=== PATIENT | female | born 1955 | race Caucasian/White ===

== ENCOUNTER → 2024-05-30 12:35 | Outpatient (REF) | payer MEDICARE, OTHER, SELFPAY | LOC: RAD 12:35 | PROVIDERS: ATTENDING PHYSICIAN Surgery Vascular Surgery; FAMILY PHYSICIAN Internal Medicine | DX: I73.9 Peripheral vascular disease, unspecified (principal); I87.2 Venous insufficiency (chronic) (peripheral); Z89.511 Acquired absence of right leg below knee; T82.598A Other mechanical complication of other cardiac and vascular devices and implants, initial encounter; T82.858A Stenosis of other vascular prosthetic devices, implants and grafts, initial encounter; Y82.8 Other medical devices associated with adverse incidents | CPT/HCPCS: 93922; 93925; 93971 ==

== ENCOUNTER → 2024-09-02 10:27 | Outpatient (REF) | payer OTHER, MEDICARE, SELFPAY | LOC: RAD 10:27 | PROVIDERS: ATTENDING PHYSICIAN Physician Assistant; FAMILY PHYSICIAN Internal Medicine | DX: I87.2 Venous insufficiency (chronic) (peripheral) (principal) | CPT/HCPCS: 93922; 93925; 93971 ==

== ENCOUNTER 2024-09-02 19:05 | Inpatient (IN) | payer MEDICARE, OTHER, SELFPAY ==
[2024-09-02 13:39] VITALS: BP 131/68
--- NOTE | 2024-09-02 13:45 | ED.GENMED ---
ED Provider Triage
<Bryce Gregg PA-C - Last Filed: 09/02/24 13:47>
-
Patient seen by provider in Triage?: Seen in Triage
Attestation: A medical screening examination has been initiated by a qualified medical provider. Based on the assessment performed at this time, it has been determined that an emergent medical condition may exist and the patient has been informed
that further medical evaluation and possible additional diagnostic testing may be needed.
HPI: 69-year-old female with multiple medical comorbidities presents upon referral from vascular surgery, in summary she is a new patient vascular surgery and had ultrasounds performed in the office showing a new DVT despite being on Eliquis for
A-fib as well as an occluded bypass graft in the left lower extremity. Will require admission for heparin and vascular intervention tomorrow
GENERAL: Alert , in no apparent distress
EYE: No visual abnormalities.
NECK: Trachea midline
ENT: No visible abnormalities.
LUNGS: No acute respiratory distress
NEUROLOGICAL: Alert and oriented
SKIN: Skin intact. No visible changes.
MUSCULOSKELETAL: Moving extremities normally
PSYCH: Normal and appropriate interaction.
This is a medical evaluation conducted in person to initiate diagnostic evaluation and provide initial therapeutics. Please see further documentation by the treating clinician.
History of Present Illness
<Bryce Gregg PA-C - Last Filed: 09/02/24 13:47>
General
Chief Complaint: Skin Problem
Time Seen by Provider: 09/02/24 16:02
<Winston Shook Jr., PA-C - Last Filed: 09/02/24 16:43>
General
Source: patient
Exam Limitations: none
Nursing documentation reviewed up to this point in time: agreed with
History of Present Illness
History of Present Illness:
69-year-old female past medical history of A-fib currently on Eliquis also diabetic and anemic presenting to the emergency department after being sent in by vascular surgery with concerns of bypass occlusion to the left leg as well as new DVT.
Vascular has already seen the patient as well as rapid assessment of the patient. Vascular surgery is recommending starting heparin and admitting n.p.o. midnight for potential procedure tomorrow. Also recommending hematology consultation as well
as wound care consultation
Review of Systems
<Wniston Shook Jr., PA-C - Last Filed: 09/02/24 16:43>
Review of Systems
Allergies reviewed?: Yes
All Other Systems: ROS reviewed and negative except as documented in HPI and ROS
Phy Exam
<Winston Shook Jr., PA-C - Last Filed: 09/02/24 16:43>
Physical Exam
Physical Exam:
GENERAL: Alert , in no apparent distress
EYE: pupils equal and reactive
NECK: Supple, no significant adenopathy.
ENT: o/p clr, mmm.
CARDIAC: Regular rate and rhythm .
LUNGS: Clear breath sounds bilaterally, no acute respiratory distress, no wheezes/rales/rhonchi
ABDOMEN: Soft, without focal tenderness, no r/g, no cvat
NEUROLOGICAL: Alert and oriented, no focal neuro deficits
SKIN: Warm and dry, skin intact.
MUSCULOSKELETAL: BKA right leg, left leg red swelling to
PSYCH: Normal and appropriate interaction.
Course
<Bryce Gregg PA-C - Last Filed: 09/02/24 13:47>
Orders/Labs/Results
Orders:
Orders
09/02/24 13:50
Complete Blood Count/With Diff Urgent
Comprehensive Metabolic Panel Urgent
PTT Urgent
Prothrombin Time Urgent
Abnormal Lab Results
09/02/24
13:50
RBC 3.31 L 10^6/uL
(4.20-5.40)
Hgb 9.9 L g/dL
(12.0-16.0)
Hct 30.9 L %
(37.0-47.0)
MCHC 32.0 L g/dL
(33.0-37.0)
Abs Immat Gran (auto) 0.1 H 10^3/uL
(0-0.05)
Absolute Lymphs (auto) 0.8 L 10^3/uL
(1.2-3.4)
Absolute Monos (auto) 0.8 H 10^3/uL
(0.1-0.6)
Immature Gran % 0.9 H %
(0-0.5)
Lymphocytes % 11.4 L %
(20.5-51.1)
Monocytes % 11.4 H %
(1.7-9.3)
PT 24.0 H Sec
(11.4-14.6)
BUN 28 H mg/dl
(7-17)
Creatinine 2.2 H mg/dL
(0.6-1.0)
Glucose 151 H mg/dl
(70-99)
Total Protein 6.2 L g/dl
(6.3-8.2)
Albumin 3.4 L g/dl
(3.5-5.0)
09/02/24 13:50
09/02/24 13:50
Vital Signs
Initial and Last Documented VS:
Initial Vital Signs
Temp Pulse Resp BP Pulse Ox
98.2 F 85 20 131/68 96
09/02/24 13:39 09/02/24 13:39 09/02/24 13:39 09/02/24 13:39 09/02/24 13:39
Last Documented Vital Signs
Temp Pulse Resp BP Pulse Ox
98.2 F 68 18 144/82 96
09/02/24 13:39 09/02/24 16:13 09/02/24 16:13 09/02/24 16:13 09/02/24 16:13
<Winston Shook Jr., PA-C - Last Filed: 09/02/24 16:43>
Orders/Labs/Results
Orders:
Orders
09/02/24 13:50
Complete Blood Count/With Diff Urgent
Comprehensive Metabolic Panel Urgent
PTT Urgent
Prothrombin Time Urgent
Abnormal Lab Results
09/02/24
13:50
RBC 3.31 L 10^6/uL
(4.20-5.40)
Hgb 9.9 L g/dL
(12.0-16.0)
Hct 30.9 L %
(37.0-47.0)
MCHC 32.0 L g/dL
(33.0-37.0)
Abs Immat Gran (auto) 0.1 H 10^3/uL
(0-0.05)
Absolute Lymphs (auto) 0.8 L 10^3/uL
(1.2-3.4)
Absolute Monos (auto) 0.8 H 10^3/uL
(0.1-0.6)
Immature Gran % 0.9 H %
(0-0.5)
Lymphocytes % 11.4 L %
(20.5-51.1)
Monocytes % 11.4 H %
(1.7-9.3)
PT 24.0 H Sec
(11.4-14.6)
BUN 28 H mg/dl
(7-17)
Creatinine 2.2 H mg/dL
(0.6-1.0)
Glucose 151 H mg/dl
(70-99)
Total Protein 6.2 L g/dl
(6.3-8.2)
Albumin 3.4 L g/dl
(3.5-5.0)
09/02/24 13:50
09/02/24 13:50
Vital Signs
Initial and Last Documented VS:
Initial Vital Signs
Temp Pulse Resp BP Pulse Ox
98.2 F 85 20 131/68 96
09/02/24 13:39 09/02/24 13:39 09/02/24 13:39 09/02/24 13:39 09/02/24 13:39
Last Documented Vital Signs
Temp Pulse Resp BP Pulse Ox
98.2 F 68 18 144/82 96
09/02/24 13:39 09/02/24 16:13 09/02/24 16:13 09/02/24 16:13 09/02/24 16:13
<Winston Shook Jr., PA-C - Last Filed: 09/02/24 16:43>
MDM/Problems Addressed
MDM/Problems Addressed:
69-year-old female presenting to the emergency department with concerns of new DVT despite being on Eliquis as well as bypass graft occlusion that was found at an outpatient vascular surgery follow-up today with Dr. Rivera. Here patient in no obvious
distress vital signs are normal. Labs showing elevated creatinine level however patient does have kidney disease by self-report. Plan to admit for heparin and further specialty consultation.
<Winston Shook Jr., PA-C - Last Filed: 09/02/24 16:43>
*Critical Care Note
Total Time (30-74mins, 75-104mins- exclusive of procedures): Not Applicable
ED Attending Note
<Bryce Gregg PA-C - Last Filed: 09/02/24 13:47>
-
Portions of this chart may have been created with voice recognition software.� Occasional wrong word or��sound alike� substitutions may have occurred due to the inherent limitations of voice recognition software.
Discharge Plan
Departure
Patient Disposition: Admit
Date of Disposition: 09/02/24
Time of Disposition: 16:42
Admit to: Telemetry
Admit to doctor: Veldanda
Presentation/result/management discussed w/ accepting MD/DO: Hospitalist
Patient with high blood pressure during this ER visit?: No
Condition: Good
Covid-19: Not Applicable
Discharge Problem:
DVT (deep venous thrombosis), Leg graft occlusion
Prescriptions:
No Action
acetaminophen [Tylenol] 325 mg Tablet
975 mg PO Q8H MDD 3000 mg
acetaminophen [Tylenol] 325 mg Tablet
650 mg PO Q6HPRN MDD 3000 mg PRN (Reason: mold pain/fever >100.4)
ipratropium-albuterol 0.5 mg-3 mg(2.5 mg base)/3 mL Solution For Nebulization
3 ml INHALATION R TID
ammonium lactate 12 % Lotion
1 applic TOPICAL TID
atorvastatin 10 mg Tablet
10 mg PO HS
guaifenesin 100 mg/5 mL Liquid
200 mg PO Q4HPRN PRN (Reason: cough)
lamotrigine 25 mg Tablet
50 mg PO HS
levothyroxine 100 mcg Tablet
100 mcg PO HS
magnesium hydroxide [Milk of Magnesia] 400 mg/5 mL Suspension
30 ml PO DAILYPRN PRN (Reason: constipation)
tamsulosin 0.4 mg Capsule
0.4 mg PO DAILY
trazodone 100 mg Tablet
100 mg PO HS
sodium bicarbonate 650 mg Tablet
1,300 mg PO BID
bisacodyl 10 mg Suppository
10 mg CO DAILYPRN PRN (Reason: if mom ineffective)
pantoprazole 40 mg Tablet,Delayed Release (Dr/Ec)
40 mg PO DAILY
ferrous sulfate 325 mg (65 mg iron) Tablet
325 mg PO DAILY
Enema 19-7 gram/118 mL Enema
118 ml CO DAILYPRN PRN (Reason: if no result aftr bisacodyl)
gabapentin 300 mg Capsule
300 mg PO BID
aspirin 81 mg Tablet,Chewable
81 mg PO DAILY
folic acid 1 mg Tablet
1 mg PO DAILY
nystatin 100,000 unit/gram Powder
1 applic TOPICAL BID
oxycodone 5 mg Tablet
5 mg PO Q6HPRN PRN (Reason: mod-severe pain)
Saccharomyces boulardii 250 mg Capsule
250 mg PO BID
pregabalin 50 mg Capsule
50 mg PO BID
melatonin 5 mg Tablet
10 mg PO HS
cholecalciferol (vitamin D3) [Vitamin D3] 50 mcg (2,000 unit) Tablet
50 mcg PO HS
Eliquis 5 mg Tablet
5 mg PO BID
alogliptin 6.25 mg Tablet
6.25 mg PO DAILY
Interventions
Interventions:
*Risk Screen - Suicide Last Done: 09/02/24 13:39
*General Assessment Last Done: 09/02/24 16:13
*Neglect/Abuse Screening Last Done: 09/02/24 16:13
ED-Skin Assessment Last Done: 09/02/24 16:13
Discharge Date and Time
Print Language: MALAWIAN
[2024-09-02 13:55] LABS: % Basophils 0.4 % (0-2); % Eosinophils 5.3 % (0-6); % Immature Granulocytes 0.9 % (0-0.5); % Lymphocytes 11.4 % (20.5-51.1); % Monocytes 11.4 % (1.7-9.3); % Neutrophils 70.6 % (42.2-75.2); Absolute Eosinophils 0.4 10^3/uL (0-0.7); Absolute Immature Granulocytes 0.1 10^3/uL (0-0.05); Absolute Lymphocytes 0.8 10^3/uL (1.2-3.4); Absolute Monocytes 0.8 10^3/uL (0.1-0.6); Absolute Neutrophils 4.8 10^3/uL (1.4-6.5); Hematocrit 30.9 % (37.0-47.0); Hemoglobin 9.9 g/dL (12.0-16.0); Mean Corpuscular Hgb 29.9 pg (27.0-31.0); Mean Corpuscular Volume 93.4 fL (81.0-99.0); Mean Platelet Volume 9.1 fL (7.4-10.4); Nucleated Red Blood Cells % 0 %; Platelet Count 145 10^3/uL (130-400); Red Blood Cell Count 3.31 10^6/uL (4.20-5.40); Red Cell Dist. Width 14.5 % (11.5-14.5); White Blood Cell Count 6.8 10^3/uL (4.8-10.8)
[2024-09-02 14:06] LABS: INR 2.17
[2024-09-02 14:07] LABS: APTT 34.9 Sec (23.4-35.0)
[2024-09-02 14:30] LABS: ALT (SGPT) 13 U/L (0-35); AST (SGOT) 17 U/L (14-36); Albumin 3.4 g/dl (3.5-5.0); Alkaline Phosphatase 90 U/L (38-126); Blood Urea Nitrogen 28 mg/dl (7-17); Calcium 8.9 mg/dl (8.4-10.2); Carbon Dioxide 23 mmol/L (22-30); Chloride 105 mmol/L (98-107); Glucose 151 mg/dl (70-99); Potassium 4.3 mmol/L (3.5-5.1); Sodium 140 mmol/L (135-145); Total Bilirubin 0.4 mg/dl (0.2-1.3); Total Protein 6.2 g/dl (6.3-8.2); eGFR 23.97
--- NOTE | 2024-09-02 16:09 | W.PN.UPDATE ---
Update Note
Progress Note Update
Patient was seen today in our vascular surgery office with Dr. Chadd Rivera, please see note below.
Plan:
Recommend admitting to medicine team for medical management of chronic conditions
Recommend initiation of heparin infusion for DVT, will consider patient Eliquis failure
Recommend hematology consultation given development of DVT while on anticoagulation
Wound care consultation
Will add to the OR schedule for tomorrow for angiogram of left lower extremity with Dr. Chadd Rivera
N.p.o. at midnight
[2024-09-02 16:13] VITALS: BP 144/82
[2024-09-02 17:04] VITALS: BP 123/72
[2024-09-02 17:08] VITALS: BMI 31.4
--- NOTE | 2024-09-02 18:41 | HPS.HSE ---
Family Physician
-
Family Physician: Cedrick Pugh, DO
Chief Complaint
-
left leg pain
History of Present Illness
69-year-old female past medical history of PAD, paroxysmal atrial fibrillation on Eliquis, diabetes, anemia, tubulointerstitial nephritis, CKD 4, rosacea, GERD, hypothyroidism, hyperlipidemia, anxiety/depression, polyneuropathy, presenting as a
referral from vascular surgery. She has been having left lower extremity pain for the past few weeks. She had vascular ultrasound showing new DVT despite being on Eliquis as well as occluded bypass graft and left lower extremity. She has a wound
of her left lower extremity
He denies smoking alcohol use.
Medical History
Past Medical History
Past Medical History: Reports Other (PAD, paroxysmal atrial fibrillation on Eliquis, diabetes, anemia, tubulointerstitial nephritis, CKD 4, rosacea, GERD, hypothyroidism, hyperlipidemia, anxiety/depression, polyneuropathy)
Past Surgical History: Reports None
Social History
Tobacco: Non-smoker
Alcohol: None
Drug: None
Family History
Family History: Not pertinent
Allergies / Home Medications
Allergies reflects when Allergies were last updated in [employer].
Home Medications with original date entered in [employer]
Allergy/Medication List:
Allergies
Allergy/AdvReac Type Severity Reaction Status Date / Time
No Known Allergies Allergy Unverified 09/02/24 13:39
Home Medications
Saccharomyces boulardii 250 mg capsule 250 mg PO BID 09/02/24
acetaminophen 325 mg tablet (Tylenol) 650 mg PO Q6HPRN PRN mold pain/fever >100.4 09/02/24
acetaminophen 325 mg tablet (Tylenol) 975 mg PO Q8H 09/02/24
alogliptin 6.25 mg tablet 6.25 mg PO DAILY 09/02/24
ammonium lactate 12 % lotion 1 applic topical TID left leg 09/02/24
apixaban 5 mg tablet (Eliquis) 5 mg PO BID 09/02/24
aspirin 81 mg chewable tablet 81 mg PO DAILY 09/02/24
atorvastatin 10 mg tablet 10 mg PO HS 09/02/24
bisacodyl 10 mg rectal suppository 10 mg [place] DAILYPRN PRN if mom ineffective 09/02/24
cholecalciferol (vitamin D3) 50 mcg (2,000 unit) tablet (Vitamin D3) 50 mcg PO HS 09/02/24
ferrous sulfate 325 mg (65 mg iron) tablet 325 mg PO DAILY 09/02/24
folic acid 1 mg tablet 1 mg PO DAILY 09/02/24
gabapentin 300 mg capsule 300 mg PO BID 09/02/24
guaifenesin 100 mg/5 mL oral liquid 200 mg PO Q4HPRN PRN cough 09/02/24
ipratropium 0.5 mg-albuterol 3 mg (2.5 mg base)/3 mL nebulization soln 3 ml inhalation R TID 09/02/24
lamotrigine 25 mg tablet 50 mg PO HS 09/02/24
levothyroxine 100 mcg tablet 100 mcg PO HS 09/02/24
magnesium hydroxide 400 mg/5 mL oral suspension (Milk of Magnesia) 30 ml PO DAILYPRN PRN constipation 09/02/24
melatonin 5 mg tablet 10 mg PO HS 09/02/24
nystatin 100,000 unit/gram topical powder 1 applic topical BID breasts, abdomen, groin 09/02/24
oxycodone 5 mg tablet 5 mg PO Q6HPRN PRN mod-severe pain 09/02/24
pantoprazole 40 mg tablet,delayed release 40 mg PO DAILY 09/02/24
pregabalin 50 mg capsule 50 mg PO BID 09/02/24
sodium bicarbonate 650 mg tablet 1,300 mg PO BID 09/02/24
sodium phosphates 19 gram-7 gram/118 mL enema (Enema) 118 ml [place] DAILYPRN PRN if no result aftr bisacodyl 09/02/24
tamsulosin 0.4 mg capsule 0.4 mg PO DAILY 09/02/24
trazodone 100 mg tablet 100 mg PO HS 09/02/24
Review of Systems
-
History Source: Patient
A 12 point ROS was completed and negative except as noted: Yes
Constitutional: Reports No Symptoms
EENT: Reports No Symptoms
Respiratory: Reports No Symptoms
Cardiac: Reports No Symptoms
Abdomen/GI: Reports No Symptoms
: Reports No Symptoms
Musculoskeletal: Reports No Symptoms
Skin: Reports No Symptoms
Neurological: Reports No Symptoms
Endocrine: Reports No Symptoms
Hematologic/Lymphatic: Reports No Symptoms
Psych: Reports No Symptoms
Physical Exam
Vital Signs
Vital Signs
Temp Pulse Resp BP Pulse Ox
98.2 F 71 18 123/72 96
09/02/24 13:39 09/02/24 17:04 09/02/24 17:04 09/02/24 17:04 09/02/24 17:04
Physical Exam
General: Well Developed, Well Nourished and No Apparent Distress
HEENT: NormoCephalic, Moist mucous membranes and Atraumatic
Respiratory: Clear
Cardiac: S1/S2 and Regular Rhythm; No Murmur or Rub
GI: Soft, Non Tender, Non Distended and Normal Bowel Sounds; No Organomegaly
Rectal: Deferred by Provider
Musculoskeletal: No Clubbing, No Cyanosis and No Edema
Skin: No Rash
Neuro: Nonfocal/grossly intact
Laboratory Results
-
09/02/24 13:50
Laboratory Results
PT 24.0 Sec (11.4-14.6) H 09/02/24 13:50
INR 2.17 09/02/24 13:50
APTT 34.9 Sec (23.4-35.0) 09/02/24 13:50
Total Bilirubin 0.4 mg/dl (0.2-1.3) 09/02/24 13:50
AST 17 U/L (14-36) 09/02/24 13:50
ALT 13 U/L (0-35) 09/02/24 13:50
Alkaline Phosphatase 90 U/L (38-126) 09/02/24 13:50
Data Reviewed
-
Lab Data: Labs Reviewed by me
Old Records: Reviewed
Impression/Plan
-
IMPRESSION:
PLAN:
# DVT of left thigh while on Eliquis
# Occluded bypass graft of left lower extremity
# History of PAD status post bypass of left lower extremity 4 years ago
-N.p.o. postmidnight for angiogram tomorrow
-Heparin drip
-Vascular following
-Hematology consulted
-Wound care consulted for superficial wound of left lower extremity
History of right BKA
Paroxysmal atrial fibrillation
-Heparin drip
Peripheral arterial disease
-Continue aspirin, statin
Type 2 diabetes
-Hold alogliptin
-Insulin sliding scale
Diabetic neuropathy
-Continue gabapentin
Chronic anemia
CKD 4
-Creatinine of 2.2, no previous lab work available
-Continue sodium bicarbonate
History of renal calculi
GERD
-Continue Protonix
Hypothyroidism
-Continue levothyroxine
Hyperlipidemia
Anxiety/depression
Full code
DVT prophylaxis-heparin drip
N.p.o. past midnight
[2024-09-02] MEDS: HEPARIN 25000 UNITS/250 ML IV (19:54)
[2024-09-02 19:55] VITALS: BP 124/66
[2024-09-02 21:00] VITALS: BP 148/75; BMI 30.3
[2024-09-02] MEDS: SODIUM BICARBONATE 1300 MG PO (21:24)
[2024-09-02] MEDS: LAMICTAL 50 MG PO (21:25)
[2024-09-02] MEDS: VITAMIN D3 (cholecalciferol) 50 MCG PO (21:27)
[2024-09-02] MEDS: SYNTHROID 100 MCG PO (21:27)
[2024-09-02] MEDS: DESYREL 100 MG PO (21:27)
[2024-09-02] MEDS: LIPITOR 10 MG PO (21:28)
[2024-09-02] MEDS: MELATONIN 10 MG PO (21:28)
[2024-09-02] MEDS: FLORASTOR 250 MG PO (21:29)
[2024-09-02] MEDS: LAC HYDRIN, AM LACTIN LOTION 1 APPLIC TOPICAL (21:30)
[2024-09-02] MEDS: DESENEX/MITRAZOL/ZEASORB 1 APPLIC TOPICAL (21:31)
[2024-09-02 21:35] LABS: Glucose - Point of Care 115 mg/dl (70-99)
[2024-09-02] MEDS: ROXICODONE 5 MG PO (21:37)
--- NOTE | 2024-09-02 21:45 | TRANSFER ---
pt arrived via stretcher from ED accompanied by staff from ED. pt was a pullover from stretcher to bed. VSS, AAOx3. pt was on heparin gtt upon arrival infusing at 1600 units. pt oriented to room, call willams within reach, plan of care ongoing.
[2024-09-02] MEDS: NEURONTIN 300 MG PO (21:50)
[2024-09-02] MEDS: DUONEB 3 ML INH (21:54)
[2024-09-02 23:32] VITALS: BP 115/57
[2024-09-02 23:41] LABS: Hematocrit 28.1 % (37.0-47.0); Hemoglobin 9.2 g/dL (12.0-16.0); Mean Corp Hgb Conc. 32.7 g/dL (33.0-37.0); Mean Corpuscular Hgb 30.4 pg (27.0-31.0); Mean Corpuscular Volume 92.7 fL (81.0-99.0); Mean Platelet Volume 9.3 fL (7.4-10.4); Platelet Count 129 10^3/uL (130-400); Red Blood Cell Count 3.03 10^6/uL (4.20-5.40); Red Cell Dist. Width 14.4 % (11.5-14.5); White Blood Cell Count 5.5 10^3/uL (4.8-10.8)
[2024-09-02] MEDS: TYLENOL 975 MG PO (23:59)
[2024-09-03] VITALS (14 sets, daily range): BP systolic 102–139; BP diastolic 56–91; BMI 30.3
[2024-09-03 02:42] LABS: APTT 196.8 Sec (23.4-35.0)
[2024-09-03] MEDS: TYLENOL 650 MG PO (03:03)
[2024-09-03 06:18] LABS: Glucose - Point of Care 90 mg/dl (70-99)
[2024-09-03 07:24] LABS: % Basophils 0.5 % (0-2); % Eosinophils 9.5 % (0-6); % Immature Granulocytes 0.7 % (0-0.5); % Lymphocytes 21.5 % (20.5-51.1); % Monocytes 11.1 % (1.7-9.3); % Neutrophils 56.7 % (42.2-75.2); Absolute Eosinophils 0.4 10^3/uL (0-0.7); Absolute Monocytes 0.5 10^3/uL (0.1-0.6); Absolute Neutrophils 2.5 10^3/uL (1.4-6.5); Hematocrit 29.1 % (37.0-47.0); Hemoglobin 9.3 g/dL (12.0-16.0); Mean Corpuscular Hgb 30.4 pg (27.0-31.0); Mean Corpuscular Volume 95.1 fL (81.0-99.0); Mean Platelet Volume 9.5 fL (7.4-10.4); Nucleated Red Blood Cells % 0 %; Platelet Count 129 10^3/uL (130-400); Red Blood Cell Count 3.06 10^6/uL (4.20-5.40); Red Cell Dist. Width 14.4 % (11.5-14.5); White Blood Cell Count 4.4 10^3/uL (4.8-10.8)
[2024-09-03] MEDS: DUONEB 3 ML INH ×2 (07:48→19:15)
[2024-09-03 08:15] LABS: Glycohemoglobin (HgbA1c) 5.7 % (4.0-5.6)
[2024-09-03] MEDS: NOVOLOG FLEXPEN-LOW RESISTANCE SC ×3 (09:18→18:54)
[2024-09-03] MEDS: DESENEX/MITRAZOL/ZEASORB 1 APPLIC TOPICAL (09:20)
[2024-09-03] MEDS: PROTONIX 40 MG PO (09:21)
[2024-09-03] MEDS: LAC HYDRIN, AM LACTIN LOTION 1 APPLIC TOPICAL ×2 (09:21→20:20)
[2024-09-03] MEDS: NEURONTIN 300 MG PO ×2 (09:21→20:16)
[2024-09-03] MEDS: FLORASTOR 250 MG PO ×2 (09:22→20:16)
[2024-09-03] MEDS: FOLVITE 1 MG PO (09:22)
[2024-09-03] MEDS: SODIUM BICARBONATE 1300 MG PO ×2 (09:22→20:16)
[2024-09-03] MEDS: FLOMAX 0.4 MG PO (09:22)
[2024-09-03] MEDS: TYLENOL 975 MG PO ×2 (09:22→23:35)
[2024-09-03] MEDS: LOW STRENGTH ASPIRIN 81 MG PO (09:22)
[2024-09-03] MEDS: FEOSOL 325 MG PO (09:22)
--- NOTE | 2024-09-03 10:25 | WOUNDNOTE ---
HAIDER RN note: Patient admitted with DVT and L graft Occlusion.
See H&P for complete history. From [facility].
PMH: R BKA, A Fib, UTI, stress incontinence, DM, Skin cancer, Sepsis, anxiety and depression.
Wound Location and type/assessment: Patient admitted with: L medial leg arterial ulcer, Full thickness, Dry red mixed with moderate dry slough. Does not appear infected, scant drainage no odor. + pulse audible with Doppler. Skin warm and dry,
Ammonia Lactate lotion on order. L heel intact, R BKA intact small dry red abrasion, anterior lateral. Patient able to turn self, incontinent of urine. Sacrum intact, brief changed, ties loose. R medial thigh has linear red abrasion, no drainage.
Fungal powder on order for mild MASD in skin folds. Reviewed vascular note.
Appetite: NPO
Pressure redistribution devices in place: On Versa care air bed. Turns easily.
Plan: Patient for Angiogram tomorrow per vascular note. Will order Santyl to start tomorrow to L leg wound. Today applied adaptic, abd pad and neymar. Adhesive foam applied to L heel and air cushion on pillow under calve. R medial thigh skin prep and
Exuderm thin applied. Skin care given and brief changed, fungal powder applied to buttocks. Spoke to nurse Parrish who was made aware of the above and asked to apply Purwick for urinary incontinence.
Will confirm orders with hospitalist and update care plan, follow as needed.
Note to case management of equipment requested for discharge: None.
Recommend follow up with Vascular group.
--- NOTE | 2024-09-03 10:57 | W.PN.HOSP.TC ---
Today's Communication/Plan
-
see outlined plan
Assessment / Plan
Assessment / Plan
Assessment:
Occluded bypass graft of left lower extremity
History of PAD status post bypass of left lower extremity 4 years ago, on Eliquis
- NPO p MN for angiogram today with Vascular service
- continue IV heparin - requires intensive monitoring of PTT levels
Acute DVT
- US: nonocclusive thrombus formation in the left superficial femoral vein and popliteal vein
- with development of above occlusion, deeming this Eliquis failure
- Hematology consulted for recs on changing anticoagulation
L medial leg arterial ulcer, Full thickness, Dry red mixed with moderate dry slough. scant drainage no odor.
R BKA intact small dry red abrasion, anterior lateral.
R medial thigh has linear red abrasion, no drainage.
- all present on arrival
- follow wound care recs
History of right BKA
Paroxysmal atrial fibrillation
- continue IV heparin - requires intensive monitoring of PTT levels
Peripheral arterial disease
- continue aspirin, statin
Type 2 diabetes
- hold alogliptin
- insulin sliding scale
Diabetic neuropathy
- continue gabapentin/pregabalin
Chronic anemia
CKD 4 suspected
- creatinine of 2.2, no previous lab work available
- continue sodium bicarbonate
History of renal calculi
- continue Flomax
GERD
- continue Protonix
Hypothyroidism
- continue levothyroxine
Hyperlipidemia - statin
Anxiety/depression
- continue Trazodone/Lamictal
DVT ppx: IV heparin
Code: Full
Anticipated Discharge: > 48 hours
Subjective/Interval History
-
Date of Service: September 03, 2024
denies any new complaints
Objective Data
-
Labs:
Laboratory Results
09/02/24 09/02/2424
21:02 23:28 02:02
WBC 5.5
Hgb 9.2 L
Hct 28.1 L
Plt Count 129 L
APTT Cancelled 196.8 H*
Sodium
Potassium
Chloride
Carbon Dioxide
BUN
Creatinine
Glucose
Calcium
Total Bilirubin
AST
ALT
Alkaline Phosphatase
09/03/24 09/03/24
07:15 09:57
WBC 4.4 L
Hgb 9.3 L
Hct 29.1 L
Plt Count 129 L
APTT 141.0 H
Sodium Pending
Potassium Pending
Chloride Pending
Carbon Dioxide Pending
BUN Pending
Creatinine Pending
Glucose Pending
Calcium Pending
Total Bilirubin Pending
AST Pending
ALT Pending
Alkaline Phosphatase Pending
Vital Signs:
Vital Signs
Temp Pulse Resp BP Pulse Ox
97.4 F 66 18 102/56 94
09/03/24 08:04 09/03/24 08:04 09/03/24 08:04 09/03/24 08:04 09/03/24 08:04
I&O
09/02/24 09/03/24 09/04/24
06:59 06:59 06:59
Intake Total 0 / 0
Balance 0 / 0
Physical Exam
-
General: No Apparent Distress
HEENT: Normocephalic and Atraumatic
Respiratory: Negative Wheezes
Cardiac: Regular Rhythm and S1/S2
GI: Soft
Genito-urinary: No Costovertebral Tender
Musculoskeletal: No Edema and Other (RLE BKA)
Neuro: AO x 3
Hematologic / Lymphatic: No Lymphadenopathy
Psych: Calm
Data Reviewed
-
Total Time Spent with Patient (in minutes): 51
Labs: Labs Reviewed by me
[2024-09-03] MEDS: ROXICODONE 5 MG PO (11:09)
[2024-09-03 11:18] LABS: ALT (SGPT) 11 U/L (0-35); AST (SGOT) 20 U/L (14-36); Albumin 2.6 g/dl (3.5-5.0); Alkaline Phosphatase 80 U/L (38-126); Blood Urea Nitrogen 27 mg/dl (7-17); Calcium 8.7 mg/dl (8.4-10.2); Carbon Dioxide 23 mmol/L (22-30); Chloride 110 mmol/L (98-107); Estimated Creatinine Clearance 28 ml/min; Glucose 84 mg/dl (70-99); Potassium 4.3 mmol/L (3.5-5.1); Sodium 144 mmol/L (135-145); Total Bilirubin 0.4 mg/dl (0.2-1.3); Total Protein 5.2 g/dl (6.3-8.2); eGFR 23.97
[2024-09-03 12:29] LABS: Glucose - Point of Care 111 mg/dl (70-99)
[2024-09-03 14:57] LABS: Glucose - Point of Care 95 mg/dl (70-99)
--- NOTE | 2024-09-03 15:25 | W.SUR.PREOP ---
Pre-Operative Surgical Note
-
I have examined this patient prior to the performance of the scheduled procedure.
The patient's condition is unchanged from the time of the current History and
Physical and the patient is able to undergo the scheduled procedure.
[2024-09-03] MEDS: LAC HYDRIN, AM LACTIN LOTION TOPICAL (16:39)
[2024-09-03] MEDS: TYLENOL PO (16:39)
--- NOTE | 2024-09-03 16:48 | W.SUR.POST ---
Surgical Immediate Post Op
Note
Pre Op Diagnosis: PAD
Post Op Diagnosis: PAD
Procedure Performed: LLE angiogram, balloon angioplasty distal and proximal anastomoses
Primary Surgeon: Miguel
Anesthesia: local and sedation
Estimated Blood Loss: <2cc
Fluids: see anesthesia flow sheet
Drains/Shunts: none
Specimens/Cultures: none
Doppler/Duplex/Angio (Y/N): Y
Complications: none
Operative Findings: successful endovascular intervention
[2024-09-03 17:39] LABS: Glucose - Point of Care 105 mg/dl (70-99)
[2024-09-03] MEDS: DUONEB INH (18:06)
--- NOTE | 2024-09-03 18:44 | PTCARENOTE ---
pt back from brine room laborer s/p left LE angioplasty. pt AAO*3, Vss, room air. denies any pain. pt is in ther room. bedrest. call willams within the reach.
[2024-09-03] MEDS: NSS 1000 IV (18:46)
[2024-09-03 18:50] LABS: Glucose - Point of Care 112 mg/dl (70-99)
[2024-09-03] MEDS: MELATONIN 10 MG PO (20:16)
[2024-09-03] MEDS: LAMICTAL 50 MG PO (20:17)
[2024-09-03] MEDS: VITAMIN D3 (cholecalciferol) 50 MCG PO (20:17)
[2024-09-03] MEDS: DESYREL 100 MG PO (20:17)
[2024-09-03] MEDS: SYNTHROID 100 MCG PO (20:17)
[2024-09-03] MEDS: LIPITOR 10 MG PO (20:17)
[2024-09-03] MEDS: DESENEX/MITRAZOL/ZEASORB TOPICAL (20:32)
[2024-09-03 21:21] LABS: Glucose - Point of Care 107 mg/dl (70-99)
[2024-09-03 22:08] LABS: APTT 36.2 Sec (23.4-35.0)
[2024-09-03] MEDS: HEPARIN 7300 UNITS IV (23:16)
[2024-09-03] MEDS: HEPARIN 25000 UNITS/250 ML IV (23:20)
[2024-09-04] VITALS (8 sets, daily range): BP systolic 107–143; BP diastolic 53–92; PULSE 92–93; O2SAT 94–95
[2024-09-04] MEDS: ROXICODONE 5 MG PO ×3 (02:57→21:26)
[2024-09-04 03:09] LABS: Hepatitis C Antibody Negative (Negative)
[2024-09-04] MEDS: NSS 1000 IV ×2 (03:30→16:52)
[2024-09-04] MEDS: ROBITUSSIN 200 MG PO ×2 (04:31→21:32)
[2024-09-04] MEDS: DILAUDID 0.25 MG IV (05:34)
[2024-09-04 06:53] LABS: Hematocrit 29.8 % (37.0-47.0); Hemoglobin 9.6 g/dL (12.0-16.0); Mean Corp Hgb Conc. 32.2 g/dL (33.0-37.0); Mean Corpuscular Hgb 31.8 pg (27.0-31.0); Mean Corpuscular Volume 98.7 fL (81.0-99.0); Mean Platelet Volume 9.5 fL (7.4-10.4); Platelet Count 124 10^3/uL (130-400); Red Blood Cell Count 3.02 10^6/uL (4.20-5.40); Red Cell Dist. Width 14.4 % (11.5-14.5); White Blood Cell Count 4.3 10^3/uL (4.8-10.8)
[2024-09-04 07:11] LABS: Blood Urea Nitrogen 25 mg/dl (7-17); Calcium 8.7 mg/dl (8.4-10.2); Carbon Dioxide 25 mmol/L (22-30); Chloride 110 mmol/L (98-107); Estimated Creatinine Clearance 28 ml/min; Glucose 84 mg/dl (70-99); Potassium 4.3 mmol/L (3.5-5.1); Sodium 146 mmol/L (135-145); eGFR 23.97
[2024-09-04] MEDS: DUONEB 3 ML INH ×3 (07:36→19:51)
[2024-09-04 07:49] LABS: APTT > 200 Sec (23.4-35.0)
--- NOTE | 2024-09-04 07:53 | OR.RPT ---
Operative Report
Operative Report
PROCEDURE DATE: 09/03/2024
Preoperative diagnosis:
1. Chronic limb threatening ischemia left lower extremity.
2. Left lower extremity femoral to anterior tibial artery bypass history, with evidence of stenosis on duplex imaging.
Postoperative diagnosis: Same
Procedure:
1. Duplex assisted right common femoral artery cannulation.
2. Aortogram and pelvic angiogram.
3. Left lower extremity arteriogram with third order vessel catheterization of left anterior tibial artery via right common femoral artery puncture.
4. Balloon angioplasty of distal anastomotic stenosis with 3 mm and 3.5 mm angioplasty balloon.
5. Balloon angioplasty of proximal anastomotic stenosis with 5 mm x 4 cm Bard Lutonix drug-coated balloon.
6. Right femoral angiogram.
7. Supervision and interpretation.
Surgeon: Miguel
Disease Case Manager Rn: None
Complications: None
Anesthesia: Local, sedation
Fluoroscopy:
10.4 min
89 mGy
22.58 Gy.cm2
Indications for procedure:
Chronic limb threatening ischemia with nonhealing left lower extremity wound. Also history of left lower extremity bypass with concern for progressive stenosis at the anastomosis raising concern for eventual graft failure, and potential arterial
insufficiency. Discussed risk/benefit/alternatives of revascularization. I did discuss that based on anatomy, anterior tibial artery revascularization though may not result in full wound healing. She understood all wish to proceed.
Description of procedure:
Patient was identified, brought to the operating room. Placed on the table in the supine position. After the adequate administration of anesthesia, the patient was prepped and draped in the standard surgical fashion. A standard preoperative
timeout was undertaken and everybody was in agreement with the plan.
The right common femoral artery was accessed with a micropuncture kit under direct duplex ultrasound guidance. A 5 Bahamian sheath was then advanced over a 0.035 inch wire, and a alfaro's hook catheter was advanced into the abdominal aorta.
Aortogram and pelvic angiogram was obtained. Findings as follows:
Distal infrarenal aorta and bilateral common and external iliac arteries were patent with no significant stenosis.
Using a floppy angled hydrophilic wire, the left common femoral artery was cannulated and the catheter was advanced. Left lower extremity arteriogram was obtained. Findings as follows:
Common femoral artery: Patent with no significant stenosis.
Profunda femoris artery: Patent with no significant stenosis, relatively high bifurcation of the femoral vessels.
Superficial femoral artery: Patent proximally with patent femoral (SFA) to anterior tibial artery bypass. Shortly beyond the anastomosis (proximal anastomosis) the SFA natively occluded. The bypass remained patent with high-grade proximal
anastomotic stenosis, and a lesser distal anastomotic stenosis.
Popliteal artery: Chronically occluded.
Anterior tibial artery: Patent single-vessel runoff somewhat diseased distally on the foot.
Tibial peroneal trunk: Chronically occluded
Peroneal artery: Chronically occluded
Posterior tibial artery: Chronically occluded
At this point I selectively cannulated the bypass graft (with the assistance of roadmap guidance). I was able to traverse the severe proximal stenosis (proximal anastomosis). The patient was given an appropriate dose of heparin. I then exchanged
for a Storq wire and an up and over 5 Bahamian sheath. Next under roadmap assisted guidance I was able to traverse the distal anastomotic lesser severe stenosis and gain wire access into the anterior tibial artery. I then exchanged for a 0.014 inch
wire and performed balloon angioplasty of the distal anastomotic stenosis with a 3 mm angioplasty balloon. Completion angiogram demonstrated some residual stenosis and therefore I used a 3.5 mm angioplasty balloon. Improved flow was noted, but
there was still some recalcitrant stenosis but I did not wish to go larger with the balloon or to stent given concerns therein. I felt that the residual stenosis was relatively mild as well and there was brisk flow into the runoff anterior tibial
artery. At this point I then exchanged for a Storq wire again. I then used a drug-coated balloon (Bard Lutonix 5 mm x 4 cm) with prolonged inflation at the proximal anastomosis. Completion angiogram demonstrated excellent result with good
resolution of the stenosis and only minimal residual stenosis. Brisk flow into the runoff was noted. At this point I withdrew my sheath to the left external iliac artery. Left femoral angiogram demonstrated good puncture in the left common
femoral artery. Patent left common femoral artery and proximal superficial femoral and profunda femoris artery. At this point the wires and catheters were withdrawn. The sheath was withdrawn and manual pressure was applied to the puncture site.
Protamine was given to reverse the heparin.
The patient tolerated procedure well. She had a good palpable graft pulse and dopplerable proximal DP signal in the foot.
[2024-09-04] MEDS: NOVOLOG FLEXPEN-LOW RESISTANCE SC ×4 (08:00→17:07)
[2024-09-04 08:14] LABS: Glucose - Point of Care 93 mg/dl (70-99)
--- NOTE | 2024-09-04 09:30 | CON.ONC ---
Impression
Impression
LLE DVT developed while on DOAC, currently on heparin gtt
PAD s/p LLE angiogram, balloon angioplasty distal and proximal anastomoses 09/03/2024
MGUS
CKD
AOCKD
Plan
Plan
check iron studies
check APLS panel
with DOAC failure consider UFH/LWMH-> warfarin bridge -timing of bridge TBD by vascular surgery post procedure. OP warfarin management per PCP
OP follow up with Dr. Linda schedule Nov 2024
Hematology will sign off, please reach out for any questions or concerns.
Patient History
History of Present Illness
69 yo F presented to ER at the advice of her vascular surgeon for angiogram of the left lower extremity. She has a LLE wound for which wound care has been consulted. Her LLE US showed a DVT of the left thigh and bend the knee. She apparently
developed a DVT while on DOAC for which she was started on a heparin gtt and hematology was consulted. Admission labs showed WBC 5.5, Hgb 9.2, Hct 28.1, MCV 92.7, platelet count 129,000, BUN 27, creatinine 2.2, and normal LFTs.
She underwent a LLE angiogram, balloon angioplasty distal and proximal anastomoses 09/03/2024 due to chronic limb threatening ischemia left lower extremity. She sees Dr. Linda in the office for management of AOCKD, MGUS (faint band in gamma
region suspicious for monoclonal immunoglobulin on SPEP 2021). Her most recent iron studies in March 2024 showed a ferritin 118, IS 36%, Iron 75, TiBC 209. Her March 2024 FLC showed elevation in kappa and lambda with a normal ratio consistent with
CKD/inflammation and her SPEP had no observed Mspike.
Afebrile, no hypoxia or hypotension. Clinically, she denies overt bleeding. She is using hydromorphone and oxycodone IR prn pain. Denies fever, chills, sob, dhillon, chest pain, palpitations, n/v/d/c or abdominal pain.
Past-Medical/Surgical History
PMH PAD, PAF on DOAC, DM2, tubulointerstitial nephritis, CKD4, rosacea, GERD, hypothyroid, HLD, anxiety, depression, polyneuropathy, MGUS, vitamin D deficency
PSH bypass LLE 2019, R BKA, cystoscopy with laser lithotripsy 2022, wisdom teeth
Social: single, former smoker. denies ETOH
Family: CAD. denies malignancy, bleeding or clotting disorders
Patient Medication
�Medication �Instructions �Recorded �Confirmed �Last Taken �Type
Saccharomyces boulardii 250 mg 250 mg PO BID Gastrointestinal 09/02/24 09/02/24 Unknown History
capsule Issue
acetaminophen 325 mg tablet 650 mg PO Q6HPRN PRN mild 09/02/24 09/02/24 Unknown History
(Tylenol) pain/fever >100.4
acetaminophen 325 mg tablet 975 mg PO Q8H 09/02/24 09/02/24 Unknown History
(Tylenol)
alogliptin 6.25 mg tablet 6.25 mg PO DAILY 09/02/24 09/02/24 Unknown History
ammonium lactate 12 % lotion 1 applic topical TID left leg 09/02/24 09/02/24 Unknown History
apixaban 5 mg tablet (Eliquis) 5 mg PO BID Blood Clot 09/02/24 09/02/24 Unknown History
Prevention/Tx
aspirin 81 mg chewable tablet 81 mg PO DAILY Blood Clot 09/02/24 09/02/24 Unknown History
Prevention/Tx
atorvastatin 10 mg tablet 10 mg PO HS High Cholesterol 09/02/24 09/02/24 Unknown History
bisacodyl 10 mg rectal suppository 10 mg [place] DAILYPRN PRN if mom 09/02/24 09/02/24 Unknown History
ineffective
cholecalciferol (vitamin D3) 50 50 mcg PO HS Supplement 09/02/24 09/02/24 Unknown History
mcg (2,000 unit) tablet (Vitamin
D3)
ferrous sulfate 325 mg (65 mg 325 mg PO DAILY Supplement 09/02/24 09/02/24 Unknown History
iron) tablet
folic acid 1 mg tablet 1 mg PO DAILY Supplement 09/02/24 09/02/24 Unknown History
gabapentin 300 mg capsule 300 mg PO BID Neurological 09/02/24 09/02/24 Unknown History
Condition
guaifenesin 100 mg/5 mL oral liquid 200 mg PO Q4HPRN PRN cough 09/02/24 09/02/24 Unknown History
ipratropium 0.5 mg-albuterol 3 mg 3 ml inhalation R TID 09/02/24 09/02/24 Unknown History
(2.5 mg base)/3 mL nebulization Lung/Breathing Issues
soln
lamotrigine 25 mg tablet 50 mg PO HS 09/02/24 09/02/24 Unknown History
levothyroxine 100 mcg tablet 100 mcg PO HS Thyroid 09/02/24 09/02/24 Unknown History
magnesium hydroxide 400 mg/5 mL 30 ml PO DAILYPRN PRN constipation 09/02/24 09/02/24 Unknown History
oral suspension (Milk of Magnesia)
melatonin 5 mg tablet 10 mg PO HS Sleep 09/02/24 09/02/24 Unknown History
nystatin 100,000 unit/gram topical 1 applic topical BID breasts, 09/02/24 09/02/24 Unknown History
powder abdomen, groin
oxycodone 5 mg tablet 5 mg PO Q6HPRN PRN mod-severe pain 09/02/24 09/02/24 Unknown History
pantoprazole 40 mg tablet,delayed 40 mg PO DAILY Gastrointestinal 09/02/24 09/02/24 Unknown History
release Issue
pregabalin 50 mg capsule 50 mg PO BID Neurological Condition 09/02/24 09/02/24 Unknown History
sodium bicarbonate 650 mg tablet 1,300 mg PO BID 09/02/24 09/02/24 Unknown History
sodium phosphates 19 gram-7 118 ml [place] DAILYPRN PRN if no 09/02/24 09/02/24 Unknown History
gram/118 mL enema (Enema) result aftr bisacodyl
tamsulosin 0.4 mg capsule 0.4 mg PO DAILY Urinary Issue 09/02/24 09/02/24 Unknown History
trazodone 100 mg tablet 100 mg PO HS Mental Health/Anxiety 09/02/24 09/02/24 Unknown History
Active Medications
Generic Name Dose Route Start Last Admin
Trade Name Freq PRN Reason Stop Dose Admin
Acetaminophen 650 mg 09/02/24 20:48 09/03/24 03:03
Acetaminophen 325 Mg Tablet PO 09/30/24 20:47 650 mg
Q6HPRN PRN Administration
mold pain/fever >100.4
Acetaminophen 975 mg 09/03/24 00:00 09/03/24 23:35
Acetaminophen 325 Mg Tablet PO 10/01/24 00:00 975 mg
Q8 CAR Administration
Albuterol/Ipratropium 3 ml 09/02/24 20:48 09/04/24 07:36
Ipratropium 0.5/Albuterol 3 Mg (3 Ml Ampul) INH 3 ml
R TID CAR Administration
Protocol
Ammonium Lactate 0 applic 09/02/24 22:00 09/03/24 20:20
Ammonium Lactate 12% (Lotion) 240 Ml Bottle TOPICAL 09/30/24 21:59 1 applic
TID CAR Administration
Aspirin 81 mg 09/03/24 08:00 09/03/24 09:22
Aspirin 81 Mg Chewable Tablet PO 10/01/24 07:59 81 mg
DAILY CAR Administration
Atorvastatin Calcium 10 mg 09/02/24 22:00 09/03/24 20:17
Atorvastatin (Lipitor) 10 Mg Tablet PO 09/30/24 21:59 10 mg
HS CAR Administration
Bisacodyl 10 mg 09/02/24 20:48
Bisacodyl 10 Mg Rectal Suppository RECTAL 09/30/24 20:47
DAILYPRN PRN
if mom ineffective
Bisacodyl 10 mg 09/03/24 16:46
Bisacodyl 10 Mg Rectal Suppository RECTAL 10/01/24 16:45
DAILYPRN PRN
constipation
Cholecalciferol 50 mcg 09/02/24 22:00 09/03/24 20:17
Cholecalciferol (Vitamin D3) 50 Mcg Tablet (2,000 Units) PO 09/30/24 21:59 50 mcg
HS CAR Administration
Collagenase 0 applic 09/04/24 08:00
Collagenase Ointment 2.5 Gram Jar TOPICAL 10/02/24 07:59
DAILY CAR
Dextrose 12.5 grams 09/02/24 18:40
Dextrose 50% (0.5 Grams/Ml) 50 Ml Syringe IV 09/30/24 18:39
[id number] PRN
hypoglycemia
Protocol
Ferrous Sulfate 325 mg 09/03/24 08:00 09/03/24 09:22
Ferrous Sulfate 325 Mg Tablet PO 10/01/24 07:59 325 mg
DAILY CAR Administration
Folic Acid 1 mg 09/03/24 08:00 09/03/24 09:22
Folic Acid 1 Mg Tablet PO 10/01/24 07:59 1 mg
DAILY CAR Administration
Gabapentin 300 mg 09/02/24 20:48 09/03/24 20:16
Gabapentin 300 Mg Capsule PO 09/30/24 20:47 300 mg
BID CAR Administration
Glucagon 1 mg 09/02/24 18:40
Glucagon 1 Mg Vial IM 09/30/24 18:39
PRN PRN
hypoglycemia
Protocol
Guaifenesin 200 mg 09/02/24 20:48 09/04/24 04:31
Guaifenesin Oral Solution (200 Mg/10 Ml) Cup PO 09/30/24 20:47 200 mg
Q4HPRN PRN Administration
cough
Heparin Sodium 7,300 units 09/02/24 18:52 09/03/24 23:16
Heparin 80 Units/Kg Rebolus-Do Not Discard IV 09/30/24 18:51 7,300 units
PRN PRN Administration
PTT < OR = 64 seconds
Heparin Sodium 3,600 units 09/02/24 18:52
Heparin 40 Units/Kg Rebolus-Do Not Discard IV 09/30/24 18:51
PRN PRN
PTT = 64.1 to 72.9 seconds
Hydromorphone HCl 0.5 mg 09/03/24 14:23
Hydromorphone 0.5 Mg/0.5 Ml Syringe IV 09/04/24 14:24
PACU-Q5MPRN PRN
severe pain
Hydromorphone HCl 0.25 mg 09/03/24 14:23
Hydromorphone 0.25 Mg/0.5 Ml Syringe IV 09/04/24 14:24
PACU-Q5MPRN PRN
moderate pain
Heparin Sodium 25,000 units in 250 mls @ 0 mls/hr 09/02/24 18:45 09/03/24 23:20
Heparin 52859 Units/250 Ml IV 250 mls
PER PROTOCOL CAR Administration
Protocol
Per Protocol
Sodium Chloride 1,000 mls @ 100 mls/hr 09/03/24 14:30
Nss IV 09/04/24 14:24
PER PROTOCOL CAR
Sodium Chloride 1,000 mls @ 80 mls/hr 09/04/24 03:30 09/04/24 03:30
Nss IV 1,000 mls
[id number] CAR Administration
Insulin Aspart 0 units 09/03/24 07:30 09/03/24 18:54
Insulin Aspart Low Resistance 300 Units/3 Ml Pen.Injctr SC 10/01/24 07:29 Not Given
AC CAR
Protocol
Lamotrigine 50 mg 09/02/24 22:00 09/03/24 20:17
Lamotrigine 25 Mg Chewable Tablet PO 09/30/24 21:59 50 mg
HS CAR Administration
Levothyroxine Sodium 100 mcg 09/02/24 22:00 09/03/24 20:17
Levothyroxine 100 Mcg Tablet PO 09/30/24 21:59 100 mcg
HS CAR Administration
Magnesium Hydroxide 30 ml 09/02/24 20:48
Milk Of Magnesia 30 Ml Cup PO 09/30/24 20:47
DAILYPRN PRN
constipation
Melatonin 10 mg 09/02/24 22:00 09/03/24 20:16
Melatonin 5 Mg Tablet PO 09/30/24 21:59 10 mg
HS CAR Administration
Meperidine HCl 12.5 mg 09/03/24 14:23
Meperidine 25 Mg/Ml Injection IV 09/04/24 14:24
PACU-Q5MPRN PRN
shivers
Miconazole Nitrate 0 applic 09/02/24 21:00 09/03/24 20:32
Miconazole Powder Bottle TOPICAL 09/30/24 20:59 Not Given
BID CAR
Ondansetron HCl 4 mg 09/03/24 14:23
Ondansetron 4 Mg/2 Ml Vial IV 09/04/24 14:24
PACU-ONCEPRN PRN
nausea/vomiting
Oxycodone HCl 5 mg 09/02/24 20:48 09/04/24 02:57
Oxycodone 5 Mg Regular Release Tablet PO 09/16/24 20:47 5 mg
Q6HPRN PRN Administration
mod-severe pain
Pantoprazole Sodium 40 mg 09/03/24 08:00 09/03/24 09:21
Pantoprazole 40 Mg Delayed Release Tablet PO 10/01/24 07:59 40 mg
DAILY CAR Administration
Prochlorperazine Edisylate 5 mg 09/03/24 14:23
Prochlorperazine 10 Mg/2 Ml Vial IV 09/04/24 14:24
PACU-ONCEPRN PRN
nausea/vomiting
Saccharomyces Boulardii 250 mg 09/02/24 20:48 09/03/24 20:16
Saccharomyces Boulardi (Florastor) 250 Mg Capsule PO 09/30/24 20:47 250 mg
BID CAR Administration
Sodium Bicarbonate 1,300 mg 09/02/24 20:48 09/03/24 20:16
Sodium Bicarbonate 650 Mg Tablet PO 09/30/24 20:47 1,300 mg
BID CAR Administration
Sodium Biphosphate/Sodium Phosphate 118 ml 09/02/24 20:48
Fleet Phosphate Enema (Adult) 135 Ml Bottle RECTAL 09/30/24 20:47
DAILYPRN PRN
if no result aftr bisacodyl
Sodium Chloride 0 flush 09/02/24 22:00
Sodium Chloride 0.9% (Flush) Syringe IV 09/30/24 21:59
PER PROTOCOL CAR
Tamsulosin HCl 0.4 mg 09/03/24 08:00 09/03/24 09:22
Tamsulosin 0.4 Mg Capsule PO 10/01/24 07:59 0.4 mg
DAILY CAR Administration
Trazodone HCl 100 mg 09/02/24 22:00 09/03/24 20:17
Trazodone 100 Mg Tablet PO 09/30/24 21:59 100 mg
HS CAR Administration
Review of Systems
-
Review of systems notable for HPI, otherwise negative
Physical Exam
-
Extremities: Other (R BKA)
Skin: Other (LLE wound)
Labs
Lab Results
WBC 4.3 10^3/uL (4.8-10.8) L 09/04/24 06:34
RBC 3.02 10^6/uL (4.20-5.40) L 09/04/24 06:34
Hgb 9.6 g/dL (12.0-16.0) L 09/04/24 06:34
Hct 29.8 % (37.0-47.0) L 09/04/24 06:34
MCV 98.7 fL (81.0-99.0) 09/04/24 06:34
MCH 31.8 pg (27.0-31.0) H 09/04/24 06:34
MCHC 32.2 g/dL (33.0-37.0) L 09/04/24 06:34
RDW 14.4 % (11.5-14.5) 09/04/24 06:34
Plt Count 124 10^3/uL (130-400) L 09/04/24 06:34
MPV 9.5 fL (7.4-10.4) 09/04/24 06:34
Abs Immat Gran (auto) 0.0 10^3/uL (0-0.05) 09/03/24 07:15
Absolute Neuts (auto) 2.5 10^3/uL (1.4-6.5) 09/03/24 07:15
Absolute Lymphs (auto) 1.0 10^3/uL (1.2-3.4) L 09/03/24 07:15
Absolute Monos (auto) 0.5 10^3/uL (0.1-0.6) 09/03/24 07:15
Absolute Eos (auto) 0.4 10^3/uL (0-0.7) 09/03/24 07:15
Absolute Basos (auto) 0.0 10^3/uL (0-0.2) 09/03/24 07:15
Immature Gran % 0.7 % (0-0.5) H 09/03/24 07:15
Neutrophils % 56.7 % (42.2-75.2) 09/03/24 07:15
Lymphocytes % 21.5 % (20.5-51.1) 09/03/24 07:15
Monocytes % 11.1 % (1.7-9.3) H 09/03/24 07:15
Eosinophils % 9.5 % (0-6) H 09/03/24 07:15
Basophils % 0.5 % (0-2) 09/03/24 07:15
Creatinine 2.2 mg/dL (0.6-1.0) H 09/04/24 06:34
Vital Signs
Vital Signs
Temp Pulse Resp BP Pulse Ox
97.8 F 89 16 129/69 95
09/04/24 02:53 09/04/24 08:05 09/04/24 08:05 09/04/24 08:05 09/04/24 08:05
[2024-09-04] MEDS: DESENEX/MITRAZOL/ZEASORB 1 APPLIC TOPICAL ×2 (09:58→21:15)
[2024-09-04] MEDS: FEOSOL 325 MG PO (10:00)
[2024-09-04] MEDS: FLOMAX 0.4 MG PO (10:03)
[2024-09-04] MEDS: FLORASTOR 250 MG PO ×2 (10:04→21:17)
[2024-09-04] MEDS: FOLVITE 1 MG PO (10:05)
[2024-09-04] MEDS: LAC HYDRIN, AM LACTIN LOTION 1 APPLIC TOPICAL ×3 (10:06→21:17)
[2024-09-04] MEDS: LOW STRENGTH ASPIRIN 81 MG PO (10:09)
[2024-09-04] MEDS: NEURONTIN 300 MG PO ×2 (10:10→21:16)
[2024-09-04] MEDS: PROTONIX 40 MG PO (10:11)
[2024-09-04] MEDS: SODIUM BICARBONATE 1300 MG PO ×2 (10:12→21:16)
[2024-09-04] MEDS: TYLENOL 975 MG PO ×3 (10:13→23:13)
[2024-09-04] MEDS: SANTYL OINTMENT 1 APPLIC TOPICAL (10:17)
[2024-09-04 11:04] LABS: Iron 59 ug/dl (37-170)
[2024-09-04 11:13] LABS: Percent Saturation 38 % (20-50); Total Iron Binding Capacity 152 ug/dl (265-497)
--- NOTE | 2024-09-04 11:30 | W.PN.VS ---
Addendum entered and electronically signed by Chadd Rivera MD 09/04/24 14:54:
I reviewed CT scan. We had ordered secondary to persistent wound, wanted to make sure no undrained collection or infectious signs that might have resulted in persistent nonhealing. No evidence on CT scan of such. I performed angioplasty of her
bypass graft yesterday. However, it is an anterior tibial artery prosthetic bypass graft. Her runoff is via a single-vessel anterior tibial artery. Therefore I am not sure that enhance perfusion from the angioplasty will be sufficient for wound
healing. I think she is going to need aggressive wound care. In addition, if wound persistently is not healing, consideration for biopsies down the line. Appreciate hematology evaluation and and plan for anticoagulation regarding recent DVT.
Nephrology evaluation as well regarding renal dysfunction.
Original Note:
Today's Communication / Plan
-
See below
Assessment/Plan
-
Assessment: 69-year-old female POD #1 Duplex assisted right common femoral artery cannulation, left lower extremity arteriogram with third order vessel catheterization of left anterior tibial artery via right common femoral artery puncture, balloon
angioplasty of distal anastomotic stenosis with 3 mm and 3.5 mm angioplasty balloon, balloon angioplasty of proximal anastomotic stenosis with 5 mm x 4 cm Bard Lutonix drug-coated balloon.
Plan:
Can remove Tegaderm dressing later this afternoon
Given location of wound to prior prosthetic bypass will obtain Noncon CT to assess if any possible collection that could be adjacent to bypass graft
Recommend consultation nephrology given increased creatinine
Subjective Data
-
Date of Service: September 04, 2024
Patient seen and examined at chair side, offers no complaints. Denies pain, swelling, or drainage from right groin puncture site. Tolerating p.o. diet.
Objective Data
-
Vital Signs
Temp Pulse Resp BP Pulse Ox
98.1 F 89 16 129/63 95
09/04/24 11:14 09/04/24 11:14 09/04/24 11:14 09/04/24 11:14 09/04/24 10:58
Intake and Output
09/03/24 09/04/24 09/05/24
06:59 06:59 06:59
Intake Total 0 / 0 340 / 340
Output Total 1300 / 1300
Balance 0 / 0 -960 / -960
Intake:
Oral fluids 0 / 0
IV fluids (Total) 340 / 340
Normosol 100 / 100
Output:
Urine, Voided 1300 / 1300
Other:
How many times incontinent 1
How many times incontinent 2
SATURATED amount urine
Lab Results
09/04/24 06:34
09/04/24 06:34
Calcium 8.7 mg/dl (8.4-10.2) 09/04/24 06:34
Total Bilirubin 0.4 mg/dl (0.2-1.3) 09/03/24 07:15
AST 20 U/L (14-36) 09/03/24 07:15
ALT 11 U/L (0-35) 09/03/24 07:15
Alkaline Phosphatase 80 U/L (38-126) 09/03/24 07:15
Total Protein 5.2 g/dl (6.3-8.2) L 09/03/24 07:15
Albumin 2.6 g/dl (3.5-5.0) L 09/03/24 07:15
Physical Exam
-
Awake alert oriented x 3, no apparent distress
No tachycardia
No dyspnea
ABD rotund, nondistended, nontender
Right groin puncture site CDI, no hematoma, ulcer compartments soft
Left lower extremity wound with dressing
[2024-09-04 11:40] LABS: Ferritin 99.3 ng/ml (11.1-264.0)
[2024-09-04 11:54] LABS: Glucose - Point of Care 110 mg/dl (70-99)
--- NOTE | 2024-09-04 13:26 | W.PN.HOSP.TC ---
Today's Communication/Plan
-
continue IV heparin - requires intensive monitoring of PTT levels; start Coumadin bridge per Hematology recs.
PT/OT
Nephrology consult at Vascular surgery request
Assessment / Plan
Assessment / Plan
Assessment:
Occluded bypass graft of left lower extremity
History of PAD status post bypass of left lower extremity 4 years ago, on Eliquis
- s/p Duplex assisted right common femoral artery cannulation, left lower extremity arteriogram with third order vessel catheterization of left anterior tibial artery via right common femoral artery puncture, balloon angioplasty of distal
anastomotic stenosis with 3 mm and 3.5 mm angioplasty balloon, balloon angioplasty of proximal anastomotic stenosis with 5 mm x 4 cm Bard Lutonix drug-coated balloon on 09/03
- continue IV heparin - requires intensive monitoring of PTT levels; start Coumadin bridge per Hematology recs.
- f/u CT for wound near graft: No abscess or drainable collection identified within the limitations of noncontrast examination. There is smooth periosteal reaction along the medial aspect of the left tibia as above, most likely reactive. No findings
highly suspicious for osteomyelitis. There is abnormal skin thickening in subcutaneous edematous change associated with the left calf wound as above.
- follow Vascular surgery recs
Acute DVT
- US: nonocclusive thrombus formation in the left superficial femoral vein and popliteal vein
- with development of above occlusion, deeming this Eliquis failure
- continue IV heparin - requires intensive monitoring of PTT levels; start Coumadin bridge per Hematology recs.
L medial leg arterial ulcer, Full thickness, Dry red mixed with moderate dry slough. scant drainage no odor.
R BKA intact small dry red abrasion, anterior lateral.
R medial thigh has linear red abrasion, no drainage.
- all present on arrival
- follow wound care recs
History of right BKA
Paroxysmal atrial fibrillation
- continue IV heparin - requires intensive monitoring of PTT levels; start Coumadin bridge per Hematology recs.
Peripheral arterial disease
- continue aspirin, statin
Type 2 diabetes
- hold alogliptin
- insulin sliding scale
Diabetic neuropathy
- continue gabapentin/pregabalin
Chronic anemia
CKD 4 suspected
- creatinine of 2.2, no previous lab work available
- continue sodium bicarbonate
- Nephrology consult at Vascular surgery request. assess records if able to determine prior renal function baselines
History of renal calculi
- continue Flomax
GERD
- continue Protonix
Hypothyroidism
- continue levothyroxine
Hyperlipidemia - statin
Anxiety/depression
- continue Trazodone/Lamictal
DVT ppx: IV heparin + Coumadin
Code: Full
Anticipated Discharge: 24 - 48 hours
Subjective/Interval History
-
Date of Service: September 04, 2024
no complaints
s/p angiogram and opening of stenosis
Objective Data
-
Labs:
Laboratory Results
09/04/24 09/04/24
06:34 16:00
WBC 4.3 L
Hgb 9.6 L
Hct 29.8 L
Plt Count 124 L
APTT > 200 H* Pending
Sodium 146 H
Potassium 4.3
Chloride 110 H
Carbon Dioxide 25
BUN 25 H
Creatinine 2.2 H
Glucose 84
Calcium 8.7
Vital Signs:
Vital Signs
Temp Pulse Resp BP Pulse Ox
98.1 F 89 16 129/63 95
09/04/24 11:14 09/04/24 11:14 09/04/24 11:14 09/04/24 11:14 09/04/24 10:58
I&O
09/03/24 09/04/24 09/05/24
06:59 06:59 06:59
Intake Total 0 / 0 340 / 340
Output Total 1300 / 1300
Balance 0 / 0 -960 / -960
Physical Exam
-
General: No Apparent Distress
HEENT: Normocephalic and Atraumatic
Respiratory: Negative Wheezes
Cardiac: Regular Rhythm and S1/S2
GI: Soft
Genito-urinary: No Costovertebral Tender
Musculoskeletal: No Edema
Neuro: AO x 3
Psych: Calm
Data Reviewed
-
Total Time Spent with Patient (in minutes): 51
Labs: Labs Reviewed by me
--- NOTE | 2024-09-04 15:30 | W.CON.NEPH ---
Consultation
-
Date/Time Consultation Requested: 09/04/24 1330
Date/Time Consultation Performed: 09/04/24 1545
Requesting Provider: Chadd Duckworth
Performing Provider: Mikala Azar
Reason for Consultation: SREE vs CKD
Medical History
-
Chief Complaint: left leg pain
History of Present Illness:
69-year-old female past medical history of PAD right BKA, DVT, paroxysmal atrial fibrillation on Eliquis, diabetes, anemia, tubulointerstitial nephritis, CKD 4 no baseline cr follows Nephro at [place], [facility] met acidosis on po bicarb, K stones, obst
and refluxive nephropathy, recurrent UTI, GERD on PPI , hypothyroidism, hyperlipidemia on statin, anxiety/depression, polyneuropathy on gabapentin, presented to ER from vascular surgery for left lower extremity pain for the past few weeks. She
reports was at [facility] for leg wounds and infection 2.5week ago. She vascular in the office and vascular ultrasound showing new DVT despite being on Eliquis as well as occluded bypass graft and left lower extremity hence referred to ER.
She followed by hematology for DVT and currently on heparin gtt and plan to start coumadin therapy. She underwent LLE angiogram, balloon angioplasty distal and proximal anastomoses on 09/03. Since admit her cr remained at 2.2, given recent contrast
exposure nephrology consult requested.
She offers no dysuria, fever, abd pain, no diarrhea. No n/v. No CP or sob.
Past Medical History
PAD, paroxysmal atrial fibrillation on Eliquis, diabetes, anemia, tubulointerstitial nephritis, CKD 4, Interstitial nephritis and proteinuria, rosacea, GERD, hypothyroidism, hyperlipidemia, anxiety/depression, polyneuropathy, K stone, obst and
refluxive nephropathy, Recurrent UTI, h/o c diff
Social History
Tobacco: Former Smoker (smoked 10yrs, quit > 30yr ago)
Alcohol: None
Drug: None
Living: Shelter (for last 4yrs [place] care)
Family History
no CKD
Family History: Not Pertinent
Allergies / Home Medications
Allergy/AdvReac Type Severity Reaction Status Date / Time
No Known Allergies Allergy Unverified 09/02/24 13:39
�Medication �Instructions �Recorded �Confirmed �Type
Saccharomyces boulardii 250 mg 250 mg PO BID Gastrointestinal 09/02/24 09/02/24 History
capsule Issue
acetaminophen 325 mg tablet 650 mg PO Q6HPRN PRN mild 09/02/24 09/02/24 History
(Tylenol) pain/fever >100.4
acetaminophen 325 mg tablet 975 mg PO Q8H 09/02/24 09/02/24 History
(Tylenol)
alogliptin 6.25 mg tablet 6.25 mg PO DAILY 09/02/24 09/02/24 History
ammonium lactate 12 % lotion 1 applic topical TID left leg 09/02/24 09/02/24 History
apixaban 5 mg tablet (Eliquis) 5 mg PO BID Blood Clot 09/02/24 09/02/24 History
Prevention/Tx
aspirin 81 mg chewable tablet 81 mg PO DAILY Blood Clot 09/02/24 09/02/24 History
Prevention/Tx
atorvastatin 10 mg tablet 10 mg PO HS High Cholesterol 09/02/24 09/02/24 History
bisacodyl 10 mg rectal suppository 10 mg IN DAILYPRN PRN if mom 09/02/24 09/02/24 History
ineffective
cholecalciferol (vitamin D3) 50 50 mcg PO HS Supplement 09/02/24 09/02/24 History
mcg (2,000 unit) tablet (Vitamin
D3)
ferrous sulfate 325 mg (65 mg 325 mg PO DAILY Supplement 09/02/24 09/02/24 History
iron) tablet
folic acid 1 mg tablet 1 mg PO DAILY Supplement 09/02/24 09/02/24 History
gabapentin 300 mg capsule 300 mg PO BID Neurological 09/02/24 09/02/24 History
Condition
guaifenesin 100 mg/5 mL oral liquid 200 mg PO Q4HPRN PRN cough 09/02/24 09/02/24 History
ipratropium 0.5 mg-albuterol 3 mg 3 ml inhalation R TID 09/02/24 09/02/24 History
(2.5 mg base)/3 mL nebulization Lung/Breathing Issues
soln
lamotrigine 25 mg tablet 50 mg PO HS 09/02/24 09/02/24 History
levothyroxine 100 mcg tablet 100 mcg PO HS Thyroid 09/02/24 09/02/24 History
magnesium hydroxide 400 mg/5 mL 30 ml PO DAILYPRN PRN constipation 09/02/24 09/02/24 History
oral suspension (Milk of Magnesia)
melatonin 5 mg tablet 10 mg PO HS Sleep 09/02/24 09/02/24 History
nystatin 100,000 unit/gram topical 1 applic topical BID breasts, 09/02/24 09/02/24 History
powder abdomen, groin
oxycodone 5 mg tablet 5 mg PO Q6HPRN PRN mod-severe pain 09/02/24 09/02/24 History
pantoprazole 40 mg tablet,delayed 40 mg PO DAILY Gastrointestinal 09/02/24 09/02/24 History
release Issue
pregabalin 50 mg capsule 50 mg PO BID Neurological Condition 09/02/24 09/02/24 History
sodium bicarbonate 650 mg tablet 1,300 mg PO BID 09/02/24 09/02/24 History
sodium phosphates 19 gram-7 118 ml IN DAILYPRN PRN if no 09/02/24 09/02/24 History
gram/118 mL enema (Enema) result aftr bisacodyl
tamsulosin 0.4 mg capsule 0.4 mg PO DAILY Urinary Issue 09/02/24 09/02/24 History
trazodone 100 mg tablet 100 mg PO HS Mental Health/Anxiety 09/02/24 09/02/24 History
Review of Systems
-
All complete 12 point ROS have been inquired and found negative other than stated in HPI
Physical Exam
Vital Signs
Vital Signs
Temp Pulse Resp BP Pulse Ox
97.8 F 83 16 143/92 95
09/04/24 14:59 09/04/24 14:59 09/04/24 14:59 09/04/24 14:59 09/04/24 14:59
Lab Results
WBC 4.3 10^3/uL (4.8-10.8) L 09/04/24 06:34
RBC 3.02 10^6/uL (4.20-5.40) L 09/04/24 06:34
Hgb 9.6 g/dL (12.0-16.0) L 09/04/24 06:34
Hct 29.8 % (37.0-47.0) L 09/04/24 06:34
Plt Count 124 10^3/uL (130-400) L 09/04/24 06:34
Sodium 146 mmol/L (135-145) H 09/04/24 06:34
Potassium 4.3 mmol/L (3.5-5.1) 09/04/24 06:34
Chloride 110 mmol/L (98-107) H 09/04/24 06:34
Carbon Dioxide 25 mmol/L (22-30) 09/04/24 06:34
BUN 25 mg/dl (7-17) H 09/04/24 06:34
Creatinine 2.2 mg/dL (0.6-1.0) H 09/04/24 06:34
eGFR 23.97 09/04/24 06:34
Glucose 84 mg/dl (70-99) 09/04/24 06:34
Calcium 8.7 mg/dl (8.4-10.2) 09/04/24 06:34
Albumin 2.6 g/dl (3.5-5.0) L 09/03/24 07:15
Abnormal Lab Results
09/03/24 09/03/24 09/03/24
17:38 18:49 21:18
WBC
RBC
Hgb
Hct
MCH
MCHC
Plt Count
APTT
Sodium
Chloride
BUN
Creatinine
TIBC
POC Glucose 105 H 112 H 107 H
09/03/24 09/04/24 09/04/24
21:50 06:34 11:52
WBC 4.3 L
RBC 3.02 L
Hgb 9.6 L
Hct 29.8 L
MCH 31.8 H
MCHC 32.2 L
Plt Count 124 L
APTT 36.2 H > 200 H*
Sodium 146 H
Chloride 110 H
BUN 25 H
Creatinine 2.2 H
TIBC 152 L
POC Glucose [address] ;eg with out contrast:
IMPRESSION: No abscess or drainable collection identified within the limitations of noncontrast examination. There is smooth periosteal reaction along the medial aspect of the left tibia as above, most likely reactive. No findings highly suspicious
for osteomyelitis. There is abnormal skin thickening in subcutaneous edematous change associated with the left calf wound as above.
Physical Exam
General: Awake, Alert, Oriented, AOx3, No Distress and Nontoxic
HEENT: EOMI, Facial Symmetry, Neck Supple and Other (loss of teeth)
Respiratory: Clear, Normal Excursion and Nonlabored Respirations
Cardiac: S1/S2 and Regular Rate/Rhythm
Breast: Deferred by me
Abdomen: Soft, Nontender and Nondistended
Genito-urinary: Clear Urine (purwick)
Musculoskeletal: Other (rt BKA stump clean, left leg in dressing)
Skin: No Rash
Neuro: Nonfocal/Grossly Intact
Psych: Mood/afflect pleasant, Insight/judgement good and Appropriate
Data Reviewed
-
Radiology: Report Reviewed by me and Discussed with Patient
Labs: Labs Reviewed by me and Discussed with Patient
Assessment/Plan
-
IMP:
Occluded bypass graft of left lower extremity s/p LLE angiogram, balloon angioplasty distal and proximal anastomoses 09/03
History of PAD status post bypass of left lower extremity 4 years ago, on Eliquis
Acute DVT
L medial leg arterial ulcer
R medial thigh has linear red abrasion,
History of right BKA
Paroxysmal atrial fibrillation
Type 2 diabetes
Diabetic neuropathy
Chronic anemia
CKD 4 -no baseline cr
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
History of renal calculi-recurrent, h/o U stent
GERD
Hypothyroidism
Hyperlipidemia
Anxiety/depression
recurrent UTIs, sepsis
h/o C diff
Plan:
A/w symp PAD and DVT
CKD 4-no baseline cr known, cr stable at 2.2
not doing any w/u here as reportedly w/u completed prior at [place] by her manufacturing helper
contrast exposure on 09/03 with IVF, f/u labs in am which will be 48hr window
BP stable with out meds
chr met acidosis stable po bicarb
follow bladder scan and monitor UOP -non oliguric currently
follow mild hypernatremia
hb stable
she will f/u her nephro at [place] after d/c
d/w pt
[2024-09-04 16:25] LABS: APTT 65.6 Sec (23.4-35.0)
[2024-09-04] MEDS: HEPARIN 3600 UNITS IV (16:52)
[2024-09-04] MEDS: COUMADIN 5 MG PO (16:59)
[2024-09-04 17:03] LABS: Glucose - Point of Care 137 mg/dl (70-99)
[2024-09-04] MEDS: LAMICTAL 50 MG PO (21:16)
[2024-09-04] MEDS: SYNTHROID 100 MCG PO (21:16)
[2024-09-04] MEDS: VITAMIN D3 (cholecalciferol) 50 MCG PO (21:16)
[2024-09-04] MEDS: MELATONIN 10 MG PO (21:16)
[2024-09-04] MEDS: LIPITOR 10 MG PO (21:16)
[2024-09-04] MEDS: DESYREL 100 MG PO (21:17)
[2024-09-04 21:26] LABS: Glucose - Point of Care 190 mg/dl (70-99)
[2024-09-04] MEDS: HEPARIN 25000 UNITS/250 ML IV (21:35)
[2024-09-04 23:28] LABS: APTT 143.8 Sec (23.4-35.0)
[2024-09-05] MEDS: NSS 1000 IV (04:43)
[2024-09-05] MEDS: ROBITUSSIN 200 MG PO ×2 (04:52→16:39)
[2024-09-05] MEDS: ROXICODONE 5 MG PO ×2 (04:56→16:39)
[2024-09-05 07:09] LABS: Hemoglobin 9.4 g/dL (12.0-16.0); Mean Corp Hgb Conc. 31.3 g/dL (33.0-37.0); Mean Corpuscular Hgb 30.5 pg (27.0-31.0); Mean Corpuscular Volume 97.4 fL (81.0-99.0); Mean Platelet Volume 9.1 fL (7.4-10.4); Platelet Count 111 10^3/uL (130-400); Red Blood Cell Count 3.08 10^6/uL (4.20-5.40); Red Cell Dist. Width 14.5 % (11.5-14.5); White Blood Cell Count 5.1 10^3/uL (4.8-10.8)
[2024-09-05 07:22] LABS: INR 1.48
[2024-09-05 07:24] LABS: APTT 68.6 Sec (23.4-35.0)
[2024-09-05] MEDS: DUONEB 3 ML INH ×3 (07:26→19:25)
[2024-09-05 07:48] LABS: Blood Urea Nitrogen 21 mg/dl (7-17); Calcium 8.6 mg/dl (8.4-10.2); Carbon Dioxide 23 mmol/L (22-30); Chloride 110 mmol/L (98-107); Estimated Creatinine Clearance 28 ml/min; Glucose 106 mg/dl (70-99); Sodium 144 mmol/L (135-145); eGFR 23.97
[2024-09-05 07:50] VITALS: BP 130/65
--- NOTE | 2024-09-05 07:51 | W.PN.VS ---
Addendum entered and electronically signed by Chadd Rivera MD 09/05/24 09:58:
CT scan reviewed. No evidence of RP hematoma or groin site bleeding. Communicated with hospitalist as well.
Addendum entered and electronically signed by Chadd Rivera MD 09/05/24 09:55:
Seen and examined with TRANSFER OPERATOR Garrick earlier this a.m. Agree with findings as noted below. Patient noted increased coughing and slight dyspnea as a result. Was receiving nebulizer treatment. She also noted right sided abdominal pain or discomfort.
Not severe but has been there for a couple days she notes. Not communicated earlier as much. Vital signs reviewed. Blood pressure has been relatively stable. Exam is relatively benign in terms of the abdomen. She is soft. There is no fullness
even to deep palpation on the right side. She is not significantly tender on exam. Right groin is flat. No hematoma. Left lower extremity with palpable graft pulse and palpable DP pulse on foot. Hemoglobin is stable. Plan/as discussed and
noted below. Will obtain CT scan to rule out any retroperitoneal bleed but low suspicion.
Original Note:
Today's Communication / Plan
-
Seen and assessed with Dr. Rivera
Assessment/Plan
-
Assessment: 69-year-old female POD #2 Duplex assisted right common femoral artery cannulation, left lower extremity arteriogram with third order vessel catheterization of left anterior tibial artery via right common femoral artery puncture, balloon
angioplasty of distal anastomotic stenosis with 3 mm and 3.5 mm angioplasty balloon, balloon angioplasty of proximal anastomotic stenosis with 5 mm x 4 cm Bard Lutonix drug-coated balloon.
Plan:
Noncon CT abdomen pelvis this a.m. to rule out retroperitoneal bleed
Communicated with Dr. Carballo this morning on patient's status, ordered Noncon chest CT to rule out fluid overload/pneumonia
Can remove Tegaderm dressing
Subjective Data
-
Date of Service: September 05, 2024
Patient seen at bedside this a.m. with Dr. Rivera. Patient currently on a breathing treatment, states she is short of breath this morning, pulse ox remains stable. Patient also states she is some right sided abdominal discomfort with mild tenderness
to palpation. Patient is very tearful at this time.
Objective Data
-
Vital Signs
Temp Pulse Resp BP Pulse Ox
98.6 F 77 18 109/63 94
09/04/24 23:49 09/05/24 07:28 09/05/24 07:28 09/04/24 23:49 09/05/24 07:28
Intake and Output
09/04/24 09/05/24 09/06/24
06:59 06:59 06:59
Intake Total 340 / 340 1854 / 1854
Output Total 1300 / 1300 1300 / 1300
Balance -960 / -960 554 / 554
Intake:
Oral fluids 750 / 750
IV fluids (Total) 340 / 340 960 / 960
Normosol 100 / 100
IV piggybacks 144 / 144
Output:
Urine, Voided 1300 / 1300 1300 / 1300
Other:
How many times incontinent 1
How many times incontinent 1
MODERATE amount urine
Lab Results
09/05/24 06:56
09/05/24 06:56
Calcium 8.6 mg/dl (8.4-10.2) 09/05/24 06:56
Total Bilirubin 0.4 mg/dl (0.2-1.3) 09/03/24 07:15
AST 20 U/L (14-36) 09/03/24 07:15
ALT 11 U/L (0-35) 09/03/24 07:15
Alkaline Phosphatase 80 U/L (38-126) 09/03/24 07:15
Total Protein 5.2 g/dl (6.3-8.2) L 09/03/24 07:15
Albumin 2.6 g/dl (3.5-5.0) L 09/03/24 07:15
Physical Exam
-
AAOx3
Does not appear tachypneic but states she feels short of breath-on breathing treatment at this time
No tachycardia
Abdomen soft throughout, has right lower quadrant/groin tenderness
Puncture site clean, dry, intact, soft, no ecchymosis or swelling
Foot warm and pink
No edema noted
[2024-09-05] MEDS: HEPARIN 3600 UNITS IV (08:02)
--- NOTE | 2024-09-05 09:00 | PN.CDI ---
CDI
- -
CDI:
Physician Documentation Request
Admit Date: 09/02/24 19:05
Dear Doctor Haris,
Patient admitted with acute LLE DVT.
10/9 WBC 4.4, RBC 3.06 and platelet count 129
10/10 WBC 4.3, RBC 3.02 and platelet count 124
Based on the above, could you clarify in the progress notes, the appropriate diagnosis, if significant, that supports the above abnormalities and additional evaluation, monitoring and/or treatment rendered:
Pancytopenia
Insignificant abnormal lab findings
Other
Use of terms such as suspected, likely, concern for, or probable (associated with a specific diagnosis that is being evaluated, monitored, or treated as if it exists) are acceptable and can be coded in the inpatient setting, when documented at the
time of discharge.
Thank you,
Ivy HOBBS,RN,CCDS
CDI Specialist
Available via tiger text
Please use your independent medical judgment in providing your response.
--- NOTE | 2024-09-05 09:55 | W.PN.HOSP.TC ---
Today's Communication/Plan
-
constipation management
possible dedicated R hip imaging, will d/w Radiology
UA for CT findings in bladder
ST eval
Lovenox to bridge Coumadin, pharm to dose Lovenox
Assessment / Plan
Assessment / Plan
Assessment:
Occluded bypass graft of left lower extremity
History of PAD status post bypass of left lower extremity 4 years ago, on Eliquis
- s/p Duplex assisted right common femoral artery cannulation, left lower extremity arteriogram with third order vessel catheterization of left anterior tibial artery via right common femoral artery puncture, balloon angioplasty of distal
anastomotic stenosis with 3 mm and 3.5 mm angioplasty balloon, balloon angioplasty of proximal anastomotic stenosis with 5 mm x 4 cm Bard Lutonix drug-coated balloon on 09/03
- continue Coumadin bridge per Hematology recs, transition to Lovenox.
- f/u CT for wound near graft: No abscess or drainable collection identified within the limitations of noncontrast examination. There is smooth periosteal reaction along the medial aspect of the left tibia as above, most likely reactive. No findings
highly suspicious for osteomyelitis. There is abnormal skin thickening in subcutaneous edematous change associated with the left calf wound as above.
- continue aggressive wound care
- follow Vascular surgery recs
Acute DVT
- US: nonocclusive thrombus formation in the left superficial femoral vein and popliteal vein
- with development of above occlusion, deeming this Eliquis failure
- continue Coumadin bridge per Hematology recs, transition to Lovenox.
L medial leg arterial ulcer, Full thickness, Dry red mixed with moderate dry slough. scant drainage no odor.
R BKA intact small dry red abrasion, anterior lateral.
R medial thigh has linear red abrasion, no drainage.
- all present on arrival
- follow wound care recs
R abd pain, R hip pain
- CT without any acute findings, may need dedicated Hip X-ray (will d/w Radiology)
- Constipation on CT imaging; bowel regimen started
CT finding of Mildly hyperdense fluid in the bladder suggesting hemorrhagic products
- UA pending
History of right BKA
Paroxysmal atrial fibrillation
- Lovenox/Coumadin bridge
Peripheral arterial disease
- continue aspirin, statin
Type 2 diabetes
- hold alogliptin
- insulin sliding scale
Diabetic neuropathy
- continue gabapentin/pregabalin
Chronic anemia
CKD 4 suspected
- creatinine of 2.2, no previous lab work available
- continue sodium bicarbonate
- Nephrology consulted, Cr is stable
History of renal calculi
- continue Flomax
GERD
- continue Protonix
Hypothyroidism
- continue levothyroxine
Hyperlipidemia - statin
Anxiety/depression
- continue Trazodone/Lamictal
Small bilateral pleural effusions.
DVT ppx: Lovenox/Coumadin bridge
Code: Full
Anticipated Discharge: > 48 hours
Subjective/Interval History
-
Date of Service: September 05, 2024
SOB earlier, subjectively but not hypoxic or noted to be in distress by staff
reports RLQ/groin type pain at times
tolerating diet, no N/V. No BM yet
Objective Data
-
Labs:
Laboratory Results
09/04/24 09/05/24 09/05/24
23:08 06:55 06:56
WBC 5.1
Hgb 9.4 L
Hct 30.0 L
Plt Count 111 L
PT 18.0 H
INR 1.48
APTT 143.8 H 68.6 H
Sodium 144
Potassium 4.0
Chloride 110 H
Carbon Dioxide 23
BUN 21 H
Creatinine 2.2 H
Glucose 106 H
Calcium 8.6
09/05/24
14:00
WBC
Hgb
Hct
Plt Count
PT
INR
APTT Pending
Sodium
Potassium
Chloride
Carbon Dioxide
BUN
Creatinine
Glucose
Calcium
Vital Signs:
Vital Signs
Temp Pulse Resp BP Pulse Ox
98.2 F 74 20 130/65 95
09/05/24 07:50 09/05/24 07:50 09/05/24 07:50 09/05/24 07:50 09/05/24 07:50
I&O
09/04/24 09/05/24 09/06/24
06:59 06:59 06:59
Intake Total 340 / 340 1854 / 1854
Output Total 1300 / 1300 1300 / 1300
Balance -960 / -960 554 / 554
Physical Exam
-
General: No Apparent Distress
HEENT: Normocephalic and Atraumatic
Respiratory: Negative Wheezes
Cardiac: Regular Rhythm and S1/S2
GI: Soft and Nontender
Genito-urinary: No Costovertebral Tender
Musculoskeletal: No Edema
Skin: Other (Right groin small superficial skin tear)
Neuro: AO x 3
Hematologic / Lymphatic: No Lymphadenopathy
Psych: Calm
Data Reviewed
-
Total Time Spent with Patient (in minutes): 44
Labs: Labs Reviewed by me
[2024-09-05] MEDS: DESENEX/MITRAZOL/ZEASORB 1 APPLIC TOPICAL ×2 (10:15→20:53)
[2024-09-05] MEDS: NOVOLOG FLEXPEN-LOW RESISTANCE SC ×3 (10:15→16:45)
[2024-09-05] MEDS: NEURONTIN 300 MG PO ×2 (10:16→20:51)
[2024-09-05] MEDS: FLOMAX 0.4 MG PO (10:16)
[2024-09-05] MEDS: TYLENOL 975 MG PO ×2 (10:17→16:33)
[2024-09-05] MEDS: PROTONIX 40 MG PO (10:17)
[2024-09-05 10:18] LABS: Glucose - Point of Care 111 mg/dl (70-99)
[2024-09-05] MEDS: SODIUM BICARBONATE 1300 MG PO ×2 (10:18→20:59)
[2024-09-05] MEDS: FLORASTOR 250 MG PO ×2 (10:18→20:50)
[2024-09-05] MEDS: LOW STRENGTH ASPIRIN 81 MG PO (10:18)
[2024-09-05] MEDS: FEOSOL 325 MG PO (10:19)
[2024-09-05] MEDS: FOLVITE 1 MG PO (10:19)
[2024-09-05] MEDS: DUPHALAC/CHRONULAC 20 GRAMS PO ×2 (11:07→20:50)
[2024-09-05] MEDS: SENOKOT 17.2 MG PO ×2 (11:07→20:51)
[2024-09-05] MEDS: SANTYL OINTMENT 1 APPLIC TOPICAL (11:08)
[2024-09-05] MEDS: LAC HYDRIN, AM LACTIN LOTION 1 APPLIC TOPICAL ×3 (11:12→21:11)
[2024-09-05] MEDS: LOVENOX 90 MG SC (11:31)
[2024-09-05 12:09] LABS: Glucose - Point of Care 138 mg/dl (70-99)
--- NOTE | 2024-09-05 12:30 | W.PN.NEPH.PH ---
Today's Communication / Plan
-
follow BMP
Assessment/Plan
-
IMP:
Occluded bypass graft of left lower extremity s/p LLE angiogram, balloon angioplasty distal and proximal anastomoses 09/03
History of PAD status post bypass of left lower extremity 4 years ago, on Eliquis
Acute DVT
L medial leg arterial ulcer
R medial thigh has linear red abrasion,
History of right BKA
Paroxysmal atrial fibrillation
Type 2 diabetes
Diabetic neuropathy
Chronic anemia
CKD 4 -no baseline cr
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
History of renal calculi-recurrent, h/o U stent
GERD
Hypothyroidism
Hyperlipidemia
Anxiety/depression
recurrent UTIs, sepsis
h/o C diff
Plan:
follow BMP
no issues with contrast nephropathy
-
-
Date of Service: September 05, 2024
CC / HPI / ROS
-
Chief Complaint:
CKD4
History of Present Illness:
CKD/Cr stable at 2.2
Hgb stable 9.4
BP stable
Review of Systems:
c/o coughing
legs feels better
Labs
-
Labs:
WBC 5.1 10^3/uL (4.8-10.8) 09/05/24 06:56
RBC 3.08 10^6/uL (4.20-5.40) L 09/05/24 06:56
Hgb 9.4 g/dL (12.0-16.0) L 09/05/24 06:56
Hct 30.0 % (37.0-47.0) L 09/05/24 06:56
Plt Count 111 10^3/uL (130-400) L 09/05/24 06:56
Sodium 144 mmol/L (135-145) 09/05/24 06:56
Potassium 4.0 mmol/L (3.5-5.1) 09/05/24 06:56
Chloride 110 mmol/L (98-107) H 09/05/24 06:56
Carbon Dioxide 23 mmol/L (22-30) 09/05/24 06:56
BUN 21 mg/dl (7-17) H 09/05/24 06:56
Creatinine 2.2 mg/dL (0.6-1.0) H 09/05/24 06:56
eGFR 23.97 09/05/24 06:56
Glucose 106 mg/dl (70-99) H 09/05/24 06:56
Calcium 8.6 mg/dl (8.4-10.2) 09/05/24 06:56
Albumin 2.6 g/dl (3.5-5.0) L 09/03/24 07:15
Physical Exam
-
Vital Signs:
Vital Signs
Temp Pulse Resp BP Pulse Ox
98.2 F 74 20 130/65 95
09/05/24 07:50 09/05/24 07:50 09/05/24 07:50 09/05/24 07:50 09/05/24 10:30
Cardiovascular:: Regular rate and rhythm
Respiratory:: Bilateral: Coarse
Lung Excursion:: Normal
Abdomen:: Nontender and Soft
Bowel Sounds:: Normal
Extremity Edema:: None: Bilateral:
--- NOTE | 2024-09-05 15:15 | PTOTSP ---
Speech Therapy Evaluation Note
Suspect pt's oropharyngeal swallow function at/near baseline. Pt is edentulous, however demonstrates adequate insight into swallowing strategies including added moisture, liquid wash, small bites, and chew thoroughly. Pt also demonstrates adequate
insight into foods she can and cannot consume.
Recommend:
1. IDDSI Level 7 (regular) solids and thin liquids
2. Meds as tolerated
3. Added moisture, small bites, liquid wash, chew thoroughly
4. No further ST services indicated at this time. Reconsult as needed.
[2024-09-05 15:58] VITALS: BP 103/54
[2024-09-05 16:33] LABS: Glucose - Point of Care 146 mg/dl (70-99)
--- NOTE | 2024-09-05 18:02 | PTCARENOTE ---
Received patient this am AAOx3. Pt had no BM since admission. Pt medicated with senna an lactulose as ordered with no results. Tolerated diet well. Pt complained of Right groin pain. Medicated with scheduled Tylenol an Roxicodone with relief.
Heparin Drip discontinued as ordered, an pt started on Lovenox injections. Made patient comfortable. Cont to assess patient status.
[2024-09-05] MEDS: COUMADIN 5 MG PO (18:35)
[2024-09-05 18:54] LABS: Urine Albumin Trace (Neg - Trace); Urine Bilirubin Negative (Negative); Urine Character Very Cloudy (Clear); Urine Color Yellow; Urine Glucose Negative (Negative); Urine Ketone Negative (Negative); Urine Leukocyte 2+ (Negative); Urine Nitrite Positive (Negative); Urine Occult Blood 2+ (Negative); Urine Specific Gravity 1.005 (<1.030); Urine Urobilinogen Negative (Neg - 1+)
[2024-09-05 19:09] LABS: Urine Bacteria Many (Negative); Urine Red Blood Cell 0-2 /HPF (0-2); Urine White Cell 21-25 /HPF (0-5)
[2024-09-05 20:43] VITALS: BP 117/78
[2024-09-05] MEDS: MELATONIN 10 MG PO (20:52)
[2024-09-05] MEDS: SYNTHROID 100 MCG PO (20:52)
[2024-09-05] MEDS: VITAMIN D3 (cholecalciferol) 50 MCG PO (20:52)
[2024-09-05] MEDS: LIPITOR 10 MG PO (20:54)
[2024-09-05] MEDS: DESYREL 100 MG PO (20:59)
[2024-09-05] MEDS: LAMICTAL 50 MG PO (21:15)
[2024-09-05 21:20] LABS: Glucose - Point of Care 117 mg/dl (70-99)
[2024-09-05 23:17] VITALS: BP 120/79
[2024-09-06] MEDS: TYLENOL 975 MG PO ×3 (00:45→15:39)
[2024-09-06] MEDS: ROBITUSSIN 200 MG PO (03:34)
[2024-09-06 07:00] VITALS: BP 114/68
[2024-09-06] MEDS: DUONEB 3 ML INH ×3 (07:37→20:10)
[2024-09-06 08:27] LABS: Hematocrit 29.9 % (37.0-47.0); Hemoglobin 9.7 g/dL (12.0-16.0); Mean Corp Hgb Conc. 32.4 g/dL (33.0-37.0); Mean Corpuscular Hgb 31.5 pg (27.0-31.0); Mean Corpuscular Volume 97.1 fL (81.0-99.0); Mean Platelet Volume 9.2 fL (7.4-10.4); Platelet Count 101 10^3/uL (130-400); Red Blood Cell Count 3.08 10^6/uL (4.20-5.40); Red Cell Dist. Width 14.6 % (11.5-14.5); White Blood Cell Count 4.5 10^3/uL (4.8-10.8)
[2024-09-06 08:36] LABS: INR 2.77; PT 29.2 Sec (11.4-14.6)
--- NOTE | 2024-09-06 08:47 | W.PN.HOSP.TC ---
Today's Communication/Plan
-
start UTI tx pending culture
dc Lovenox; continue Coumadin
Assessment / Plan
Assessment / Plan
Assessment:
Occluded bypass graft of left lower extremity
History of PAD status post bypass of left lower extremity 4 years ago, on Eliquis
- s/p Duplex assisted right common femoral artery cannulation, left lower extremity arteriogram with third order vessel catheterization of left anterior tibial artery via right common femoral artery puncture, balloon angioplasty of distal
anastomotic stenosis with 3 mm and 3.5 mm angioplasty balloon, balloon angioplasty of proximal anastomotic stenosis with 5 mm x 4 cm Bard Lutonix drug-coated balloon on 09/03
- continue Coumadin (goal INR 2-3)
- f/u CT for wound near graft: No abscess or drainable collection identified within the limitations of noncontrast examination. There is smooth periosteal reaction along the medial aspect of the left tibia as above, most likely reactive. No findings
highly suspicious for osteomyelitis. There is abnormal skin thickening in subcutaneous edematous change associated with the left calf wound as above.
- continue aggressive wound care
- follow Vascular surgery recs
Acute DVT
- US: nonocclusive thrombus formation in the left superficial femoral vein and popliteal vein
- with development of above occlusion, deeming this Eliquis failure
- continue Coumadin (goal INR 2-3)
L medial leg arterial ulcer, Full thickness, Dry red mixed with moderate dry slough. scant drainage no odor.
R BKA intact small dry red abrasion, anterior lateral.
R medial thigh has linear red abrasion, no drainage.
- all present on arrival
- follow wound care recs
R abd pain, R hip pain
- CT without any acute findings, may need dedicated Hip X-ray (will d/w Radiology)
- Constipation on CT imaging; bowel regimen started with + BM 09/05
CT finding of Mildly hyperdense fluid in the bladder suggesting hemorrhagic products
- suspected hemorrhagic UTI - start empiric Rocephin, pending recs
History of right BKA
Paroxysmal atrial fibrillation
- continue Coumadin (goal INR 2-3)
Peripheral arterial disease
- continue aspirin, statin
Type 2 diabetes
- hold alogliptin
- insulin sliding scale
Diabetic neuropathy
- continue gabapentin/pregabalin
chronic Pancytopenia
- acute on chronic thrombocytopenia from procedure, UTI; monitor platelets. No concern for COLETTE per Heme
CKD 4 suspected
- creatinine of 2.2, no previous lab work available
- continue sodium bicarbonate
- Nephrology consulted, Cr is stable
History of renal calculi
- continue Flomax
GERD
- continue Protonix
Hypothyroidism
- continue levothyroxine
Hyperlipidemia - statin
Anxiety/depression
- continue Trazodone/Lamictal
Small bilateral pleural effusions.
DVT ppx: Coumadin
Code: Full
Anticipated Discharge: > 48 hours
Subjective/Interval History
-
Date of Service: September 06, 2024
denies any new complaints at present
Objective Data
-
Labs:
Laboratory Results
09/05/24 09/06/24
18:20 08:07
WBC 4.5 L
Hgb 9.7 L
Hct 29.9 L
Plt Count 101 L
PT 29.2 H
INR 2.77
APTT Cancelled
Sodium Pending
Potassium Pending
Chloride Pending
Carbon Dioxide Pending
BUN Pending
Creatinine Pending
Glucose Pending
Calcium Pending
Vital Signs:
Vital Signs
Temp Pulse Resp BP Pulse Ox
98.6 F 73 16 120/79 94
09/05/24 23:17 09/06/24 07:40 09/06/24 07:40 09/05/24 23:17 09/06/24 07:40
I&O
09/05/24 09/06/24 09/07/24
06:59 06:59 06:59
Intake Total 1854 / 1854
Output Total 1300 / 1300 550 / 550 600 / 600
Balance 554 / 554 -550 / -550 -600 / -600
Physical Exam
-
General: No Apparent Distress
HEENT: Normocephalic and Atraumatic
Respiratory: Negative Wheezes
Cardiac: Regular Rhythm and S1/S2
GI: Soft and Nontender
Musculoskeletal: No Edema
Neuro: AO x 3
Hematologic / Lymphatic: No Lymphadenopathy
Psych: Calm
Data Reviewed
-
Total Time Spent with Patient (in minutes): 41
Labs: Labs Reviewed by me
[2024-09-06 09:02] LABS: Glucose - Point of Care 103 mg/dl (70-99)
[2024-09-06] MEDS: NOVOLOG FLEXPEN-LOW RESISTANCE SC ×3 (09:23→16:50)
[2024-09-06] MEDS: PROTONIX 40 MG PO (09:27)
[2024-09-06] MEDS: SODIUM BICARBONATE 1300 MG PO ×2 (09:27→20:21)
[2024-09-06] MEDS: FLOMAX 0.4 MG PO (09:27)
[2024-09-06] MEDS: NEURONTIN 300 MG PO ×2 (09:27→20:20)
[2024-09-06] MEDS: SENOKOT 17.2 MG PO ×2 (09:27→20:20)
[2024-09-06] MEDS: FOLVITE 1 MG PO (09:28)
[2024-09-06] MEDS: LOW STRENGTH ASPIRIN 81 MG PO (09:28)
[2024-09-06] MEDS: FLORASTOR 250 MG PO ×2 (09:28→20:20)
[2024-09-06] MEDS: FEOSOL 325 MG PO (09:28)
[2024-09-06] MEDS: STERILE WATER FOR INJECTION 10 ML IV (09:32)
[2024-09-06] MEDS: ROCEPHIN 1000 MG IV (09:32)
[2024-09-06] MEDS: LAC HYDRIN, AM LACTIN LOTION 1 APPLIC TOPICAL ×3 (09:37→20:33)
[2024-09-06] MEDS: DESENEX/MITRAZOL/ZEASORB 1 APPLIC TOPICAL ×2 (09:37→20:19)
--- NOTE | 2024-09-06 10:19 | W.PN.ONC ---
Today's Communication / Plan
-
Patient has chronic thrombocytopenia, currently near her baseline
Angioplasty and UTI could be contributory
Clinical picture is not c/w HIT
INR is 2.77 today, would stop Lovenox, continue coumadin (assuming goal INR 2-3)
Antiphospholipid panel pending
OP warfarin management per PCP
OP follow up with Dr. Linda scheduled Nov 2024
Hematology will sign off, please reach out for any questions or concerns.
Impression
Impression
LLE DVT developed while on DOAC, currently on heparin gtt
PAD s/p LLE angiogram, balloon angioplasty distal and proximal anastomoses 09/03/2024
MGUS
CKD
AOCKD
Plan
Plan
Patient has chronic thrombocytopenia, currently near her baseline
Angioplasty and UTI could be contributory
Clinical picture is not c/w HIT
INR is 2.77 today, would stop Lovenox, continue coumadin (assuming goal INR 2-3)
Antiphospholipid panel pending
OP warfarin management per PCP
OP follow up with Dr. Linda scheduled Nov 2024
Hematology will sign off, please reach out for any questions or concerns.
Subjective/Objective
Subjective/Objective
Asked to see patient again re: drop in platelet count.
At admission, plt were 145, dropped to 129 ten hours later, and dropped to 111 yesterday and 101 today.
She underwent balloon angioplasty on 09/04, with heparin and drug (paclitaxel) covered stent placement
She was found to have UTI today, starting abx
Outpatient labs show chronic thrombocytopenia, with counts usually in the 100 - 120 range.
No bleeding, some bruising
Continues on lovenox and warfarin, INR is therapeutic
Vital Signs:
Vital Signs
Temp Pulse Resp BP Pulse Ox
99.8 F 73 16 114/68 94
09/06/24 07:00 09/06/24 07:40 09/06/24 07:40 09/06/24 07:00 09/06/24 07:40
Lab Results:
Laboratory Data
WBC 4.5 10^3/uL (4.8-10.8) L 09/06/24 08:07
Hgb 9.7 g/dL (12.0-16.0) L 09/06/24 08:07
Plt Count 101 10^3/uL (130-400) L 09/06/24 08:07
PT 29.2 Sec (11.4-14.6) H 09/06/24 08:07
INR 2.77 09/06/24 08:07
APTT Cancelled 09/05/24 18:20
eGFR Cancelled 09/06/24 08:07
--- NOTE | 2024-09-06 11:08 | W.PN.NEPH.PH ---
Today's Communication / Plan
-
follow BMP
Assessment/Plan
-
IMP:
Occluded bypass graft of left lower extremity s/p LLE angiogram, balloon angioplasty distal and proximal anastomoses 09/03
History of PAD status post bypass of left lower extremity 4 years ago, on Eliquis
Acute DVT
L medial leg arterial ulcer
R medial thigh has linear red abrasion,
History of right BKA
Paroxysmal atrial fibrillation
Type 2 diabetes
Diabetic neuropathy
Chronic anemia
CKD 4 -no baseline cr
Chr met acidosis on po bicarb MOLD CAPPER
History of renal calculi-recurrent, h/o U stent
GERD
Hypothyroidism
Hyperlipidemia
Anxiety/depression
recurrent UTIs, sepsis
h/o C diff
Plan:
follow BMP
no issues with contrast nephropathy
await labs today
-
-
Date of Service: September 06, 2024
CC / HPI / ROS
-
Chief Complaint:
CKD4
History of Present Illness:
CKD/Cr stable at 2.2 yesterday
no Cr yet today
Hgb stable 9.7
BP stable
Review of Systems:
no CP/SOB
Labs
-
Labs:
WBC 4.5 10^3/uL (4.8-10.8) L 09/06/24 08:07
RBC 3.08 10^6/uL (4.20-5.40) L 09/06/24 08:07
Hgb 9.7 g/dL (12.0-16.0) L 09/06/24 08:07
Hct 29.9 % (37.0-47.0) L 09/06/24 08:07
Plt Count 101 10^3/uL (130-400) L 09/06/24 08:07
eGFR Cancelled 10/12/24 08:07
Albumin 2.6 g/dl (3.5-5.0) L 09/03/24 07:15
Physical Exam
-
Vital Signs:
Vital Signs
Temp Pulse Resp BP Pulse Ox
99.8 F 73 16 114/68 96
09/06/24 07:00 09/06/24 07:40 09/06/24 07:40 09/06/24 07:00 09/06/24 08:30
Cardiovascular:: Regular rate and rhythm
Respiratory:: Bilateral: Coarse
Lung Excursion:: Normal
Abdomen:: Nontender and Soft
Bowel Sounds:: Normal
Extremity Edema:: None: Bilateral:
[2024-09-06 12:14] LABS: Blood Urea Nitrogen 19 mg/dl (7-17); Calcium 8.8 mg/dl (8.4-10.2); Carbon Dioxide 23 mmol/L (22-30); Chloride 110 mmol/L (98-107); Estimated Creatinine Clearance 27 ml/min; Glucose 102 mg/dl (70-99); Potassium 4.1 mmol/L (3.5-5.1); Sodium 145 mmol/L (135-145); eGFR 22.73
[2024-09-06] MEDS: SANTYL OINTMENT 1 APPLIC TOPICAL (12:23)
[2024-09-06 12:39] LABS: Glucose - Point of Care 97 mg/dl (70-99)
[2024-09-06 15:00] VITALS: BP 109/54
[2024-09-06 16:49] LABS: Glucose - Point of Care 101 mg/dl (70-99)
[2024-09-06] MEDS: COUMADIN 2.5 MG PO (17:46)
[2024-09-06] MEDS: LAMICTAL 50 MG PO (20:21)
[2024-09-06] MEDS: DESYREL 100 MG PO (20:21)
[2024-09-06] MEDS: LIPITOR 10 MG PO (20:21)
[2024-09-06] MEDS: VITAMIN D3 (cholecalciferol) 50 MCG PO (20:22)
[2024-09-06] MEDS: MELATONIN 10 MG PO (20:22)
[2024-09-06] MEDS: SYNTHROID 100 MCG PO (20:22)
[2024-09-06] MEDS: ROXICODONE 5 MG PO (20:35)
[2024-09-06] MEDS: DUONEB INH (21:00)
[2024-09-06 21:49] LABS: Glucose - Point of Care 130 mg/dl (70-99)
[2024-09-06 23:33] VITALS: BP 149/63
[2024-09-07] MEDS: TYLENOL 975 MG PO ×3 (00:48→16:25)
[2024-09-07 02:21] LABS: Beta-2-Glycoprotein I Ab. IgG <10 SGU (<=20); Beta-2-Glycoprotein I Ab. IgM <10 SMU (<=20)
[2024-09-07 07:20] VITALS: BP 122/58
[2024-09-07] MEDS: DUONEB 3 ML INH ×3 (07:48→20:26)
[2024-09-07 08:13] LABS: Hematocrit 27.8 % (37.0-47.0); Hemoglobin 8.9 g/dL (12.0-16.0); INR 4.21; Mean Corpuscular Hgb 30.5 pg (27.0-31.0); Mean Corpuscular Volume 95.2 fL (81.0-99.0); Mean Platelet Volume 9.8 fL (7.4-10.4); PT 40.7 Sec (11.4-14.6); Platelet Count 89 10^3/uL (130-400); Red Blood Cell Count 2.92 10^6/uL (4.20-5.40); Red Cell Dist. Width 14.5 % (11.5-14.5); White Blood Cell Count 4.8 10^3/uL (4.8-10.8)
[2024-09-07 08:38] LABS: Glucose - Point of Care 107 mg/dl (70-99)
[2024-09-07] MEDS: NOVOLOG FLEXPEN-LOW RESISTANCE SC (08:39)
[2024-09-07] MEDS: ROCEPHIN 1000 MG IV (08:40)
[2024-09-07] MEDS: DESENEX/MITRAZOL/ZEASORB 1 APPLIC TOPICAL ×2 (08:40→19:27)
[2024-09-07] MEDS: STERILE WATER FOR INJECTION 10 ML IV (08:41)
[2024-09-07] MEDS: PROTONIX 40 MG PO (08:45)
[2024-09-07] MEDS: SODIUM BICARBONATE 1300 MG PO ×2 (08:45→19:27)
[2024-09-07] MEDS: NEURONTIN 300 MG PO ×2 (08:45→19:27)
[2024-09-07] MEDS: FOLVITE 1 MG PO (08:46)
[2024-09-07] MEDS: FEOSOL 325 MG PO (08:46)
[2024-09-07] MEDS: SENOKOT 17.2 MG PO ×2 (08:46→19:26)
[2024-09-07] MEDS: FLORASTOR 250 MG PO ×2 (08:47→19:26)
[2024-09-07] MEDS: FLOMAX 0.4 MG PO (08:47)
[2024-09-07] MEDS: LOW STRENGTH ASPIRIN 81 MG PO (08:47)
[2024-09-07] MEDS: LAC HYDRIN, AM LACTIN LOTION 1 APPLIC TOPICAL ×3 (08:48→21:06)
[2024-09-07 09:01] LABS: Blood Urea Nitrogen 19 mg/dl (7-17); Calcium 8.6 mg/dl (8.4-10.2); Carbon Dioxide 25 mmol/L (22-30); Chloride 107 mmol/L (98-107); Estimated Creatinine Clearance 28 ml/min; Glucose 94 mg/dl (70-99); Potassium 3.7 mmol/L (3.5-5.1); Sodium 141 mmol/L (135-145); eGFR 23.97
--- NOTE | 2024-09-07 10:50 | W.PN.HOSP.TC ---
Today's Communication/Plan
-
holding Coumadin today due to supratherapeutic INR; f/u INR tomorrow AM and consider reduction to 1mg daily
continue Rocephin pending culture
Assessment / Plan
Assessment / Plan
Assessment:
Occluded bypass graft of left lower extremity
History of PAD status post bypass of left lower extremity 4 years ago, on Eliquis
- s/p Duplex assisted right common femoral artery cannulation, left lower extremity arteriogram with third order vessel catheterization of left anterior tibial artery via right common femoral artery puncture, balloon angioplasty of distal
anastomotic stenosis with 3 mm and 3.5 mm angioplasty balloon, balloon angioplasty of proximal anastomotic stenosis with 5 mm x 4 cm Bard Lutonix drug-coated balloon on 09/03
- holding Coumadin today due to supratherapeutic INR; f/u INR tomorrow AM and consider reduction to 1mg daily
- f/u CT for wound near graft: No abscess or drainable collection identified within the limitations of noncontrast examination. There is smooth periosteal reaction along the medial aspect of the left tibia as above, most likely reactive. No findings
highly suspicious for osteomyelitis. There is abnormal skin thickening in subcutaneous edematous change associated with the left calf wound as above.
- continue aggressive wound care
- follow Vascular surgery recs
Acute DVT
- US: nonocclusive thrombus formation in the left superficial femoral vein and popliteal vein
- with development of above occlusion, deeming this Eliquis failure
- holding Coumadin today due to supratherapeutic INR; f/u INR tomorrow AM and consider reduction to 1mg daily
L medial leg arterial ulcer, Full thickness, Dry red mixed with moderate dry slough. scant drainage no odor.
R BKA intact small dry red abrasion, anterior lateral.
R medial thigh has linear red abrasion, no drainage.
- all present on arrival
- follow wound care recs
R abd pain, R hip pain
- CT without any acute findings, may need dedicated Hip X-ray (will d/w Radiology)
- Constipation on CT imaging; bowel regimen started with + BM 09/05
CT finding of Mildly hyperdense fluid in the bladder suggesting hemorrhagic products
- suspected hemorrhagic UTI - continue Rocephin, day 2 pending cultures
History of right BKA
Paroxysmal atrial fibrillation
- holding Coumadin today due to supratherapeutic INR; f/u INR tomorrow AM and consider reduction to 1mg daily
Peripheral arterial disease
- continue aspirin, statin
Type 2 diabetes
- hold alogliptin
- insulin sliding scale
Diabetic neuropathy
- continue gabapentin/pregabalin
chronic Pancytopenia
- acute on chronic thrombocytopenia from procedure, UTI; monitor platelets. No concern for COLETTE per Heme
- plts 89 today, will continue to monitor
- is off Lovenox
CKD 4 suspected
- creatinine of 2.2, no previous lab work available
- continue sodium bicarbonate
- Nephrology consulted, Cr is stable
History of renal calculi
- continue Flomax
GERD
- continue Protonix
Hypothyroidism
- continue levothyroxine
Hyperlipidemia - statin
Anxiety/depression
- continue Trazodone/Lamictal
Small bilateral pleural effusions.
DVT ppx: supratherapeutic INR
Code: Full
Anticipated Discharge: 24 - 48 hours
Subjective/Interval History
-
Date of Service: September 07, 2024
denies any new complaints
Objective Data
-
Labs:
Laboratory Results
09/07/24
07:22
WBC 4.8
Hgb 8.9 L
Hct 27.8 L
Plt Count 89 L
PT 40.7 H
INR 4.21
Sodium 141
Potassium 3.7
Chloride 107
Carbon Dioxide 25
BUN 19 H
Creatinine 2.2 H
Glucose 94
Calcium 8.6
Vital Signs:
Vital Signs
Temp Pulse Resp BP Pulse Ox
98 F 65 15 122/58 94
09/07/24 07:20 09/07/24 07:51 09/07/24 07:51 09/07/24 07:20 09/07/24 07:51
I&O
09/06/24 09/07/24 09/08/24
06:59 06:59 06:59
Intake Total 2400 / 2400
Output Total 550 / 550 1400 / 1400
Balance -550 / -550 1000 / 1000
Physical Exam
-
General: No Apparent Distress
HEENT: Normocephalic and Atraumatic
Respiratory: Negative Wheezes
Cardiac: Regular Rhythm and S1/S2
GI: Soft
Genito-urinary: No Costovertebral Tender
Neuro: AO x 3
Hematologic / Lymphatic: No Lymphadenopathy
Psych: Calm
Data Reviewed
-
Total Time Spent with Patient (in minutes): 41
Labs: Labs Reviewed by me
[2024-09-07] MEDS: SANTYL OINTMENT 1 APPLIC TOPICAL (11:25)
--- NOTE | 2024-09-07 11:43 | W.PN.NEPH.PH ---
Today's Communication / Plan
-
cxr
Assessment/Plan
-
IMP:
Occluded bypass graft of left lower extremity s/p LLE angiogram, balloon angioplasty distal and proximal anastomoses 09/03
History of PAD status post bypass of left lower extremity 4 years ago, on Eliquis
Acute DVT
L medial leg arterial ulcer
R medial thigh has linear red abrasion,
History of right BKA
Paroxysmal atrial fibrillation
Type 2 diabetes
Diabetic neuropathy
Chronic anemia
CKD 4 -no baseline cr
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
History of renal calculi-recurrent, h/o U stent
GERD
Hypothyroidism
Hyperlipidemia
Anxiety/depression
recurrent UTIs, sepsis
h/o C diff
Plan:
follow BMP
check CXR
incentive spirometry
-
-
Date of Service: September 07, 2024
CC / HPI / ROS
-
Chief Complaint:
CKD4
History of Present Illness:
CKD/Cr stable at 2.2
Hgb lower 8.9
BP stable
Review of Systems:
no CP/SOB
c/o cough, leg pain
Labs
-
Labs:
WBC 4.8 10^3/uL (4.8-10.8) 09/07/24 07:22
RBC 2.92 10^6/uL (4.20-5.40) L 09/07/24 07:22
Hgb 8.9 g/dL (12.0-16.0) L 09/07/24 07:22
Hct 27.8 % (37.0-47.0) L 09/07/24 07:22
Plt Count 89 10^3/uL (130-400) L 09/07/24 07:22
Sodium 141 mmol/L (135-145) 09/07/24 07:22
Potassium 3.7 mmol/L (3.5-5.1) 09/07/24 07:22
Chloride 107 mmol/L (98-107) 09/07/24 07:22
Carbon Dioxide 25 mmol/L (22-30) 09/07/24 07:22
BUN 19 mg/dl (7-17) H 09/07/24 07:22
Creatinine 2.2 mg/dL (0.6-1.0) H 09/07/24 07:22
eGFR 23.97 09/07/24 07:22
Glucose 94 mg/dl (70-99) 09/07/24 07:22
Calcium 8.6 mg/dl (8.4-10.2) 09/07/24 07:22
Albumin 2.6 g/dl (3.5-5.0) L 09/03/24 07:15
Physical Exam
-
Vital Signs:
Vital Signs
Temp Pulse Resp BP Pulse Ox
98 F 65 15 122/58 94
09/07/24 07:20 09/07/24 07:51 09/07/24 07:51 09/07/24 07:20 09/07/24 07:51
Cardiovascular:: Regular rate and rhythm
Respiratory:: Bilateral: Coarse and Bilateral: Rales
Lung Excursion:: Normal
Abdomen:: Nontender and Soft
Bowel Sounds:: Normal
Extremity Edema:: +1: Bilateral:
[2024-09-07 12:01] LABS: Glucose - Point of Care 196 mg/dl (70-99)
[2024-09-07] MEDS: NOVOLOG FLEXPEN-LOW RESISTANCE 1 UNITS SC (13:05)
[2024-09-07 15:20] VITALS: BP 120/57
[2024-09-07 16:22] LABS: Glucose - Point of Care 212 mg/dl (70-99)
[2024-09-07] MEDS: NOVOLOG FLEXPEN-LOW RESISTANCE 2 UNITS SC (16:25)
[2024-09-07] MEDS: LAMICTAL 50 MG PO (21:05)
[2024-09-07] MEDS: MELATONIN 10 MG PO (21:05)
[2024-09-07] MEDS: DESYREL 100 MG PO (21:05)
[2024-09-07] MEDS: VITAMIN D3 (cholecalciferol) 50 MCG PO (21:05)
[2024-09-07] MEDS: SYNTHROID 100 MCG PO (21:06)
[2024-09-07] MEDS: LIPITOR 10 MG PO (21:06)
[2024-09-07 21:29] LABS: Glucose - Point of Care 150 mg/dl (70-99)
[2024-09-07 22:19] LABS: Cardiolipin IgA Antibody <10 APL (<=11); Cardiolipin IgM Antibody 27 MPL (<=12); Cardiolipin Igg Antibody <10 GPL (<=14)
[2024-09-07 23:28] VITALS: BP 114/59
[2024-09-07 23:31] LABS: Anti-Xa Qualitative Interp Present (Not Present); Anticoagulant Med Neutralizati Hepzyme (Not Performed); Hexagonal Phospholipid Confirm 9.4 s (<=7.9); Neutralized PTT-LA Ratio 1.25 (<=1.20); Neutralized dRVTT Screen Ratio 1.88 (<=1.20); PTT-LA Ratio 1.79 (<=1.20); Prothrombin Time 19.7 s (12.0-15.5); Thrombin Time 36.8 s (<=19.5); dRVTT 1.1 Mix Ratio 1.25 (<=1.20); dRVTT Confirmation Ratio 0.79 (<=1.20)
[2024-09-08] MEDS: TYLENOL 975 MG PO ×3 (01:05→15:58)
[2024-09-08] MEDS: ROBITUSSIN 200 MG PO (05:11)
[2024-09-08] MEDS: ROXICODONE 5 MG PO ×2 (05:14→15:58)
[2024-09-08 07:31] LABS: Glucose - Point of Care 100 mg/dl (70-99)
[2024-09-08] MEDS: DUONEB 3 ML INH ×3 (07:41→19:41)
[2024-09-08 07:55] VITALS: BP 113/67
[2024-09-08 07:57] LABS: Hematocrit 28.7 % (37.0-47.0); Hemoglobin 9.2 g/dL (12.0-16.0); INR 3.76; Mean Corp Hgb Conc. 32.1 g/dL (33.0-37.0); Mean Corpuscular Hgb 30.3 pg (27.0-31.0); Mean Corpuscular Volume 94.4 fL (81.0-99.0); PT 37.2 Sec (11.4-14.6); Platelet Count 96 10^3/uL (130-400); Red Blood Cell Count 3.04 10^6/uL (4.20-5.40); Red Cell Dist. Width 14.6 % (11.5-14.5); White Blood Cell Count 6.1 10^3/uL (4.8-10.8)
[2024-09-08 08:15] LABS: Blood Urea Nitrogen 20 mg/dl (7-17); Calcium 8.6 mg/dl (8.4-10.2); Carbon Dioxide 25 mmol/L (22-30); Chloride 110 mmol/L (98-107); Estimated Creatinine Clearance 28 ml/min; Glucose 94 mg/dl (70-99); Sodium 143 mmol/L (135-145); eGFR 23.97
[2024-09-08] MEDS: NOVOLOG FLEXPEN-LOW RESISTANCE SC ×3 (09:15→17:55)
[2024-09-08] MEDS: SODIUM BICARBONATE 1300 MG PO ×2 (09:22→20:37)
[2024-09-08] MEDS: PROTONIX 40 MG PO (09:22)
[2024-09-08] MEDS: FLORASTOR 250 MG PO ×2 (09:22→20:36)
[2024-09-08] MEDS: NEURONTIN 300 MG PO ×2 (09:22→20:36)
[2024-09-08] MEDS: FLOMAX 0.4 MG PO (09:22)
[2024-09-08] MEDS: FOLVITE 1 MG PO (09:22)
[2024-09-08] MEDS: FEOSOL 325 MG PO (09:23)
[2024-09-08] MEDS: SENOKOT 17.2 MG PO ×2 (09:23→20:37)
[2024-09-08] MEDS: STERILE WATER FOR INJECTION 10 ML IV (09:24)
[2024-09-08] MEDS: LOW STRENGTH ASPIRIN 81 MG PO (09:24)
[2024-09-08] MEDS: ROCEPHIN 1000 MG IV (09:24)
[2024-09-08] MEDS: DESENEX/MITRAZOL/ZEASORB 1 APPLIC TOPICAL ×2 (09:34→20:36)
--- NOTE | 2024-09-08 09:45 | W.PN.HOSP.TC ---
Today's Communication/Plan
-
Add Acapella
Discharge
Assessment / Plan
Assessment / Plan
Gen-AAOx3, NAD, obese
HEENT-NC, AT, anicteric, clear oral mm
Neck-supple
CV-reg, no M, +S1/S2
Lungs-clear B/L
Abd-soft, NT, ND
Ext-no edema
Musculoskeletal-no cyanosis, clubbing, right BKA
Skin-warm and dry
Neuro-grossly non-focal
Psych-calm, cooperative
Occluded bypass graft of left lower extremity
History of PAD status post bypass of left lower extremity 4 years ago, on Eliquis
- s/p Duplex assisted right common femoral artery cannulation, left lower extremity arteriogram with third order vessel catheterization of left anterior tibial artery via right common femoral artery puncture, balloon angioplasty of distal
anastomotic stenosis with 3 mm and 3.5 mm angioplasty balloon, balloon angioplasty of proximal anastomotic stenosis with 5 mm x 4 cm Bard Lutonix drug-coated balloon on 09/03
- holding Coumadin today due to supratherapeutic INR; f/u INR tomorrow AM and consider reduction to 1mg daily
- f/u CT for wound near graft: No abscess or drainable collection identified within the limitations of noncontrast examination. There is smooth periosteal reaction along the medial aspect of the left tibia as above, most likely reactive. No findings
highly suspicious for osteomyelitis. There is abnormal skin thickening in subcutaneous edematous change associated with the left calf wound as above.
- continue aggressive wound care
- follow Vascular surgery recs
Acute DVT
- US: nonocclusive thrombus formation in the left superficial femoral vein and popliteal vein
- with development of above occlusion, deeming this Eliquis failure
- holding Coumadin today due to supratherapeutic INR; INR improved to 3.7 today, continue to hold warfarin and check INR tomorrow.
L medial leg arterial ulcer, Full thickness, Dry red mixed with moderate dry slough. scant drainage no odor.
R BKA intact small dry red abrasion, anterior lateral.
R medial thigh has linear red abrasion, no drainage.
- all present on arrival
- follow wound care recs
Polymicrobial UTI -change to Augmentin based on sensitivity.
Acute bronchitis -no evidence of pneumonia. Chest x-ray reviewed. Will order Acapella, continue incentive spirometer. Discussed with patient and nurse.
R abd pain, R hip pain
- CT without any acute findings, may need dedicated Hip X-ray (will d/w Radiology)
- Constipation on CT imaging; bowel regimen started with + BM 09/05
CT finding of Mildly hyperdense fluid in the bladder suggesting hemorrhagic products
- suspected hemorrhagic UTI - continue Rocephin, day 2 pending cultures
History of right BKA
Paroxysmal atrial fibrillation
- holding Coumadin today due to supratherapeutic INR
Peripheral arterial disease
- continue aspirin, statin
Type 2 diabetes
- hold alogliptin
- insulin sliding scale
Diabetic neuropathy
- continue gabapentin/pregabalin
chronic Pancytopenia
- acute on chronic thrombocytopenia from procedure, UTI; monitor platelets. No concern for COLETTE per Heme. Platelet count improved to 96,000. Monitor as outpatient. White blood cell count normalized.
CKD 4
- creatinine of 2.2, no previous lab work available
- continue sodium bicarbonate
- Nephrology consulted, Cr is stable
History of renal calculi
- continue Flomax
GERD
- continue Protonix
Hypothyroidism
- continue levothyroxine
Hyperlipidemia - statin
Anxiety/depression
- continue Trazodone/Lamictal
Small bilateral pleural effusions.
DVT ppx: supratherapeutic INR
Code: Full
Dispo -stable for discharge back to skilled nursing today. Outpatient follow-up. Discussed with case management.
32 minutes spent in discharge process.
Anticipated Discharge: Today
Subjective/Interval History
-
Date of Service: September 08, 2024
Patient seen and examined. Complaining of cough.
Objective Data
-
Labs:
Laboratory Results
09/08/24
07:16
WBC 6.1
Hgb 9.2 L
Hct 28.7 L
Plt Count 96 L
PT 37.2 H
INR 3.76
Sodium 143
Potassium 4.0
Chloride 110 H
Carbon Dioxide 25
BUN 20 H
Creatinine 2.2 H
Glucose 94
Calcium 8.6
Vital Signs:
Vital Signs
Temp Pulse Resp BP Pulse Ox
98.5 F 69 17 113/67 95
09/08/24 07:55 09/08/24 07:55 09/08/24 07:55 09/08/24 07:55 09/08/24 07:55
I&O
09/07/24 09/08/24 09/09/24
06:59 06:59 06:59
Intake Total 2400 / 2400 480 / 480
Output Total 1400 / 1400 200 / 200
Balance 1000 / 1000 280 / 280
Review of Systems
-
History Source: Patient
All other systems: Reviewed and negative
[2024-09-08] MEDS: LAC HYDRIN, AM LACTIN LOTION 1 APPLIC TOPICAL ×3 (09:46→20:38)
--- NOTE | 2024-09-08 09:55 | W.DS.TRANS ---
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
-
Discharge Instructions:
Sleep Apnea Risk Low
Discharge Diagnosis/Procedures stenosis bypass graft of left lower extremity s/
p balloon angioplasty 09/03. DVT (Eliquis failure
), arterial ulcer
Diet Diabetic, Carb Controlled
Activity As tolerated
Driving Restrictions No driving
Blood Work INR on September 09
Other Services PT,OT
Instructions:
Stand-Alone Forms: DC Instr - Vascular OR
Changes to Home Medications: Yes
Discharge Medications:
DC Medications w/original date entered in [facility]
Saccharomyces boulardii 250 mg capsule 250 mg PO BID Gastrointestinal Issue 09/02/24
acetaminophen 325 mg tablet (Tylenol) 650 mg PO Q6HPRN PRN mild pain/fever >100.4 09/02/24
acetaminophen 325 mg tablet (Tylenol) 975 mg PO Q8H 09/02/24
alogliptin 6.25 mg tablet 6.25 mg PO DAILY 09/02/24
ammonium lactate 12 % lotion 1 applic topical TID left leg 09/02/24
aspirin 81 mg chewable tablet 81 mg PO DAILY Blood Clot Prevention/Tx 09/02/24
atorvastatin 10 mg tablet 10 mg PO HS High Cholesterol 09/02/24
bisacodyl 10 mg rectal suppository 10 mg ND DAILYPRN PRN if mom ineffective 09/02/24
cholecalciferol (vitamin D3) 50 mcg (2,000 unit) tablet (Vitamin D3) 50 mcg PO HS Supplement 09/02/24
ferrous sulfate 325 mg (65 mg iron) tablet 325 mg PO DAILY Supplement 09/02/24
folic acid 1 mg tablet 1 mg PO DAILY Supplement 09/02/24
gabapentin 300 mg capsule 300 mg PO BID Neurological Condition 09/02/24
guaifenesin 100 mg/5 mL oral liquid 200 mg PO Q4HPRN PRN cough 09/02/24
ipratropium 0.5 mg-albuterol 3 mg (2.5 mg base)/3 mL nebulization soln 3 ml inhalation R TID Lung/Breathing Issues 09/02/24
lamotrigine 25 mg tablet 50 mg PO HS 09/02/24
levothyroxine 100 mcg tablet 100 mcg PO HS Thyroid 09/02/24
magnesium hydroxide 400 mg/5 mL oral suspension (Milk of Magnesia) 30 ml PO DAILYPRN PRN constipation 09/02/24
melatonin 5 mg tablet 10 mg PO HS Sleep 09/02/24
nystatin 100,000 unit/gram topical powder 1 applic topical BID breasts, abdomen, groin 09/02/24
pantoprazole 40 mg tablet,delayed release 40 mg PO DAILY Gastrointestinal Issue 09/02/24
pregabalin 50 mg capsule 50 mg PO BID Neurological Condition 09/02/24
sodium bicarbonate 650 mg tablet 1,300 mg PO BID 09/02/24
sodium phosphates 19 gram-7 gram/118 mL enema (Enema) 118 ml ND DAILYPRN PRN if no result aftr bisacodyl 09/02/24
tamsulosin 0.4 mg capsule 0.4 mg PO DAILY Urinary Issue 09/02/24
trazodone 100 mg tablet 100 mg PO HS Mental Health/Anxiety 09/02/24
amoxicillin 500 mg-potassium clavulanate 125 mg tablet 1 tab PO Q12 #8 tabs 09/08/24
oxycodone 5 mg tablet 5 mg PO Q6HPRN PRN mod-severe pain #3 tabs 09/08/24
warfarin 2.5 mg tablet 2.5 mg PO DAILY #10 tabs 09/08/24
Home Medication Changes
Stop Eliquis
Pending Results: No
--- NOTE | 2024-09-08 11:05 | CM ---
CM reviewed chart, patient LTC resident at [facility]. Per PT notes, patient is non ambulatory, uses wheelchair, assist with ADLS. Patient PCP Cedrick Pugh, pharmacy [facility] [place], [place]. Referral sent in [facility]. Per Hospitalist,
patient clear for discharge. Patient seen bedside, discussed clear for discharge. Patient reports she does not feel ready, reports she has a cough and leg pain. CM reviewed IMM, discussed right to appeal. Patient moving forward with appeal process,
CM reviewed form and number to call for appeal. IMM signed. Hospitalist and CM Director updated.
CM spoke with [facility] in admissions, discussed patient clear for discharge, patient appealing discharge. CM discussed patient need for Acapella upon discharge. CM will continue to update [facility] upon discharge status, CM will continue to follow
for all discharge planning needs.
Plan; [facility], patient appealing discharge.
[2024-09-08 11:21] LABS: Glucose - Point of Care 112 mg/dl (70-99)
--- NOTE | 2024-09-08 12:28 | W.PN.NEPH.PH ---
Today's Communication / Plan
-
Discharge
Assessment/Plan
-
IMP:
Occluded bypass graft of left lower extremity s/p LLE angiogram, balloon angioplasty distal and proximal anastomoses 09/03
History of PAD status post bypass of left lower extremity 4 years ago, on Eliquis
Acute DVT
L medial leg arterial ulcer
R medial thigh has linear red abrasion,
History of right BKA
Paroxysmal atrial fibrillation
Type 2 diabetes
Diabetic neuropathy
Chronic anemia
CKD 4 -no baseline cr
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
History of renal calculi-recurrent, h/o U stent
GERD
Hypothyroidism
Hyperlipidemia
Anxiety/depression
recurrent UTIs, sepsis
h/o C diff
Plan:
follow BMP, creatinine stable at 2.2
Stable for discharge
-
-
Date of Service: September 08, 2024
CC / HPI / ROS
-
Chief Complaint:
CKD4
History of Present Illness:
CKD/Cr stable at 2.2
Hgb lower 8.9
BP stable
Review of Systems:
no CP/SOB
c/o cough, leg pain
Labs
-
Labs:
WBC 6.1 10^3/uL (4.8-10.8) 09/08/24 07:16
RBC 3.04 10^6/uL (4.20-5.40) L 09/08/24 07:16
Hgb 9.2 g/dL (12.0-16.0) L 09/08/24 07:16
Hct 28.7 % (37.0-47.0) L 09/08/24 07:16
Plt Count 96 10^3/uL (130-400) L 09/08/24 07:16
Sodium 143 mmol/L (135-145) 09/08/24 07:16
Potassium 4.0 mmol/L (3.5-5.1) 09/08/24 07:16
Chloride 110 mmol/L (98-107) H 09/08/24 07:16
Carbon Dioxide 25 mmol/L (22-30) 09/08/24 07:16
BUN 20 mg/dl (7-17) H 09/08/24 07:16
Creatinine 2.2 mg/dL (0.6-1.0) H 09/08/24 07:16
eGFR 23.97 09/08/24 07:16
Glucose 94 mg/dl (70-99) 09/08/24 07:16
Calcium 8.6 mg/dl (8.4-10.2) 09/08/24 07:16
Albumin 2.6 g/dl (3.5-5.0) L 09/03/24 07:15
Physical Exam
-
Vital Signs:
Vital Signs
Temp Pulse Resp BP Pulse Ox
98.5 F 69 17 113/67 95
09/08/24 07:55 09/08/24 07:55 09/08/24 07:55 09/08/24 07:55 09/08/24 07:55
Cardiovascular:: Regular rate and rhythm
Respiratory:: Bilateral: Coarse and Bilateral: Rales
Lung Excursion:: Normal
Abdomen:: Nontender and Soft
Bowel Sounds:: Normal
Extremity Edema:: +1: Bilateral:
Other Findings::
General Crying and tearful does not want to leave the hospital
[2024-09-08] MEDS: AUGMENTIN 500 MG/125 MG 1 TABLET PO ×2 (12:34→20:35)
[2024-09-08 15:13] VITALS: BP 120/59
[2024-09-08] MEDS: SANTYL OINTMENT 1 APPLIC TOPICAL (15:55)
[2024-09-08 16:27] LABS: Glucose - Point of Care 99 mg/dl (70-99)
[2024-09-08] MEDS: DESYREL 100 MG PO (20:38)
[2024-09-08] MEDS: LIPITOR 10 MG PO (20:39)
[2024-09-08] MEDS: LAMICTAL 50 MG PO (20:39)
[2024-09-08] MEDS: MELATONIN 10 MG PO (20:40)
[2024-09-08] MEDS: VITAMIN D3 (cholecalciferol) 50 MCG PO (20:40)
[2024-09-08] MEDS: SYNTHROID 100 MCG PO (20:40)
[2024-09-08 21:25] LABS: Glucose - Point of Care 118 mg/dl (70-99)
[2024-09-08 23:43] VITALS: BP 129/52
[2024-09-08] MEDS: TYLENOL PO (23:50)
[2024-09-09] MEDS: ROXICODONE 5 MG PO (05:34)
[2024-09-09 07:35] VITALS: BP 117/70
[2024-09-09 07:38] LABS: Glucose - Point of Care 96 mg/dl (70-99)
[2024-09-09] MEDS: NOVOLOG FLEXPEN-LOW RESISTANCE SC ×2 (08:05→12:27)
[2024-09-09] MEDS: DUONEB 3 ML INH ×2 (08:11→13:36)
[2024-09-09] MEDS: TYLENOL 975 MG PO ×2 (09:38→16:04)
[2024-09-09] MEDS: FEOSOL 325 MG PO (09:39)
[2024-09-09] MEDS: AUGMENTIN 500 MG/125 MG 1 TABLET PO (09:39)
[2024-09-09] MEDS: PROTONIX 40 MG PO (09:39)
[2024-09-09] MEDS: LOW STRENGTH ASPIRIN 81 MG PO (09:39)
[2024-09-09] MEDS: SODIUM BICARBONATE 1300 MG PO (09:40)
[2024-09-09] MEDS: FLORASTOR 250 MG PO (09:40)
[2024-09-09] MEDS: FLOMAX 0.4 MG PO (09:40)
[2024-09-09] MEDS: NEURONTIN 300 MG PO (09:40)
[2024-09-09] MEDS: FOLVITE 1 MG PO (09:40)
[2024-09-09] MEDS: DESENEX/MITRAZOL/ZEASORB 1 APPLIC TOPICAL (09:41)
[2024-09-09] MEDS: LAC HYDRIN, AM LACTIN LOTION 1 APPLIC TOPICAL ×2 (09:41→16:05)
[2024-09-09] MEDS: SENOKOT 17.2 MG PO (09:44)
[2024-09-09 10:44] VITALS: BP 128/64; PULSE 80; O2SAT 96
--- NOTE | 2024-09-09 12:16 | W.PN.HOSP.TC ---
Today's Communication/Plan
-
Check INR
Discharge
Assessment / Plan
Assessment / Plan
Gen-AAOx3, NAD, obese
HEENT-NC, AT, anicteric, clear oral mm
Neck-supple
CV-reg, no M, +S1/S2
Lungs-clear B/L
Abd-soft, NT, ND
Ext-no edema
Musculoskeletal-no cyanosis, clubbing, right BKA
Skin-warm and dry
Neuro-grossly non-focal
Psych-calm, cooperative
Occluded bypass graft of left lower extremity
History of PAD status post bypass of left lower extremity 4 years ago, on Eliquis
- s/p Duplex assisted right common femoral artery cannulation, left lower extremity arteriogram with third order vessel catheterization of left anterior tibial artery via right common femoral artery puncture, balloon angioplasty of distal
anastomotic stenosis with 3 mm and 3.5 mm angioplasty balloon, balloon angioplasty of proximal anastomotic stenosis with 5 mm x 4 cm Bard Lutonix drug-coated balloon on 09/03
- holding Coumadin today due to supratherapeutic INR; f/u INR tomorrow AM and consider reduction to 1mg daily
- f/u CT for wound near graft: No abscess or drainable collection identified within the limitations of noncontrast examination. There is smooth periosteal reaction along the medial aspect of the left tibia as above, most likely reactive. No findings
highly suspicious for osteomyelitis. There is abnormal skin thickening in subcutaneous edematous change associated with the left calf wound as above.
- continue aggressive wound care
- follow Vascular surgery recs
Acute DVT
- US: nonocclusive thrombus formation in the left superficial femoral vein and popliteal vein
- with development of above occlusion, deeming this Eliquis failure
- INR pending for today. Warfarin held yesterday due to elevated INR.
L medial leg arterial ulcer, Full thickness, Dry red mixed with moderate dry slough. scant drainage no odor.
R BKA intact small dry red abrasion, anterior lateral.
R medial thigh has linear red abrasion, no drainage.
- all present on arrival
- follow wound care recs
Polymicrobial UTI -change to Augmentin based on sensitivity.
Acute bronchitis -no evidence of pneumonia. Chest x-ray reviewed. Acapella, continue incentive spirometer. Discussed with patient and nurse.
R abd pain, R hip pain
- CT without any acute findings, may need dedicated Hip X-ray (will d/w Radiology)
- Constipation on CT imaging; bowel regimen started with + BM 09/05
CT finding of Mildly hyperdense fluid in the bladder suggesting hemorrhagic products
- suspected hemorrhagic UTI - continue Rocephin, day 2 pending cultures
History of right BKA
Paroxysmal atrial fibrillation
- holding Coumadin today due to supratherapeutic INR
Peripheral arterial disease
- continue aspirin, statin
Type 2 diabetes
- hold alogliptin
- insulin sliding scale
Diabetic neuropathy
- continue gabapentin/pregabalin
chronic Pancytopenia
- acute on chronic thrombocytopenia from procedure, UTI; monitor platelets. No concern for COLETTE per Heme. Platelet count improved to 96,000. Monitor as outpatient. White blood cell count normalized.
CKD 4
- creatinine of 2.2, no previous lab work available
- continue sodium bicarbonate
- Nephrology consulted, Cr is stable
History of renal calculi
- continue Flomax
GERD
- continue Protonix
Hypothyroidism
- continue levothyroxine
Hyperlipidemia - statin
Anxiety/depression
- continue Trazodone/Lamictal
Small bilateral pleural effusions.
DVT ppx: supratherapeutic INR
Code: Full
Dispo -she remains medically stable for discharge and could have left yesterday but patient refused and appealed to Medicare. Still medically stable for discharge. Case management aware.
Anticipated Discharge: Within 24 hours
Subjective/Interval History
-
Date of Service: September 09, 2024
Patient seen and examined. Complaining of cough.
Objective Data
-
Vital Signs:
Vital Signs
Temp Pulse Resp BP Pulse Ox
98.5 F 68 16 117/70 96
09/09/24 07:35 09/09/24 08:14 09/09/24 08:14 09/09/24 07:35 09/09/24 08:14
I&O
09/08/24 09/09/24 09/10/24
06:59 06:59 06:59
Intake Total 480 / 480 840 / 840
Output Total 200 / 200
Balance 280 / 280 840 / 840
Review of Systems
-
History Source: Patient
All other systems: Reviewed and negative
[2024-09-09 12:21] LABS: Glucose - Point of Care 135 mg/dl (70-99)
--- NOTE | 2024-09-09 13:30 | CM ---
Patient seen bedside, discussed patient has been denied, patient has until 12:00 p.m. tomorrow for discharge, then patient will be responsible to pay. Patient understands, reports she received call earlier today. Patient is agreeable to discharge
today, will require ambulance transport. CM spoke with Avery from Admissions at [facility], relayed 4:30 p.m. transport. CM will continue to follow for all discharge planning needs.
Plan; return to [facility], 4:30 p.m. ambulance transport
Report: [phone]
[2024-09-09 13:35] LABS: INR 2.56; PT 27.4 Sec (11.4-14.6)
[2024-09-09] MEDS: DUONEB INH (13:35)
--- NOTE | 2024-09-09 14:21 | W.PN.NEPH.PH ---
Today's Communication / Plan
-
For discharge today
Assessment/Plan
-
IMP:
Occluded bypass graft of left lower extremity s/p LLE angiogram, balloon angioplasty distal and proximal anastomoses 09/03
History of PAD status post bypass of left lower extremity 4 years ago, on Eliquis
Acute DVT
L medial leg arterial ulcer
R medial thigh has linear red abrasion,
History of right BKA
Paroxysmal atrial fibrillation
Type 2 diabetes
Diabetic neuropathy
Chronic anemia
CKD 4 -no baseline cr
Chr met acidosis on po bicarb AURIST
History of renal calculi-recurrent, h/o U stent
GERD
Hypothyroidism
Hyperlipidemia
Anxiety/depression
recurrent UTIs, sepsis
h/o C diff
Plan:
follow BMP, creatinine stable at 2.2
Stable for discharge
-
-
Date of Service: September 09, 2024
CC / HPI / ROS
-
Chief Complaint:
CKD4
History of Present Illness:
CKD/Cr stable at 2.2
Hemoglobin at 9 point
BP stable
Review of Systems:
no CP/SOB
c/o cough, leg pain
Labs
-
Labs:
WBC 6.1 10^3/uL (4.8-10.8) 09/08/24 07:16
RBC 3.04 10^6/uL (4.20-5.40) L 09/08/24 07:16
Hgb 9.2 g/dL (12.0-16.0) L 09/08/24 07:16
Hct 28.7 % (37.0-47.0) L 09/08/24 07:16
Plt Count 96 10^3/uL (130-400) L 09/08/24 07:16
Sodium 143 mmol/L (135-145) 09/08/24 07:16
Potassium 4.0 mmol/L (3.5-5.1) 09/08/24 07:16
Chloride 110 mmol/L (98-107) H 09/08/24 07:16
Carbon Dioxide 25 mmol/L (22-30) 09/08/24 07:16
BUN 20 mg/dl (7-17) H 09/08/24 07:16
Creatinine 2.2 mg/dL (0.6-1.0) H 09/08/24 07:16
eGFR 23.97 09/08/24 07:16
Glucose 94 mg/dl (70-99) 09/08/24 07:16
Calcium 8.6 mg/dl (8.4-10.2) 09/08/24 07:16
Albumin 2.6 g/dl (3.5-5.0) L 09/03/24 07:15
Physical Exam
-
Vital Signs:
Vital Signs
Temp Pulse Resp BP Pulse Ox
98.5 F 71 16 117/70 97
09/09/24 07:35 09/09/24 13:39 09/09/24 13:39 09/09/24 07:35 09/09/24 13:39
Cardiovascular:: Regular rate and rhythm
Respiratory:: Bilateral: Coarse and Bilateral: Rales
Lung Excursion:: Normal
Abdomen:: Nontender and Soft
Bowel Sounds:: Normal
Extremity Edema:: +1: Bilateral:
Other Findings::
General Crying and tearful does not want to leave the hospital
[2024-09-09] MEDS: SANTYL OINTMENT 1 APPLIC TOPICAL (15:00)
[2024-09-09 15:55] VITALS: BP 113/60
== END 2024-09-09 16:18 | DRG 253 ==
LOC: 4 WEST ACU 19:05
PROVIDERS: Internal Medicine; Nurse Practitioner Acute Care; Nurse Practitioner Family; Physician Assistant; Surgery Vascular Surgery; ADMITTING PHYSICIAN Hospitalist; ATTENDING PHYSICIAN Hospitalist; CONSULT PHYSICIAN Internal Medicine; EMERGENCY PHYSICIAN Emergency Medicine; FAMILY PHYSICIAN Internal Medicine; OTHER PHYSICIAN Internal Medicine Hematology & Oncology
PROC: 047L3Z1 Dilation of Left Femoral Artery using Drug-Coated Balloon, Percutaneous Approach (ICD-10-PCS; 2024-09-04)
DX: E11.51 Type 2 diabetes mellitus with diabetic peripheral angiopathy without gangrene (principal); D61.818 Other pancytopenia; I70.7 Atherosclerosis of other type of bypass graft(s) of the extremities; N12 Tubulo-interstitial nephritis, not specified as acute or chronic; N18.4 Chronic kidney disease, stage 4 (severe); L97.821 Non-pressure chronic ulcer of other part of left lower leg limited to breakdown of skin; N39.0 Urinary tract infection, site not specified; I82.432 Acute embolism and thrombosis of left popliteal vein; I82.412 Acute embolism and thrombosis of left femoral vein; I48.0 Paroxysmal atrial fibrillation; D63.1 Anemia in chronic kidney disease; E11.22 Type 2 diabetes mellitus with diabetic chronic kidney disease; K21.9 Gastro-esophageal reflux disease without esophagitis; L71.9 Rosacea, unspecified; E03.9 Hypothyroidism, unspecified; E78.5 Hyperlipidemia, unspecified; F32.A Depression, unspecified; F41.9 Anxiety disorder, unspecified; E11.42 Type 2 diabetes mellitus with diabetic polyneuropathy; J20.9 Acute bronchitis, unspecified; S70.311A Abrasion, right thigh, initial encounter; X58.XXXA Exposure to other specified factors, initial encounter; Z79.01 Long term (current) use of anticoagulants; Z79.82 Long term (current) use of aspirin; Z79.84 Long term (current) use of oral hypoglycemic drugs; Z79.890 Hormone replacement therapy; Z79.899 Other long term (current) drug therapy; Z89.511 Acquired absence of right leg below knee; Z87.891 Personal history of nicotine dependence
CPT/HCPCS: 37224; 71046; 71250; 73700; 74176; 75625; 75716; 80048; 80053; 81003; 81015; 82728; 82962; 83036; 83540; 83550; 85025; 85027; 85045; 85520; 85525; 85598; 85610; 85613; 85670; 85730; 86146; 86147; 86803; 87070; 87077; 87086; 87147; 87186; 92610; 94640; 97162; 97166; 97530; 99285; C1725; C1769; C1887; C1894; C2623; Q9967

== ENCOUNTER 2024-09-28 16:40 | Inpatient (IN) | payer MEDICARE, OTHER, SELFPAY ==
[2024-09-28] VITALS (7 sets, daily range): BP systolic 99–151; BP diastolic 58–75; BMI 31.2
--- NOTE | 2024-09-28 14:16 | ED.GENMED ---
History of Present Illness
General
Chief Complaint: Skin Problem
Source: patient
Exam Limitations: none
Time Seen by Provider: 09/28/24 14:11
Nursing documentation reviewed up to this point in time: agreed with
History of Present Illness
History of Present Illness:
Patient is a 69-year-old female past medical history of A-fib hyperlipidemia diabetes, DVT chronic left lower extremity ischemia with history of femoral bypass 4 years ago, chronic thrombocytopenia presents to the ER for evaluation.. Patient has a
chronic leg wound to left lateral leg and reports she is concerned about infection because she is having pain and she reports drainage is green. Patient is status post angiogram with balloon angioplasty of distal anastomotic stenosis and proximal
anastomosis stenosis of left lower extremity.
The surgery was done by Dr. Rivera 09/04.
Incidentally she had a DVT while on Eliquis and was started on Coumadin.
Review of Systems
Review of Systems
Allergies reviewed?: Yes
All Other Systems: ROS reviewed and negative except as documented in HPI and ROS
Constitutional: Reports no symptoms; Denies fever, fatigue or chills
Respiratory: Reports no symptoms
Cardiac: Reports no symptoms
ABD/GI: Reports no symptoms
Musculoskeletal: Reports other (+ left leg pain and wound to left leg )
Skin: Reports other (wound to left leg )
Neurological: Reports no symptoms
Psychiatric: Reports no symptoms
Phy Exam
General Physical Exam
General Presentation: no apparent distress
General age: appears stated age
General Skin: warm and dry
General Habitus: normal
General Mental: alert
General Hydration: appears well hydrated
Cardiovascular Exam
Cardiovascular Exam: regular rate/rhythm, no murmur and normal peripheral pulses
Pulmonary Exam
Pulmonary Exam: lungs clear and no respiratory distress
Neurological Exam
Neurological Exam: alert and oriented x3
Musculoskeletal Exam
Musculoskeletal Exam: other (Right BKA left lower leg with pulses by Doppler warm to touch large wound to left inner lower leg with purulent drainage)
Skin Exam
Skin Exam: normal color and warm/dry
Psychiatric Exam
Psychiatric Exam: normal mood/affect
Course
Orders/Labs/Results
Orders:
Orders
09/28/24 14:29
Complete Blood Count/With Diff Urgent
Comprehensive Metabolic Panel Urgent
PT/INR [Prothrombin Time] Urgent
09/28/24 14:36
Wound Culture [Wound/Abscess/Other Culture] Urgent
MALA Source: Leg
Specimen Description: Left
Date Specimen was Collected: 09/28/24
Time Specimen was Collected: 14:37
Abnormal Lab Results
09/28/24
14:29
WBC 3.9 L 10^3/uL
(4.8-10.8)
RBC 3.29 L 10^6/uL
(4.20-5.40)
Hgb 10.1 L g/dL
(12.0-16.0)
Hct 31.8 L %
(37.0-47.0)
MCHC 31.8 L g/dL
(33.0-37.0)
RDW 15.9 H %
(11.5-14.5)
Plt Count 119 L 10^3/uL
(130-400)
Absolute Lymphs (auto) 0.7 L 10^3/uL
(1.2-3.4)
Immature Gran % 1.0 H %
(0-0.5)
Lymphocytes % 17.8 L %
(20.5-51.1)
PT 31.4 H Sec
(11.4-14.6)
Sodium 146 H mmol/L
(135-145)
Chloride 109 H mmol/L
(98-107)
BUN 19 H mg/dl
(7-17)
Creatinine 2.2 H mg/dL
(0.6-1.0)
Glucose 162 H mg/dl
(70-99)
Albumin 3.2 L g/dl
(3.5-5.0)
09/28/24 14:29
09/28/24 14:29
Vital Signs
Initial and Last Documented VS:
Initial Vital Signs
Temp Pulse Resp BP Pulse Ox
98.0 F 80 18 144/70 98
09/28/24 14:22 09/28/24 14:22 09/28/24 14:22 09/28/24 14:22 09/28/24 14:22
Last Documented Vital Signs
Temp Pulse Resp BP Pulse Ox
98.0 F 80 18 144/70 98
09/28/24 14:22 09/28/24 14:22 09/28/24 14:22 09/28/24 14:22 09/28/24 14:22
MDM/Problems Addressed
Differential Diagnosis Includes:
Not limited to infected wound, cellulitis
MDM/Problems Addressed:
As documented patient is a 69-year-old female with history of femoropopliteal bypass left lower extremity with recent angioplasty of this leg September [address] Rivera presents to the ER for evaluation of left leg discomfort and leg wound. Patient has
obvious significant left lower leg wound with purulent drainage. denies any fevers. left/foot is warm to touch with pulses by doppler . denies any fevers ; afebrile here with a nml wbc . In review of recent records there is no mention of wound to
left leg and patient does report this is new. With significance of wound and risks associated past medical history will admit for IV antibiotics.
*Critical Care Note
Total Time (30-74mins, 75-104mins- exclusive of procedures): Not Applicable
Data Reviewed
Review of Other/Old Records Reveals: Operative Reports and Discharge Summary
ED Attending Note
-
Portions of this chart may have been created with voice recognition software.� Occasional wrong word or��sound alike� substitutions may have occurred due to the inherent limitations of voice recognition software.
Discharge Plan
Departure
Patient Disposition: Admit
Date of Disposition: 09/28/24
Time of Disposition: 15:34
Admit to: Med/Surg
Admit to doctor: hospitalist
Presentation/result/management discussed w/ accepting MD/DO: Hospitalist
Patient with high blood pressure during this ER visit?: Yes
Covid-19: Not Applicable
Discharge Problem:
infected leg wound
Prescriptions:
No Action
acetaminophen [Tylenol] 325 mg Tablet
975 mg PO Q8H MDD 3000 mg
acetaminophen [Tylenol] 325 mg Tablet
650 mg PO Q6HPRN MDD 3000 mg PRN (Reason: mild pain/fever >100.4)
ipratropium-albuterol 0.5 mg-3 mg(2.5 mg base)/3 mL Solution For Nebulization
3 ml INHALATION R TID
ammonium lactate 12 % Lotion
1 applic TOPICAL TID
atorvastatin 10 mg Tablet
10 mg PO HS
guaifenesin 100 mg/5 mL Liquid
200 mg PO Q4HPRN PRN (Reason: cough)
lamotrigine 25 mg Tablet
50 mg PO HS
levothyroxine 100 mcg Tablet
100 mcg PO HS
magnesium hydroxide [Milk of Magnesia] 400 mg/5 mL Suspension
30 ml PO DAILYPRN PRN (Reason: constipation)
tamsulosin 0.4 mg Capsule
0.4 mg PO DAILY
trazodone 100 mg Tablet
100 mg PO HS
sodium bicarbonate 650 mg Tablet
1,300 mg PO BID
bisacodyl 10 mg Suppository
10 mg PA DAILYPRN PRN (Reason: if mom ineffective)
pantoprazole 40 mg Tablet,Delayed Release (Dr/Ec)
40 mg PO DAILY
ferrous sulfate 325 mg (65 mg iron) Tablet
325 mg PO DAILY
Enema 19-7 gram/118 mL Enema
118 ml PA DAILYPRN PRN (Reason: if no result aftr bisacodyl)
gabapentin 300 mg Capsule
300 mg PO BID
aspirin 81 mg Tablet,Chewable
81 mg PO DAILY
folic acid 1 mg Tablet
1 mg PO DAILY
nystatin 100,000 unit/gram Powder
1 applic TOPICAL BID
Saccharomyces boulardii 250 mg Capsule
250 mg PO BID
pregabalin 50 mg Capsule
50 mg PO BID
melatonin 5 mg Tablet
10 mg PO HS
cholecalciferol (vitamin D3) [Vitamin D3] 50 mcg (2,000 unit) Tablet
50 mcg PO HS
alogliptin 6.25 mg Tablet
6.25 mg PO DAILY
amoxicillin-pot clavulanate 500-125 mg Tablet
1 tab PO Q12 Qty: 8 0RF
warfarin 2.5 mg tablet
2.5 mg PO DAILY Qty: 10 0RF
oxycodone 5 mg Tablet
5 mg PO Q6HPRN PRN (Reason: mod-severe pain) Qty: 3 0RF
Referrals:
Cedrick Pugh DO [Family Provider] -
Interventions
Interventions:
*Risk Screen - Suicide Last Done: 09/28/24 14:22
*General Assessment Last Done: 09/28/24 14:22
*Neglect/Abuse Screening Last Done: 09/28/24 14:22
ED- Fall Risk Assessment Last Done: 09/28/24 14:22
*ED COVID-19 Vaccine History Last Done: 09/28/24 14:22
ED-Skin Assessment Last Done: 09/28/24 14:22
Discharge Date and Time
Print Language: CITIZEN OF [place]
[2024-09-28 14:40] LABS: % Basophils 0.3 % (0-2); % Eosinophils 2.1 % (0-6); % Lymphocytes 17.8 % (20.5-51.1); % Monocytes 7.5 % (1.7-9.3); % Neutrophils 71.3 % (42.2-75.2); Absolute Eosinophils 0.1 10^3/uL (0-0.7); Absolute Lymphocytes 0.7 10^3/uL (1.2-3.4); Absolute Monocytes 0.3 10^3/uL (0.1-0.6); Absolute Neutrophils 2.8 10^3/uL (1.4-6.5); Hematocrit 31.8 % (37.0-47.0); Hemoglobin 10.1 g/dL (12.0-16.0); Mean Corp Hgb Conc. 31.8 g/dL (33.0-37.0); Mean Corpuscular Hgb 30.7 pg (27.0-31.0); Mean Corpuscular Volume 96.7 fL (81.0-99.0); Mean Platelet Volume 9.7 fL (7.4-10.4); Nucleated Red Blood Cells % 0 %; Platelet Count 119 10^3/uL (130-400); Red Blood Cell Count 3.29 10^6/uL (4.20-5.40); Red Cell Dist. Width 15.9 % (11.5-14.5); White Blood Cell Count 3.9 10^3/uL (4.8-10.8)
[2024-09-28 14:45] LABS: INR 3.04; PT 31.4 Sec (11.4-14.6)
[2024-09-28 14:59] LABS: ALT (SGPT) 14 U/L (0-35); AST (SGOT) 21 U/L (14-36); Albumin 3.2 g/dl (3.5-5.0); Alkaline Phosphatase 90 U/L (38-126); Blood Urea Nitrogen 19 mg/dl (7-17); Calcium 8.8 mg/dl (8.4-10.2); Carbon Dioxide 25 mmol/L (22-30); Chloride 109 mmol/L (98-107); Glucose 162 mg/dl (70-99); Potassium 4.5 mmol/L (3.5-5.1); Sodium 146 mmol/L (135-145); Total Bilirubin 0.4 mg/dl (0.2-1.3); Total Protein 6.3 g/dl (6.3-8.2); eGFR 23.97
--- NOTE | 2024-09-28 16:10 | HPS.HSE ---
Family Physician
-
Family Physician: Cedrick Pugh,
Chief Complaint
-
left leg ulcer drainage
History of Present Illness
69-year-old female past medical history of PAD status post recent balloon angioplasty of left lower extremity bypass on 09/03, with prior bypass 4 years ago, arterial ulcer, DVT of left lower extremity on Eliquis due to Eliquis failure, paroxysmal
atrial fibrillation on Eliquis, diabetes, anemia, tubulointerstitial nephritis, CKD 4, rosacea, GERD, hypothyroidism, hyperlipidemia, anxiety/depression, polyneuropathy, chronic thrombocytopenia presenting for increased pain and green drainage from
chronic left lateral leg wound. Denies fevers or chills. Denies chest pain or shortness of breath.
He was just admitted from 09/02 to 09/09 for leg pain. She was found to have acute DVT of the left leg and chronic left lower extremity ischemia. She underwent angioplasty proximal distal anastomosis of her left lower extremity bypass on 09/03. She
had improved blood flow postprocedure. She also had left lower extremity arterial ulcer. She was on Eliquis prior to admission but was found to have a DVT of the extremity which was thought to be secondary to Eliquis failure.
Medical History
Past Medical History
Past Medical History: Reports Other ( PAD status post recent balloon angioplasty of left lower extremity bypass on 09/03, with prior bypass 4 years ago, arterial ulcer, DVT of left lower extremity on Eliquis due to Eliquis failure, paroxysmal atrial
fibrillation on Eliquis, diabetes, anemia, tubulointerstitial nephritis, CKD 4, rosacea,)
Past Surgical History: Reports Other (ballon angioplasty left LLE, right BKA )
Social History
Tobacco: Non-smoker
Alcohol: None
Drug: None
Family History
Family History: Not pertinent
Allergies / Home Medications
Allergies reflects when Allergies were last updated in [employer].
Home Medications with original date entered in [employer]
Allergy/Medication List:
Allergies
Allergy/AdvReac Type Severity Reaction Status Date / Time
No Known Allergies Allergy Unverified 09/02/24 13:39
Home Medications
Saccharomyces boulardii 250 mg capsule 250 mg PO BID Gastrointestinal Issue 09/02/24
acetaminophen 325 mg tablet (Tylenol) 650 mg PO Q6HPRN PRN mild pain/fever >100.4 09/02/24
acetaminophen 325 mg tablet (Tylenol) 975 mg PO Q8H 09/02/24
alogliptin 6.25 mg tablet 6.25 mg PO DAILY 09/02/24
ammonium lactate 12 % lotion 1 applic topical TID left leg 09/02/24
aspirin 81 mg chewable tablet 81 mg PO DAILY Blood Clot Prevention/Tx 09/02/24
atorvastatin 10 mg tablet 10 mg PO HS High Cholesterol 09/02/24
bisacodyl 10 mg rectal suppository 10 mg IA DAILYPRN PRN if mom ineffective 09/02/24
cholecalciferol (vitamin D3) 50 mcg (2,000 unit) tablet (Vitamin D3) 125 mcg PO HS Supplement 09/02/24
ferrous sulfate 325 mg (65 mg iron) tablet 325 mg PO DAILY Supplement 09/02/24
folic acid 1 mg tablet 1 mg PO DAILY Supplement 09/02/24
gabapentin 300 mg capsule 300 mg PO BID Neurological Condition 09/02/24
guaifenesin 100 mg/5 mL oral liquid 200 mg PO Q4HPRN PRN cough 09/02/24
ipratropium 0.5 mg-albuterol 3 mg (2.5 mg base)/3 mL nebulization soln 3 ml inhalation R Q6HPRN PRN sob 09/02/24
lamotrigine 25 mg tablet 50 mg PO HS 09/02/24
levothyroxine 100 mcg tablet 100 mcg PO HS Thyroid 09/02/24
magnesium hydroxide 400 mg/5 mL oral suspension (Milk of Magnesia) 30 ml PO DAILYPRN PRN constipation 09/02/24
melatonin 5 mg tablet 10 mg PO HS Sleep 09/02/24
nystatin 100,000 unit/gram topical powder 1 applic topical BID breasts, abdomen, groin 09/02/24
pantoprazole 40 mg tablet,delayed release 40 mg PO DAILY Gastrointestinal Issue 09/02/24
pregabalin 50 mg capsule 50 mg PO BID Neurological Condition 09/02/24
sodium bicarbonate 650 mg tablet 1,300 mg PO BID 09/02/24
sodium phosphates 19 gram-7 gram/118 mL enema (Enema) 118 ml IA DAILYPRN PRN if no result aftr bisacodyl 09/02/24
tamsulosin 0.4 mg capsule 0.4 mg PO DAILY Urinary Issue 09/02/24
trazodone 100 mg tablet 100 mg PO HS Mental Health/Anxiety 09/02/24
oxycodone 5 mg tablet 5 mg PO Q6HPRN PRN mod-severe pain #3 tabs 09/08/24
ciprofloxacin HCl 250 mg tablet 250 mg PO DAILY 09/28/24
collagenase clostridium histo. 250 unit/gram topical ointment (Santyl) 1 applic topical DAILY lt bellamy wound 09/28/24
sodium chloride-hypochlorous acid 0.033 % irrigation solution (Vashe) 1 irrig irrigation HS lt bellamy wound 09/28/24
therapeutic multivitamin 1 tab PO DAILY 09/28/24
warfarin 2 mg tablet 2 mg PO SUTUTHSA@199909/28/24
warfarin 2.5 mg tablet 1 mg PO MOWEFR@199909/28/24
Review of Systems
-
History Source: Patient
A 12 point ROS was completed and negative except as noted: Yes
Constitutional: Reports No Symptoms
EENT: Reports No Symptoms
Respiratory: Reports No Symptoms
Cardiac: Reports No Symptoms
Abdomen/GI: Reports No Symptoms
: Reports No Symptoms
Musculoskeletal: Reports No Symptoms
Skin: Reports See HPI
Neurological: Reports No Symptoms
Endocrine: Reports No Symptoms
Hematologic/Lymphatic: Reports No Symptoms
Psych: Reports No Symptoms
Physical Exam
Vital Signs
Vital Signs
Temp Pulse Resp BP Pulse Ox
98.0 F 80 18 144/70 98
09/28/24 14:22 09/28/24 14:22 09/28/24 14:22 09/28/24 14:22 09/28/24 14:22
Physical Exam
General: Well Developed, Well Nourished and No Apparent Distress
HEENT: NormoCephalic, Moist mucous membranes and Atraumatic
Respiratory: Clear
Cardiac: S1/S2 and Regular Rhythm; No Murmur or Rub
GI: Soft, Non Tender, Non Distended and Normal Bowel Sounds; No Organomegaly
Rectal: Deferred by Provider
Musculoskeletal: No Clubbing, No Cyanosis and No Edema
Skin: Other (LLE ulcer draining with erytrhema ); No Rash
Neuro: Nonfocal/grossly intact
Laboratory Results
-
09/28/24 14:29
09/28/24 14:29
Laboratory Results
PT 31.4 Sec (11.4-14.6) H 09/28/24 14:29
INR 3.04 09/28/24 14:29
Total Bilirubin 0.4 mg/dl (0.2-1.3) 09/28/24 14:29
AST 21 U/L (14-36) 09/28/24 14:29
ALT 14 U/L (0-35) 09/28/24 14:29
Alkaline Phosphatase 90 U/L (38-126) 09/28/24 14:29
Data Reviewed
-
Lab Data: Labs Reviewed by me
Old Records: Reviewed
Impression/Plan
-
IMPRESSION:
PLAN:
# Infected medial left lower extremity arterial ulcer
-Wound culture sent
-Vancomycin/Zosyn
-Wound care consult
#PAD with recent occluded bypass graft of left lower extremity status post angioplasty on 09/03, prior bypass 4 years ago
-Pulses present by Doppler
-Continue aspirin, statin
-INR of 3.04, recheck INR in a.m.
-Hold Coumadin for consideration of potential further procedures and start heparin drip as INR approaches 2
-Vascular surgery consult
#Hypernatremia
-Sodium 146
-Encourage increased free water intake
#Recent acute left lower extremity DVT on Eliquis
-Hold Coumadin and start heparin drip as INR approaches 2
History of right BKA
Paroxysmal atrial fibrillation
-On Coumadin for DVT
Type 2 diabetes
-Hold alogliptin
-Insulin sliding scale
Diabetic neuropathy
-Continue gabapentin, pregabalin
Chronic pancytopenia
Chronic thrombocytopenia
-Counts are stable
CKD 4
-Creatinine of 2.2 at baseline
-Continue sodium bicarbonate
History of renal calculi
-Continue tamsulosin
GERD
-Continue Protonix
Hypothyroidism
-Continue levothyroxine
Hyperlipidemia
Anxiety/depression
-Continue trazodone
-Continue Lamictal
Full code
DVT prophylaxis�heparin drip
Diabetic diet
[2024-09-28] MEDS: ANCEF 5 IV (17:58)
[2024-09-28 18:33] LABS: Glucose - Point of Care 120 mg/dl (70-99)
[2024-09-28] MEDS: NOVOLOG FLEXPEN-LOW RESISTANCE SC (20:23)
[2024-09-28] MEDS: LYRICA 50 MG PO (20:43)
[2024-09-28] MEDS: LIPITOR 10 MG PO (20:43)
[2024-09-28] MEDS: SYNTHROID 100 MCG PO (20:43)
[2024-09-28] MEDS: DESYREL 100 MG PO (20:43)
[2024-09-28] MEDS: SODIUM BICARBONATE 1300 MG PO (20:43)
[2024-09-28] MEDS: TYLENOL 975 MG PO (20:43)
[2024-09-28] MEDS: MELATONIN 10 MG PO (20:43)
[2024-09-28] MEDS: VITAMIN D3 (cholecalciferol) 125 MCG PO (20:43)
[2024-09-28] MEDS: FLORASTOR 250 MG PO (20:44)
[2024-09-28] MEDS: VANCOCIN 540 MG IV (20:45)
[2024-09-28] MEDS: ZOSYN 50 IV (20:45)
[2024-09-28] MEDS: LAMICTAL 50 MG PO (20:47)
[2024-09-28 21:04] LABS: Glucose - Point of Care 97 mg/dl (70-99)
[2024-09-29] MEDS: ZOSYN 50 IV ×4 (02:02→20:52)
[2024-09-29] MEDS: TYLENOL 975 MG PO ×3 (02:02→15:09)
[2024-09-29 07:26] LABS: Glucose - Point of Care 92 mg/dl (70-99)
[2024-09-29] MEDS: NOVOLOG FLEXPEN-LOW RESISTANCE SC ×3 (07:28→17:03)
[2024-09-29 07:30] VITALS: BP 124/68
[2024-09-29 08:32] LABS: % Basophils 0.3 % (0-2); % Eosinophils 4.7 % (0-6); % Immature Granulocytes 0.5 % (0-0.5); % Lymphocytes 18.3 % (20.5-51.1); % Monocytes 9.9 % (1.7-9.3); % Neutrophils 66.3 % (42.2-75.2); Absolute Eosinophils 0.2 10^3/uL (0-0.7); Absolute Lymphocytes 0.7 10^3/uL (1.2-3.4); Absolute Monocytes 0.4 10^3/uL (0.1-0.6); Absolute Neutrophils 2.5 10^3/uL (1.4-6.5); Hematocrit 29.7 % (37.0-47.0); Hemoglobin 9.1 g/dL (12.0-16.0); Mean Corp Hgb Conc. 30.6 g/dL (33.0-37.0); Mean Corpuscular Hgb 30.1 pg (27.0-31.0); Mean Corpuscular Volume 98.3 fL (81.0-99.0); Mean Platelet Volume 9.5 fL (7.4-10.4); Nucleated Red Blood Cells % 0 %; Platelet Count 115 10^3/uL (130-400); Red Blood Cell Count 3.02 10^6/uL (4.20-5.40); Red Cell Dist. Width 16.3 % (11.5-14.5); White Blood Cell Count 3.8 10^3/uL (4.8-10.8)
[2024-09-29 08:33] LABS: INR 3.11
[2024-09-29 08:54] LABS: ALT (SGPT) 12 U/L (0-35); AST (SGOT) 18 U/L (14-36); Albumin 2.7 g/dl (3.5-5.0); Alkaline Phosphatase 76 U/L (38-126); Blood Urea Nitrogen 19 mg/dl (7-17); Calcium 8.8 mg/dl (8.4-10.2); Carbon Dioxide 26 mmol/L (22-30); Chloride 110 mmol/L (98-107); Estimated Creatinine Clearance 27 ml/min; Glucose 90 mg/dl (70-99); Potassium 4.3 mmol/L (3.5-5.1); Sodium 145 mmol/L (135-145); Total Bilirubin 0.3 mg/dl (0.2-1.3); Total Protein 5.7 g/dl (6.3-8.2); eGFR 22.73
[2024-09-29] MEDS: ROXICODONE 5 MG PO (08:58)
[2024-09-29] MEDS: LOW STRENGTH ASPIRIN 81 MG PO (08:59)
[2024-09-29] MEDS: THERAGRAN 1 TABLET PO (08:59)
[2024-09-29] MEDS: FOLVITE 1 MG PO (08:59)
[2024-09-29] MEDS: FLOMAX 0.4 MG PO (08:59)
[2024-09-29] MEDS: FEOSOL 325 MG PO (08:59)
[2024-09-29] MEDS: LYRICA 50 MG PO ×2 (08:59→20:52)
[2024-09-29] MEDS: FLORASTOR 250 MG PO ×2 (08:59→20:52)
[2024-09-29] MEDS: SODIUM BICARBONATE 1300 MG PO ×2 (08:59→20:52)
[2024-09-29] MEDS: PROTONIX 40 MG PO (08:59)
--- NOTE | 2024-09-29 10:02 | WOUNDNOTE ---
[facility] RN NOTE: Reviewed chart and met with patient and SHEYLA Quezada who recently photographed left leg wound and changed dressing. Patient tearful about leg wound and support provided. Left heel intact and off-loaded on pillow. Patient turns self in
bed and is on an Accumax. Sacrum intact. Will follow along peripherally.
--- NOTE | 2024-09-29 10:03 | CON.VAS ---
Addendum entered and electronically signed by Benjamin Thompson III, MD 09/30/24 11:35:
This patient was seen and examined with AARON Pyle. I agree with the history and physical exam as well as the assessment and plan. I have the following additions:
Patient known to Miguel
Chronic nonhealing wound over the left bellamy
Previous R BKA
Lower extremity arterial studies reviewed
Right fem-AT PTFE bypass patent. Proximal anastomosis velocity improved after recent endovascular intervention. Distal anastomotic velocity elevation stable
No other target for revascularization on recent arteriogram.
Recommend continued local wound care
Santyl
Risk of limb loss in this case is high unfortunately.
Signed:
Benjamin Thompson III, MD
[facility] Vascular Surgery
[phone] (rtvj)
Original Note:
Consultation
Consultation Request
Performing Provider: Donna
Reason for Consultation: Nonhealing LLE wound
Medical History
-
Chief Complaint: LLE pain/nonhealing wound
History of Present Illness:
69-year-old female presented [facility] ER yesterday from [facility] with left lower extremity nonhealing wound. Patient well-known to the vascular service. About a month ago Dr. Rivera performed left lower extremity arteriogram with balloon
angioplasty to the distal and proximal anastomoses of her bypass graft. Vascular consult for nonhealing wound.
Patient seen at bedside this a.m. with Dr. Thompson. Patient tearful at this time. She states she requested to be sent to the hospital for the last week due to her wound worsening. She states that it took her family member sending images to outside
offices for the [facility] to send her to the emergency room. She is very upset and states she she knows her wound has worsened and is afraid of the outcome. Pt denies pain at this time. She states he was a dull ache yesterday intermittently.
Scant purulent drainage dressing, nothing I can express. Skin surrounding is thin and friable. Nonpalpable distal pulses.
LLE bellamy
Past Medical History
Past Medical History: Arrhythmias, Hypercholesterolemia, NIDDM and Renal Failure
Past Surgical History: Orthopedic (Right BKA)
Social History
Tobacco: Former Smoker
Drug: None
Living: Long-Term
Employment: Not Employed
Family History
Family History: Reviewed & Not Pertinent
Allergies / Home Medications
Allergy/AdvReac Type Severity Reaction Status Date / Time
No Known Allergies Allergy Unverified 09/02/24 13:39
�Medication �Instructions �Recorded �Confirmed �Type
Saccharomyces boulardii 250 mg 250 mg PO BID Gastrointestinal 09/02/24 09/28/24 History
capsule Issue
acetaminophen 325 mg tablet 650 mg PO Q6HPRN PRN mild 09/02/24 09/28/24 History
(Tylenol) pain/fever >100.4
acetaminophen 325 mg tablet 975 mg PO Q8H Pain 09/02/24 09/28/24 History
(Tylenol)
alogliptin 6.25 mg tablet 6.25 mg PO DAILY Diabetes 09/02/24 09/28/24 History
ammonium lactate 12 % lotion 1 applic topical TID left leg 09/02/24 09/28/24 History
aspirin 81 mg chewable tablet 81 mg PO DAILY Blood Clot 09/02/24 09/28/24 History
Prevention/Tx
atorvastatin 10 mg tablet 10 mg PO HS High Cholesterol 09/02/24 09/28/24 History
bisacodyl 10 mg rectal suppository 10 mg [place] DAILYPRN PRN if mom 09/02/24 09/28/24 History
ineffective
cholecalciferol (vitamin D3) 50 125 mcg PO HS Supplement 09/02/24 09/28/24 History
mcg (2,000 unit) tablet (Vitamin
D3)
ferrous sulfate 325 mg (65 mg 325 mg PO DAILY Supplement 09/02/24 09/28/24 History
iron) tablet
folic acid 1 mg tablet 1 mg PO DAILY Supplement 09/02/24 09/28/24 History
gabapentin 300 mg capsule 300 mg PO BID Neurological 09/02/24 09/28/24 History
Condition
guaifenesin 100 mg/5 mL oral liquid 200 mg PO Q4HPRN PRN cough 09/02/24 09/28/24 History
ipratropium 0.5 mg-albuterol 3 mg 3 ml inhalation R Q6HPRN PRN sob 09/02/24 09/28/24 History
(2.5 mg base)/3 mL nebulization
soln
lamotrigine 25 mg tablet 50 mg PO HS Neurological Condition 09/02/24 09/28/24 History
levothyroxine 100 mcg tablet 100 mcg PO HS Thyroid 09/02/24 09/28/24 History
magnesium hydroxide 400 mg/5 mL 30 ml PO DAILYPRN PRN constipation 09/02/24 09/28/24 History
oral suspension (Milk of Magnesia)
melatonin 5 mg tablet 10 mg PO HS Sleep 09/02/24 09/28/24 History
nystatin 100,000 unit/gram topical 1 applic topical BID breasts, 09/02/24 09/28/24 History
powder abdomen, groin
pantoprazole 40 mg tablet,delayed 40 mg PO DAILY Gastrointestinal 09/02/24 09/28/24 History
release Issue
pregabalin 50 mg capsule 50 mg PO BID Neurological Condition 09/02/24 09/28/24 History
sodium bicarbonate 650 mg tablet 1,300 mg PO BID Kidney Disease 09/02/24 09/28/24 History
sodium phosphates 19 gram-7 118 ml [place] DAILYPRN PRN if no 09/02/24 09/28/24 History
gram/118 mL enema (Enema) result aftr bisacodyl
tamsulosin 0.4 mg capsule 0.4 mg PO DAILY Urinary Issue 09/02/24 09/28/24 History
trazodone 100 mg tablet 100 mg PO HS Mental Health/Anxiety 09/02/24 09/28/24 History
oxycodone 5 mg tablet 5 mg PO Q6HPRN PRN mod-severe pain 09/08/24 09/28/24 Rx
#3 tabs
ciprofloxacin HCl 250 mg tablet 250 mg PO DAILY Infection 09/28/24 09/28/24 History
collagenase clostridium histo. 250 1 applic topical DAILY lt bellamy 09/28/24 09/28/24 History
unit/gram topical ointment (Santyl) wound
sodium chloride-hypochlorous acid 1 irrig irrigation HS lt bellamy wound 09/28/24 09/28/24 History
0.033 % irrigation solution (Vashe)
therapeutic multivitamin 1 tab PO DAILY Supplement 09/28/24 09/28/24 History
warfarin 2 mg tablet 2 mg PO SUTUTHSA@1999 Blood Clot 09/28/24 09/28/24 History
Prevention/Tx
warfarin 2.5 mg tablet 1 mg PO MOWEFR@1999 Blood Clot 09/28/24 09/28/24 History
Prevention/Tx
Review of Systems
-
History Source: Patient
All other systems: Negative unless noted
Constitutional: Reports No Symptoms
EENT: Reports No Symptoms
Respiratory: Reports No Symptoms
Cardiac: Reports No Symptoms
Vascular: Denies Leg Pain / Claudication
Abdomen/GI: Reports No Symptoms
: Reports No Symptoms
Musculoskeletal: Reports Edema
Skin: Reports Other (Left lower extremity bellamy wound)
Neurological: Reports No Symptoms
Endocrine: Reports No Symptoms
Physical Exam
Vital Signs
Temp Pulse Resp BP Pulse Ox
98.1 F 66 18 124/68 98
09/29/24 07:30 09/29/24 09:02 09/29/24 09:02 09/29/24 07:30 09/29/24 09:02
Lab Results
09/29/24 07:17
09/29/24 07:17
Physical Exam
General: No Apparent Distress
HEENT: Normocephalic and Atraumatic
Respiratory: Non Labored Respirations
Cardiac: Negative JVD
GI: Soft and Non Tender
Musculoskeletal: No Clubbing, No Cyanosis and Edema (+1 left lower extremity)
Skin: Warm and Other (See image above for left lower extremity wound)
Neuro: Awake, Alert and Oriented
Psych: Calm (Tearful)
Assessment / Plan
-
69-year-old female here with chronic nonhealing left lower extremity bellamy wound
Plan:
-Arterial ultrasounds pending
-Will follow-up with the patient after scans complete
-Continue local wound care
Data Reviewed
-
Labs: Labs Reviewed by me
--- NOTE | 2024-09-29 10:22 | PHA.VAN.IN ---
Assessment
- Assessment
Renal Function: Appears similar to baseline
Concomitant Antimicrobials: pip/tazo
MRSA screen positive 09/02/24
AUC Dosing Plan
- Empiric Dosing
Initial / Loading Dose: 2000 mg x 1 - given 09/28/24 20:45
Plan
- Plan
Maintenance Regimen: dose by random levels; will redose today 1000 mg x 1
Monitoring: repeat random level AM 09/30/24
random level ordered after 2000 mg LD was 14.5 - approx 8 hours after dose
Pharmacokinetics Vancomycin I
- -
Patient Age: 69
Patient Sex: Female
Vancomycin Day #: 1
Indication: Skin And Soft Tissue
Requesting Provider: Meghann
Height / Weight:
Height 5 ft 7 in
Actual Weight 86.818 kg
Pertinent Past Medical History: s/p recent balloon angioplasty 09/03/24;CKD 4; R BKA;chronic pancytopenia
- Vital Signs / Lab Results
Temp Pulse Resp BP Pulse Ox
98.1 F 66 18 124/68 98
09/29/24 07:30 09/29/24 09:02 09/29/24 09:02 09/29/24 07:30 09/29/24 09:02
Lab Results - Hematology
09/28/24 09/29/24
14:29 07:17
WBC 3.9 L 3.8 L
Lab Results - Chemistry
09/28/24 09/29/24
14:29 07:17
BUN 19 H 19 H
Creatinine 2.2 H 2.3 H
Estimated Creat Clear 27
Albumin 3.2 L 2.7 L
[2024-09-29 11:50] LABS: Glucose - Point of Care 111 mg/dl (70-99)
--- NOTE | 2024-09-29 14:53 | W.PN.HOSP.TC ---
Today's Communication/Plan
-
Wound care for
Antibiotics
Vascular evaluation
Hold Coumadin tonight following INR
Assessment / Plan
Assessment / Plan
Impression:
Left lower extremity/medial left bellamy infected arterial ulcer
Severe PAD with recent occluded bypass graft of the left lower extremity, status post angioplasty on 09/03, prior bypass 4 years ago.
Mild hypernatremia upon presentation
Recent left lower extremity DVT while on Eliquis
Other conditions:
Severe PAD status post right BKA
Paroxysmal atrial fibrillation.
CKD stage IV baseline creatinine 2.2
Diabetes type 2.
Dyslipidemia
Diabetic neuropathy.
Chronic pancytopenia.
GERD
Anxiety/depression.
Plan
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
Continue wound care
Empiric antibiotics vancomycin/Zosyn
Pulses present by Doppler
Vascular evaluation
EVELIO Doppler
-Continue aspirin, statin
-INR of 3.04, recheck INR in a.m.
-Hold Coumadin for consideration of potential further procedures and start heparin drip as INR approaches 2
-Vascular surgery consult
#Hypernatremia
-Sodium 146
-Encourage increased free water intake
#Recent acute left lower extremity DVT on Eliquis
-Hold Coumadin and start heparin drip as INR approaches 2
History of right BKA
Paroxysmal atrial fibrillation
-On Coumadin for DVT
Type 2 diabetes
-Hold alogliptin
-Insulin sliding scale
Diabetic neuropathy
-Continue gabapentin, pregabalin
Chronic pancytopenia
Chronic thrombocytopenia
-Counts are stable
CKD 4
-Creatinine of 2.2 at baseline
-Continue sodium bicarbonate
History of renal calculi
-Continue tamsulosin
GERD
-Continue Protonix
Hypothyroidism
-Continue levothyroxine
Hyperlipidemia
Anxiety/depression
-Continue trazodone
-Continue Lamictal
Full code
DVT prophylaxis�heparin drip
Diabetic diet
Anticipated Discharge: > 48 hours
Subjective/Interval History
-
Date of Service: September 29, 2024
Objective Data
-
Labs:
Laboratory Results
09/29/24
07:17
WBC 3.8 L
Hgb 9.1 L
Hct 29.7 L
Plt Count 115 L
PT 32.0 H
INR 3.11
Sodium 145
Potassium 4.3
Chloride 110 H
Carbon Dioxide 26
BUN 19 H
Creatinine 2.3 H
Glucose 90
Calcium 8.8
Total Bilirubin 0.3
AST 18
ALT 12
Alkaline Phosphatase 76
Vital Signs:
Vital Signs
Temp Pulse Resp BP Pulse Ox
98.1 F 66 18 124/68 98
09/29/24 07:30 09/29/24 09:02 09/29/24 09:02 09/29/24 07:30 09/29/24 09:02
I&O
09/28/24 09/29/24 09/30/24
06:59 06:59 06:59
Intake Total 480 / 480
Balance 480 / 480
Physical Exam
-
General: No Apparent Distress
HEENT: Normocephalic and Atraumatic
Respiratory: Negative Wheezes
Cardiac: Regular Rhythm and S1/S2
GI: Soft
Genito-urinary: No Costovertebral Tender
Neuro: AO x 3
Hematologic / Lymphatic: No Lymphadenopathy
Psych: Calm
[2024-09-29] MEDS: VANCOCIN 200 IV (15:07)
[2024-09-29 15:30] VITALS: BP 110/48
--- NOTE | 2024-09-29 15:55 | CM ---
manager of medical reviewed patient's chart and met with patient, patient reports that she was admitted from [place] facility where patient lives, patient requires assist with adl's and ambulates with a w/c, patient is able to self propel w/c
at care home.
PCP: Cedrick Pugh
Plan; Patient to return to [facility] when stable
Report [phone]
[2024-09-29 17:02] LABS: Glucose - Point of Care 101 mg/dl (70-99)
[2024-09-29] MEDS: SYNTHROID 100 MCG PO (20:51)
[2024-09-29] MEDS: LAMICTAL 50 MG PO (20:51)
[2024-09-29] MEDS: MELATONIN 10 MG PO (20:51)
[2024-09-29] MEDS: VITAMIN D3 (cholecalciferol) 125 MCG PO (20:51)
[2024-09-29] MEDS: LIPITOR 10 MG PO (20:51)
[2024-09-29] MEDS: DESYREL 100 MG PO (20:52)
[2024-09-29 21:08] LABS: Glucose - Point of Care 126 mg/dl (70-99)
[2024-09-29 23:30] VITALS: BP 112/58
[2024-09-30] VITALS: BP 112/58
[2024-09-30] MEDS: TYLENOL 975 MG PO ×3 (01:00→15:52)
[2024-09-30] MEDS: ZOSYN 50 IV ×3 (01:45→13:33)
[2024-09-30] MEDS: ROXICODONE 5 MG PO ×2 (04:17→14:48)
[2024-09-30 07:00] VITALS: BP 101/63
[2024-09-30 08:28] LABS: Glucose - Point of Care 103 mg/dl (70-99)
[2024-09-30] MEDS: NOVOLOG FLEXPEN-LOW RESISTANCE SC ×2 (08:33→16:44)
[2024-09-30 08:36] LABS: % Basophils 0.5 % (0-2); % Eosinophils 5.6 % (0-6); % Immature Granulocytes 0.5 % (0-0.5); % Lymphocytes 23.8 % (20.5-51.1); % Monocytes 11.5 % (1.7-9.3); % Neutrophils 58.1 % (42.2-75.2); Absolute Eosinophils 0.2 10^3/uL (0-0.7); Absolute Lymphocytes 0.9 10^3/uL (1.2-3.4); Absolute Monocytes 0.5 10^3/uL (0.1-0.6); Absolute Neutrophils 2.3 10^3/uL (1.4-6.5); Hematocrit 27.5 % (37.0-47.0); Hemoglobin 8.7 g/dL (12.0-16.0); Mean Corp Hgb Conc. 31.6 g/dL (33.0-37.0); Mean Corpuscular Hgb 32.1 pg (27.0-31.0); Mean Corpuscular Volume 101.5 fL (81.0-99.0); Mean Platelet Volume 10.1 fL (7.4-10.4); Nucleated Red Blood Cells % 0 %; Platelet Count 101 10^3/uL (130-400); Red Blood Cell Count 2.71 10^6/uL (4.20-5.40); Red Cell Dist. Width 16.1 % (11.5-14.5); White Blood Cell Count 3.9 10^3/uL (4.8-10.8)
[2024-09-30] MEDS: PROTONIX 40 MG PO (08:37)
[2024-09-30] MEDS: FOLVITE 1 MG PO (08:37)
[2024-09-30] MEDS: LOW STRENGTH ASPIRIN 81 MG PO (08:37)
[2024-09-30] MEDS: FLOMAX 0.4 MG PO (08:37)
[2024-09-30] MEDS: FEOSOL 325 MG PO (08:37)
[2024-09-30] MEDS: SODIUM BICARBONATE 1300 MG PO ×2 (08:37→20:08)
[2024-09-30] MEDS: ZOSYN IV (08:37)
[2024-09-30] MEDS: FLORASTOR 250 MG PO ×2 (08:37→20:08)
[2024-09-30] MEDS: LYRICA 50 MG PO ×2 (08:37→20:08)
[2024-09-30 08:38] LABS: INR 2.81; PT 29.6 Sec (11.4-14.6)
[2024-09-30] MEDS: THERAGRAN 1 TABLET PO (08:38)
--- NOTE | 2024-09-30 08:38 | PHA.VAN.FU ---
Vancomycin Assessment / Plan
- Assessment
Renal Function: Stable
WBC's are: Stable
In the past 24 hrs, patient has been: Afebrile
Concomitant Antimicrobials: piperacillin/tazobactam
- Assessment - Therapeutic Drug Monitoring
Random Level: 20.6 - drawn ~16.5H after previous dose of 1000mg
- Dosing Plan
Dosing by Level: Hold off on dosing today
Dosing Comments: can calculate half-life between random level today and tomorrow
- Monitoring Plan
Random Level: 10/01 06
- Follow Up
Pharmacy will continue to follow.
Vancomycin Follow UP
- -
Patient Age: 69
Patient Sex: Female
Vancomycin Day #: 2
Indication: Skin And Soft Tissue
Requesting Provider: Dr. Zavaleta
Pertinent Antimicrobial Allergies:
NKDA
Height / Weight:
Height 5 ft 7 in
Actual Weight 86.818 kg
Pertinent Past Medical History: R. BKA, PAD, DM 2, CKD (baseline SCR 2.2)
- Vital Signs / Lab Results
Temp Pulse Resp BP Pulse Ox
98.2 F 61 18 112/58 96
09/29/24 23:30 09/29/24 23:30 09/29/24 23:30 09/29/24 23:30 09/29/24 23:30
Lab Results - Hematology
09/28/24 09/29/24 09/30/24
14:29 07:17 07:31
WBC 3.9 L 3.8 L 3.9 L
Lab Results - Chemistry
09/28/24 09/29/24
14:29 07:17
BUN 19 H 19 H
Creatinine 2.2 H 2.3 H
Estimated Creat Clear 27
Albumin 3.2 L 2.7 L
Microbiology Results
09/28/24 14:38 Wound Culture - Preliminary
Leg - Left Pseudomonas aeruginosa
Gram Stain - Preliminary
[2024-09-30 08:39] LABS: Vancomycin Random 20.6 ug/ml
[2024-09-30 09:09] LABS: Blood Urea Nitrogen 19 mg/dl (7-17); Calcium 8.6 mg/dl (8.4-10.2); Carbon Dioxide 27 mmol/L (22-30); Chloride 108 mmol/L (98-107); Estimated Creatinine Clearance 27 ml/min; Glucose 108 mg/dl (70-99); Potassium 4.2 mmol/L (3.5-5.1); Sodium 142 mmol/L (135-145); eGFR 22.73
[2024-09-30 11:55] LABS: Glucose - Point of Care 162 mg/dl (70-99)
[2024-09-30] MEDS: SANTYL OINTMENT 1 APPLIC TOPICAL ×2 (12:30→20:08)
[2024-09-30] MEDS: NOVOLOG FLEXPEN-LOW RESISTANCE 1 UNITS SC (13:00)
--- NOTE | 2024-09-30 14:33 | CON.ID ---
Consultation
-
Date/Time Consultation Requested: September 30, 2024 1430
Date/Time Consultation Performed: September 30, 2024 1435
Requesting Provider: Dr. Shaji Hinson
Performing Provider: Dr. Farrah Bustos
Reason for Consultation: Severe PAD with chronic wounds
Chief Complaint / Past History
Chief Complaint
Left leg wound worse
History of Present Illness
69-year-old female from [facility] with history of diabetes mellitus, paroxysmal atrial fibrillation on anticoagulation, PAD with right BKA, history of left lower extremity 4 years ago, developed nonhealing left lower extremity wound approximately
2 months ago. She states she was at [facility] and was treated with IV antibiotic x 1 week for the infected left leg wound. She was then recently admitted to [facility] from September 02 to September 08 and underwent left lower
extremity and vascular balloon angioplasty. She was discharged back to [facility] on Augmentin. While at [facility], she noted that the wound was getting larger and worse. There was green and yellow drainage. She had discomfort. She was
therefore sent to the hospital on September 28. She was started on vancomycin and Zosyn. Patient denies fevers or chills. No diarrhea. She tends to be constipated. She does have history of C. difficile x 2 over the past 4 years.
Past History
Additional Past Medical History:
Diabetes mellitus
Neuropathy
Paroxysmal atrial fibrillation on Warfarin
MGUS
HLD
PAD s/p R BKA; LLE bypass 2020, balloon angioplasty 09/03/24
LLE DVT on Warfarin
CKD4
Hypothyroidism
Anxiety/depression
Polyneuropathy
Nephrolithiasis
C. diff x2
Allergy History:
No Known Allergies Allergy (Unverified 09/02/24 13:39)
Medications Reviewed: Yes
Current Antibiotics:
Zosyn
Vancomycin
Social History
Tobacco: Former Smoker
Alcohol: None
Drug: None
Living: [facility]
Family History
Family History: Not Pertinent
Review of Systems
Review of Systems
General: Negative Fever, Chills or Change in Appetite
HEENT: Negative Sinus Problems, Headache or Pharyngitis
Cardiovascular: Negative Chest Pain or Dyspnea
Respiratory: Negative Dyspnea or Cough
Gasteroenterology: Negative Nausea, Vomiting or Diarrhea
Genital / Urological: Negative Dysuria or Flank Pain
Endocrine: Negative Weakness
Neurological: Negative Dizziness
All systems: All other systems were reviewed and were negative
Vital Signs
Temp Pulse Resp BP Pulse Ox
97.5 F 68 19 101/63 97
09/30/24 07:00 09/30/24 07:00 09/30/24 07:00 09/30/24 07:00 09/30/24 08:00
Physical Exam
Physical Exam
Constitutional: No Acute Distress and Comfortable
Eyes: No Conjunctival Hemorrhage and Sclera Anicteric
Cardiovascular: Regular Rate and S1/S2
Pulmonary: Clear
Gastrointestinal: Soft, Non Tender, Non Distended and Normal Bowel Sounds
Genito-Urinary: Negative CVA Tenderness
Extremities: Negative Edema
Wound: Other (Left bellamy large wound with pink-brownish base, + yellow-green exudate proximally)
Neurological: AO x 3
Lab / Diagnostic Study Results
09/30/24 07:31
09/30/24 07:31
Abs Immat Gran (auto) 0.0 10^3/uL (0-0.05) 09/30/24 07:31
Absolute Neuts (auto) 2.3 10^3/uL (1.4-6.5) 09/30/24 07:31
Absolute Lymphs (auto) 0.9 10^3/uL (1.2-3.4) L 09/30/24 07:31
Absolute Monos (auto) 0.5 10^3/uL (0.1-0.6) 09/30/24 07:31
Absolute Basos (auto) 0.0 10^3/uL (0-0.2) 09/30/24 07:
Immature Gran % 0.5 % (0-0.5) 09/30/24 07:
Neutrophils % 58.1 % (42.2-75.2) 09/30/24 07:
Lymphocytes % 23.8 % (20.5-51.1) 09/30/24:
Monocytes % 11.5 % (1.7-9.3) H 09/30/24:
Eosinophils % 5.6 % (0-6) 09/30/24:
Basophils % 0.5 % (0-2) 09/30/24 07:
PT 29.6 Sec (11.4-14.6) H 09/30/24 07:
INR 2.81 09/30/24 07:31
Microbiology Results
Micro:
09/28/24 14:38 Wound Culture - Preliminary
Leg - Left Pseudomonas aeruginosa
Gram Stain - Preliminary
Assessment / Plan
# Infection of chronic non-healing LLE wound
# Severe PAD s/p recent LLE balloon angioplasty
- Wound cx Pseudomonas
- Narrow Vancomycin and Zosyn to cefepime
- At time of dc can transition to cipro with close monitoring of INR (on coumadin)
-Check QTc
# hx C. diff x 2
-Prophylactic Vancomycin 125 mg po daily while on systemic abx.
# Conditions ADMINISTRATION INTERN
Diabetes mellitus
Neuropathy
Paroxysmal atrial fibrillation on Eliquis
MGUS
HLD
PAD s/p R BKA; LLE bypass 2020, balloon angioplasty 09/03/24
LLE DVT
CKD4
Hypothyroidism
Anxiety/depression
Polyneuropathy
Nephrolithiasis
C. diff x2
Care Review
Plan reviewed with: Physician (Dr. Hinson)
[2024-09-30 15:00] VITALS: BP 115/62
--- NOTE | 2024-09-30 16:30 | W.PN.HOSP.TC ---
Today's Communication/Plan
-
Continue antibiotics and wound care.
Continue Coumadin following INR.
Assessment / Plan
Assessment / Plan
Impression:
Left lower extremity/medial left bellamy infected arterial ulcer
Severe PAD with recent occluded bypass graft of the left lower extremity, status post angioplasty on 09/03, prior bypass 4 years ago.
Mild hypernatremia upon presentation
Recent left lower extremity DVT while on Eliquis
Other conditions:
Severe PAD status post right BKA
Paroxysmal atrial fibrillation.
CKD stage IV baseline creatinine 2.2
Diabetes type 2.
Dyslipidemia
Diabetic neuropathy.
Chronic pancytopenia.
GERD
Anxiety/depression.
Plan
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
Continue wound care
Pulses present by Doppler
Vascular evaluation appreciated with no requirement for surgical intervention at this point.
ID input appreciated. Antibiotic narrowed from vancomycin and Zosyn to cefepime. Eventually transition to oral regimen with Cipro.
-Continue aspirin, statin
-INR of 3.04, recheck INR in a.m.
-Hold Coumadin for consideration of potential further procedures and start heparin drip as INR approaches 2
-Vascular surgery consult
#Hypernatremia
-Sodium 146
-Encourage increased free water intake
#Recent acute left lower extremity DVT on Eliquis
-Hold Coumadin and start heparin drip as INR approaches 2
History of right BKA
Paroxysmal atrial fibrillation
-On Coumadin for DVT
Type 2 diabetes
-Hold alogliptin
-Insulin sliding scale
Diabetic neuropathy
-Continue gabapentin, pregabalin
Chronic pancytopenia
Chronic thrombocytopenia
-Counts are stable
CKD 4
-Creatinine of 2.2 at baseline
-Continue sodium bicarbonate
History of renal calculi
-Continue tamsulosin
GERD
-Continue Protonix
Hypothyroidism
-Continue levothyroxine
Hyperlipidemia
Anxiety/depression
-Continue trazodone
-Continue Lamictal
Full code
DVT prophylaxis�heparin drip
Diabetic diet
Anticipated Discharge: 24 - 48 hours
Subjective/Interval History
-
Date of Service: September 30, 2024
Objective Data
-
Labs:
Laboratory Results
09/30/24
07:31
WBC 3.9 L
Hgb 8.7 L
Hct 27.5 L
Plt Count 101 L
PT 29.6 H
INR 2.81
Sodium 142
Potassium 4.2
Chloride 108 H
Carbon Dioxide 27
BUN 19 H
Creatinine 2.3 H
Glucose 108 H
Calcium 8.6
Vital Signs:
Vital Signs
Temp Pulse Resp BP Pulse Ox
97.5 F 68 19 101/63 97
09/30/24 07:00 09/30/24 07:00 09/30/24 07:00 09/30/24 07:00 09/30/24 08:00
I&O
09/29/24 09/30/24 10/01/24
06:59 06:59 06:59
Intake Total 480 / 480 860 / 860
Balance 480 / 480 860 / 860
Physical Exam
-
General: No Apparent Distress
HEENT: Normocephalic and Atraumatic
Respiratory: Negative Wheezes
Cardiac: Regular Rhythm and S1/S2
GI: Soft
Genito-urinary: No Costovertebral Tender
Neuro: AO x 3
Hematologic / Lymphatic: No Lymphadenopathy
Psych: Calm
[2024-09-30 16:40] LABS: Glucose - Point of Care 139 mg/dl (70-99)
[2024-09-30] MEDS: COUMADIN 1 MG PO (18:19)
[2024-09-30] MEDS: MAXIPIME 2000 MG IV (20:09)
[2024-09-30] MEDS: STERILE WATER FOR INJECTION 10 ML IV (20:09)
[2024-09-30 21:18] LABS: Glucose - Point of Care 138 mg/dl (70-99)
[2024-09-30] MEDS: LIPITOR 10 MG PO (21:24)
[2024-09-30] MEDS: DESYREL 100 MG PO (21:24)
[2024-09-30] MEDS: VITAMIN D3 (cholecalciferol) 125 MCG PO (21:24)
[2024-09-30] MEDS: MELATONIN 10 MG PO (21:24)
[2024-09-30] MEDS: SYNTHROID 100 MCG PO (21:24)
[2024-09-30] MEDS: LAMICTAL 50 MG PO (21:25)
[2024-09-30 23:18] VITALS: BP 105/59
[2024-10-01] MEDS: TYLENOL 975 MG PO ×3 (00:24→15:42)
[2024-10-01] MEDS: ROXICODONE 5 MG PO ×2 (01:54→11:38)
[2024-10-01 08:10] LABS: Glucose - Point of Care 107 mg/dl (70-99)
[2024-10-01] MEDS: NOVOLOG FLEXPEN-LOW RESISTANCE SC ×2 (08:11→12:52)
[2024-10-01 08:14] LABS: % Basophils 0.5 % (0-2); % Immature Granulocytes 0.5 % (0-0.5); % Lymphocytes 22.6 % (20.5-51.1); % Monocytes 9.5 % (1.7-9.3); % Neutrophils 60.9 % (42.2-75.2); Absolute Eosinophils 0.2 10^3/uL (0-0.7); Absolute Lymphocytes 0.9 10^3/uL (1.2-3.4); Absolute Monocytes 0.4 10^3/uL (0.1-0.6); Absolute Neutrophils 2.4 10^3/uL (1.4-6.5); Hematocrit 28.4 % (37.0-47.0); Hemoglobin 8.9 g/dL (12.0-16.0); Mean Corp Hgb Conc. 31.3 g/dL (33.0-37.0); Mean Corpuscular Hgb 30.5 pg (27.0-31.0); Mean Corpuscular Volume 97.3 fL (81.0-99.0); Mean Platelet Volume 10.2 fL (7.4-10.4); Nucleated Red Blood Cells % 0 %; Platelet Count 108 10^3/uL (130-400); Red Blood Cell Count 2.92 10^6/uL (4.20-5.40); Red Cell Dist. Width 15.9 % (11.5-14.5)
[2024-10-01 08:25] VITALS: BP 126/78
[2024-10-01] MEDS: FEOSOL 325 MG PO (08:37)
[2024-10-01] MEDS: THERAGRAN 1 TABLET PO (08:37)
[2024-10-01] MEDS: LOW STRENGTH ASPIRIN 81 MG PO (08:37)
[2024-10-01] MEDS: PROTONIX 40 MG PO (08:37)
[2024-10-01] MEDS: FLORASTOR 250 MG PO (08:37)
[2024-10-01] MEDS: FLOMAX 0.4 MG PO (08:37)
[2024-10-01] MEDS: LYRICA 50 MG PO (08:37)
[2024-10-01] MEDS: SODIUM BICARBONATE 1300 MG PO (08:37)
[2024-10-01] MEDS: FOLVITE 1 MG PO (08:37)
[2024-10-01] MEDS: SANTYL OINTMENT 1 APPLIC TOPICAL (08:38)
[2024-10-01] MEDS: FIRVANQ 125 MG PO (08:39)
[2024-10-01 08:46] LABS: Vancomycin Random 16.2 ug/ml
[2024-10-01 08:55] LABS: INR 1.93; PT 22.6 Sec (11.4-14.6)
[2024-10-01 09:51] LABS: Blood Urea Nitrogen 22 mg/dl (7-17); Calcium 8.6 mg/dl (8.4-10.2); Carbon Dioxide 24 mmol/L (22-30); Chloride 108 mmol/L (98-107); Estimated Creatinine Clearance 24 ml/min; Glucose 110 mg/dl (70-99); Potassium 4.3 mmol/L (3.5-5.1); Sodium 143 mmol/L (135-145); eGFR 19.62
--- NOTE | 2024-10-01 10:41 | CM ---
marketing account manager continues to follow with patient progress notes and spoke with patient this am, plan is for patient to return to [facility] when stable, patient has requested copy of her chart, form completed to request copy of chart by patient
and form will be sent to medical records.
Plan; Patient to return to [facility] when stable.
Report [phone]
[2024-10-01 12:04] LABS: Glucose - Point of Care 112 mg/dl (70-99)
--- NOTE | 2024-10-01 14:25 | W.PN.ID1 ---
Date of Service
Date of Service: October 01, 2024
Today's Communication
Can transition cefepime to cipro 500mg po daily [id number]/14.
Monitor INR closely while on cipro.
Continue prophylactic Vancomycin 125 mg po daily through 10/17/24.
Assessment / Plan
# Infection of chronic non-healing LLE wound
# Severe PAD s/p recent LLE balloon angioplasty
- Wound cx Pseudomonas
- Can transition cefepime to cipro 500mg po daily [id number]/14. with close monitoring of INR (on coumadin)
- QTc normal
- Cipro interacts with Warfarin. Monitor INR closely while on cipro.
# hx C. diff x 2
-Continue prophylactic Vancomycin 125 mg po daily through 10/17/24.
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
Diabetes mellitus
Neuropathy
Paroxysmal atrial fibrillation on Eliquis
MGUS
HLD
PAD s/p R BKA; LLE bypass 2020, balloon angioplasty 09/03/24
LLE DVT
CKD4
Hypothyroidism
Anxiety/depression
Polyneuropathy
Nephrolithiasis
C. diff x2
Chief Complaint
-: Other (wound)
Subjective / Review of Systems
Feels ok
Vital Signs / Physical Exam
Vital Signs
Vital Signs
Temp Pulse Resp BP Pulse Ox
97.7 F 65 18 126/78 97
10/01/24 08:25 10/01/24 08:25 10/01/24 08:25 10/01/24 08:25 10/01/24 08:25
Physical Exam
Constitutional: No Acute Distress
Pulmonary: Clear
Gastrointestinal: Soft, Non Tender and Non Distended
Wound: Other (LLE dressing dry)
Objective Data
Lab Data
Lab Results
10/01/24 07:10
10/01/24 07:10
PT 22.6 Sec (11.4-14.6) H 10/01/24 07:10
INR 1.93 10/01/24 07:10
Estimated Creat Clear 24 ml/min 10/01/24 07:10
Total Bilirubin 0.3 mg/dl (0.2-1.3) 09/29/24 07:17
AST 18 U/L (14-36) 09/29/24 07:17
ALT 12 U/L (0-35) 09/29/24 07:17
Alkaline Phosphatase 76 U/L (38-126) 09/29/24 07:17
Most recent labs reviewed.
Micro Results:
09/28/24 14:38 Wound Culture - Final
Leg - Left Pseudomonas aeruginosa
Gram Stain - Final
Care Review
Plan reviewed with: Physician (Dr. Hinson)
[2024-10-01 15:20] VITALS: BP 162/80
--- NOTE | 2024-10-01 15:34 | W.DS.TRANS ---
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
-
Discharge Instructions:
Discharge Diagnosis/Procedures Impression:
Left lower extremity/medial left bellamy infected
arterial ulcer
Severe PAD with recent occluded bypass graft of
the left lower extremity, status post
angioplasty on 09/03, prior bypass 4 years ago.
Mild hypernatremia upon presentation
Recent left lower extremity DVT while on Eliquis
Other conditions:
Severe PAD status post right BKA
Paroxysmal atrial fibrillation.
CKD stage IV baseline creatinine 2.2
Diabetes type 2.
Dyslipidemia
Diabetic neuropathy.
Chronic pancytopenia.
GERD
Anxiety/depression.
Diet Diabetic, Carb Controlled
Blood Work INR on 10/02
Instructions:
Stand-Alone Forms:
Changes to Home Medications: Yes
Discharge Medications:
DC Medications w/original date entered in [employer]
Saccharomyces boulardii 250 mg capsule 250 mg PO BID Gastrointestinal Issue 09/02/24
acetaminophen 325 mg tablet (Tylenol) 650 mg PO Q6HPRN PRN mild pain/fever >100.4 09/02/24
acetaminophen 325 mg tablet (Tylenol) 975 mg PO Q8H Pain 09/02/24
alogliptin 6.25 mg tablet 6.25 mg PO DAILY Diabetes 09/02/24
aspirin 81 mg chewable tablet 81 mg PO DAILY Blood Clot Prevention/Tx 09/02/24
atorvastatin 10 mg tablet 10 mg PO HS High Cholesterol 09/02/24
bisacodyl 10 mg rectal suppository 10 mg MS DAILYPRN PRN if mom ineffective 09/02/24
cholecalciferol (vitamin D3) 50 mcg (2,000 unit) tablet (Vitamin D3) 125 mcg PO HS Supplement 09/02/24
ferrous sulfate 325 mg (65 mg iron) tablet 325 mg PO DAILY Supplement 09/02/24
folic acid 1 mg tablet 1 mg PO DAILY Supplement 09/02/24
gabapentin 300 mg capsule 300 mg PO BID Neurological Condition 09/02/24
guaifenesin 100 mg/5 mL oral liquid 200 mg PO Q4HPRN PRN cough 09/02/24
ipratropium 0.5 mg-albuterol 3 mg (2.5 mg base)/3 mL nebulization soln 3 ml inhalation R Q6HPRN PRN sob 09/02/24
lamotrigine 25 mg tablet 50 mg PO HS Neurological Condition 09/02/24
levothyroxine 100 mcg tablet 100 mcg PO HS Thyroid 09/02/24
magnesium hydroxide 400 mg/5 mL oral suspension (Milk of Magnesia) 30 ml PO DAILYPRN PRN constipation 09/02/24
melatonin 5 mg tablet 10 mg PO HS Sleep 09/02/24
nystatin 100,000 unit/gram topical powder 1 applic topical BID breasts, abdomen, groin 09/02/24
pantoprazole 40 mg tablet,delayed release 40 mg PO DAILY Gastrointestinal Issue 09/02/24
sodium bicarbonate 650 mg tablet 1,300 mg PO BID Kidney Disease 09/02/24
sodium phosphates 19 gram-7 gram/118 mL enema (Enema) 118 ml MS DAILYPRN PRN if no result aftr bisacodyl 09/02/24
tamsulosin 0.4 mg capsule 0.4 mg PO DAILY Urinary Issue 09/02/24
trazodone 100 mg tablet 100 mg PO HS Mental Health/Anxiety 09/02/24
collagenase clostridium histo. 250 unit/gram topical ointment (Santyl) 1 applic topical DAILY lt bellamy wound 09/28/24
sodium chloride-hypochlorous acid 0.033 % irrigation solution (Vashe) 1 irrig irrigation HS lt bellamy wound 09/28/24
therapeutic multivitamin 1 tab PO DAILY Supplement 09/28/24
warfarin 2 mg tablet 2 mg PO SUTUTHSA@1999 Blood Clot Prevention/Tx 09/28/24
warfarin 2.5 mg tablet 1 mg PO MOWEFR@1999 Blood Clot Prevention/Tx 09/28/24
ciprofloxacin HCl 500 mg tablet (Cipro) 500 mg PO DAILY #11 tabs 10/01/24
oxycodone 5 mg tablet 5 mg PO Q6HPRN PRN mod-severe pain #15 tabs 10/01/24
pregabalin 50 mg capsule 50 mg PO BID Neurological Condition #15 caps 10/01/24
vancomycin 50 mg/mL oral solution 125 mg (2.5 mL) PO DAILY #300 mL 10/01/24
Home Medication Changes
Cipro dose increased with addition of prophylactic oral Vancomycin
Pending Results: No
[2024-10-01 16:35] LABS: Glucose - Point of Care 202 mg/dl (70-99)
[2024-10-01] MEDS: NOVOLOG FLEXPEN-LOW RESISTANCE 2 UNITS SC (17:03)
[2024-10-01] MEDS: COUMADIN 1 MG PO (17:04)
== END 2024-10-01 20:38 | DRG 300 ==
LOC: 4 WEST ACU 16:40
PROVIDERS: Nurse Practitioner; ADMITTING PHYSICIAN Hospitalist; ATTENDING PHYSICIAN Internal Medicine; CONSULT PHYSICIAN Internal Medicine Infectious Disease; EMERGENCY PHYSICIAN Emergency Medicine; FAMILY PHYSICIAN Internal Medicine; OTHER PHYSICIAN Surgery Vascular Surgery
DX: E11.51 Type 2 diabetes mellitus with diabetic peripheral angiopathy without gangrene (principal); D61.818 Other pancytopenia; L03.116 Cellulitis of left lower limb; N18.4 Chronic kidney disease, stage 4 (severe); E87.0 Hyperosmolality and hypernatremia; L97.829 Non-pressure chronic ulcer of other part of left lower leg with unspecified severity; B96.5 Pseudomonas (aeruginosa) (mallei) (pseudomallei) as the cause of diseases classified elsewhere; I48.0 Paroxysmal atrial fibrillation; E11.22 Type 2 diabetes mellitus with diabetic chronic kidney disease; E11.42 Type 2 diabetes mellitus with diabetic polyneuropathy; I70.248 Atherosclerosis of native arteries of left leg with ulceration of other part of lower leg; E78.00 Pure hypercholesterolemia, unspecified; E03.9 Hypothyroidism, unspecified; K21.9 Gastro-esophageal reflux disease without esophagitis; F32.A Depression, unspecified; F41.9 Anxiety disorder, unspecified; Z89.511 Acquired absence of right leg below knee; Z87.891 Personal history of nicotine dependence; Z86.718 Personal history of other venous thrombosis and embolism; Z79.899 Other long term (current) drug therapy; Z79.890 Hormone replacement therapy; Z79.82 Long term (current) use of aspirin; Z79.01 Long term (current) use of anticoagulants; Z95.820 Peripheral vascular angioplasty status with implants and grafts
CPT/HCPCS: 80048; 80053; 80202; 82962; 85025; 85610; 87070; 87071; 87147; 87186; 87205; 93005; 93922; 93925; 96374; 99285

== ENCOUNTER → 2024-10-15 10:51 | Outpatient (REF) | payer MEDICARE, OTHER, SELFPAY | LOC: RAD 10:51 | PROVIDERS: ATTENDING PHYSICIAN Registered Nurse; FAMILY PHYSICIAN Internal Medicine | DX: I73.9 Peripheral vascular disease, unspecified (principal) | CPT/HCPCS: 93922; 93925 ==

== ENCOUNTER → 2025-02-27 12:50 | Outpatient (REF) | payer MEDICARE, OTHER, SELFPAY | LOC: RAD 12:50 | PROVIDERS: ATTENDING PHYSICIAN Physician Assistant | DX: I73.9 Peripheral vascular disease, unspecified (principal) | CPT/HCPCS: 93922; 93925 ==

== ENCOUNTER 2025-04-07 08:34 | Outpatient (RCR) | payer MEDICARE, SELFPAY ==
[2025-04-07 09:43] VITALS: BP 119/54
[2025-04-07 10:01] VITALS: BP 121/48
[2025-04-07 12:16] VITALS: BP 109/52
== END 2025-04-25 23:59 | disposition home or self-care (01) ==
LOC: OID 08:34
PROVIDERS: ATTENDING PHYSICIAN Internal Medicine Hematology & Oncology
DX: N18.31 Chronic kidney disease, stage 3a (principal); D63.1 Anemia in chronic kidney disease; D47.2 Monoclonal gammopathy; Z79.01 Long term (current) use of anticoagulants
CPT/HCPCS: 36415; 36430; 86850; 86900; 86901; 86920; 86922; P9016

== ENCOUNTER → 2025-05-05 11:41 | Outpatient (REF) | payer MEDICARE, SELFPAY | LOC: WDC 11:41 | PROVIDERS: ATTENDING PHYSICIAN Internal Medicine Hematology & Oncology; FAMILY PHYSICIAN Internal Medicine | DX: Z12.31 Encounter for screening mammogram for malignant neoplasm of breast (principal) | CPT/HCPCS: 77063; 77067 ==

== ENCOUNTER 2025-07-07 23:07 | Inpatient (IN) | payer MEDICARE, OTHER, SELFPAY ==
[2025-07-07] VITALS (7 sets, daily range): BP systolic 85–101; BP diastolic 54–70; BMI 27.4
--- NOTE | 2025-07-07 18:06 | ED.GENMED ---
History of Present Illness
General
Chief Complaint: Vascular Symptoms
Time Seen by Provider: 07/07/25 17:41
History of Present Illness
History of Present Illness:
Patient presents to the emergency department with left lower extremity pain. She has a history of severe peripheral arterial disease. She has had a below the knee amputation to the right lower extremity. She has chronic nonhealing arterial ulcers
to the left anterior bellamy. She has had a bypass graft in the left lower extremity that was subsequently thrombosed and opened with a balloon angioplasty. Notes worsening pain in the extremity over the past 24 hours. Has worsening loss of
sensation in the foot. Has chronic weakness in the foot which is unchanged.
Phy Exam
Physical Exam
Physical Exam:
GENERAL APPEARANCE: NAD, chronically ill-appearing
EYES lids/conjunctiva normal
EARS/NOSE/THROAT Mucous membranes moist, uvula midline without oral pharyngeal erythema, exudate or swelling
HEAD/NECK normocephalic atraumatic, neck is supple.
RESPIRATORY respiratory effort normal, speaks in full sentences, no accessory muscle use. Lungs clear to auscultation without rhonchi, wheezes, rales
CARDIAC Regular rate and rhythm, no edema.
ABDOMINAL Soft, ND/NT.
MUSCLES/EXTREMITIES BKA to right lower extremity. Left lower extremity is cool with multiple large ulcerations with necrotic centers on left bellamy. There is no palpable pedal pulses. There is no dopplerable pedal pulses. She has palpable femoral
pulses. She has dullness to sensation in the lower extremity. She has diminished strength in this extremity as well
SKIN Warm, pink and dry. No rashes
NEUROLOGICAL Speech is clear and appropriate. Normal level of consciousness. 5/5 strength in all extremities.
PSYCH Normal mood and affect. Judgement/competence is appropriate
Course
Orders/Labs/Results
Orders:
Orders
07/07/25 17:57
Vascular Surgery Consult Urgent
Consulting Provider: Jenise Monsivais
Was physician already notified: Yes
07/07/25 18:07
Atypical Antibody Screen Urgent
BBK Wristband Number:
Type+Screen Urgent
CBC/With Diff [Complete Blood Count/With Diff] Urgent
CMP [Comprehensive Metabolic Panel] Urgent
Lactate Level [Lactic Acid] Urgent
PTT Urgent
Prothrombin Time Urgent
07/07/25 18:08
Notify MD As Directed
Notify physician if: Call provider for further orders if PTT is greater than or equal to 200 per heparin
infusion protocol.
Nursing to Place Non Medication Order As Directed
Physician Order: PTT 6 hours after initial start of Heparin infusion
Above order entered?: Yes
07/07/25 18:15
Heparin 84930 Units/250 ml 25,000 units in 250 ml IV PER PROTOCOL
Weight to be used for heparin protocol in kilograms (kg):: 79.3
Protocol:: DVT/PE
PTT Goal Range to be used:: PTT 73 to 111 seconds
Order type:: Initial
INITIAL Infusion Dose (UNITS/KG/hr) & then follow protocol:: 18 units/kg/hr
Infusion Dose in UNITS/hr & then follow protocol (UNITS/hr):: 1,400
INFUSION RATE in mL/hr & then follow protocol (mL/hr):: 14
For DVT/PE algorithm, re-bolus for low PTT?: Yes
PTT less than or equal to 64 seconds:: Re-bolus 80 units/kg (max 10,000units). Increase by 300 units/hr
(+ 3mL/hr)
PTT 64.1 to 72.9 seconds:: Re-bolus 40 units/kg (max 5,000 units). Increase by 200 units/hr
(+ 2mL/hr)
PTT 73 to 111 seconds:: Target Range. No change in rate.
PTT 111.1 to 130.9 seconds:: Decrease rate by 200 units/hr (- 2 mL/hr)
PTT 131 to 199.9 seconds:: HOLD for 1 hr. Then decrease by 200 units/hr (- 2mL/hr)
PTT greater than or equal to 200 seconds:: HOLD for 2 hrs & Notify Provider. Then decrease by 300 units/hr
(- 3mL/hr)
Lab follow-up:: Each change, PTT q6h until 2 consecutive are therapeutic. Then
PTT daily.
07/07/25 18:56
Notify MD As Directed
Notify physician if: Call provider for further orders if PTT is greater than or equal to 200 per heparin
infusion protocol.
Nursing to Place Non Medication Order As Directed
Physician Order: PTT 6 hours after initial start of Heparin infusion
Above order entered?: Yes
07/07/25 19:00
Heparin [id number] Units/250 ml 25,000 units in 250 ml IV PER PROTOCOL
Weight to be used for heparin protocol in kilograms (kg):: 79.3
Protocol:: Vascular Surgery
PTT Goal Range to be used:: PTT 73 to 111 seconds
Order type:: Initial
INITIAL Infusion Dose (UNITS/KG/hr) & then follow protocol:: 18 units/kg/hr
Infusion Dose in UNITS/hr & then follow protocol (UNITS/hr):: 1,400
INFUSION RATE in mL/hr & then follow protocol (mL/hr):: 14
PTT less than or equal to 64 seconds:: Notify Ordering Provider. obtain orders for rate increase &
possible bolus
PTT 64.1 to 72.9 seconds:: Increase rate by 100 units/hr (+ 1 mL/hr)
PTT 73 to 111 seconds:: Target Range. No change in rate.
PTT 111.1 to 130.9 seconds:: Decrease rate by 100 units/hr (- 1 mL/hr)
PTT 131 to 199.9 seconds:: HOLD for 1 hour. Then decrease rate by 200 units/hr (- 2 mL/hr)
PTT greater than or equal to 200 seconds:: STOP INFUSION. Notify Ordering provider to obtain further orders.
Lab follow-up:: Each change, PTT q6h until 2 consecutive are therapeutic. Then PTT
daily.
07/07/25 19:05
Heparin 4,000 units IV NOW STA
07/07/25 19:30
US Periph Art LOWER Ext Ltd Urgent
Reason For Exam: concern for acute limb ischemia LLE
07/07/25 21:44
NORepinephrine 4 MG/250 ML [Levophed] 4 mg in 250 ml .ROUTE .STK-MED
07/07/25 21:51
Dexamethasone Sod Phosphate [Decadron] 20 mg .ROUTE .STK-MED ONE
Fentanyl Citrate/Pf [Sublimaze] 100 mcg .ROUTE .STK-MED ONE
Lidocaine HCl/Pf [Xylocaine-Mpf 1% Vial] 50 mg .ROUTE .STK-MED ONE
Ondansetron Injectable [Zofran] 4 mg .ROUTE .STK-MED ONE
Propofol [Diprivan] 20 ml .ROUTE .STK-MED
07/07/25 21:52
Midazolam HCl [Versed] 2 mg .ROUTE .STK-MED ONE
07/07/25 21:54
Heparin 10,000 units .ROUTE .STK-MED ONE
07/07/25 22:06
Propofol [Diprivan] 40 ml .ROUTE .STK-MED
07/08/25 01:45
PTT Routine
Abnormal Lab Results
07/07/25
18:07
RBC 3.35 L 10^6/uL
(4.20-5.40)
Hgb 10.5 L g/dL
(12.0-16.0)
Hct 33.6 L %
(37.0-47.0)
MCV 100.3 H fL
(81.0-99.0)
MCH 31.3 H pg
(27.0-31.0)
MCHC 31.3 L g/dL
(33.0-37.0)
Abs Immat Gran (auto) 0.1 H 10^3/uL
(0-0.05)
Absolute Neuts (auto) 8.7 H 10^3/uL
(1.4-6.5)
Absolute Lymphs (auto) 0.6 L 10^3/uL
(1.2-3.4)
Immature Gran % 0.9 H %
(0-0.5)
Neutrophils % 87.6 H %
(42.2-75.2)
Lymphocytes % 5.8 L %
(20.5-51.1)
PT 44.1 H Sec
(11.4-14.6)
APTT 79.7 H Sec
(23.4-35.0)
Carbon Dioxide 12 L* mmol/L
(22-30)
BUN 35 H mg/dl
(7-17)
Creatinine 3.6 H mg/dL
(0.6-1.0)
AST 40 H U/L
(14-36)
Albumin 3.4 L g/dl
(3.5-5.0)
07/07/25 18:07
07/07/25 18:07
Vital Signs
Initial and Last Documented VS:
Initial Vital Signs
Temp Pulse Resp BP Pulse Ox
98.4 F 86 18 98/60 99
07/07/25 17:46 07/07/25 17:46 07/07/25 17:46 07/07/25 17:46 07/07/25 17:46
Last Documented Vital Signs
Temp Pulse Resp BP Pulse Ox
98.4 F 67 18 86/57 98
07/07/25 17:46 07/07/25 20:00 07/07/25 20:12 07/07/25 20:00 07/07/25 20:00
*Pulse Oximetry
SaO2: 99
Oxygen Mode of Delivery: Room air
Patient hypoxic: no
*Critical Care Note
Total Time (30-74mins, 75-104mins- exclusive of procedures): 35 minutes
ED Attending Note
ED Attending Note
ED Attending Note:
Patient presents with acute on chronic left lower extremity ischemia. Vascular surgery consulted on arrival, . Recommending heparin drip and CT angio with runoff to the lower extremity.
Given CKD patient unable to tolerate IV contrast. Ultrasound arterial ordered which showed complete occlusion of the bypass graft with no distal flow. Patient is on a heparin drip. Vascular surgery is taking her to the OR now for definitive
intervention.
-
Portions of this chart may have been created with voice recognition software.� Occasional wrong word or��sound alike� substitutions may have occurred due to the inherent limitations of voice recognition software.
Discharge Plan
Departure
Prescriptions:
No Action
ipratropium-albuterol 0.5 mg-3 mg(2.5 mg base)/3 mL Solution For Nebulization
3 ml INHALATION R Q6HPRN PRN (Reason: sob)
atorvastatin 10 mg Tablet
10 mg PO HS
guaifenesin 100 mg/5 mL Liquid
200 mg PO Q4HPRN PRN (Reason: cough)
lamotrigine 25 mg Tablet
50 mg PO HS
levothyroxine 100 mcg Tablet
100 mcg PO HS
magnesium hydroxide [Milk of Magnesia] 400 mg/5 mL Suspension
30 ml PO DAILYPRN PRN (Reason: constipation)
tamsulosin 0.4 mg Capsule
0.4 mg PO DAILY
trazodone 100 mg Tablet
100 mg PO HS
sodium bicarbonate 650 mg Tablet
1,300 mg PO BID
bisacodyl 10 mg Suppository
10 mg VT DAILYPRN PRN (Reason: if mom ineffective)
pantoprazole 40 mg Tablet,Delayed Release (Dr/Ec)
40 mg PO DAILY
ferrous sulfate 325 mg (65 mg iron) Tablet
325 mg PO DAILY
Enema 19-7 gram/118 mL Enema
118 ml VT DAILYPRN PRN (Reason: if no result aftr bisacodyl)
gabapentin 300 mg Capsule
300 mg PO BID
aspirin 81 mg Tablet,Chewable
81 mg PO DAILY
folic acid 1 mg Tablet
1 mg PO DAILY
nystatin 100,000 unit/gram Powder
1 applic TOPICAL BID
melatonin 5 mg Tablet
10 mg PO HS
cholecalciferol (vitamin D3) [Vitamin D3] 50 mcg (2,000 unit) Tablet
125 mcg PO HS
alogliptin 6.25 mg Tablet
6.25 mg PO DAILY
therapeutic multivitamin Tablet
1 tab PO DAILY
Santyl 250 unit/gram Ointment
1 applic TOPICAL DAILY
Vashe 0.033 % Irrigation Solution
1 irrig IRRIGATION HS
warfarin 2.5 mg tablet
3 mg PO DAILY
midodrine 5 mg Tablet
5 mg PO TID
metoprolol succinate 25 mg Tablet Extended Release 24 Hr
25 mg PO BID
loratadine 10 mg Tablet
10 mg PO DAILY
Referrals:
Cedrick Pugh DO [Family Provider]
Interventions
Interventions:
*Risk Screen - Suicide Last Done: 07/07/25 18:07
*General Assessment Last Done: 07/07/25 17:55
*Neglect/Abuse Screening Last Done: 07/07/25 18:07
*ED- Fall Risk Assessment Last Done: 07/07/25 18:07
*ED COVID-19 Vaccine History Last Done: 07/07/25 18:07
ED- Cardiac Assessment Last Done: 07/07/25 18:05
ED- Pulmonary Assessment Last Done: 07/07/25 18:05
ED-Peripheral Vascular Assessment Last Done: 07/07/25 17:55
ED-Skin Assessment Last Done: 07/07/25 18:00
Discharge Date and Time
Print Language: ZAMBIAN
[2025-07-07 18:17] LABS: Hematocrit 33.6 % (37.0-47.0); Hemoglobin 10.5 g/dL (12.0-16.0); Mean Corp Hgb Conc. 31.3 g/dL (33.0-37.0); Mean Corpuscular Volume 100.3 fL (81.0-99.0); Nucleated Red Blood Cells % 0 %; Platelet Count 191 10^3/uL (130-400); Red Cell Dist. Width 14.2 % (11.5-14.5)
[2025-07-07 18:26] LABS: INR 4.78; PT 44.1 Sec (11.4-14.6)
[2025-07-07 18:28] LABS: APTT 79.7 Sec (23.4-35.0)
[2025-07-07 18:59] LABS: ALT (SGPT) 19 U/L (0-35); AST (SGOT) 40 U/L (14-36); Albumin 3.4 g/dl (3.5-5.0); Alkaline Phosphatase 104 U/L (38-126); Blood Urea Nitrogen 35 mg/dl (7-17); Calcium 8.4 mg/dl (8.4-10.2); Carbon Dioxide 12 mmol/L (22-30); Chloride 105 mmol/L (98-107); Estimated Creatinine Clearance 15 ml/min; Glucose 82 mg/dl (70-99); Potassium 4.3 mmol/L (3.5-5.1); Sodium 136 mmol/L (135-145); Total Protein 7.2 g/dl (6.3-8.2); eGFR 13.19
[2025-07-07] MEDS: HEPARIN 25000 UNITS/250 ML IV (19:45)
[2025-07-07] MEDS: HEPARIN 4000 UNITS IV (19:49)
--- NOTE | 2025-07-07 22:23 | CON.VAS ---
Medical History
-
Chief Complaint: LLE Cold Leg
History of Present Illness:
70F hx of LLE Fem - AT bypass last intervened in 2023 with recent arterial study in february showing stenosis at distal aspect of bypass presents with 2-3 day hx of LLE cold leg and pain. Motor function intact with decreased sensation. duplex in ER
showed occluded bypass. Large wounds on LLE
Past Medical History
Past Medical History: CAD, HTN and Hypercholesterolemia
Allergies / Home Medications
Allergy/AdvReac Type Severity Reaction Status Date / Time
cefepime Allergy Unknown Unknown Verified 07/07/25 17:54
ceftriaxone Allergy Unknown Unknown Verified 07/07/25 17:54
�Medication �Instructions �Recorded �Confirmed �Type
alogliptin 6.25 mg tablet 6.25 mg PO DAILY Diabetes 09/02/24 09/28/24 History
aspirin 81 mg chewable tablet 81 mg PO DAILY Blood Clot 09/02/24 04/07/25 History
Prevention/Tx
atorvastatin 10 mg tablet 10 mg PO HS High Cholesterol 09/02/24 04/07/25 History
bisacodyl 10 mg rectal suppository 10 mg AR DAILYPRN PRN if mom 09/02/24 04/07/25 History
ineffective
cholecalciferol (vitamin D3) 50 125 mcg PO HS Supplement 09/02/24 04/07/25 History
mcg (2,000 unit) tablet (Vitamin
D3)
ferrous sulfate 325 mg (65 mg 325 mg PO DAILY Supplement 09/02/24 09/28/24 History
iron) tablet
folic acid 1 mg tablet 1 mg PO DAILY Supplement 09/02/24 04/07/25 History
gabapentin 300 mg capsule 300 mg PO BID Neurological 09/02/24 04/07/25 History
Condition
guaifenesin 100 mg/5 mL oral liquid 200 mg PO Q4HPRN PRN cough 09/02/24 04/07/25 History
ipratropium 0.5 mg-albuterol 3 mg 3 ml inhalation R Q6HPRN PRN sob 09/02/24 04/07/25 History
(2.5 mg base)/3 mL nebulization
soln
lamotrigine 25 mg tablet 50 mg PO HS Neurological Condition 09/02/24 04/07/25 History
levothyroxine 100 mcg tablet 100 mcg PO HS Thyroid 09/02/24 04/07/25 History
magnesium hydroxide 400 mg/5 mL 30 ml PO DAILYPRN PRN constipation 09/02/24 04/07/25 History
oral suspension (Milk of Magnesia)
melatonin 5 mg tablet 10 mg PO HS Sleep 09/02/24 09/28/24 History
nystatin 100,000 unit/gram topical 1 applic topical BID breasts, 09/02/24 04/07/25 History
powder abdomen, groin
pantoprazole 40 mg tablet,delayed 40 mg PO DAILY Gastrointestinal 09/02/24 04/07/25 History
release Issue
sodium bicarbonate 650 mg tablet 1,300 mg PO BID Kidney Disease 09/02/24 04/07/25 History
sodium phosphates 19 gram-7 118 ml AR DAILYPRN PRN if no 09/02/24 04/07/25 History
gram/118 mL enema (Enema) result aftr bisacodyl
tamsulosin 0.4 mg capsule 0.4 mg PO DAILY Urinary Issue 09/02/24 04/07/25 History
trazodone 100 mg tablet 100 mg PO HS Mental Health/Anxiety 09/02/24 04/07/25 History
collagenase clostridium histo. 250 1 applic topical DAILY lt bellamy 09/28/24 04/07/25 History
unit/gram topical ointment (Santyl) wound
sodium chloride-hypochlorous acid 1 irrig irrigation HS lt bellamy wound 09/28/24 04/07/25 History
0.033 % irrigation solution (Vashe)
therapeutic multivitamin 1 tab PO DAILY Supplement 09/28/24 04/07/25 History
warfarin 2.5 mg tablet 3 mg PO DAILY Blood Clot 09/28/24 04/07/25 History
Prevention/Tx
loratadine 10 mg tablet 10 mg PO DAILY 04/07/25 04/07/25 History
metoprolol succinate 25 mg 25 mg PO BID 04/07/25 04/07/25 History
tablet,extended release 24 hr
midodrine 5 mg tablet 5 mg PO TID 04/07/25 04/07/25 History
Physical Exam
Vital Signs
Temp Pulse Resp BP Pulse Ox
98.4 F 67 18 86/57 98
07/07/25 17:46 07/07/25 20:00 07/07/25 20:12 07/07/25 20:00 07/07/25 20:00
Lab Results
07/07/25 18:07
07/07/25 18:07
Physical Exam
General: Well Developed and No Apparent Distress
HEENT: Normocephalic
Respiratory: Clear
Cardiac: S1/S2
Skin: Warm
Neuro: Awake, Alert and AO x 3
Psych: Calm
Pulses: Bilateral Popliteal: +2
Assessment / Plan
-
70F multiple comorbidities with hx of PAD and LLE Fem-At bypass presents wtih occluded bypass
-emergent OR for lysis
-high risk of bleeding
-high risk of failure and need for AKA
Data Reviewed
-
Ultrasound: Image Personally Visualized and interpreted
Labs: Labs Reviewed by me
--- NOTE | 2025-07-07 23:40 | OR.RPT ---
CT Surgery Operative Note
-
Pre-op Diagnosis: LLE Acute on Chronic Limb Threatening Ischemia
Post-op Diagnosis: Same
Procedure:
Ultrasound Guided Percutaneous Right Common Femoral Artery Access
Aortogram
Left Leg Angiogram
Selective Third Order Catheterization of Left Anterior Tibial Artery
Initiation of Lysis with 50cm infusion length Cragg-Nica Catheter
Primary Surgeon: Jenise Monsivais MD
Assisting Surgeons: None
Specimen: None
Cultures: None
Complications / Blood Loss: None
Findings: Indication for procedure: This is a 70-year-old female with a history of a left lower extremity SFA to AT artery bypass. She presents with a 1 day history of worsening pain. She has chronic wounds to the left lower extremity.
Ultrasound in the emergency department demonstrated an occluded bypass. Given these findings, the patient was advised undergo left lower extremity angiogram. Risks included progression of CKD to end-stage renal disease due to use of contrast.
Other risks include bleeding, injury to the artery at access and failure to salvage the leg resulting in a amputation.
Procedure: The patient was brought to the operating room and placed on the operating table in supine position. The bilateral groins were prepped and draped in the usual sterile fashion. A surgical timeout was performed identify the correct
patient, surgical site and procedure. Under ultrasound guidance, the right common femoral artery was accessed with a micropuncture needle and wire. The skin tawnya was performed. The needle was exchanged for a micropuncture sheath and the wire
exchanged for a stiff Glidewire.
Flush catheter was placed in abdominal aorta. An aortogram was performed demonstrating a patent distal abdominal aorta, bilateral common iliac, external iliac and hypogastric arteries. The left femoral artery was selected with a stiff Glidewire
and the Omni Flush catheter was placed at the femoral head. A left lower extremity angiogram was performed. This demonstrated a patent left common femoral artery and profunda. The SFA was occluded just after few centimeters from its origin. The
bypass itself was occluded but the origin was visualized with turbulent flow. Distally there were collaterals from the profunda artery but there was no significant perfusion below the knee. The patient was then systemically heparinized. The 5
Cuban sheath was exchanged for a 6 Cuban by 45 cm sheath. A glide catheter and stiff Glidewire was used to select the femoral to AT bypass. The wire was passed into the anterior tibial artery. A angiogram was performed with the 035 crossing
catheter to confirm true lumen placement of the wire and catheter. The bypass was then covered with a 50 cm infusion length Cragg Nica catheter. tPA was instilled, approximately 4 mg. This was then hooked up to a 1 mg/h infusion rate while
the sheath itself was hooked up to a 500 unit/h infusion rate. The patient was then sent to the ICU in stable condition.
[2025-07-07 23:56] LABS: Glucose - Point of Care 82 mg/dl (70-99)
[2025-07-07 23:58] LABS: Urine Character Cloudy (Clear)
[2025-07-08] VITALS (37 sets, daily range): BP systolic 84–121; BP diastolic 46–88; BMI 27.4; BMI 27.0
[2025-07-08] MEDS: HEPARIN 25000 UNITS/250 ML ART SHEATH
--- NOTE | 2025-07-08 00:30 | PTCARENOTE ---
Patient received from vascular OR, drowsy, oriented x3. Afib on monitor, no edema noted. Lungs diminished, pulse ox 100% on NRB, placed on 2L nasal cannula. Abdomen round with hypoactive bowel sounds. Temp sensing milligan draining milky urine.
Bilateral buttock/perineum with MASD. bilateral upper extremities with ecchymosis. Left lower extremity with arterial wound on medial and lateral aspect. Left leg from knee down, mottled, no distal pulses via doppler #20 g in RAC flushed and
patent. Right femoral arterial sheath with heparin and TPA infusing as ordered. Arterial sheath transduced. CHG bath given.
[2025-07-08] MEDS: SODIUM BICARBONATE 1150 MEQ IV ×2 (01:35→12:21)
[2025-07-08 01:45] LABS: Hematocrit 34.6 % (37.0-47.0); Hemoglobin 10.8 g/dL (12.0-16.0); Mean Corp Hgb Conc. 31.2 g/dL (33.0-37.0); Mean Corpuscular Volume 102.1 fL (81.0-99.0); Platelet Count 182 10^3/uL (130-400); Red Cell Dist. Width 14.3 % (11.5-14.5)
[2025-07-08 01:58] LABS: Fibrinogen 666 MG/DL (199-459); PT 55.1 Sec (11.4-14.6)
[2025-07-08 02:16] LABS: APTT > 200 Sec (23.4-35.0); INR 6.40
--- NOTE | 2025-07-08 02:30 | PTCARENOTE ---
Labs noted, notified [employer], orders received
--- NOTE | 2025-07-08 02:30 | W.PN.UPDATE ---
Update Note
Progress Note Update
07/08/25
0230- Lab resulted INR 6.4, previous 4.78, patient takes Coumadin outpatient. Dr. Monsivais, vascular surgeon, recommendation to give 2 u FFP and continue Alteplase and heparin infusions. Blood consent previously obtained for procedure.
[2025-07-08 02:46] LABS: Urine Red Blood Cell None Seen /HPF (0-2); Urine Squamous Cell None seen /LPF (Few); Urine White Cell >100 /HPF (0-5)
[2025-07-08] MEDS: CATHFLO/ACTIVASE 16 ML INF CATH ×5 (04:01→16:39)
[2025-07-08] MEDS: NSS 1000 IV ×2 (04:01→20:51)
[2025-07-08] MEDS: CATHFLO/ACTIVASE 16 MG INF CATH ×5 (04:01→16:39)
--- NOTE | 2025-07-08 05:11 | HPS.HSE ---
Family Physician
-
Family Physician: Cedrick Pugh,
Chief Complaint
-
LLE Pain
History of Present Illness
Patient is a 70y F with PMH significant for ASCVD / PAD, A-Fib, DM-II and CKD who presents to ED complaining of pain in the LLE for the past 3 days. Patient notes that she was recently hospitalized at [facility], [place], operated by [facility] for UTI /
sepsis requiring ICU stay. She remains on abx for her UTI. Patient has prior h/o PAD with multiple angio interventions, LLE bypass and R BKA.
She was evaluated in the ED this evening and noted to have limb threatening ischemia of the LLE.
She was taken emergently to the OR by Vascular Surgery for localized tPA instillation.
Patient seen and examined in the ICU s/p surgery. She denies any chest pain, dyspnea, fevers / chills, etc.
Patient has a chronic Thompson in place draining grossly purulent urine.
Her INR is markedly elevated - and Coumadin appears on her prior med lists - though it does not appear on her current [place] med list.
Medical History
Past Medical History
Past Medical History: Reports Other
Additional Past Medical History:
ASCVD / PAD
DM-II
CKD IV
Hypertension
Chronic Urinary Retention
Obesity
Anemia of CKD
Paroxysmal Atrial Fibrillation
Hypothyroidism
Anxiety / Depression
Peripheral Polyneuropathy
COPD
MGUS
History of DVT
History of CDiff
Past Surgical History: Reports Other
Additional Past Surgical History:
LLE Angioplasty
LLE Bypass
RLE BKA
Social History
Tobacco: Former Smoker
Alcohol: None
Drug: None
Living: Snf
Family History
Family History: Not pertinent
Allergies / Home Medications
Allergies reflects when Allergies were last updated in [facility].
Home Medications with original date entered in [facility] [facility] [employer]
Allergy/Medication List:
Allergies
Allergy/AdvReac Type Severity Reaction Status Date / Time
cefepime Allergy Unknown Unknown Verified 07/07/25 17:54
ceftriaxone Allergy Unknown Unknown Verified 07/07/25 17:54
Home Medications
aspirin 81 mg chewable tablet 81 mg PO DAILY Blood Clot Prevention/Tx 09/02/24
atorvastatin 10 mg tablet 10 mg PO HS High Cholesterol 09/02/24
bisacodyl 10 mg rectal suppository 10 mg OR DAILYPRN PRN if mom ineffective 09/02/24
cholecalciferol (vitamin D3) 50 mcg (2,000 unit) tablet (Vitamin D3) 125 mcg PO HS Supplement 09/02/24
folic acid 1 mg tablet 1 mg PO DAILY Supplement 09/02/24
gabapentin 300 mg capsule 300 mg PO BID Neurological Condition 09/02/24
guaifenesin 100 mg/5 mL oral liquid 200 mg PO Q8HPRN PRN cough 09/02/24
ipratropium 0.5 mg-albuterol 3 mg (2.5 mg base)/3 mL nebulization soln 3 ml inhalation R Q6HPRN PRN sob 09/02/24
lamotrigine 25 mg tablet 50 mg PO HS Neurological Condition 09/02/24
levothyroxine 100 mcg tablet 100 mcg PO HS Thyroid 09/02/24
magnesium hydroxide 400 mg/5 mL oral suspension (Milk of Magnesia) 30 ml PO DAILYPRN PRN constipation 09/02/24
melatonin 5 mg tablet 10 mg PO HS Sleep 09/02/24
pantoprazole 40 mg tablet,delayed release 40 mg PO DAILY Gastrointestinal Issue 09/02/24
sodium phosphates 19 gram-7 gram/118 mL enema (Enema) 118 ml OR DAILYPRN PRN if no result aftr bisacodyl 09/02/24
tamsulosin 0.4 mg capsule 0.4 mg PO DAILY Urinary Issue 09/02/24
trazodone 100 mg tablet 25 mg PO HS Mental Health/Anxiety 09/02/24
collagenase clostridium histo. 250 unit/gram topical ointment (Santyl) 1 applic topical DAILY lt bellamy wound 09/28/24
sodium chloride-hypochlorous acid 0.033 % irrigation solution (Vashe) 1 irrig irrigation HS lt bellamy wound 09/28/24
loratadine 10 mg tablet 10 mg PO DAILY 04/07/25
metoprolol succinate 25 mg tablet,extended release 24 hr 25 mg PO BID 04/07/25
midodrine 5 mg tablet 5 mg PO TID 04/07/25
Saccharomyces boulardii 250 mg capsule 250 mg PO BID 07/08/25
acetaminophen 500 mg tablet 1,000 mg PO TID 07/08/25
diphenhydramine HCl 12.5 mg/5 mL oral elixir 25 mg PO Q6H PRN drug rash 07/08/25
docusate sodium 100 mg capsule (Colace) 100 mg PO DAILY 07/08/25
linezolid 600 mg tablet 600 mg PO BID 07/08/25
morphine 15 mg tablet,extended release 15 mg PO Q12H 07/08/25
ofloxacin 0.3 % eye drops (Ocuflox) 1 drp ophthalmic (eye) Q12H 07/08/25
ondansetron 4 mg disintegrating tablet 4 mg PO Q8H PRN nausea 07/08/25
oxycodone 5 mg tablet 5 mg PO Q6H PRN Pain 07/08/25
sitagliptin phosphate 25 mg tablet (Januvia) 25 mg PO DAILY 07/08/25
Review of Systems
-
History Source: Patient
A 12 point ROS was completed and negative except as noted: Yes
Constitutional: Denies Fever or Chills
Respiratory: Denies Cough or Trouble Breathing
Cardiac: Denies Chest Pain or Palpitations
Abdomen/GI: Denies Abdominal Pain, Nausea, Vomiting or Diarrhea
: Reports Thompson
Skin: Reports Other (LLE wound - chronic)
Neurological: Denies Dizzy or Headache
Hematologic/Lymphatic: Reports Other (LLE pain)
Physical Exam
Vital Signs
Vital Signs
Temp Pulse Resp BP Pulse Ox
96.9 F L 71 11 98/63 100
07/08/25 05:09 07/08/25 05:09 07/08/25 05:09 07/08/25 05:09 07/08/25 05:09
Physical Exam
General: Other (70y F in no acute distress. )
HEENT: Moist mucous membranes and PERRLA
Respiratory: Other (decreased at bases - otherwise clear)
Cardiac: S1/S2 and Regular Rhythm
GI: Soft, Non Tender, Non Distended and Normal Bowel Sounds
Musculoskeletal: Other (R BKA.)
Skin: Other (Wound lateral aspect of the LLE without bleeding / discharge. No surrounding erythema)
Neuro: AO x 3
Hematologic/Lymphatic: Other (LLE dusky and pale appearing from knee to the toes. Pulses not appreciated.)
Laboratory Results
-
Laboratory Results
PT 55.1 Sec (11.4-14.6) H 07/08/25 01:32
INR 6.40 H* 07/08/25 01:32
APTT > 200 Sec (23.4-35.0) H* 07/08/25 01:32
APTT Cancelled 07/08/25 01:32
Lactic Acid Cancelled 07/08/25 06:00
Total Bilirubin 0.5 mg/dl (0.2-1.3) 07/07/25 18:07
AST 40 U/L (14-36) H 07/07/25 18:07
ALT 19 U/L (0-35) 07/07/25 18:07
Alkaline Phosphatase 104 U/L (38-126) 07/07/25 18:07
Impression/Plan
-
A/P: Patient is a 70y F with PMH significant for ASCVD / PAD s/p prior R BKA and LLE angio and bypass who presents to ED complaining of LLE pain x 3 days.
Critical / Limb-Threatening Ischemia LLE
ASCVD / PAD
- Admit to ICU post-op for further evaluation and treatment.
- Heparin instillation overnight with vascular checks.
- Vascular Surgery follow-up in AM - ? return to OR for re-eval.
- Continue ASA, statin, etc.
- High risk for limb loss in this scenario.
- Supportive care, pain control, etc.
CAUTI
Chronic Urinary Retention
- Thompson with grossly purulent urine.
- Recent hospitalization for UTI - send to [facility] for records.
- Continue Linezolid per [place] JAN.
- Continue IV ciprofloxacin for now pending culture data.
- Recent adverse reaction / drug rash from ceftriaxone.
SREE on CKD IV
Acute on Chronic Metabolic Acidosis
- SCr = 3.6 compared to baseline of 2.2.
- Bicarb 12 with AG = 19. Patient previously maintained on oral bicarb supplementation - but not on current MAR.
- IVFs with supplemental bicarb
- +/- pressors if needed to maintain perfusion.
- Avoid nephrotoxic medications.
- Follow for improvement in acidosis/ renal function / etc.
- Resume oral bicarbonate once HCO3 > 18.
Paroxysmal Atrial Fibrillation
Coumadin Coagulopathy (?)
- Monitor on telemetry. Holding BP active medications for now to avoid hypotension.
- Hold Coumadin (this is not on her current [place] MAR despite obviously elevated INR?).
- Follow INR.
Hypotension
- IVF support +/- pressors as noted above to maintain perfusion.
- Continue midodrine.
- Hold sedating meds, metoprolol, etc.
DM-II
- Stable. Follow glucose and cover with SSI as needed.
- Update A1C.
Hypothyroidism
- Continue T4 supplementation.
COPD without Acute Exacerbation
- Stable. No wheezing or complaints of dyspnea.
- Nebs PRN.
DVT Prophylaxis: On IV Heparin
Code Status: Full
[2025-07-08] MEDS: CIPRO 400 MG 200 IV ×2 (05:17→15:17)
[2025-07-08] MEDS: LR 1000 IV (05:31)
[2025-07-08] MEDS: SYNTHROID 100 MCG PO (05:55)
[2025-07-08 06:04] LABS: APTT 102.8 Sec (23.4-35.0); Fibrinogen 514 MG/DL (199-459); Hematocrit 17.3 % (37.0-47.0); Hemoglobin 5.4 g/dL (12.0-16.0); INR 2.50; Mean Corp Hgb Conc. 31.2 g/dL (33.0-37.0); Mean Corpuscular Volume 101.8 fL (81.0-99.0); PT 27.0 Sec (11.4-14.6); Platelet Count 166 10^3/uL (130-400); Red Cell Dist. Width 14.3 % (11.5-14.5)
--- NOTE | 2025-07-08 06:25 | PTCARENOTE ---
Patient reassessed, hgb noted, no signs of bleeding, hgb repeated. Otherwise no changes in assessment
[2025-07-08 06:48] LABS: ALT (SGPT) 20 U/L (0-35); AST (SGOT) 36 U/L (14-36); Albumin 3.0 g/dl (3.5-5.0); Alkaline Phosphatase 77 U/L (38-126); Blood Urea Nitrogen 35 mg/dl (7-17); Calcium 7.5 mg/dl (8.4-10.2); Carbon Dioxide 13 mmol/L (22-30); Chloride 109 mmol/L (98-107); Estimated Creatinine Clearance 17 ml/min; Glucose 121 mg/dl (70-99); Magnesium 2.4 mg/dl (1.6-2.3); Potassium 4.3 mmol/L (3.5-5.1); Sodium 137 mmol/L (135-145); Total Protein 6.1 g/dl (6.3-8.2); eGFR 16.42
[2025-07-08 06:56] LABS: Hematocrit 28.2 % (37.0-47.0); Hemoglobin 8.8 g/dL (12.0-16.0)
--- NOTE | 2025-07-08 07:05 | CON.INTV ---
Addendum entered and electronically signed by Gaurav Conte MD 07/09/25 14:01:
Patient transferring out of ICU to telemetry floor.
Drilling Fluids Specialist consult will sign off, please call as needed
Original Note:
Consultation
Consultation Request
Date/Time Consultation Requested: 07/08/2025
Date/Time Consultation Performed: 07/08/2025
Medical History
-
Chief Complaint: Cold, ischemic leg.
History of Present Illness:
Patient is a 70-year-old female who presented to emergency room with lower extremity pain. Patient has known history of severe peripheral artery disease as well as below the knee amputation on the right side. Patient has known history of poorly
healing ulcers on the left lower extremity with prior history of bypass graft which subsequently thrombosed and required angioplasty. In view of worsening symptoms patient presented in the emergency room and was suspected to have limb threatening
ischemia. Patient was evaluated by vascular surgery and was taken to the OR and had a catheter directed thrombolysis initiated. Postprocedure, patient was admitted to the ICU and historical interpreter consultation was requested for further input.
Past Medical History: Reports Other
Additional Past Medical History:
ASCVD / PAD
DM-II
CKD IV
Hypertension
Chronic Urinary Retention
Obesity
Anemia of CKD
Paroxysmal Atrial Fibrillation
Hypothyroidism
Anxiety / Depression
Peripheral Polyneuropathy
COPD
MGUS
History of DVT
History of CDiff
Past Surgical History: Reports Other
Additional Past Surgical History:
LLE Angioplasty
LLE Bypass
RLE BKA
Social History
Tobacco: Former Smoker
Alcohol: None
Drug: None
Living: [facility]
Family History
Family History: Not pertinent
Allergies / Home Medications
Allergies
Allergy/AdvReac Type Severity Reaction Status Date / Time
cefepime Allergy Unknown Unknown Verified 07/07/25 17:54
ceftriaxone Allergy Unknown Unknown Verified 07/07/25 17:54
Home Medications
�Medication �Instructions �Recorded �Confirmed �Last Taken �Type
aspirin 81 mg chewable tablet 81 mg PO DAILY Blood Clot 09/02/24 07/08/25 04/07/25 History
Prevention/Tx
atorvastatin 10 mg tablet 10 mg PO HS High Cholesterol 09/02/24 07/08/25 04/06/25 History
bisacodyl 10 mg rectal suppository 10 mg RI DAILYPRN PRN if mom 09/02/24 07/08/25 Unknown History
ineffective
cholecalciferol (vitamin D3) 50 125 mcg PO HS Supplement 09/02/24 07/08/25 04/07/25 History
mcg (2,000 unit) tablet (Vitamin
D3)
folic acid 1 mg tablet 1 mg PO DAILY Supplement 09/02/24 07/08/25 04/07/25 History
gabapentin 300 mg capsule 300 mg PO BID Neurological 09/02/24 07/08/25 04/07/25 History
Condition
guaifenesin 100 mg/5 mL oral liquid 200 mg PO Q8HPRN PRN cough 09/02/24 07/08/25 Unknown History
ipratropium 0.5 mg-albuterol 3 mg 3 ml inhalation R Q6HPRN PRN sob 09/02/24 07/08/25 04/07/25 History
(2.5 mg base)/3 mL nebulization
soln
lamotrigine 25 mg tablet 50 mg PO HS Neurological Condition 09/02/24 07/08/25 04/06/25 History
levothyroxine 100 mcg tablet 100 mcg PO HS Thyroid 09/02/24 07/08/25 04/06/25 History
magnesium hydroxide 400 mg/5 mL 30 ml PO DAILYPRN PRN constipation 09/02/24 07/08/25 04/07/25 History
oral suspension (Milk of Magnesia)
melatonin 5 mg tablet 10 mg PO HS Sleep 09/02/24 07/08/25 Unknown History
pantoprazole 40 mg tablet,delayed 40 mg PO DAILY Gastrointestinal 09/02/24 07/08/25 04/07/25 History
release Issue
sodium phosphates 19 gram-7 118 ml RI DAILYPRN PRN if no 09/02/24 07/08/25 Unknown History
gram/118 mL enema (Enema) result aftr bisacodyl
tamsulosin 0.4 mg capsule 0.4 mg PO DAILY Urinary Issue 09/02/24 07/08/25 04/07/25 History
trazodone 100 mg tablet 25 mg PO HS Mental Health/Anxiety 09/02/24 07/08/25 04/06/25 History
collagenase clostridium histo. 250 1 applic topical DAILY lt bellamy 09/28/24 07/08/25 04/07/25 History
unit/gram topical ointment (Santyl) wound
sodium chloride-hypochlorous acid 1 irrig irrigation HS lt bellamy wound 09/28/24 07/08/25 Unknown History
0.033 % irrigation solution (Vashe)
loratadine 10 mg tablet 10 mg PO DAILY 04/07/25 07/08/25 04/06/25 History
metoprolol succinate 25 mg 25 mg PO BID 04/07/25 07/08/25 04/07/25 History
tablet,extended release 24 hr
midodrine 5 mg tablet 5 mg PO TID 04/07/25 07/08/25 04/07/25 History
Saccharomyces boulardii 250 mg 250 mg PO BID 07/08/25 07/08/25 Unknown History
capsule
acetaminophen 500 mg tablet 1,000 mg PO TID 07/08/25 07/08/25 Unknown History
diphenhydramine HCl 12.5 mg/5 mL 25 mg PO Q6H PRN drug rash 07/08/25 07/08/25 Unknown History
oral elixir
docusate sodium 100 mg capsule 100 mg PO DAILY 07/08/25 07/08/25 Unknown History
(Colace)
linezolid 600 mg tablet 600 mg PO BID 07/08/25 07/08/25 Unknown History
morphine 15 mg tablet,extended 15 mg PO Q12H 07/08/25 07/08/25 Unknown History
release
ofloxacin 0.3 % eye drops (Ocuflox) 1 drp ophthalmic (eye) Q12H 07/08/25 07/08/25 Unknown History
ondansetron 4 mg disintegrating 4 mg PO Q8H PRN nausea 07/08/25 07/08/25 Unknown History
tablet
oxycodone 5 mg tablet 5 mg PO Q6H PRN Pain 07/08/25 07/08/25 Unknown History
sitagliptin phosphate 25 mg tablet 25 mg PO DAILY 07/08/25 07/08/25 Unknown History
(Januvia)
Review of Systems
-
Hematologic/Lymphatic: Other (All 14 systems reviewed and negative except as stated above in the history of present illness.)
Vitals / Labs / Diagnostic Testing
Vital Signs
Temp Pulse Resp BP Pulse Ox
96.9 F L 70 11 99/56 100
07/08/25 05:09 07/08/25 06:45 07/08/25 06:45 07/08/25 06:00 07/08/25 06:45
Lab Data
07/08/25 05:23
Laboratory Results
07/07/25 07/08/25 07/08/25
18:07 01:32 01:32
PT 44.1 H 55.1 H
INR 4.78 6.40 H*
APTT 79.7 H > 200 H* Cancelled
07/08/25
05:23
PT 27.0 H
INR 2.50 D
APTT 102.8 H
Diagnostic Testing:
Physical Exam
-
HEENT: Normocephalic
Cardiovascular: S1/S2
Respiratory: Clear
GI: Soft
Neurology: Awake and Alert
Skin: Other (Foot appears cold and somewhat cyanotic, unable to palpate dorsalis pedis)
Assessment
-
#1. Acute on chronic, critical limb ischemia, left lower extremity.
-Status post left leg angiogram and initiation of thrombolysis via catheter, vascular surgery on case
-tPA and heparin currently infusing. Also has been on aspirin and Lipitor.
-Monitor closely in the critical care unit
-Foot continues to be cold, at risk of requiring amputation, await further recommendations from vascular surgery service
#2. Anemia.
- Hb 10.5 > 5.4 > 8.8 this AM
- 5.4 is felt to be lab error. No obvious hematochezia, melena, hematemesis or hemoptysis noted. Transfuse as needed to keep hemoglobin above 7, serial H&H
#3. SREE with underlying CKD stage III. Baseline Cr 2.2 -2.6
- Presented with Cr of 3.6
- ? pre-renal.
- Continue volume resuscitation, avoid nephrotoxic agents
- CK level minimally elevated, discontinue Lipitor
- Lower gabapentin to once a day in view of SREE
#4. Atrial Fibrillation, chronic, on chronic anticoagulation
- Coagulopathy noted, patient has been reportedly on Coumadin
- INR elevated, s/p 2 units FFP per vascular surgery overnight
#5. Acidosis, metabolic.
- Metabolic acidosis noted suspect related to underlying kidney disease, admission lactate was unremarkable.
- Follow-up VBG marginally improved 7.25/41. Serum bicarb low suspect related to underlying acute kidney injury
- Serial lactate continues to be normal, more recently 0.7 compared to 1.3 on admission
- Patient currently saturating 100% on 2 L supplemental oxygen, MAP of 76, not requiring any pressor support.
- Sterile water with bicarb infusing at 100 mL/h
#6. Pyuria. Chronic milligan in place
- ?UTI. > 100 WBC in u/a
- Reported recent admission for UTI at an outside facility
- Prior culture suggestive of multiple organism on urine culture including Proteus, Klebsiella etc.
- Patient had been on linezolid prior to admission, ciprofloxacin added postadmission, follow-up on cultures, follow-up on blood cultures
#7. Hypotension.
- Reportedly history of chronic hypotension has been on midodrine
- Resolved, MAP of 76 now, not on any pressor support.
- Serial lactate unremarkable
- Pressors as needed to keep MAP above 65
- Blood transfusion to keep hemoglobin above 7
- Continue antibiotics as ordered, follow-up on blood and urine cultures.
Other medical diagnoses:
- Prior history of C. difficile colitis
- Diabetes mellitus
- Hyperlipidemia
- Prior history of lower extremity DVT
- Hypothyroidism
- History of COPD, not currently in acute exacerbation
Critical Care time 68 mins -- The patient is admitted for acute critical illness for the treatment of vital organ failure and/or prevention of further life-threatening conditions. Total care includes time spent in review of history, physical exam,
medications, hemodynamic/ventilator parameters, laboratory data, imaging and discussion with house staff, pharmacy, respiratory therapy, wigs salesperson, and nursing.
Data
CXR 06/2025: No radiographic evidence of acute cardiopulmonary abnormality.
Small amount of scarring within the left base.
EKG 06/2025: Atrial Fibrillation
--- NOTE | 2025-07-08 07:39 | W.PN.ANS.POP ---
Anesthesia Post Operative
- Anesthesia Post Op Note
Vital Signs Stable-See Nursing Note: Yes
Airway Patent: Yes
Adequate Pain Control: No
Change in Mental Status: No
Current Postoperative Nausea & Vomiting: No
Anesthesia Complications: No
General Anesthetic Recall: Yes
Unplanned Admission: Yes
Post Op Hydration Adequate: Yes
--- NOTE | 2025-07-08 07:45 | W.PN.ANS.POP ---
Anesthesia Post Operative
- Anesthesia Post Op Note
Vital Signs Stable-See Nursing Note: Yes
Airway Patent: Yes
Adequate Pain Control: Yes
Change in Mental Status: No
Current Postoperative Nausea & Vomiting: No
Anesthesia Complications: No
General Anesthetic Recall: No
Unplanned Admission: No
Post Op Hydration Adequate: Yes
- -
Correction to previous anesthesia post op note-
No anesthesia complications and no recall.
[2025-07-08] MEDS: LOW STRENGTH ASPIRIN 81 MG PO (08:15)
[2025-07-08] MEDS: NEURONTIN 300 MG PO (08:15)
[2025-07-08] MEDS: PROTONIX 40 MG PO (08:15)
[2025-07-08] MEDS: ZYVOX 600 MG PO ×2 (08:15→21:12)
[2025-07-08] MEDS: FOLVITE 1 MG PO (08:15)
[2025-07-08] MEDS: TYLENOL 1000 MG PO ×3 (08:16→21:12)
[2025-07-08 08:18] LABS: Glucose - Point of Care 159 mg/dl (70-99)
--- NOTE | 2025-07-08 08:20 | PTCARENOTE ---
Patient received at 0700, drowsy, oriented x3. Afib on monitor, no edema noted. Lungs diminished, pulse ox 97% on 2L NC. Abdomen round with hypoactive bowel sounds. Temp sensing milligan draining milky urine. Bilateral buttock/perineum with MASD.
bilateral upper extremities with ecchymosis. Left lower extremity with arterial wound on medial and lateral aspect. Left leg from knee down, mottled, no distal pulses via doppler #20 g in RAC flushed and patent. LFA 22G infusing HCO3 gtt. Right
femoral arterial sheath with heparin and TPA infusing as ordered. Arterial sheath transduced.
[2025-07-08] MEDS: NOVOLOG FLEXPEN-LOW RESISTANCE 1 UNITS SC (08:22)
[2025-07-08 08:23] LABS: Venous Blood Gas B.E. -9.9 mmol/L (-4 to +4); Venous Blood Gas O2 Sat % 99.3 %
[2025-07-08 08:29] LABS: Fibrinogen 537 MG/DL (199-459); INR 2.44; PT 26.9 Sec (11.4-14.6)
[2025-07-08 08:30] LABS: APTT 76.4 Sec (23.4-35.0)
--- NOTE | 2025-07-08 09:08 | W.PN.HOSP.TC ---
Today's Communication/Plan
-
Continue heparin/tPA.
Bicarb drip.
Follow-up with vascular surgery recommendations.
Assessment / Plan
Assessment / Plan
Impression:
A/P: Patient is a 70y F with PMH significant for ASCVD / PAD s/p prior R BKA and LLE angio and bypass who presents to ED complaining of LLE pain x 3 days.
Assessment/plan:
Acute Critical / Limb-Threatening Ischemia LLE
ASCVD / PAD
- Admitted to ICU post-op for further evaluation and treatment.
- Heparin instillation overnight with vascular checks.
- Vascular Surgery followin
- Continue ASA.
- High risk for limb loss in this scenario.
- I tried to reach brother at phone listed in the chart but it was her [facility] phone number.
CAUTI
Chronic Urinary Retention
- Thompson with grossly purulent urine.
- Recent hospitalization for UTI - send to [facility] for records.
- Continue Linezolid per ID MAR.
- Continue IV ciprofloxacin for now pending culture data.
- Recent adverse reaction / drug rash from ceftriaxone.
SREE on CKD IV
Acute on Chronic Metabolic Acidosis
- SCr = 3.6 compared to baseline of 2.2.
- Bicarb 12 with AG = 19. Patient previously maintained on oral bicarb supplementation - but not on current MAR.
- IVFs with supplemental bicarb
- +/- pressors if needed to maintain perfusion.
- Avoid nephrotoxic medications.
- Follow for improvement in acidosis/ renal function / etc.
- Resume oral bicarbonate once HCO3 > 18.
Paroxysmal Atrial Fibrillation
Coumadin Coagulopathy (?)
- Monitor on telemetry. Holding BP active medications for now to avoid hypotension.
- Hold Coumadin (this is not on her current [place] MAR despite obviously elevated INR?).
- Follow INR.
Hypotension
- IVF support +/- pressors as noted above to maintain perfusion.
- Continue midodrine.
- Hold sedating meds, metoprolol, etc.
DM-II
- Stable. Follow glucose and cover with SSI as needed.
- Update A1C.
Hypothyroidism
- Continue T4 supplementation.
COPD without Acute Exacerbation
- Stable. No wheezing or complaints of dyspnea.
- Nebs PRN.
CODE STATUS: Full code
DVT prophylaxis: On IV Heparin
Diet:NPO
Family communication:I tried to reach brother at phone listed in the chart but it was her [facility] phone number.
Disposition: follow with vascular surgery commendations
Total time spent on today's encounter was 65 minutes which included time spent in counseling the patient/family regarding diagnosis and treatment plan as listed above, goals of care, and symptom management. Case was discussed with nursing staff,
specialists, and care coordinators/case management. All labs and imaging personally reviewed by me. Remainder the time spent in detailed review of previous records, lab data, imaging, and other medical provider documentation.
Anticipated Discharge: > 48 hours
Subjective/Interval History
-
Date of Service: July 08, 2025
Seen and examined at bedside, no chest pain or shortness of breath.
Objective Data
-
Labs:
Laboratory Results
07/08/25 07/08/25 07/08/25
01:32 01:32 05:23
WBC 11.1 H 10.2
Hgb 10.8 L 5.4 L* D
Hct 34.6 L 17.3 L*
Plt Count 182 166
PT 55.1 H 27.0 H
INR 6.40 H* 2.50 D
APTT > 200 H* Cancelled 102.8 H
Sodium 137
Potassium 4.3
Chloride 109 H
Carbon Dioxide 13 L*
BUN 35 H
Creatinine 3.0 H
Glucose 121 H
Calcium 7.5 L
Total Bilirubin 0.5
AST 36
ALT 20
Alkaline Phosphatase 77
07/08/25 07/08/25 07/08/25
06:32 08:02 10:30
WBC Pending
Hgb 8.8 L D Pending
Hct 28.2 L Pending
Plt Count Pending
PT 26.9 H Pending
INR 2.44 Pending
APTT 76.4 H Pending
Sodium
Potassium
Chloride
Carbon Dioxide
BUN
Creatinine
Glucose
Calcium
Total Bilirubin
AST
ALT
Alkaline Phosphatase
07/08/25 07/08/25
16:30 22:30
WBC Pending Pending
Hgb Pending Pending
Hct Pending Pending
Plt Count Pending Pending
PT Pending Pending
INR Pending Pending
APTT Pending Pending
Sodium
Potassium
Chloride
Carbon Dioxide
BUN
Creatinine
Glucose
Calcium
Total Bilirubin
AST
ALT
Alkaline Phosphatase
Vital Signs:
Vital Signs
Temp Pulse Resp BP Pulse Ox
96.9 F L 70 11 100/59 100
07/08/25 07:30 07/08/25 08:45 07/08/25 08:45 07/08/25 08:00 07/08/25 08:45
I&O
07/07/25 07/08/25 07/09/25
06:59 06:59 06:59
Intake Total 4185 / 4340 310 / 310
Output Total 325 / 385 90 / 90
Balance 3860 / 3955 220 / 220
Physical Exam
-
General: Well Developed, Well Nourished, No Apparent Distress and Comfortable
HEENT: Normocephalic, Atraumatic, Moist Mucous Membranes, No Ptosis, PERRLA and Nose Appears Normal
Respiratory: Clear to Auscultation and Non Labored Respirations
Cardiac: Regular Rhythm and S1/S2
Breast: Deferred by me
GI: Soft, Nontender, Nondistended and Normal Bowel Sounds
Genito-urinary: No Costovertebral Tender
Musculoskeletal: Other (Right below-knee amputation, left foot, no palpable pulse, cold.)
Skin: Warm
Neuro: Awake, Alert, Oriented, AO x 3 and No Motor Deficits
Psych: Calm
Data Reviewed
-
Diagnostic Radiology: Image personally visualized and interpreted and Report Reviewed by me
CT Scan: Image personally visualized and interpreted and Report Reviewed by me
Ultrasound: Image personally visualized and interpreted and Report Reviewed by me
MRI: Image personally visualized and interpreted and Report Reviewed by me
Medical Tests (Nuc Med, Echo etc): Image personally visualized and interpreted and Report Reviewed by me
Labs: Labs Reviewed by me
Old Records: Reviewed
--- NOTE | 2025-07-08 10:00 | PTCARENOTE ---
LLE arterial ulcers oozing bright red blood. Sites dressed with optifoam, ADB and kurlex.
--- NOTE | 2025-07-08 10:26 | CM ---
Patient seen at bedside in ICU
Dx: PAD
s/p L Leg Angiogram
per nursing patient need amputation
Patient is a LTC resident of [facility] since 2019
spoke with Pamela at facility, referral entered [facility]
PLOF: Wheelchair, self propels
DME: wheelchair
PCP: Cedrick Pugh
Pharmacy: [facility]
PLAN: TBD, follow hospital progress, CM to follow for needs
--- NOTE | 2025-07-08 10:34 | PTCARENOTE ---
Pt tearful after discussion with vascular team. Comforted.
[2025-07-08 10:39] LABS: Venous Blood Gas B.E. -8.6 mmol/L (-4 to +4); Venous Blood Gas O2 Sat % 100.0 %
[2025-07-08 10:47] LABS: Fibrinogen 538 MG/DL (199-459); INR 2.42; PT 26.8 Sec (11.4-14.6)
[2025-07-08 10:48] LABS: APTT 58.1 Sec (23.4-35.0)
[2025-07-08 11:00] LABS: Hematocrit 26.3 % (37.0-47.0); Hemoglobin 8.1 g/dL (12.0-16.0); Mean Corp Hgb Conc. 30.8 g/dL (33.0-37.0); Mean Corpuscular Volume 101.2 fL (81.0-99.0); Platelet Count 131 10^3/uL (130-400); Red Cell Dist. Width 14.3 % (11.5-14.5)
[2025-07-08] MEDS: DESENEX/MITRAZOL/ZEASORB 1 APPLIC TOPICAL ×2 (12:20→20:17)
[2025-07-08] MEDS: NOVOLOG FLEXPEN-LOW RESISTANCE SC ×2 (12:21→15:23)
[2025-07-08 12:30] LABS: Glucose - Point of Care 119 mg/dl (70-99)
--- NOTE | 2025-07-08 12:36 | PTCARENOTE ---
Addendum entered by Gaviota Arriaza RN 07/08/25 12:37:
Family updated by phone.
Original Note:
LLE dressing changed due to saturation. Heparin gtt decreased as ordered by vascular team.
[2025-07-08] MEDS: NSS 1000 INF CATH (14:04)
[2025-07-08 14:53] LABS: Glycohemoglobin (HgbA1c) 6.0 % (4.0-5.6)
--- NOTE | 2025-07-08 14:56 | PTCARENOTE ---
At 1400, faint PT pulse dopplered. Foot looks slightly more pale and less mottled. tool and fixture repairer to bedside-see note.
--- NOTE | 2025-07-08 15:08 | WOUNDNOTE ---
LEFT LOWER LEG
--- NOTE | 2025-07-08 15:10 | WOUNDNOTE ---
LEFT ANTERIOR LOWER LEG
--- NOTE | 2025-07-08 15:10 | WOUNDNOTE ---
LEFT DORSAL FOOT
--- NOTE | 2025-07-08 15:12 | WOUNDNOTE ---
LEFT PLANTAR FOOT
--- NOTE | 2025-07-08 15:15 | WOUNDNOTE ---
LEFT LOWER LEG
--- NOTE | 2025-07-08 15:15 | WOUNDNOTE ---
[facility] RN note: Patient admitted with left leg pain, multiiple comorbidities with history of PAD and LLE fem bypass now presents with occluded bypass.
See H&P for complete history.
PMH: ASCVD / PAD, DM-II, CKD IV, Hypertension, Chronic Urinary Retention, obesity,Anemia of CKD
Paroxysmal Atrial Fibrillation,Hypothyroidism, Anxiety / Depression, Peripheral Polyneuropathy, COPD, MGUS, DVT, Cdiff
Wound Location and type/assessment: Patient admitted with chronic wound to left LE. Wound is covered with adherent black eschar, with scattered opens areas with sanguinous drainage. No odor noted. Also noted is a partial thickness wound to left
dorsal foot and ecchymotic, non-blanchable skin to left plantar foot. Patient is a poor historian and was not aware of skin changes to left plantar foot. MASD noted to buttocks. Sacrum intact and adhesive foam maintained after sacral assessment.
Left heel and right BKA intact.
Pressure redistribution devices in place: Centrella Max Air, turning schedule, keep heel off-loaded with pillow under calf.
Plan: Left leg wound cleaned with normal saline and adaptic, ABD and kerlix applied. Sacral foam applied to dorsal foot. Staff should use Calazime to buttocks for moisture management of skin. Will confirm orders with hospitalist and update nurse.
Updated care plan and will follow as needed.
Note to case management of equipment requested for discharge:
Recommend follow up at wound care center upon discharge.
[2025-07-08 15:26] LABS: Venous Blood Gas B.E. -6.8 mmol/L (-4 to +4); Venous Blood Gas O2 Sat % 99.4 %; Venous Blood Gas O2 Therapy RA
[2025-07-08 15:33] LABS: Hematocrit 24.2 % (37.0-47.0); Hemoglobin 7.6 g/dL (12.0-16.0); Mean Corp Hgb Conc. 31.4 g/dL (33.0-37.0); Mean Corpuscular Volume 100.4 fL (81.0-99.0); Platelet Count 115 10^3/uL (130-400); Red Cell Dist. Width 14.1 % (11.5-14.5)
[2025-07-08 15:34] LABS: Glucose - Point of Care 83 mg/dl (70-99)
[2025-07-08 15:35] LABS: INR 2.57; PT 28.0 Sec (11.4-14.6)
[2025-07-08 15:36] LABS: APTT 55.0 Sec (23.4-35.0); Fibrinogen 493 MG/DL (199-459)
[2025-07-08 15:41] LABS: Blood Urea Nitrogen 32 mg/dl (7-17); Calcium 7.2 mg/dl (8.4-10.2); Carbon Dioxide 20 mmol/L (22-30); Chloride 105 mmol/L (98-107); Estimated Creatinine Clearance 21 ml/min; Glucose 94 mg/dl (70-99); Potassium 3.9 mmol/L (3.5-5.1); Sodium 134 mmol/L (135-145); eGFR 20.44
--- NOTE | 2025-07-08 18:19 | PTCARENOTE ---
Pt to vasc OR with RN and asst. Dressing from WON now saturated. 1 unit PRBC requested from blood bank.
--- NOTE | 2025-07-08 19:27 | OR.RPT ---
Operative Report
Operative Report
PROCEDURE DATE: 07/08/2025
Preoperative diagnosis:
1. Acute left limb ischemia with acute left lower extremity arterial bypass graft thrombosis.
2. Ongoing catheter directed thrombolysis.
Postoperative diagnosis: Same
Procedure:
1. Left lower extremity arteriogram through existing sheath.
2. Placement of self-expanding Zilver PTX 6 mm x 4 cm stent extending from SFA into bypass graft.
3. Balloon angioplasty distal anastomotic stenosis with 3 mm angioplasty balloon.
4. Right femoral angiogram and Pro-glide percutaneous suture closure right femoral artery.
5. Supervision and interpretation.
Surgeon: Miguel
Cuff Stitcher: None
Complications: None
Anesthesia: Local, sedation
Fluoroscopy:
6.1 min
38 mGy
9.53 gy.cm2
Indications for procedure:
Ongoing catheter directed thrombolysis for acute limb ischemia/acute graft thrombosis. Brought back for planned takeback to the OR for angiography repeat.
Description of procedure:
Patient was identified, brought to the operating room. Placed on the table in the supine position. After the adequate administration of anesthesia, the patient was prepped and draped in the standard surgical fashion. A standard preoperative
timeout was undertaken and everybody was in agreement with the plan.
Left lower extremity arteriogram was performed after the catheter was removed over a Storq wire. (The lytic catheter). The angiogram was performed through the existing sheath that was in the SFA. This demonstrated patent proximal SFA. The bypass
graft was patent now, but at the proximal anastomosis there was a significant stenosis, likely secondary to residual thrombus. (Alternatively could have been an intimal hyperplastic type stenosis). The [place] SFA was distal patent to the
anastomosis, but then occluded several centimeters beyond there. I backed the sheath up and imaged the common femoral and profunda which were patent as well. Remainder of the bypass graft was now patent. Distal anastomosis there appeared to be a
stenosis at the origin of the anterior tibial artery where the bypass graft sewed into. Runoff via the anterior tibial was patent but at the ankle it essentially occluded and there is very little flow into the foot. This all appeared to be chronic
disease. At this point I elected to primarily stent to the stenosis in the bypass graft due to the high-grade nature of the stenosis, and concern for residual thrombus there. However I did not want to occlude flow into the [place] SFA distally as
there were collaterals that filled from there. Therefore I use a self-expanding stent. I positioned a Camiant Zilver PTX 6 mm x 4 cm self-expanding stent. This was successfully deployed and post angioplasty with a 5 mm balloon. Completion angiogram
noted and excellent result. There is now good flow through the bypass graft as well. I now exchanged distally over a CXI catheter for a 0.014 inch MANAGER IN TRAINING wire. I now reimaged the distal anastomosis with a 0.[address]. This confirmed
that there was some stenosis there. I therefore then used a 3 mm angioplasty balloon with prolonged inflation to angioplasty that site. Completion angiogram now demonstrated good result with no significant residual stenosis. At this point is very
satisfied. I now exchanged back for a 0.035 inch wire and withdrew my sheath to the right external iliac artery. Right femoral angiogram demonstrated good puncture in the right common femoral artery. I therefore then used a Pro-glide percutaneous
suture closure for the common femoral artery while I withdrew the sheath. Hemostasis was fully noted but manual pressure was also gently applied for few minutes. The patient tolerated procedure well. Upon completion she had an excellent Doppler
signal in the graft, and a good dopplerable signal at the distal AT at the ankle.
The patient tolerated procedure well.
--- NOTE | 2025-07-08 19:30 | PTCARENOTE ---
Patient received from vascular OR. Oriented x3. Afib on monitor, afebrile, blood pressure as documented. Lungs diminished, switched to nasal cannula, pulse ox 100% on 2L. Abdomen soft with hypoactive bowel sounds. Temp sensing milligan draining
cloudy yellow urine. Sacral foam intact. left lower leg dressing intact, left DP present by doppler, color improving. Right groin access site, clean dry and intact. #22 g in left forearm flushed and patent, #20 g in RAC with IVF with Bicarb
infusing. Call willams within reach
[2025-07-08 20:21] LABS: Hematocrit 27.6 % (37.0-47.0); Hemoglobin 9.0 g/dL (12.0-16.0); Mean Corp Hgb Conc. 32.6 g/dL (33.0-37.0); Mean Corpuscular Volume 94.8 fL (81.0-99.0); Platelet Count 109 10^3/uL (130-400); Red Cell Dist. Width 14.6 % (11.5-14.5)
[2025-07-08 20:35] LABS: APTT 51.8 Sec (23.4-35.0); INR 2.57; PT 28.0 Sec (11.4-14.6)
[2025-07-08 20:39] LABS: Blood Urea Nitrogen 31 mg/dl (7-17); Calcium 7.2 mg/dl (8.4-10.2); Carbon Dioxide 21 mmol/L (22-30); Chloride 103 mmol/L (98-107); Estimated Creatinine Clearance 24 ml/min; Glucose 82 mg/dl (70-99); Potassium 3.6 mmol/L (3.5-5.1); Sodium 134 mmol/L (135-145); eGFR 23.82
[2025-07-08] MEDS: HEPARIN 25000 UNITS/250 ML IV (20:42)
--- NOTE | 2025-07-08 20:58 | PTCARENOTE ---
labs noted, heparin gtt started as ordered, IVF changed per order.
[2025-07-08] MEDS: LAMICTAL 50 MG PO (21:12)
[2025-07-08 23:30] LABS: Glucose - Point of Care 82 mg/dl (70-99)
[2025-07-09] VITALS (21 sets, daily range): BP systolic 88–117; BP diastolic 46–66; PULSE 73–79; O2SAT 97; BMI 28.7
--- NOTE | 2025-07-09 00:37 | PTCARENOTE ---
patient reassessed, no changes in assessment. Left DP remians present by doppler, right groin intact. Sleeping when not disturbed
[2025-07-09 03:26] LABS: Hematocrit 25.7 % (37.0-47.0); Hemoglobin 8.1 g/dL (12.0-16.0); Mean Corp Hgb Conc. 31.5 g/dL (33.0-37.0); Mean Corpuscular Volume 97.7 fL (81.0-99.0); Platelet Count 103 10^3/uL (130-400); Red Cell Dist. Width 15.1 % (11.5-14.5)
[2025-07-09 03:52] LABS: ALT (SGPT) 16 U/L (0-35); AST (SGOT) 31 U/L (14-36); Albumin 2.6 g/dl (3.5-5.0); Alkaline Phosphatase 70 U/L (38-126); Blood Urea Nitrogen 29 mg/dl (7-17); Calcium 7.0 mg/dl (8.4-10.2); Carbon Dioxide 21 mmol/L (22-30); Chloride 107 mmol/L (98-107); Estimated Creatinine Clearance 25 ml/min; Glucose 71 mg/dl (70-99); Magnesium 2.0 mg/dl (1.6-2.3); Potassium 3.5 mmol/L (3.5-5.1); Sodium 137 mmol/L (135-145); Total Protein 5.5 g/dl (6.3-8.2); eGFR 25.19
[2025-07-09 03:54] LABS: INR 2.72; PT 29.2 Sec (11.4-14.6)
[2025-07-09 03:55] LABS: APTT 73.1 Sec (23.4-35.0)
[2025-07-09] MEDS: CIPRO 400 MG 200 IV ×2 (04:10→15:39)
--- NOTE | 2025-07-09 04:16 | PTCARENOTE ---
Patient reassessed, no changes.
[2025-07-09 05:10] LABS: B.E. -5.7 mmol/L; HCO3 20.7 mmol/L (21-28); O2 Saturation % 99.9 % (94-98); PCO2 44 mmHg (32-35); PO2 142 mmHg (83-108)
[2025-07-09] MEDS: SYNTHROID 100 MCG PO (05:20)
[2025-07-09 05:21] LABS: Glucose - Point of Care 77 mg/dl (70-99)
[2025-07-09] MEDS: KCL 160 MEQ IV (06:33)
[2025-07-09] MEDS: CALCIUM GLUCONATE 130 MG IV (06:33)
[2025-07-09] MEDS: NSS 1000 IV (06:50)
[2025-07-09] MEDS: ROXICODONE 5 MG PO ×2 (07:17→20:31)
[2025-07-09] MEDS: PROTONIX 40 MG PO (07:17)
[2025-07-09] MEDS: TYLENOL 1000 MG PO ×3 (07:18→21:45)
[2025-07-09] MEDS: NEURONTIN 300 MG PO (07:18)
[2025-07-09] MEDS: LOW STRENGTH ASPIRIN 81 MG PO (07:18)
[2025-07-09] MEDS: ZYVOX 600 MG PO ×2 (07:19→20:26)
[2025-07-09] MEDS: DESENEX/MITRAZOL/ZEASORB 1 APPLIC TOPICAL ×2 (07:19→21:45)
[2025-07-09] MEDS: FOLVITE 1 MG PO (07:19)
[2025-07-09] MEDS: NOVOLOG FLEXPEN-LOW RESISTANCE SC ×3 (07:24→17:18)
[2025-07-09 07:35] LABS: Glucose - Point of Care 70 mg/dl (70-99)
--- NOTE | 2025-07-09 08:14 | W.PN.VS ---
Addendum entered and electronically signed by AARON Ayala 07/09/25 16:27:
Given elevated INR with Coumadin held since 07/02/25 and therapeutic PTT on 500units/hour would appreciate hematology consult for guidance on Coumadin dose.
Addendum entered and electronically signed by Chadd Rivera MD 07/09/25 09:55:
Seen and examined with WIRELESS RETAIL MANAGER. Agree with findings as noted below. Patient without complaints this morning. Right groin puncture site flat. Abdomen soft, nondistended, nontender. Left foot is warm now. Good dopplerable distal BRUNILDA signal.
Plan/resume Coumadin tonight. Continue wound care to the left calf. I did discuss with her that the left calf wounds unfortunately still remain a threat to the long-term limb salvage ability (she has a single-vessel anterior tibial runoff which
essentially terminates at the distal ankle, and therefore there is really no other branches that are feeding the calf tissues very well).
Original Note:
Today's Communication / Plan
-
Patient seen and examined at bedside with Dr. Chadd Rivera, below plan reviewed with attending.
Assessment/Plan
-
Assessment: 70 year old female with PAD presented on 07/07/25 with LLE Fem-At bypass occluded. POD#2 Ultrasound Guided Percutaneous Right Common Femoral Artery Access, aortogram, left Leg Angiogram, initiation of Lysis with 50cm infusion length
Cragg-Nica Catheter. POD#1 Left lower extremity arteriogram through existing sheath, placement of self-expanding Zilver PTX 6 mm x 4 cm stent extending from SFA into bypass graft, balloon angioplasty distal anastomotic stenosis with 3 mm
angioplasty balloon, right femoral angiogram and Pro-glide percutaneous suture closure right femoral artery.
Plan:
Ok to restart Coumadin tonight, will continue heparin infusion overnight until INR check tomorrow AM. Patient has been without Coumadin for at least 1-2 nights so unclear if INR will continue to drift down tomorrow AM even with tonight's dose. If
INR remains therapeutic tomorrow AM will then stop heparin infusion.
Ok to dc milligan catheter from a surgical perspective
Can be downgraded to tele from a vascular surgery perspective
Continue antiplatelet ASA 81mg PO daily
Continue neovascular checks
Subjective Data
-
Date of Service: July 09, 2025
Patient seen and examined at beside, reports improvement to left foot rest pain. Denies nausea, vomiting, fever, and chills.
Objective Data
-
Vital Signs
Temp Pulse Resp BP Pulse Ox
97.4 F 62 12 101/62 100
07/09/25 03:07 07/09/25 04:26 07/09/25 04:26 07/09/25 04:26 07/09/25 04:26
Intake and Output
07/08/25 07/09/25 07/10/25
06:59 06:59 06:59
Intake Total 4185 / 4340 3504 / 3504
Output Total 325 / 385 865 / 865
Balance 3860 / 3955 2639 / 2639
Intake:
IV fluids (Total) 2775 / 2930 3104 / 3104
HEPARIN 26874 UNITS/250 ML , 59 / 59
000 units In 250 ml @ 400 UNITS
/HR 4 mls/hr ART SHEATH .Q24H
CAR Rx#:[id number]
Heparin 45 / 45
LR bolus 1000 / 1000
NSS bolus 1000 / 1000
Nss 1,000 ml @ 100 mls/hr IV . 900 / 900
Q10H CAR Rx#:[id number]
Nss 1,000 ml @ Per Protocol 46 230 / 276 552 / 552
mls/hr INF CATH .[id number] CAR Rx
#:[id number]
Sterile Water For Injection 500 / 600 1500 / 1500
1000 ml 1,000 ml @ 100 mls/hr
IV .[id number] CAR with Sodium
Bicarbonate 150 Meq Rx#:
[id number]
TPA 20 / 24 48 / 48
IV piggybacks 200 / 200 400 / 400
Blood Products 605 / 605
Fresh frozen plasma 60 605
Blood Product Amount Infused ( 60 605
mL)
Fresh Frozen Plasma 24 Hours 291 / 291
Unit [id number]
Fresh Frozen Plasma 24 Hours 314 / 314
Unit [id number]
Output:
Urine, Milligan 325 / 385 865 / 865
Lab Results
07/09/25 03:15
Calcium 7.0 mg/dl (8.4-10.2) L 07/09/25 03:15
Phosphorus 6.9 mg/dl (2.5-4.5) H 07/08/25 05:23
Magnesium 2.0 mg/dl (1.6-2.3) 07/09/25 03:15
Total Bilirubin 0.6 mg/dl (0.2-1.3) 07/09/25 03:15
Direct Bilirubin 0.5 mg/dl (0.0-0.4) H 07/08/25 05:23
AST 31 U/L (14-36) 07/09/25 03:15
ALT 16 U/L (0-35) 07/09/25 03:15
Alkaline Phosphatase 70 U/L (38-126) 07/09/25 03:15
Total Protein 5.5 g/dl (6.3-8.2) L 07/09/25 03:15
Albumin 2.6 g/dl (3.5-5.0) L 07/09/25 03:15
Physical Exam
-
No apparent distress, resting in bed comfortably
No tachycardia
No dyspnea on room air
ABD rotund, non-distended, non-tender
Right groin puncture site dressing constantino and intact, no evidence of hematoma, all surrounding compartments soft
Left foot warm with Doppler AT signal
Milligan draining clear yellow urine
--- NOTE | 2025-07-09 10:03 | PTCARENOTE ---
Patient received at 0700. Oriented x3. Afib on monitor, afebrile, blood pressure as documented. Lungs diminished, SpO2 94% on RA. Abdomen soft with hypoactive bowel sounds. Temp sensing milligan draining cloudy yellow urine. Sacral foam intact.
left lower leg dressing intact, left DP present by doppler, color improving. Right groin access site intact with SS drainage. #22 g in left forearm with erythema and edema. IV removed, #20 g in RAC with IVF with heparin and IVF infusing. Call
willams within reach.
--- NOTE | 2025-07-09 10:04 | W.PN.ANS.POP ---
Anesthesia Post Operative
- Anesthesia Post Op Note
Vital Signs Stable-See Nursing Note: Yes
Airway Patent: Yes
Adequate Pain Control: Yes
Change in Mental Status: No
Current Postoperative Nausea & Vomiting: No
Anesthesia Complications: No
General Anesthetic Recall: No
Unplanned Admission: No
Post Op Hydration Adequate: Yes
[2025-07-09 10:16] LABS: APTT 70.0 Sec (23.4-35.0)
--- NOTE | 2025-07-09 10:27 | CM ---
Patient seen at bedside
updated referral in [facility] for [facility]
PT/OT to eval
Patient inquired about wound care Center here at
spoke with liaision Sarah at [facility] who states wound doctor comes to the facility weekly and that they do wound care at the facility
Sarah will ask about ?transport
PLAN: [facility] when stable
Report #: [phone] Fax #: [phone]
--- NOTE | 2025-07-09 12:31 | W.PN.HOSP.TC ---
Today's Communication/Plan
-
Continue heparin, switch to Coumadin tonight.
Follow with vascular surgery recommendations
Assessment / Plan
Assessment / Plan
Impression:
A/P: Patient is a 70y F with PMH significant for ASCVD / PAD s/p prior R BKA and LLE angio and bypass who presents to ED complaining of LLE pain x 3 days.
Assessment/plan:
Acute Critical / Limb-Threatening Ischemia LLE
ASCVD / PAD
07/07 S/P
- Ultrasound Guided Percutaneous Right Common Femoral Artery Access
Aortogram
- Left Leg Angiogram
- Selective Third Order Catheterization of Left Anterior Tibial Artery
Initiation of Lysis with 50cm infusion length Noah-Nica Catheter
07/08 S/P
- Left lower extremity arteriogram through existing sheath.
- Placement of self-expanding Zilver PTX 6 mm x 4 cm stent extending from SFA into bypass graft.
- Balloon angioplasty distal anastomotic stenosis with 3 mm angioplasty balloon.
- Right femoral angiogram and Pro-glide percutaneous suture closure right femoral artery.
- Supervision and interpretation.
Continue management in the ICU
Okay to start heparin tonight as per vascular
CAUTI
Chronic Urinary Retention
- Thompson with grossly purulent urine.
- Recent hospitalization for UTI - send to [facility] for records.
- Continue Linezolid per Jan.
- Continue IV ciprofloxacin for now pending culture data.
- Recent adverse reaction / drug rash from ceftriaxone.
SREE on CKD IV
Acute on Chronic Metabolic Acidosis
Creatinine back to baseline
Paroxysmal Atrial Fibrillation
Coumadin Coagulopathy (?)
- Monitor on telemetry. Holding BP active medications for now to avoid hypotension.
- INR 2.72, resume Coumadin
Hypotension
- IVF support +/- pressors as noted above to maintain perfusion.
- Continue midodrine.
- Hold sedating meds, metoprolol, etc.
DM-II
- Stable. Follow glucose and cover with SSI as needed.
- Update A1C.
Hypothyroidism
- Continue T4 supplementation.
COPD without Acute Exacerbation
- Stable. No wheezing or complaints of dyspnea.
- Nebs PRN.
CODE STATUS: Full code
DVT prophylaxis: On IV Heparin
Diet: DM
Family communication: Discussed with brother and [id number] at bedside.
Disposition: follow with vascular surgery commendations
Total time spent on today's encounter was 65 minutes which included time spent in counseling the patient/family regarding diagnosis and treatment plan as listed above, goals of care, and symptom management. Case was discussed with nursing staff,
specialists, and care coordinators/case management. All labs and imaging personally reviewed by me. Remainder the time spent in detailed review of previous records, lab data, imaging, and other medical provider documentation.
Anticipated Discharge: > 48 hours
Subjective/Interval History
-
Date of Service: July 09, 2025
Patient feeling better.
Status post:
1. Left lower extremity arteriogram through existing sheath.
2. Placement of self-expanding Zilver PTX 6 mm x 4 cm stent extending from SFA into bypass graft.
3. Balloon angioplasty distal anastomotic stenosis with 3 mm angioplasty balloon.
4. Right femoral angiogram and Pro-glide percutaneous suture closure right femoral artery.
5. Supervision and interpretation.
Objective Data
-
Labs:
Laboratory Results
07/09/25 07/09/25 07/09/25
03:15 03:15 03:15
WBC 6.5
Hgb 8.1 L
Hct 25.7 L
Plt Count 103 L
PT 29.2 H Cancelled
INR 2.72 Cancelled
APTT 73.1 H
HCO3
Sodium 137
Potassium 3.5
Chloride 107
Carbon Dioxide 21 L
BUN 29 H
Creatinine 2.1 H
Glucose 71
Calcium 7.0 L
Total Bilirubin 0.6
AST 31
ALT 16
Alkaline Phosphatase 70
07/09/25 07/09/25 07/09/25
05:04 09:46 12:00
WBC
Hgb
Hct
Plt Count
PT
INR
APTT 70.0 H
HCO3 20.7 L
Sodium Pending
Potassium Pending
Chloride Pending
Carbon Dioxide Pending
BUN Pending
Creatinine Pending
Glucose Pending
Calcium Pending
Total Bilirubin
AST
ALT
Alkaline Phosphatase
07/09/25
17:00
WBC
Hgb
Hct
Plt Count
PT
INR
APTT Pending
HCO3
Sodium
Potassium
Chloride
Carbon Dioxide
BUN
Creatinine
Glucose
Calcium
Total Bilirubin
AST
ALT
Alkaline Phosphatase
Vital Signs:
Vital Signs
Temp Pulse Resp BP Pulse Ox
98.1 F 82 18 113/66 96
07/09/25 08:00 07/09/25 11:00 07/09/25 11:00 07/09/25 11:00 07/09/25 11:00
I&O
07/08/25 07/09/25 07/10/25
06:59 06:59 06:59
Intake Total 4185 / 4340 3504 / 3609 525 / 525
Output Total 325 / 385 865 / 900 225 / 225
Balance 3860 / 3955 2639 / 2709 300 / 300
Physical Exam
-
General: Well Developed, Well Nourished, No Apparent Distress and Comfortable
HEENT: Normocephalic, Atraumatic, Moist Mucous Membranes, No Ptosis, PERRLA and Nose Appears Normal
Respiratory: Clear to Auscultation and Non Labored Respirations
Cardiac: Regular Rhythm and S1/S2
Breast: Deferred by me
GI: Soft, Nontender, Nondistended and Normal Bowel Sounds
Genito-urinary: No Costovertebral Tender
Musculoskeletal: Other (Right below-knee amputation, left foot warm)
Skin: Warm
Neuro: Awake, Alert, Oriented, AO x 3 and No Motor Deficits
Psych: Calm
[2025-07-09 12:47] LABS: Glucose - Point of Care 77 mg/dl (70-99)
--- NOTE | 2025-07-09 14:37 | PTCARENOTE ---
pt transferred to chair with draw sheet-see PT/OT note. IVF stopped, milligan removed and purwick placed.
--- NOTE | 2025-07-09 16:33 | PTCARENOTE ---
Pt returned to bed with juan lift without issue.
[2025-07-09 17:03] LABS: Glucose - Point of Care 123 mg/dl (70-99)
[2025-07-09 17:14] LABS: APTT 144.7 Sec (23.4-35.0)
[2025-07-09 17:22] LABS: Blood Urea Nitrogen 27 mg/dl (7-17); Calcium 8.2 mg/dl (8.4-10.2); Carbon Dioxide 18 mmol/L (22-30); Chloride 107 mmol/L (98-107); Estimated Creatinine Clearance 31 ml/min; Glucose 109 mg/dl (70-99); Potassium 3.5 mmol/L (3.5-5.1); Sodium 134 mmol/L (135-145); eGFR 28.41
--- NOTE | 2025-07-09 17:54 | PTCARENOTE ---
PTT drawn per protocol but suspicious of result. PTT redrawn before changes made to heparin gtt.
[2025-07-09 18:03] LABS: APTT 65.9 Sec (23.4-35.0)
--- NOTE | 2025-07-09 19:26 | PTCARENOTE ---
Settled Pt into room. introduced to cage shift manager nurse. hep gtt at 700 units an hour. bed locked and in lowest position. call willams within reach
[2025-07-09 21:27] LABS: Glucose - Point of Care 77 mg/dl (70-99)
[2025-07-09] MEDS: LAMICTAL 50 MG PO (21:46)
[2025-07-10 02:03] LABS: Hematocrit 28.2 % (37.0-47.0); Hemoglobin 8.9 g/dL (12.0-16.0); Mean Corp Hgb Conc. 31.6 g/dL (33.0-37.0); Mean Corpuscular Volume 100.4 fL (81.0-99.0); Platelet Count 84 10^3/uL (130-400); Red Cell Dist. Width 15.4 % (11.5-14.5)
[2025-07-10 02:11] LABS: APTT 63.7 Sec (23.4-35.0)
[2025-07-10 03:10] VITALS: BP 110/52
[2025-07-10] MEDS: CIPRO 400 MG 200 IV (03:57)
[2025-07-10] MEDS: SYNTHROID 100 MCG PO (07:17)
--- NOTE | 2025-07-10 07:22 | PN.CDI ---
CDI
- -
CDI:
Physician Documentation Request
Admit Date: 07/07/25 23:07
Dear Doctor Evaristo,
Patient admitted with acute critical / limb-threatening ischemia LLE.
07/09 PN, '07/08 S/P - Left lower extremity arteriogram through existing sheath - Placement of self-expanding Zilver PTX 6 mm x 4 cm stent extending from SFA into bypass graft - Balloon angioplasty distal anastomotic stenosis with 3 mm angioplasty
balloon - Right femoral angiogram and Pro-glide percutaneous suture closure right femoral artery.
Patient received 1U PRBC and 2U FFP.
Hgb levels documented below:
Laboratory Tests
07/07/25 07/08/25 07/08/25
18:07 01:32 05:23
Hgb 10.5 L 10.8 L 5.4 L* D
07/08/25 07/08/25 07/09/25
06:32 15:14 03:15
Hgb 8.8 L D 7.6 L 8.1 L
Based on the above, please clarify in your progress note, which of the following is the most likely diagnosis you are evaluating, monitoring and/or treating?
Acute blood loss anemia
Insignificant abnormal lab findings
Other
Use of terms such as suspected, likely, concern for, or probable (associated with a specific diagnosis that is being evaluated, monitored, or treated as if it exists) are acceptable and can be coded in the inpatient setting, when documented at the
time of discharge.
Thank you,
Ivy HOBBS,RN,CCDSS
CDI Specialist
Available via [place] text
Please use your independent medical judgment in providing your response.
[2025-07-10 07:58] LABS: Glucose - Point of Care 68 mg/dl (70-99)
[2025-07-10 07:59] LABS: Glucose - Point of Care 70 mg/dl (70-99)
[2025-07-10 08:35] VITALS: BP 127/69
--- NOTE | 2025-07-10 08:41 | W.PN.VS ---
Addendum entered and electronically signed by Chadd Rivera MD 07/10/25 08:56:
Seen and examined with ATUL Menjivar. Agree with findings as noted below. Right groin flat. Abdomen soft. Left foot is warm. Gratz. Dressings in the calf clean dry and intact. Plan/as discussed and noted below.
Original Note:
Today's Communication / Plan
-
Patient seen and examined at bedside with Dr. Chadd Rivera M.D., below plan reviewed with attending.
Assessment/Plan
-
Assessment: 70 year old female with PAD presented on 07/07/25 with LLE Fem-At bypass occluded. POD#3 Ultrasound Guided Percutaneous Right Common Femoral Artery Access, aortogram, left Leg Angiogram, initiation of Lysis with 50cm infusion length
Cragg-Nica Catheter. POD#2 Left lower extremity arteriogram through existing sheath, placement of self-expanding Zilver PTX 6 mm x 4 cm stent extending from SFA into bypass graft, balloon angioplasty distal anastomotic stenosis with 3 mm
angioplasty balloon, right femoral angiogram and Pro-glide percutaneous suture closure right femoral artery.
Plan:
Given patient's recent history of elevated INR as high of 7 (with Coumadin on hold since 07/02/2025) reported to us by [facility] staff in the outpatient setting, and her having a therapeutic PTT on low doses of heparin infusion we have asked
hematology to consult for recommendation on Coumadin dosing, will await the recommendation for initiation.
Continue antiplatelet ASA 81mg PO daily
Continue neurovascular checks
Continue local wound care
Subjective Data
-
Date of Service: July 10, 2025
Patient seen and examined at bedside, offers no complaints. Denies pain at right groin puncture site.
Objective Data
-
Vital Signs
Temp Pulse Resp BP Pulse Ox
97.6 F 75 17 110/52 95
07/10/25 03:10 07/10/25 03:10 07/10/25 03:10 07/10/25 03:10 07/10/25 03:10
Intake and Output
07/09/25 07/10/25 07/11/25
06:59 06:59 06:59
Intake Total 3504 / 3609 1248 / 1248
Output Total 865 / 900 350 / 350
Balance 2639 / 2709 898 / 898
Intake:
Oral fluids 480 / 480
IV fluids (Total) 3104 / 3209 768 / 768
HEPARIN 55747 UNITS/250 ML
000 units In 250 ml @ 400 UNITS
/HR 4 mls/hr ART SHEATH .Q24H
CAR Rx#:[id number]
Heparin 45 / 50 68 / 68
Nss 1,000 ml @ 100 mls/hr IV . 900 / 1000 700 / 700
Q10H CAR Rx#:[id number]
Nss 1,000 ml @ Per Protocol 46 552 / 552
mls/hr INF CATH .[id number] CAR Rx
#:[id number]
Sterile Water For Injection 1500 / 1500
1000 ml 1,000 ml @ 100 mls/hr
IV .[id number] CAR with Sodium
Bicarbonate 150 Meq Rx#:
[id number]
TPA 48 / 48
IV piggybacks 400 / 400
Output:
Urine, Thompson 865 / 900 350 / 350
Other:
How many times incontinent 1
SATURATED amount urine
Lab Results
07/10/25 01:48
07/09/25 16:50
Calcium 8.2 mg/dl (8.4-10.2) L 07/09/25 16:50
Phosphorus 6.9 mg/dl (2.5-4.5) H 07/08/25 05:23
Magnesium 2.0 mg/dl (1.6-2.3) 07/09/25 03:15
Total Bilirubin 0.6 mg/dl (0.2-1.3) 07/09/25 03:15
Direct Bilirubin 0.5 mg/dl (0.0-0.4) H 07/08/25 05:23
AST 31 U/L (14-36) 07/09/25 03:15
ALT 16 U/L (0-35) 07/09/25 03:15
Alkaline Phosphatase 70 U/L (38-126) 07/09/25 03:15
Total Protein 5.5 g/dl (6.3-8.2) L 07/09/25 03:15
Albumin 2.6 g/dl (3.5-5.0) L 07/09/25 03:15
Physical Exam
-
No apparent distress, resting in bed comfortably
No tachycardia
No dyspnea on room air
ABD rotund, non-distended, non-tender
Right groin puncture site dressing dry and intact, removed by this provider, no evidence of hematoma, all surrounding compartments soft
Left foot warm, left foot dressing clean, dry, and intact
--- NOTE | 2025-07-10 09:03 | CON.ONC ---
Consultation
-
Date Consultation Requested: 07/09/25
Date Consultation Performed: 07/10/25
Requesting Provider: AARON No
Performing Provider: Dr. Tia Navarrete
Reason for Consultation: Anticoagulation recommendations
Impression
Impression
Limb threatening ischemia/ LLE fem-At bypass occlusion s/p 07/07/15 tpa catheter directed lysis and 07/08/25 stent placement
PVD s/p right BKA
Paroxysmal a/fib on coumadin
Anti-phospholipid syndrome anti-cardiolipin IgM 2023
Hx DVT
CAD s/p stent to LAD
CAUTI
Chronic urinary retention
SREE on CKD stage IV
Hypotension
DMII
Hypothyroidism
Plan
Plan
--INR therapeutic at 2.78 - goal 2-3
--Wait until INR <2.5, then restart home dose Coumadin - appears to be 2mg daily on outpatient records (patient cannot recall exact dose)
--On linezolid and aztreonam for CAUTI - could be reducing vit K producing bacteria contributing to elevated INR
--Vascular following for limb ischemia
--f/u outpatient with Dr. Linda
Patient History
History of Present Illness
70 y/o female with PMHx a.fib, hx DVT, anti-cardiolipin IgM (+), MGUS, CAUTI from recent hospitalization for UTI at [place], chronic urinary retention, ASCVD s/p stents, significant PAD s/p multiple angio interventions, right BKA and arterial
bypass graft in LLE 2023 presented to the ED on 07/07/25 with 2-3 day hx of LLE pain and feeling cold. She also had a large LLE wound. Duplex in the ED revealed occluded bypass. She was also noted to have Cr 3.6. She was taken to the OR with vascular
surgery for localized tPA instillation. She was admitted to the ICU for observation and noted her LLE was still cold. Vascular brought her back to the OR on 07/08 for arterial bypass graft placement which was successful. She has been on linezolid and
aztreonam for CAUTI. SREE is improving.
The patient was on warfarin for prior hx DVT, a.fib and anti-cardiolipin IgM (+). Home dose on record is 2mg daily. She does have a home INR device. On presentation she was supratherapeutic with INR 4.78 later increasing to 6.40. Today she is 2.78.
She is currently on a heparin drip. Heme/onc was consulted for recommendations on restarting anti-coagulation. She sees Dr. Pugh in the outpatient for management of her anemia.
Past-Medical/Surgical History
Past Medical History:
ASCVD s/p stent LAD 2021
PAD s/p right BKA
DM-II
CKD IV
Hypertension
Chronic Urinary Retention
Obesity
Anemia of CKD
Paroxysmal Atrial Fibrillation
Hypothyroidism
Anxiety / Depression
Peripheral Polyneuropathy
COPD
MGUS
History of DVT
History of CDiff
Past surgical history:
LLE Angioplasty
LLE Bypass
RLE BKA
Tobacco: Former Smoker
Alcohol: None
Drug: None
Living: Longterm
Patient Medication
�Medication �Instructions �Recorded �Confirmed �Last Taken �Type
aspirin 81 mg chewable tablet 81 mg PO DAILY Blood Clot 09/02/24 07/08/25 04/07/25 History
Prevention/Tx
atorvastatin 10 mg tablet 10 mg PO HS High Cholesterol 09/02/24 07/08/25 04/06/25 History
bisacodyl 10 mg rectal suppository 10 mg AZ DAILYPRN PRN if mom 09/02/24 07/08/25 Unknown History
ineffective
cholecalciferol (vitamin D3) 50 125 mcg PO HS Supplement 09/02/24 07/08/25 04/07/25 History
mcg (2,000 unit) tablet (Vitamin
D3)
folic acid 1 mg tablet 1 mg PO DAILY Supplement 09/02/24 07/08/25 04/07/25 History
gabapentin 300 mg capsule 300 mg PO BID Neurological 09/02/24 07/08/25 04/07/25 History
Condition
guaifenesin 100 mg/5 mL oral liquid 200 mg PO Q8HPRN PRN cough 09/02/24 07/08/25 Unknown History
ipratropium 0.5 mg-albuterol 3 mg 3 ml inhalation R Q6HPRN PRN sob 09/02/24 07/08/25 04/07/25 History
(2.5 mg base)/3 mL nebulization
soln
lamotrigine 25 mg tablet 50 mg PO HS Neurological Condition 09/02/24 07/08/25 04/06/25 History
levothyroxine 100 mcg tablet 100 mcg PO HS Thyroid 09/02/24 07/08/25 04/06/25 History
magnesium hydroxide 400 mg/5 mL 30 ml PO DAILYPRN PRN constipation 09/02/24 07/08/25 04/07/25 History
oral suspension (Milk of Magnesia)
melatonin 5 mg tablet 10 mg PO HS Sleep 09/02/24 07/08/25 Unknown History
pantoprazole 40 mg tablet,delayed 40 mg PO DAILY Gastrointestinal 09/02/24 07/08/25 04/07/25 History
release Issue
sodium phosphates 19 gram-7 118 ml [place] DAILYPRN PRN if no 09/02/24 07/08/25 Unknown History
gram/118 mL enema (Enema) result aftr bisacodyl
tamsulosin 0.4 mg capsule 0.4 mg PO DAILY Urinary Issue 09/02/24 07/08/25 04/07/25 History
trazodone 100 mg tablet 25 mg PO HS Mental Health/Anxiety 09/02/24 07/08/25 04/06/25 History
collagenase clostridium histo. 250 1 applic topical DAILY lt bellamy 09/28/24 07/08/25 04/07/25 History
unit/gram topical ointment (Santyl) wound
sodium chloride-hypochlorous acid 1 irrig irrigation HS lt bellamy wound 09/28/24 07/08/25 Unknown History
0.033 % irrigation solution (Vashe)
loratadine 10 mg tablet 10 mg PO DAILY Allergies 04/07/25 07/08/25 04/06/25 History
metoprolol succinate 25 mg 25 mg PO BID Heart 04/07/25 07/08/25 04/07/25 History
tablet,extended release 24 hr Disease/Condition
midodrine 5 mg tablet 5 mg PO TID Blood Pressure 04/07/25 07/08/25 04/07/25 History
Saccharomyces boulardii 250 mg 250 mg PO BID Supplement 07/08/25 07/08/25 Unknown History
capsule
acetaminophen 500 mg tablet 1,000 mg PO TID Pain 07/08/25 07/08/25 Unknown History
diphenhydramine HCl 12.5 mg/5 mL 25 mg PO Q6H PRN drug rash 07/08/25 07/08/25 Unknown History
oral elixir
docusate sodium 100 mg capsule 100 mg PO DAILY Constipation 07/08/25 07/08/25 Unknown History
(Colace)
linezolid 600 mg tablet 600 mg PO BID Infection 07/08/25 07/08/25 Unknown History
morphine 15 mg tablet,extended 15 mg PO Q12 Pain 07/08/25 07/08/25 Unknown History
release
ofloxacin 0.3 % eye drops (Ocuflox) 1 drp ophthalmic (eye) Q12H Eye 07/08/25 07/08/25 Unknown History
Condition
ondansetron 4 mg disintegrating 4 mg PO Q8H PRN nausea 07/08/25 07/08/25 Unknown History
tablet
oxycodone 5 mg tablet 5 mg PO Q6H PRN Pain 07/08/25 07/08/25 Unknown History
sitagliptin phosphate 25 mg tablet 25 mg PO DAILY Diabetes 07/08/25 07/08/25 Unknown History
(Januvia)
warfarin 2 mg tablet mg PO QPM 07/08/25 Unknown History
Active Medications
Generic Name Dose Route Start Last Admin
Trade Name Freq PRN Reason Stop Dose Admin
Acetaminophen 1,000 mg 07/08/25 08:00 07/09/25 21:45
Acetaminophen 500 Mg Tablet PO 08/05/25 07:59 1,000 mg
TID CAR Administration
Albuterol/Ipratropium 3 ml 07/08/25 05:08
Ipratropium 0.5/Albuterol 3 Mg (3 Ml Ampul) INH
R Q6HPRN PRN
sob
Protocol
Aspirin 81 mg 07/08/25 08:00 07/09/25 07:18
Aspirin 81 Mg Chewable Tablet PO 08/05/25 07:59 81 mg
DAILY CAR Administration
Bisacodyl 10 mg 07/07/25 22:25
Bisacodyl 10 Mg Rectal Suppository RECTAL 08/04/25 22:24
DAILYPRN PRN
constipation
Dextrose 12.5 grams 07/08/25 05:27
Dextrose 50% (0.5 Grams/Ml) 50 Ml Syringe IV 08/05/25 05:26
[id number] PRN
hypoglycemia
Protocol
Folic Acid 1 mg 07/08/25 08:00 07/09/25 07:19
Folic Acid 1 Mg Tablet PO 08/05/25 07:59 1 mg
DAILY CAR Administration
Gabapentin 300 mg 07/09/25 08:00 07/09/25 07:18
Gabapentin 300 Mg Capsule PO 08/06/25 07:59 300 mg
DAILY CAR Administration
Glucagon 1 mg 07/08/25 05:27
Glucagon 1 Mg Vial IM 08/05/25 05:26
PRN PRN
hypoglycemia
Protocol
Hydromorphone HCl 0.5 mg 07/08/25 00:51
Hydromorphone 0.5 Mg/0.5 Ml Syringe IV 07/22/25 00:50
Q3HPRN PRN
moderate to severe pain
Ciprofloxacin/Dextrose 200 mls @ 200 mls/hr 07/08/25 04:00 07/10/25 03:57
Cipro 400 Mg IV 200 mls
Q12H CAR Administration
Heparin Sodium 25,000 units in 250 mls @ 0 mls/hr 07/08/25 18:15 07/08/25 20:42
Heparin 38288 Units/250 Ml IV 250 mls
PER PROTOCOL CAR Administration
Protocol
Per Protocol
Insulin Aspart 0 units 07/08/25 07:30 07/09/25 17:18
Insulin Aspart Low Resistance 300 Units/3 Ml Pen.Injctr SC 08/05/25 07:29 Not Given
AC CAR
Protocol
Lamotrigine 50 mg 07/08/25 22:00 07/09/25 21:46
Lamotrigine 25 Mg Chewable Tablet PO 08/05/25 21:59 50 mg
HS CAR Administration
Levothyroxine Sodium 100 mcg 07/08/25 06:00 07/10/25 07:17
Levothyroxine 100 Mcg Tablet PO 08/05/25 05:59 100 mcg
DAILY@0600 CAR Administration
Linezolid 600 mg 07/08/25 08:00 07/09/25 20:26
Linezolid 600 Mg Tablet PO 07/10/25 22:00 600 mg
BID CAR Administration
Miconazole Nitrate 0 applic 07/08/25 11:00 07/09/25 21:45
Miconazole Powder Bottle TOPICAL 08/05/25 10:59 1 applic
BID CAR Administration
Midodrine 5 mg 07/08/25 08:00 07/09/25 21:50
Midodrine 5 Mg Tablet PO 08/05/25 07:59 Not Given
TID CAR
Oxycodone HCl 5 mg 07/08/25 05:08 07/09/25 20:31
Oxycodone 5 Mg Regular Release Tablet PO 07/22/25 05:07 5 mg
Q6H PRN Administration
Pain
Pantoprazole Sodium 40 mg 07/08/25 08:00 07/09/25 07:17
Pantoprazole 40 Mg Delayed Release Tablet PO 08/05/25 07:59 40 mg
DAILY CAR Administration
Sodium Chloride 0 flush 07/07/25 23:00
Sodium Chloride 0.9% (Flush) Syringe IV 08/04/25 22:59
PER PROTOCOL CAR
Review of Systems
-
History Source: Patient
EENT: Reports No Symptoms
Cardiac: Reports No Symptoms
GI: Reports No Symptoms
Musculoskeletal: Reports Other (left lower extremity redness and warmth )
Skin: Reports No Symptoms
Neuro: Reports No Symptoms
Physical Exam
-
General: No Apparent Distress and Comfortable
Cardiology: Normal Sinus Rhythm, S1 and S2
Pulmonary: Clear
GI: Soft and Distended
Musculoskeletal: Other (RLE BKA, LLE warmth, erythema, capillary refill <2 seconds )
Skin: Warm and Dry
Psych: Calm
Labs
Lab Results
WBC 6.1 10^3/uL (4.8-10.8) 07/10/25 01:48
RBC 2.81 10^6/uL (4.20-5.40) L 07/10/25 01:48
Hgb 8.9 g/dL (12.0-16.0) L 07/10/25 01:48
Hct 28.2 % (37.0-47.0) L 07/10/25 01:48
MCV 100.4 fL (81.0-99.0) H 07/10/25 01:48
MCH 31.7 pg (27.0-31.0) H 07/10/25 01:48
MCHC 31.6 g/dL (33.0-37.0) L 07/10/25 01:48
RDW 15.4 % (11.5-14.5) H 07/10/25 01:48
Plt Count 84 10^3/uL (130-400) L 07/10/25 01:48
MPV 8.7 fL (7.4-10.4) 07/10/25 01:48
Abs Immat Gran (auto) 0.1 10^3/uL (0-0.05) H 07/07/25 18:07
Absolute Neuts (auto) 8.7 10^3/uL (1.4-6.5) H 07/07/25 18:07
Absolute Lymphs (auto) 0.6 10^3/uL (1.2-3.4) L 07/07/25 18:07
Absolute Monos (auto) 0.5 10^3/uL (0.1-0.6) 07/07/25 18:07
Absolute Eos (auto) 0.1 10^3/uL (0-0.7) 07/07/25 18:07
Absolute Basos (auto) 0.0 10^3/uL (0-0.2) 07/07/25 18:07
Immature Gran % 0.9 % (0-0.5) H 07/07/25 18:07
Neutrophils % 87.6 % (42.2-75.2) H 07/07/25 18:07
Lymphocytes % 5.8 % (20.5-51.1) L 07/07/25 18:07
Monocytes % 4.9 % (1.7-9.3) 07/07/25 18:07
Eosinophils % 0.5 % (0-6) 07/07/25 18:07
Basophils % 0.3 % (0-2) 07/07/25 18:07
Creatinine 1.9 mg/dL (0.6-1.0) H 07/09/25 16:50
Vital Signs
Vital Signs
Temp Pulse Resp BP Pulse Ox
97.6 F 75 17 110/52 95
07/10/25 03:10 07/10/25 03:10 07/10/25 03:10 07/10/25 03:10 07/10/25 03:10
[2025-07-10 09:05] LABS: Glucose - Point of Care 69 mg/dl (70-99)
[2025-07-10 09:05] LABS: INR 2.78; PT 29.3 Sec (11.4-14.6)
[2025-07-10 09:07] LABS: APTT 94.5 Sec (23.4-35.0)
[2025-07-10] MEDS: DESENEX/MITRAZOL/ZEASORB 1 APPLIC TOPICAL ×2 (09:09→21:06)
[2025-07-10] MEDS: TYLENOL 1000 MG PO ×3 (09:10→21:07)
[2025-07-10] MEDS: PROTONIX 40 MG PO (09:10)
[2025-07-10] MEDS: NOVOLOG FLEXPEN-LOW RESISTANCE SC ×3 (09:10→17:19)
[2025-07-10] MEDS: LOW STRENGTH ASPIRIN 81 MG PO (09:11)
[2025-07-10] MEDS: ZYVOX 600 MG PO ×2 (09:11→20:41)
[2025-07-10] MEDS: FOLVITE 1 MG PO (09:11)
[2025-07-10] MEDS: NEURONTIN 300 MG PO (09:11)
[2025-07-10 09:43] LABS: Glucose - Point of Care 93 mg/dl (70-99)
--- NOTE | 2025-07-10 10:27 | CM ---
Addendum entered by Maddy Oden RN 07/10/25 15:39:
IMM reviewed.
Original Note:
Reviewed the chart notes and spoke with the patient at the bedside. Patient is a nursing home resident of [facility]. CM continues to be available to patient/family and is monitoring medical plan for needs at discharge.
Plan: Discharge back to [facility] when medically stable.
[2025-07-10 11:40] VITALS: BP 117/55
[2025-07-10 11:41] LABS: Glucose - Point of Care 84 mg/dl (70-99)
[2025-07-10] MEDS: HEPARIN 25000 UNITS/250 ML IV (12:30)
[2025-07-10] MEDS: STERILE WATER FOR INJECTION 10 ML IV ×2 (12:35→20:42)
[2025-07-10] MEDS: AZACTAM 1000 MG IV ×2 (12:36→20:41)
--- NOTE | 2025-07-10 13:06 | W.PN.HOSP.TC ---
Addendum entered and electronically signed by Nagi Loera MD 07/10/25 16:40:
Acute blood loss anemia
Original Note:
Today's Communication/Plan
-
started on Aztreonam
Resume Coumadin once INR less than 2.5
Assessment / Plan
Assessment / Plan
Impression:
A/P: Patient is a 70y F with PMH significant for ASCVD / PAD s/p prior R BKA and LLE angio and bypass who presents to ED complaining of LLE pain x 3 days.
Admitted for acute critical limb ischemia,07/07 underwent left leg angiogram and admitted to the ICU for heparin and TNK then next day 07/08 underwent stent placement from SFA into bypass graft with balloon angioplasty, patient regained pulse.
Patient also treated for catheter associated urinary tract infection
Assessment/plan:
Acute Critical / Limb-Threatening Ischemia LLE
ASCVD / PAD
07/07 S/P
- Ultrasound Guided Percutaneous Right Common Femoral Artery Access
Aortogram
- Left Leg Angiogram
- Selective Third Order Catheterization of Left Anterior Tibial Artery
Initiation of Lysis with 50cm infusion length Cragg-Nica Catheter
07/08 S/P
- Left lower extremity arteriogram through existing sheath.
- Placement of self-expanding Zilver PTX 6 mm x 4 cm stent extending from SFA into bypass graft.
- Balloon angioplasty distal anastomotic stenosis with 3 mm angioplasty balloon.
- Right femoral angiogram and Pro-glide percutaneous suture closure right femoral artery.
- Supervision and interpretation.
Continue management in the ICU
Okay to start heparin tonight as per vascular
07/10
Patient downgraded from the ICU.
Hematology consulted.
Plan to resume Coumadin once INR less than 2.5
CAUTI
Chronic Urinary Retention
- Thompson with grossly purulent urine.
- Recent hospitalization for UTI - send to [facility] for records.
- Continue Linezolid per [place] [facility].
- Continue IV ciprofloxacin for now pending culture data.
- Recent adverse reaction / drug rash from ceftriaxone.
07/10
Culture came back Pseudomonas (intermediate to Cipro) questionable colonization.
Switched antibiotic to aztreonam-continued on linezolid
SREE on CKD IV
Acute on Chronic Metabolic Acidosis
Creatinine back to baseline
Paroxysmal Atrial Fibrillation
Coumadin Coagulopathy (?)
- Monitor on telemetry. Holding BP active medications for now to avoid hypotension.
- Seen by hematology, once INR less than 2.5 , will resume Coumadin
Hypotension
- s/p IVF support +/- pressors as noted above to maintain perfusion.
- Continue midodrine.
- improved- Holding holding metoprolol for now, will resume once blood pressure continue to improve.
DM-II
- Stable. Follow glucose and cover with SSI as needed.
- Update A1C.
Hypothyroidism
- Continue T4 supplementation.
COPD without Acute Exacerbation
- Stable. No wheezing or complaints of dyspnea.
- Nebs PRN.
CODE STATUS: Full code
DVT prophylaxis: On IV Heparin
Diet: DM
Family communication: Discussed with brother and [id number] at bedside.
Disposition: started on Aztreonam
Resume Coumadin once INR less than 2.5
Total time spent on today's encounter was 65 minutes which included time spent in counseling the patient/family regarding diagnosis and treatment plan as listed above, goals of care, and symptom management. Case was discussed with nursing staff,
specialists, and care coordinators/case management. All labs and imaging personally reviewed by me. Remainder the time spent in detailed review of previous records, lab data, imaging, and other medical provider documentation.
Anticipated Discharge: > 48 hours
Subjective/Interval History
-
Date of Service: July 10, 2025
Downgraded from the ICU.
No chest pain or shortness of breath
Objective Data
-
Labs:
Laboratory Results
07/10/25 07/10/25 07/10/25
01:48 08:45 08:45
WBC 6.1
Hgb 8.9 L
Hct 28.2 L
Plt Count 84 L
PT 29.3 H Cancelled
INR 2.78
APTT 63.7 H
07/10/25 07/10/25
08:45 15:15
WBC
Hgb
Hct
Plt Count
PT
INR Cancelled
APTT 94.5 H Pending
Vital Signs:
Vital Signs
Temp Pulse Resp BP Pulse Ox
98.0 F 83 16 117/55 95
07/10/25 11:40 07/10/25 11:40 07/10/25 11:40 07/10/25 11:40 07/10/25 11:40
I&O
07/09/25 07/10/25 07/11/25
06:59 06:59 06:59
Intake Total 3504 / 3609 1248 / 1248 360 / 360
Output Total 865 / 900 350 / 350
Balance 2639 / 2709 898 / 898 360 / 360
Physical Exam
-
General: Well Developed, Well Nourished, No Apparent Distress and Comfortable
HEENT: Normocephalic, Atraumatic, Moist Mucous Membranes, No Ptosis, PERRLA and Nose Appears Normal
Respiratory: Clear to Auscultation and Non Labored Respirations
Cardiac: Regular Rhythm and S1/S2
Breast: Deferred by me
GI: Soft, Nontender, Nondistended and Normal Bowel Sounds
Genito-urinary: No Costovertebral Tender
Musculoskeletal: Other (Right below-knee amputation, left foot warm)
Skin: Warm
Neuro: Awake, Alert, Oriented, AO x 3 and No Motor Deficits
Psych: Calm
[2025-07-10 14:42] LABS: Glucose - Point of Care 98 mg/dl (70-99)
[2025-07-10 15:54] LABS: APTT 138.4 Sec (23.4-35.0)
[2025-07-10] MEDS: ZOFRAN 4 MG IV (16:42)
[2025-07-10 17:05] LABS: Glucose - Point of Care 111 mg/dl (70-99)
[2025-07-10 17:47] LABS: Folate > 20.0 ng/ml (2.76-20); Vitamin B12 758 pg/ml (239-931)
[2025-07-10 19:05] VITALS: BP 116/62
[2025-07-10] MEDS: LAMICTAL 50 MG PO (21:06)
[2025-07-10 21:26] LABS: Glucose - Point of Care 92 mg/dl (70-99)
[2025-07-10 23:10] VITALS: BP 104/66
[2025-07-11 00:56] LABS: APTT 84.7 Sec (23.4-35.0)
[2025-07-11 03:05] VITALS: BP 105/61
[2025-07-11 04:05] LABS: Glucose - Point of Care 77 mg/dl (70-99)
[2025-07-11] MEDS: SYNTHROID 100 MCG PO (05:09)
[2025-07-11] MEDS: AZACTAM 1000 MG IV ×3 (05:10→20:38)
[2025-07-11] MEDS: STERILE WATER FOR INJECTION 10 ML IV ×3 (05:10→20:39)
[2025-07-11] MEDS: ROXICODONE 5 MG PO ×2 (05:27→15:17)
[2025-07-11 06:39] LABS: Hematocrit 25.4 % (37.0-47.0); Hemoglobin 8.0 g/dL (12.0-16.0); Mean Corp Hgb Conc. 31.5 g/dL (33.0-37.0); Mean Corpuscular Volume 99.6 fL (81.0-99.0); Platelet Count 69 10^3/uL (130-400); Red Cell Dist. Width 15.1 % (11.5-14.5)
[2025-07-11 06:44] LABS: INR 2.69; PT 28.6 Sec (11.4-14.6)
[2025-07-11 06:45] LABS: APTT 83.6 Sec (23.4-35.0)
[2025-07-11 07:25] VITALS: BP 115/64
--- NOTE | 2025-07-11 07:53 | W.PN.VS ---
Today's Communication / Plan
-
as above
Assessment/Plan
-
Assessment: 70 year old female with PAD presented on 07/07/25 with LLE Fem-At bypass occluded. POD#4 Ultrasound Guided Percutaneous Right Common Femoral Artery Access, aortogram, left Leg Angiogram, initiation of Lysis with 50cm infusion length
Cragg-Nica Catheter. POD#2 Left lower extremity arteriogram through existing sheath, placement of self-expanding Zilver PTX 6 mm x 4 cm stent extending from SFA into bypass graft, balloon angioplasty distal anastomotic stenosis with 3 mm
angioplasty balloon, right femoral angiogram and Pro-glide percutaneous suture closure right femoral artery.
Plan:
Given patient's recent history of elevated INR as high of 7 (with Coumadin on hold since 07/02/2025) reported to us by [facility] staff in the outpatient setting, and her having a therapeutic PTT on low doses of heparin infusion we have asked
hematology to consult for recommendation on Coumadin dosing, will await the recommendation for initiation.
Continue antiplatelet ASA 81mg PO daily
Continue neurovascular checks
Continue local wound care
Subjective Data
-
Date of Service: July 11, 2025
No acute events. States leg feels significantly better than before
Objective Data
-
Vital Signs
Temp Pulse Resp BP Pulse Ox
98.9 F 78 17 105/61 98
07/11/25 03:05 07/11/25 03:05 07/11/25 03:05 07/11/25 03:05 07/11/25 03:05
Intake and Output
07/10/25 07/11/25 07/12/25
06:59 06:59 06:59
Intake Total 1248 / 1248 840 / 840
Output Total 350 / 350
Balance 898 / 898 840 / 840
Intake:
Oral fluids 480 / 480 840 / 840
IV fluids (Total) 768 / 768
Heparin 68 / 68
Nss 1,000 ml @ 100 mls/hr IV . 700 / 700
Q10H [facility] Rx#:[id number]
Output:
Urine, Thompson 350 / 350
Other:
How many times incontinent 1 2
SATURATED amount urine
Lab Results
07/11/25 06:25
Calcium 8.2 mg/dl (8.4-10.2) L 07/09/25 16:50
Phosphorus 6.9 mg/dl (2.5-4.5) H 07/08/25 05:23
Magnesium 2.0 mg/dl (1.6-2.3) 07/09/25 03:15
Total Bilirubin 0.6 mg/dl (0.2-1.3) 07/09/25 03:15
Direct Bilirubin 0.5 mg/dl (0.0-0.4) H 07/08/25 05:23
AST 31 U/L (14-36) 07/09/25 03:15
ALT 16 U/L (0-35) 07/09/25 03:15
Alkaline Phosphatase 70 U/L (38-126) 07/09/25 03:15
Total Protein 5.5 g/dl (6.3-8.2) L 07/09/25 03:15
Albumin 2.6 g/dl (3.5-5.0) L 07/09/25 03:15
Physical Exam
-
NAD
Foot warm
Wounds clean and dry
[2025-07-11 08:08] LABS: Glucose - Point of Care 89 mg/dl (70-99)
[2025-07-11 08:24] LABS: Blood Urea Nitrogen 25 mg/dl (7-17); Calcium 8.5 mg/dl (8.4-10.2); Carbon Dioxide 20 mmol/L (22-30); Chloride 112 mmol/L (98-107); Estimated Creatinine Clearance 33 ml/min; Glucose 81 mg/dl (70-99); Potassium 4.1 mmol/L (3.5-5.1); Sodium 138 mmol/L (135-145); eGFR 30.31
[2025-07-11] MEDS: NOVOLOG FLEXPEN-LOW RESISTANCE SC ×3 (08:42→16:28)
[2025-07-11] MEDS: LOW STRENGTH ASPIRIN 81 MG PO (09:26)
[2025-07-11] MEDS: TYLENOL 1000 MG PO ×3 (09:26→22:12)
[2025-07-11] MEDS: FOLVITE 1 MG PO (09:27)
[2025-07-11] MEDS: NEURONTIN 300 MG PO (09:27)
[2025-07-11] MEDS: DESENEX/MITRAZOL/ZEASORB 1 APPLIC TOPICAL ×2 (09:27→20:39)
[2025-07-11] MEDS: PROTONIX 40 MG PO (09:27)
--- NOTE | 2025-07-11 10:13 | W.PN.HOSP.TC ---
Today's Communication/Plan
-
Monitor INR and resume Coumadin if INR less than 2.5.
Continue antibiotics
Physical therapy
Assessment / Plan
Assessment / Plan
Impression:
A/P: Patient is a 70y F with PMH significant for ASCVD / PAD s/p prior R BKA and LLE angio and bypass who presents to ED complaining of LLE pain x 3 days.
Admitted for acute critical limb ischemia,07/07 underwent left leg angiogram and admitted to the ICU for heparin and TNK then next day 07/08 underwent stent placement from SFA into bypass graft with balloon angioplasty, patient regained pulse.
Patient also treated for catheter associated urinary tract infection.
Hematology consulted for Coumadin management.
Assessment/plan:
Acute Critical / Limb-Threatening Ischemia LLE
ASCVD / PAD
07/07 S/P
- Ultrasound Guided Percutaneous Right Common Femoral Artery Access
Aortogram
- Left Leg Angiogram
- Selective Third Order Catheterization of Left Anterior Tibial Artery
Initiation of Lysis with 50cm infusion length Cragg-Nica Catheter
07/08 S/P
- Left lower extremity arteriogram through existing sheath.
- Placement of self-expanding Zilver PTX 6 mm x 4 cm stent extending from SFA into bypass graft.
- Balloon angioplasty distal anastomotic stenosis with 3 mm angioplasty balloon.
- Right femoral angiogram and Pro-glide percutaneous suture closure right femoral artery.
- Supervision and interpretation.
Continue management in the ICU
Okay to start heparin tonight as per vascular
07/10
Patient downgraded from the ICU.
Hematology consulted.
Plan to resume Coumadin once INR less than 2.5
CAUTI
Chronic Urinary Retention
- Thompson with grossly purulent urine.
- Recent hospitalization for UTI - send to [facility] for records.
- Continue Linezolid per Jan.
- Continue IV ciprofloxacin for now pending culture data.
- Recent adverse reaction / drug rash from ceftriaxone.
07/10
Culture came back Pseudomonas (intermediate to Cipro) questionable colonization.
Switched antibiotic to aztreonam-continued on linezolid.
Anemia.
Appreciate hematology input.
Iron study pending.
Hb stable
SREE on CKD IV
Acute on Chronic Metabolic Acidosis
Creatinine back to baseline
Paroxysmal Atrial Fibrillation
Coumadin Coagulopathy (?)
- Monitor on telemetry. Holding BP active medications for now to avoid hypotension.
- Seen by hematology, once INR less than 2.5 , will resume Coumadin
Hypotension
- s/p IVF support +/- pressors as noted above to maintain perfusion.
- Continue midodrine.
- improved- Holding holding metoprolol for now, will resume once blood pressure continue to improve.
DM-II
- Stable. Follow glucose and cover with SSI as needed.
- Update A1C.
Hypothyroidism
- Continue T4 supplementation.
COPD without Acute Exacerbation
- Stable. No wheezing or complaints of dyspnea.
- Nebs PRN.
CODE STATUS: Full code
DVT prophylaxis: On IV Heparin
Diet: DM
Family communication: Discussed with brother and [id number] at bedside.
Disposition: Resume Coumadin once INR less than 2.5
Total time spent on today's encounter was 65 minutes which included time spent in counseling the patient/family regarding diagnosis and treatment plan as listed above, goals of care, and symptom management. Case was discussed with nursing staff,
specialists, and care coordinators/case management. All labs and imaging personally reviewed by me. Remainder the time spent in detailed review of previous records, lab data, imaging, and other medical provider documentation.
Anticipated Discharge: > 48 hours
Subjective/Interval History
-
Date of Service: July 11, 2025
Patient overall feeling good, had some drainage from the dressing overnight, dressing changed.
No chest pain shortness of breath.
Objective Data
-
Labs:
Laboratory Results
07/11/25 07/11/25
00:35 06:25
WBC 4.4 L
Hgb 8.0 L
Hct 25.4 L
Plt Count 69 L
PT 28.6 H
INR 2.69
APTT 84.7 H 83.6 H
Sodium 138
Potassium 4.1
Chloride 112 H
Carbon Dioxide 20 L
BUN 25 H
Creatinine 1.8 H
Glucose 81
Calcium 8.5
Vital Signs:
Vital Signs
Temp Pulse Resp BP Pulse Ox
98.4 F 83 20 133/66 93
07/11/25 07:25 07/11/25 09:15 07/11/25 07:25 07/11/25 09:15 07/11/25 07:25
I&O
07/10/25 07/11/25 07/12/25
06:59 06:59 06:59
Intake Total 1248 / 1248 840 / 840
Output Total 350 / 350
Balance 898 / 898 840 / 840
Physical Exam
-
General: Well Developed, Well Nourished, No Apparent Distress and Comfortable
HEENT: Normocephalic, Atraumatic, Moist Mucous Membranes, No Ptosis, PERRLA and Nose Appears Normal
Respiratory: Clear to Auscultation and Non Labored Respirations
Cardiac: Regular Rhythm and S1/S2
Breast: Deferred by me
GI: Soft, Nontender, Nondistended and Normal Bowel Sounds
Genito-urinary: No Costovertebral Tender
Musculoskeletal: Other (Right below-knee amputation, left foot warm)
Skin: Warm
Neuro: Awake, Alert, Oriented, AO x 3 and No Motor Deficits
Psych: Calm
Data Reviewed
-
Diagnostic Radiology: Image personally visualized and interpreted and Report Reviewed by me
CT Scan: Image personally visualized and interpreted and Report Reviewed by me
Ultrasound: Image personally visualized and interpreted and Report Reviewed by me
MRI: Image personally visualized and interpreted and Report Reviewed by me
Medical Tests (Nuc Med, Echo etc): Image personally visualized and interpreted and Report Reviewed by me
Labs: Labs Reviewed by me
Old Records: Reviewed
[2025-07-11 11:10] VITALS: BP 122/78
[2025-07-11 11:43] LABS: Glucose - Point of Care 95 mg/dl (70-99)
[2025-07-11 15:25] VITALS: BP 121/68
[2025-07-11 16:19] LABS: Glucose - Point of Care 94 mg/dl (70-99)
[2025-07-11 19:00] VITALS: BP 108/67
[2025-07-11 21:46] LABS: Glucose - Point of Care 94 mg/dl (70-99)
[2025-07-11] MEDS: LAMICTAL 50 MG PO (22:13)
[2025-07-11 23:00] VITALS: BP 110/68
[2025-07-12 03:00] VITALS: BP 106/61
[2025-07-12] MEDS: HEPARIN 25000 UNITS/250 ML IV (03:14)
[2025-07-12] MEDS: STERILE WATER FOR INJECTION 10 ML IV ×3 (04:22→20:45)
[2025-07-12] MEDS: AZACTAM 1000 MG IV ×3 (04:22→20:42)
[2025-07-12 05:13] LABS: INR 2.26; PT 25.0 Sec (11.4-14.6)
[2025-07-12 05:15] LABS: APTT 62.8 Sec (23.4-35.0)
[2025-07-12 05:25] LABS: Hematocrit 24.6 % (37.0-47.0); Hemoglobin 7.8 g/dL (12.0-16.0); Mean Corp Hgb Conc. 31.7 g/dL (33.0-37.0); Mean Corpuscular Volume 100.0 fL (81.0-99.0); Platelet Count 59 10^3/uL (130-400); Red Cell Dist. Width 14.6 % (11.5-14.5)
[2025-07-12 05:46] LABS: Blood Urea Nitrogen 25 mg/dl (7-17); Calcium 8.1 mg/dl (8.4-10.2); Carbon Dioxide 18 mmol/L (22-30); Chloride 115 mmol/L (98-107); Estimated Creatinine Clearance 33 ml/min; Glucose 79 mg/dl (70-99); Potassium 4.1 mmol/L (3.5-5.1); Sodium 139 mmol/L (135-145); eGFR 30.31
[2025-07-12] MEDS: SYNTHROID 100 MCG PO (06:05)
--- NOTE | 2025-07-12 06:42 | PTCARENOTE ---
per heparin protocol contacted AAR[facility] Love for ptt of 62.8. Provider advised to increase rate by 200 units and recheck ptt in 6 hours per protocol.
[2025-07-12 07:15] VITALS: BP 131/91
[2025-07-12 07:16] LABS: Glucose - Point of Care 81 mg/dl (70-99)
[2025-07-12] MEDS: TYLENOL 1000 MG PO ×3 (08:54→21:54)
[2025-07-12] MEDS: LOW STRENGTH ASPIRIN 81 MG PO (08:54)
[2025-07-12] MEDS: PROTONIX 40 MG PO (08:54)
[2025-07-12] MEDS: FOLVITE 1 MG PO (08:54)
[2025-07-12] MEDS: NEURONTIN 300 MG PO (08:54)
[2025-07-12] MEDS: NOVOLOG FLEXPEN-LOW RESISTANCE SC ×3 (08:55→17:12)
[2025-07-12] MEDS: DESENEX/MITRAZOL/ZEASORB 1 APPLIC TOPICAL ×2 (08:59→20:52)
[2025-07-12 11:53] VITALS: BP 128/80
--- NOTE | 2025-07-12 12:20 | W.PN.HOSP.TC ---
Today's Communication/Plan
-
Resume Coumadin tonight.
Assessment / Plan
Assessment / Plan
Impression:
A/P: Patient is a 70y F with PMH significant for ASCVD / PAD s/p prior R BKA and LLE angio and bypass who presents to ED complaining of LLE pain x 3 days.
Admitted for acute critical limb ischemia,07/07 underwent left leg angiogram and admitted to the ICU for heparin and TNK then next day 07/08 underwent stent placement from SFA into bypass graft with balloon angioplasty, patient regained pulse.
Patient also treated for catheter associated urinary tract infection.
Hematology consulted for Coumadin management.
She will be resumed when INR less than 2.5
Assessment/plan:
Acute Critical / Limb-Threatening Ischemia LLE
ASCVD / PAD
07/07 S/P
- Ultrasound Guided Percutaneous Right Common Femoral Artery Access
Aortogram
- Left Leg Angiogram
- Selective Third Order Catheterization of Left Anterior Tibial Artery
Initiation of Lysis with 50cm infusion length Cragg-Nica Catheter
07/08 S/P
- Left lower extremity arteriogram through existing sheath.
- Placement of self-expanding Zilver PTX 6 mm x 4 cm stent extending from SFA into bypass graft.
- Balloon angioplasty distal anastomotic stenosis with 3 mm angioplasty balloon.
- Right femoral angiogram and Pro-glide percutaneous suture closure right femoral artery.
- Supervision and interpretation.
Continue management in the ICU
Okay to start heparin tonight as per vascular
07/10
Patient downgraded from the ICU.
Hematology consulted.
Plan to resume Coumadin once INR less than 2.5
07/12
CABG resumed today and heparin drip will be discontinued
CAUTI
Chronic Urinary Retention
- Thompson with grossly purulent urine.
- Recent hospitalization for UTI - send to [facility] for records.
- Continue Linezolid per [place] JAN.
- Continue IV ciprofloxacin for now pending culture data.
- Recent adverse reaction / drug rash from ceftriaxone.
07/10
Culture came back Pseudomonas (intermediate to Cipro) questionable colonization.
Switched antibiotic to aztreonam-continued on linezolid.
07/12
MRSA screen negative, linezolid discontinued.
Continue Aztreonam.
Anemia.
Appreciate hematology input.
Iron study pending.
Hb stable
SREE on CKD IV
Acute on Chronic Metabolic Acidosis
Creatinine back to baseline
Paroxysmal Atrial Fibrillation
Coumadin Coagulopathy (?)
- Monitor on telemetry. Holding BP active medications for now to avoid hypotension.
- Seen by hematology, once INR less than 2.5 , will resume Coumadin
Hypotension
- s/p IVF support +/- pressors as noted above to maintain perfusion.
- Continue midodrine.
- improved- Holding holding metoprolol for now, will resume once blood pressure continue to improve.
DM-II
- Stable. Follow glucose and cover with SSI as needed.
- Update A1C.
Hypothyroidism
- Continue T4 supplementation.
COPD without Acute Exacerbation
- Stable. No wheezing or complaints of dyspnea.
- Nebs PRN.
CODE STATUS: Full code
DVT prophylaxis: On IV Heparin
Diet: DM
Family communication: Discussed with brother and [id number] at bedside.
Disposition: Resume Coumadin tonight.
Total time spent on today's encounter was 65 minutes which included time spent in counseling the patient/family regarding diagnosis and treatment plan as listed above, goals of care, and symptom management. Case was discussed with nursing staff,
specialists, and care coordinators/case management. All labs and imaging personally reviewed by me. Remainder the time spent in detailed review of previous records, lab data, imaging, and other medical provider documentation.
Anticipated Discharge: 24 - 48 hours
Subjective/Interval History
-
Date of Service: July 12, 2025
Patient seen and examined at bedside, denies any chest pain or shortness of breath, left leg pain.
Objective Data
-
Labs:
Laboratory Results
07/12/25 07/12/25 07/12/25
04:47 04:48 12:45
WBC 3.9 L
Hgb 7.8 L
Hct 24.6 L
Plt Count 59 L
PT 25.0 H
INR 2.26
APTT 62.8 H Pending
Sodium 139
Potassium 4.1
Chloride 115 H
Carbon Dioxide 18 L
BUN 25 H
Creatinine 1.8 H
Glucose 79
Calcium 8.1 L
Vital Signs:
Vital Signs
Temp Pulse Resp BP Pulse Ox
98.2 F 88 16 128/80 95
07/12/25 11:53 07/12/25 11:53 07/12/25 11:53 07/12/25 11:53 07/12/25 11:53
I&O
07/11/25 07/12/25 07/13/25
06:59 06:59 06:59
Intake Total 840 / 840 960 / 960
Balance 840 / 840 960 / 960
Physical Exam
-
General: Well Developed, Well Nourished, No Apparent Distress and Comfortable
HEENT: Normocephalic, Atraumatic, Moist Mucous Membranes, No Ptosis, PERRLA and Nose Appears Normal
Respiratory: Clear to Auscultation and Non Labored Respirations
Cardiac: Regular Rhythm and S1/S2
Breast: Deferred by me
GI: Soft, Nontender, Nondistended and Normal Bowel Sounds
Genito-urinary: No Costovertebral Tender
Musculoskeletal: Other (Right below-knee amputation, left foot warm)
Skin: Warm
Neuro: Awake, Alert, Oriented, AO x 3 and No Motor Deficits
Psych: Calm
Data Reviewed
-
Diagnostic Radiology: Image personally visualized and interpreted and Report Reviewed by me
CT Scan: Image personally visualized and interpreted and Report Reviewed by me
Ultrasound: Image personally visualized and interpreted and Report Reviewed by me
MRI: Image personally visualized and interpreted and Report Reviewed by me
Medical Tests (Nuc Med, Echo etc): Image personally visualized and interpreted and Report Reviewed by me
Labs: Labs Reviewed by me
Old Records: Reviewed
[2025-07-12 12:45] LABS: Glucose - Point of Care 79 mg/dl (70-99)
[2025-07-12 13:08] LABS: APTT 95.5 Sec (23.4-35.0)
[2025-07-12] MEDS: FLUSH (NSS) 2 FLUSH IV (13:22)
--- NOTE | 2025-07-12 14:19 | CHAP ---
Staff requested a zone maintenance technician visit for Kianna. She was sitting up in bed trying to eat some of the food on her tray. She is anxious about her leg condition and shared a lot about her health struggles and her disappointments. She welcomed prayer.
Emotional and spiritual support provided.
[2025-07-12 15:00] VITALS: BP 108/68
[2025-07-12 17:00] LABS: Glucose - Point of Care 79 mg/dl (70-99)
[2025-07-12] MEDS: COUMADIN 2 MG PO (17:57)
[2025-07-12 19:10] VITALS: BP 133/70
[2025-07-12 21:29] LABS: Glucose - Point of Care 81 mg/dl (70-99)
[2025-07-12] MEDS: LAMICTAL 50 MG PO (21:54)
[2025-07-12 23:10] VITALS: BP 125/65
[2025-07-13 03:02] VITALS: BP 126/75
[2025-07-13] MEDS: ROXICODONE 5 MG PO ×3 (03:28→17:16)
[2025-07-13] MEDS: AZACTAM 1000 MG IV ×3 (03:29→21:03)
[2025-07-13] MEDS: SYNTHROID 100 MCG PO (03:29)
[2025-07-13] MEDS: STERILE WATER FOR INJECTION 10 ML IV ×3 (03:29→21:03)
[2025-07-13 06:54] LABS: INR 2.26; PT 25.0 Sec (11.4-14.6)
[2025-07-13 07:19] LABS: Hematocrit 25.9 % (37.0-47.0); Hemoglobin 7.9 g/dL (12.0-16.0); Mean Corp Hgb Conc. 30.5 g/dL (33.0-37.0); Mean Corpuscular Volume 100.0 fL (81.0-99.0); Platelet Count 57 10^3/uL (130-400); Red Cell Dist. Width 14.6 % (11.5-14.5)
[2025-07-13 07:27] LABS: Blood Urea Nitrogen 24 mg/dl (7-17); Calcium 8.4 mg/dl (8.4-10.2); Carbon Dioxide 18 mmol/L (22-30); Chloride 115 mmol/L (98-107); Estimated Creatinine Clearance 35 ml/min; Glucose 69 mg/dl (70-99); Potassium 4.2 mmol/L (3.5-5.1); Sodium 141 mmol/L (135-145); eGFR 32.46
[2025-07-13 07:35] VITALS: BP 141/76
[2025-07-13 08:52] LABS: Glucose - Point of Care 68 mg/dl (70-99)
[2025-07-13] MEDS: NOVOLOG FLEXPEN-LOW RESISTANCE SC ×3 (08:53→16:38)
[2025-07-13] MEDS: FOLVITE 1 MG PO (08:54)
[2025-07-13] MEDS: TYLENOL 1000 MG PO ×3 (08:55→21:02)
[2025-07-13] MEDS: PROTONIX 40 MG PO (08:56)
[2025-07-13] MEDS: DESENEX/MITRAZOL/ZEASORB 1 APPLIC TOPICAL ×2 (08:56→21:04)
[2025-07-13] MEDS: LOW STRENGTH ASPIRIN 81 MG PO (08:56)
[2025-07-13] MEDS: NEURONTIN 300 MG PO (08:56)
[2025-07-13 09:14] LABS: Glucose - Point of Care 72 mg/dl (70-99)
--- NOTE | 2025-07-13 09:43 | W.PN.HOSP.TC ---
Today's Communication/Plan
-
Discharge to rehab if no further vascular surgery intervention.
Assessment / Plan
Assessment / Plan
Impression:
A/P: Patient is a 70y F with PMH significant for ASCVD / PAD s/p prior R BKA and LLE angio and bypass who presents to ED complaining of LLE pain x 3 days.
Admitted for acute critical limb ischemia,07/07 underwent left leg angiogram and admitted to the ICU for heparin and TNK then next day 07/08 underwent stent placement from SFA into bypass graft with balloon angioplasty, patient regained pulse.
Patient also treated for catheter associated urinary tract infection.
Hematology consulted for Coumadin management.
She will be resumed when INR less than 2.5
07/12 resumed Coumadin
07/13
Medically cleared for discharge if no further vascular surgery intervention
Assessment/plan:
Acute Critical / Limb-Threatening Ischemia LLE
ASCVD / PAD
07/07 S/P
- Ultrasound Guided Percutaneous Right Common Femoral Artery Access
Aortogram
- Left Leg Angiogram
- Selective Third Order Catheterization of Left Anterior Tibial Artery
Initiation of Lysis with 50cm infusion length Cragg-Nica Catheter
07/08 S/P
- Left lower extremity arteriogram through existing sheath.
- Placement of self-expanding Zilver PTX 6 mm x 4 cm stent extending from SFA into bypass graft.
- Balloon angioplasty distal anastomotic stenosis with 3 mm angioplasty balloon.
- Right femoral angiogram and Pro-glide percutaneous suture closure right femoral artery.
- Supervision and interpretation.
Continue management in the ICU
Okay to start heparin tonight as per vascular
07/10
Patient downgraded from the ICU.
Hematology consulted.
Plan to resume Coumadin once INR less than 2.5
07/12
Coumadin resumed today and heparin drip will be discontinued
07/13
Medically cleared for discharge if no further vascular surgery intervention
CAUTI
Chronic Urinary Retention
- Thompson with grossly purulent urine.
- Recent hospitalization for UTI - send to [facility] for records.
- Continue Linezolid per [place] JAN.
- Continue IV ciprofloxacin for now pending culture data.
- Recent adverse reaction / drug rash from ceftriaxone.
07/10
Culture came back Pseudomonas (intermediate to Cipro) questionable colonization.
Switched antibiotic to aztreonam-continued on linezolid.
07/12
MRSA screen negative, linezolid discontinued.
Continue Aztreonam.
Anemia.
Appreciate hematology input.
Iron study pending.
Hb stable
SREE on CKD IV
Acute on Chronic Metabolic Acidosis
Creatinine back to baseline
Paroxysmal Atrial Fibrillation
Coumadin Coagulopathy (?)
- Monitor on telemetry. Holding BP active medications for now to avoid hypotension.
- Seen by hematology, once INR less than 2.5 , will resume Coumadin
Hypotension
- s/p IVF support +/- pressors as noted above to maintain perfusion.
- Continue midodrine.
- improved- Holding holding metoprolol for now, will resume once blood pressure continue to improve.
DM-II
- Stable. Follow glucose and cover with SSI as needed.
- HbA1C 6.0
Hypothyroidism
- Continue T4 supplementation.
COPD without Acute Exacerbation
- Stable. No wheezing or complaints of dyspnea.
- Nebs PRN.
CODE STATUS: Full code
DVT prophylaxis: On IV Heparin
Diet: regular
Family communication: Discussed with brother and [id number] at bedside.
Disposition: Discharge to rehab if no further vascular surgery intervention.
Total time spent on today's encounter was 65 minutes which included time spent in counseling the patient/family regarding diagnosis and treatment plan as listed above, goals of care, and symptom management. Case was discussed with nursing staff,
specialists, and care coordinators/case management. All labs and imaging personally reviewed by me. Remainder the time spent in detailed review of previous records, lab data, imaging, and other medical provider documentation.
Anticipated Discharge: Within 24 hours
Subjective/Interval History
-
Date of Service: July 13, 2025
Patient seen and examined at bedside, denies any chest pain or shortness of breath, left leg pain.
Objective Data
-
Labs:
Laboratory Results
07/13/25
06:15
WBC 3.9 L
Hgb 7.9 L
Hct 25.9 L
Plt Count 57 L
PT 25.0 H
INR 2.26
Sodium 141
Potassium 4.2
Chloride 115 H
Carbon Dioxide 18 L
BUN 24 H
Creatinine 1.7 H
Glucose 69 L
Calcium 8.4
Vital Signs:
Vital Signs
Temp Pulse Resp BP Pulse Ox
98.1 F 90 16 142/75 99
07/13/25 07:35 07/13/25 08:56 07/13/25 07:35 07/13/25 08:56 07/13/25 07:35
I&O
07/12/25 07/13/25 07/14/25
06:59 06:59 06:59
Intake Total 960 / 960 480 / 480
Balance 960 / 960 480 / 480
Physical Exam
-
General: Well Developed, Well Nourished, No Apparent Distress and Comfortable
HEENT: Normocephalic, Atraumatic, Moist Mucous Membranes, No Ptosis, PERRLA and Nose Appears Normal
Respiratory: Clear to Auscultation and Non Labored Respirations
Cardiac: Regular Rhythm and S1/S2
Breast: Deferred by me
GI: Soft, Nontender, Nondistended and Normal Bowel Sounds
Genito-urinary: No Costovertebral Tender
Musculoskeletal: Other (Right below-knee amputation, left foot warm)
Skin: Warm
Neuro: Awake, Alert, Oriented, AO x 3 and No Motor Deficits
Psych: Calm
--- NOTE | 2025-07-13 10:07 | CM ---
Addendum entered by Maddy Oden RN 07/13/25 10:21:
CM confirmed with Sarah - admission director - patient able to return.
Call report to: [phone] - nurse Santiago
Fax report to: [phone]
Medical and necessity forms on chart.
Original Note:
Reviewed the chart notes and spoke with the patient at the bedside. IMM reviewed. CM continues to be available to patient/family and is monitoring medical plan for needs at discharge.
Plan: Discharge back to [facility]. Patient is a [facility] resident.
[2025-07-13 11:12] VITALS: BP 124/67
[2025-07-13 11:52] LABS: Glucose - Point of Care 73 mg/dl (70-99)
--- NOTE | 2025-07-13 12:00 | CHAP ---
Fr. Rajinder Hough of [facility] in [place] came in and anointed the patient, and gave her Holy Communion. Exact time uncertain.
[2025-07-13 15:16] VITALS: BP 127/74; PULSE 84; O2SAT 100
[2025-07-13 15:25] VITALS: BP 127/74
[2025-07-13 16:09] LABS: Glucose - Point of Care 82 mg/dl (70-99)
--- NOTE | 2025-07-13 16:33 | W.PN.ONC2 ---
Today's Communication / Plan
-
Okay to d/c on 2 mg daily but would check INR within the next 4 days.
Pt still could become supratherapeutic again as she has been on abx which reduce vitamin K-producing bacteria in gut.
Impression
Impression
Limb threatening ischemia/ LLE fem-At bypass occlusion s/p 07/07/15 tpa catheter directed lysis and 07/08/25 stent placement
PVD s/p right BKA
Paroxysmal a/fib on coumadin
Anti-phospholipid syndrome anti-cardiolipin IgM 2023
Hx DVT
CAD s/p stent to LAD
CAUTI
Chronic urinary retention
SREE on CKD stage IV
Hypotension
DMII
Hypothyroidism
Plan
Plan
-- INR therapeutic at 2.26 - goal 2-3
-- Case d/w Dr. Loera, pt will not be D/C'd on abx. Pt still could become supratherapeutic again as she has been on abx which would reduce vitamin K-producing bacteria in gut.
-- Okay to d/c on 2 mg daily but would check INR within the next 4 days.
Subjective/Objective
Chief Complaint
Heme/Onc follow up of coagulopathy
Subjective
Denies new complaint, afraid similar event will occur.
Vital Signs:
Vital Signs
Temp Pulse Resp BP Pulse Ox
97.5 F 84 16 127/74 100
07/13/25 15:25 07/13/25 15:25 07/13/25 15:25 07/13/25 15:25 07/13/25 15:25
Lab Results:
Laboratory Data
WBC 3.9 10^3/uL (4.8-10.8) L 07/13/25 06:15
Hgb 7.9 g/dL (12.0-16.0) L 07/13/25 06:15
Plt Count 57 10^3/uL (130-400) L 07/13/25 06:15
PT 25.0 Sec (11.4-14.6) H 07/13/25 06:15
INR 2.26 07/13/25 06:15
APTT 95.5 Sec (23.4-35.0) H 07/12/25 12:43
eGFR 32.46 07/13/25 06:15
Physical Exam
Awake alert, non-toxic
[2025-07-13] MEDS: COUMADIN 2 MG PO (17:18)
[2025-07-13] MEDS: LAMICTAL 50 MG PO (21:02)
[2025-07-13 21:27] LABS: Glucose - Point of Care 105 mg/dl (70-99)
[2025-07-13 23:20] VITALS: BP 111/84
[2025-07-14 03:06] LABS: Glucose - Point of Care 94 mg/dl (70-99)
[2025-07-14] MEDS: AZACTAM 1000 MG IV ×2 (03:25→11:53)
[2025-07-14] MEDS: STERILE WATER FOR INJECTION 10 ML IV ×2 (03:25→11:53)
[2025-07-14] MEDS: SYNTHROID 100 MCG PO (06:13)
[2025-07-14 06:35] LABS: INR 2.67; PT 28.4 Sec (11.4-14.6)
[2025-07-14 06:38] LABS: Hematocrit 25.1 % (37.0-47.0); Hemoglobin 7.7 g/dL (12.0-16.0); Mean Corp Hgb Conc. 30.7 g/dL (33.0-37.0); Mean Corpuscular Volume 98.8 fL (81.0-99.0); Platelet Count 50 10^3/uL (130-400); Red Cell Dist. Width 14.5 % (11.5-14.5)
[2025-07-14 07:40] VITALS: BP 146/73
[2025-07-14 07:44] LABS: Glucose - Point of Care 93 mg/dl (70-99)
[2025-07-14] MEDS: NOVOLOG FLEXPEN-LOW RESISTANCE SC ×3 (08:38→17:17)
[2025-07-14] MEDS: PROTONIX 40 MG PO (08:39)
[2025-07-14] MEDS: LOW STRENGTH ASPIRIN 81 MG PO (08:41)
[2025-07-14] MEDS: NEURONTIN 300 MG PO (08:41)
[2025-07-14] MEDS: FOLVITE 1 MG PO (08:41)
[2025-07-14] MEDS: TYLENOL 1000 MG PO ×2 (08:41→17:17)
[2025-07-14] MEDS: DESENEX/MITRAZOL/ZEASORB 1 APPLIC TOPICAL (08:44)
--- NOTE | 2025-07-14 10:10 | CM ---
Reviewed the chart notes. CM continues to be available to patient/family and is monitoring medical plan for needs at discharge.
Plan: Discharge back to [facility].
Call report to: [phone] - nurse Santiago
Fax report to: [phone]
Medical and necessity forms on chart.
--- NOTE | 2025-07-14 11:27 | W.PN.HOSP.TC ---
Today's Communication/Plan
-
Discharge back to SNF today
Assessment / Plan
Assessment / Plan
Impression:
A/P: Patient is a 70y F with PMH significant for ASCVD / PAD s/p prior R BKA and LLE angio and bypass who presents to ED complaining of LLE pain x 3 days.
Admitted for acute critical limb ischemia,07/07 underwent left leg angiogram and admitted to the ICU for heparin and TNK then next day 07/08 underwent stent placement from SFA into bypass graft with balloon angioplasty, patient regained pulse.
Patient also treated for catheter associated urinary tract infection.
Hematology consulted for Coumadin management.
She will be resumed when INR less than 2.5
07/12 resumed Coumadin
07/13
Medically cleared for discharge if no further vascular surgery intervention
07/14
Discharge back to SNF today
Assessment/plan:
Acute Critical / Limb-Threatening Ischemia LLE
ASCVD / PAD
07/07 S/P
- Ultrasound Guided Percutaneous Right Common Femoral Artery Access
Aortogram
- Left Leg Angiogram
- Selective Third Order Catheterization of Left Anterior Tibial Artery
Initiation of Lysis with 50cm infusion length Cragg-Nica Catheter
07/08 S/P
- Left lower extremity arteriogram through existing sheath.
- Placement of self-expanding Zilver PTX 6 mm x 4 cm stent extending from SFA into bypass graft.
- Balloon angioplasty distal anastomotic stenosis with 3 mm angioplasty balloon.
- Right femoral angiogram and Pro-glide percutaneous suture closure right femoral artery.
- Supervision and interpretation.
Continue management in the ICU
Okay to start heparin tonight as per vascular
07/10
Patient downgraded from the ICU.
Hematology consulted.
Plan to resume Coumadin once INR less than 2.5
07/12
Coumadin resumed today and heparin drip will be discontinued
07/13
Medically cleared for discharge if no further vascular surgery intervention
CAUTI
Chronic Urinary Retention
- Thompson with grossly purulent urine.
- Recent hospitalization for UTI - send to [facility] for records.
- Continue Linezolid per [place] JAN.
- Continue IV ciprofloxacin for now pending culture data.
- Recent adverse reaction / drug rash from ceftriaxone.
07/10
Culture came back Pseudomonas (intermediate to Cipro) questionable colonization.
Switched antibiotic to aztreonam-continued on linezolid.
07/12
MRSA screen negative, linezolid discontinued.
Continue Aztreonam.
Anemia.
Appreciate hematology input.
Iron study pending.
Hb stable
SREE on CKD IV
Acute on Chronic Metabolic Acidosis
Creatinine back to baseline
Paroxysmal Atrial Fibrillation
Coumadin Coagulopathy (?)
- Monitor on telemetry. Holding BP active medications for now to avoid hypotension.
- Seen by hematology, once INR less than 2.5 , will resume Coumadin
Hypotension
- s/p IVF support +/- pressors as noted above to maintain perfusion.
- Continue midodrine.
- improved- Holding holding metoprolol for now, will resume once blood pressure continue to improve.
DM-II
- Stable. Follow glucose and cover with SSI as needed.
- HbA1C 6.0
Hypothyroidism
- Continue T4 supplementation.
COPD without Acute Exacerbation
- Stable. No wheezing or complaints of dyspnea.
- Nebs PRN.
CODE STATUS: Full code
DVT prophylaxis: On IV Heparin
Diet: regular
Family communication: Discussed with brother and [id number] at bedside.
Disposition: Discharge back to [facility]
Total time spent on today's encounter was 65 minutes which included time spent in counseling the patient/family regarding diagnosis and treatment plan as listed above, goals of care, and symptom management. Case was discussed with nursing staff,
specialists, and care coordinators/case management. All labs and imaging personally reviewed by me. Remainder the time spent in detailed review of previous records, lab data, imaging, and other medical provider documentation.
Anticipated Discharge: Today
Subjective/Interval History
-
Date of Service: July 14, 2025
Patient seen and examined at bedside, denies any chest pain or shortness of breath, no abdominal pain, no nausea, no vomiting, no diarrhea or constipation.
Improved left foot pain.
Objective Data
-
Labs:
Laboratory Results
07/14/25
05:57
WBC 3.0 L
Hgb 7.7 L
Hct 25.1 L
Plt Count 50 L
PT 28.4 H
INR 2.67
Vital Signs:
Vital Signs
Temp Pulse Resp BP Pulse Ox
97.7 F 84 16 146/73 99
07/14/25 07:40 07/14/25 07:40 07/14/25 07:40 07/14/25 07:40 07/14/25 07:40
I&O
07/13/25 07/14/25 07/15/25
06:59 06:59 06:59
Intake Total 480 / 480 720 / 720
Balance 480 / 480 720 / 720
Physical Exam
-
General: Well Developed, Well Nourished, No Apparent Distress and Comfortable
HEENT: Normocephalic, Atraumatic, Moist Mucous Membranes, No Ptosis, PERRLA and Nose Appears Normal
Respiratory: Clear to Auscultation and Non Labored Respirations
Cardiac: Regular Rhythm and S1/S2
Breast: Deferred by me
GI: Soft, Nontender, Nondistended and Normal Bowel Sounds
Genito-urinary: No Costovertebral Tender
Musculoskeletal: Other (Right below-knee amputation, left foot warm)
Skin: Warm
Neuro: Awake, Alert, Oriented, AO x 3 and No Motor Deficits
Psych: Calm
--- NOTE | 2025-07-14 11:28 | W.DCSUMMARY ---
Addendum entered and electronically signed by Nagi Loera MD 07/15/25 08:05:
Pancytopenia
Original Note:
Discharge Summary
Discharge Data
Date of Admission: 07/07/25
Date of Discharge: 07/14/25
Total time spent discharging patient (in min): 40
-
Pending Results: No
Hospital Course
Hospital course
Patient is a 70y F with PMH significant for ASCVD / PAD s/p prior R BKA and LLE angio and bypass who presents to ED complaining of LLE pain x 3 days.
Admitted for acute critical limb ischemia,07/07 underwent left leg angiogram and admitted to the ICU for heparin and TNK then next day 07/08 underwent stent placement from SFA into bypass graft with balloon angioplasty, patient regained pulse.
Patient also treated for catheter associated urinary tract infection.
Hematology consulted for Coumadin management.
She will be resumed when INR less than 2.5
07/12 resumed Coumadin
07/13
Medically cleared for discharge if no further vascular surgery intervention
07/14
Discharge back to SNF today
Assessment/plan:
During hospitalization patient was treated from the following
Acute Critical / Limb-Threatening Ischemia LLE
ASCVD / PAD
07/07 S/P
- Ultrasound Guided Percutaneous Right Common Femoral Artery Access
Aortogram
- Left Leg Angiogram
- Selective Third Order Catheterization of Left Anterior Tibial Artery
Initiation of Lysis with 50cm infusion length Cragg-Nica Catheter
07/08 S/P
- Left lower extremity arteriogram through existing sheath.
- Placement of self-expanding Zilver PTX 6 mm x 4 cm stent extending from SFA into bypass graft.
- Balloon angioplasty distal anastomotic stenosis with 3 mm angioplasty balloon.
- Right femoral angiogram and Pro-glide percutaneous suture closure right femoral artery.
- Supervision and interpretation.
Continue management in the ICU
Okay to start heparin tonight as per vascular
07/10
Patient downgraded from the ICU.
Hematology consulted.
Plan to resume Coumadin once INR less than 2.5
07/12
Coumadin resumed today and heparin drip will be discontinued
07/13
Medically cleared for discharge if no further vascular surgery intervention
CAUTI
Chronic Urinary Retention
- Thompson with grossly purulent urine.
- Recent hospitalization for UTI - send to [facility] for records.
- Continue Linezolid per [place] JAN.
- Continue IV ciprofloxacin for now pending culture data.
- Recent adverse reaction / drug rash from ceftriaxone.
07/10
Culture came back Pseudomonas (intermediate to Cipro) questionable colonization.
Switched antibiotic to aztreonam-continued on linezolid.
07/12
MRSA screen negative, linezolid discontinued.
Continue Aztreonam.
Anemia.
Appreciate hematology input.
Iron study pending.
Hb stable
SREE on CKD IV
Acute on Chronic Metabolic Acidosis
Creatinine back to baseline
Paroxysmal Atrial Fibrillation
Coumadin Coagulopathy (?)
- Monitor on telemetry. Holding BP active medications for now to avoid hypotension.
- Seen by hematology, once INR less than 2.5 , will resume Coumadin
Hypotension
- s/p IVF support +/- pressors as noted above to maintain perfusion.
- Continue midodrine.
- improved- Holding holding metoprolol for now, will resume once blood pressure continue to improve.
DM-II
- Stable. Follow glucose and cover with SSI as needed.
- HbA1C 6.0
Hypothyroidism
- Continue T4 supplementation.
COPD without Acute Exacerbation
- Stable. No wheezing or complaints of dyspnea.
- Nebs PRN.
CODE STATUS: Full code
DVT prophylaxis: On IV Heparin
Diet: regular
Family communication: Discussed with brother and [id number] at bedside.
Disposition: Discharge back to SNF today
Total time spent on today's encounter was 40 minutes which included time spent in counseling the patient/family regarding diagnosis and treatment plan as listed above, goals of care, and symptom management. Case was discussed with nursing staff,
specialists, and care coordinators/case management. All labs and imaging personally reviewed by me. Remainder the time spent in detailed review of previous records, lab data, imaging, and other medical provider documentation.
Anticipated Discharge: Today
Discharge Plan
-
Patient Disposition: Longterm/SNF
Discharge Diagnosis/Procedures: Acute Critical / Limb-Threatening Ischemia LLE
ASCVD / PAD
CAUTI
Chronic Urinary Retention
SREE on CKD IV
Acute on Chronic Metabolic Acidosis
Diet: As tolerated and Regular
Activity: With assistance
Driving Restrictions: Not until seen by your Dr
Bathing Restrictions: OK to Shower
Blood Work: PT/INR in 3 days
Activity Restrictions/Additional Instructions:
Wound Care Instructions Left Leg- Clean with soap and water. Apply adaptic, ABD and wrap with kerlix. Change daily and PRN drainage.
Left dorsal foot- Cover with silicone border foam. Change Q 48 hours and PRN drainage.
Stand Alone Forms: Vascular Surg Discharge Instr
Referrals:
Ezio Price DO [Active, Hematology / Oncology] - in three to four weeks
Gaurav Conte MD [Active, Pulmonary Medicine] - in two to four weeks
Cedrick Pugh DO [Family Provider]
Nahomy Hurst CRNP [Specified Professional Personl, Vascular Surgery] - 07/24/25 2:30 pm
Prescriptions:
New
(DME) PT/INR
See Rx Instructions .ROUTE .MEDSUPPLY Qty: 1 0RF
Rx Instructions:
After 3 days
Continued
ipratropium-albuterol 0.5 mg-3 mg(2.5 mg base)/3 mL Solution For Nebulization
3 ml INHALATION R Q6HPRN PRN (Reason: sob)
atorvastatin 10 mg Tablet
10 mg PO HS
guaifenesin 100 mg/5 mL Liquid
200 mg PO Q8HPRN PRN (Reason: cough)
lamotrigine 25 mg Tablet
50 mg PO HS
levothyroxine 100 mcg Tablet
100 mcg PO HS
magnesium hydroxide [Milk of Magnesia] 400 mg/5 mL Suspension
30 ml PO DAILYPRN PRN (Reason: constipation)
tamsulosin 0.4 mg Capsule
0.4 mg PO DAILY
trazodone 100 mg Tablet
25 mg PO HS
bisacodyl 10 mg Suppository
10 mg ID DAILYPRN PRN (Reason: if mom ineffective)
pantoprazole 40 mg Tablet,Delayed Release (Dr/Ec)
40 mg PO DAILY
Enema 19-7 gram/118 mL Enema
118 ml ID DAILYPRN PRN (Reason: if no result aftr bisacodyl)
gabapentin 300 mg Capsule
300 mg PO BID
aspirin 81 mg Tablet,Chewable
81 mg PO DAILY
folic acid 1 mg Tablet
1 mg PO DAILY
melatonin 5 mg Tablet
10 mg PO HS
cholecalciferol (vitamin D3) [Vitamin D3] 50 mcg (2,000 unit) Tablet
125 mcg PO HS
Santyl 250 unit/gram Ointment
1 applic TOPICAL DAILY
Vashe 0.033 % Irrigation Solution
1 irrig IRRIGATION HS
midodrine 5 mg Tablet
5 mg PO TID
metoprolol succinate 25 mg Tablet Extended Release 24 Hr
25 mg PO BID
loratadine 10 mg Tablet
10 mg PO DAILY
ofloxacin [Ocuflox] 0.3 % Drops
1 drp OPHTHALMIC (EYE) Q12H
Rx Instructions:
One drop in each eye every 12 hours
acetaminophen 500 mg Tablet
1,000 mg PO TID
diphenhydramine HCl 12.5 mg/5 mL Elixir
25 mg PO Q6H PRN (Reason: drug rash)
docusate sodium [Colace] 100 mg Capsule
100 mg PO DAILY
morphine 15 mg Tablet Extended Release
15 mg PO Q12
ondansetron 4 mg Tablet,Disintegrating
4 mg PO Q8H PRN (Reason: nausea)
oxycodone 5 mg Tablet
5 mg PO Q6H PRN (Reason: Pain)
Saccharomyces boulardii 250 mg Capsule
250 mg PO BID
Januvia 25 mg Tablet
25 mg PO DAILY
Changed
warfarin 2 mg Tablet
2 mg PO QPM Qty: 0 0RF
Discontinued
linezolid 600 mg Tablet
600 mg PO BID
Rx Instructions:
Through 07/10
Discharge Orders:
Discharge Patient (As Directed); Ordered 07/14/25
Ordered By: Nagi Loera
Discharge Date and Time
Print Language: TURKMEN
[2025-07-14 11:57] LABS: Glucose - Point of Care 82 mg/dl (70-99)
--- NOTE | 2025-07-14 13:53 | PN.CDI ---
CDI
- -
CDI:
Physician Documentation Request
Admit Date: 07/07/25 23:07
Dear Doctor Evaristo,
Patient admitted with acute critical / limb-threatening ischemia LLE.
WCB, RBC and platelet counts documented below.
Laboratory Tests
07/12/25 07/13/25 07/14/25
04:47 06:15 05:57
WBC 3.9 L 3.9 L 3.0 L
RBC 2.46 L 2.59 L 2.54 L
Plt Count 59 L 57 L 50 L
Based on the above, please clarify in the progress notes, the appropriate diagnosis, if significant, that supports the above abnormalities and additional evaluation, monitoring and/or treatment rendered:
Pancytopenia (please provide etiology, if known)
Insignificant abnormal lab findings
Other
Use of terms such as suspected, likely, concern for, or probable (associated with a specific diagnosis that is being evaluated, monitored, or treated as if it exists) are acceptable and can be coded in the inpatient setting, when documented at the
time of discharge.
Thank you,
Ivy HOBBS,RN,CCDS
CDI Specialist
Available via tiger text
Please use your independent medical judgment in providing your response.
[2025-07-14 15:30] VITALS: BP 141/72
[2025-07-14 16:57] LABS: Glucose - Point of Care 77 mg/dl (70-99)
[2025-07-14] MEDS: COUMADIN 2 MG PO (17:17)
--- NOTE | 2025-07-14 17:22 | PTCARENOTE ---
report called to Pamela as indicated by CM. reported pt did receive 2mg coumadin. wound care instructions, etc.
[2025-07-14 19:05] VITALS: BP 137/77
== END 2025-07-14 19:48 | DRG 253 ==
LOC: 2 SOUTH 23:07
PROVIDERS: Hospitalist; Nurse Practitioner; Nurse Practitioner Family; Surgery Vascular Surgery; ADMITTING PHYSICIAN Surgery Vascular Surgery; ATTENDING PHYSICIAN General Practice; CONSULT PHYSICIAN Internal Medicine; EMERGENCY PHYSICIAN Emergency Medicine; FAMILY PHYSICIAN Internal Medicine; OTHER PHYSICIAN Internal Medicine Hematology & Oncology
PROC: B4101ZZ Fluoroscopy of Abdominal Aorta using Low Osmolar Contrast (ICD-10-PCS; 2025-07-07)
PROC: 3E05317 Introduction of Other Thrombolytic into Peripheral Artery, Percutaneous Approach (ICD-10-PCS; 2025-07-07)
PROC: B41G1ZZ Fluoroscopy of Left Lower Extremity Arteries using Low Osmolar Contrast (ICD-10-PCS; 2025-07-07)
PROC: 30233N1 Transfusion of Nonautologous Red Blood Cells into Peripheral Vein, Percutaneous Approach (ICD-10-PCS; 2025-07-08)
PROC: 30233K1 Transfusion of Nonautologous Frozen Plasma into Peripheral Vein, Percutaneous Approach (ICD-10-PCS; 2025-07-08)
PROC: B41F1ZZ Fluoroscopy of Right Lower Extremity Arteries using Low Osmolar Contrast (ICD-10-PCS; 2025-07-08)
PROC: 047L34Z Dilation of Left Femoral Artery with Drug-eluting Intraluminal Device, Percutaneous Approach (ICD-10-PCS; 2025-07-08)
DX: T82.868A Thrombosis due to vascular prosthetic devices, implants and grafts, initial encounter (principal); D61.818 Other pancytopenia; E87.21 Acute metabolic acidosis; N39.0 Urinary tract infection, site not specified; T83.518A Infection and inflammatory reaction due to other urinary catheter, initial encounter; E87.22 Chronic metabolic acidosis; L97.829 Non-pressure chronic ulcer of other part of left lower leg with unspecified severity; D68.61 Antiphospholipid syndrome; I48.20 Chronic atrial fibrillation, unspecified; N18.4 Chronic kidney disease, stage 4 (severe); N17.9 Acute kidney failure, unspecified; E11.22 Type 2 diabetes mellitus with diabetic chronic kidney disease; E11.51 Type 2 diabetes mellitus with diabetic peripheral angiopathy without gangrene; I25.10 Atherosclerotic heart disease of native coronary artery without angina pectoris; I12.9 Hypertensive chronic kidney disease with stage 1 through stage 4 chronic kidney disease, or unspecified chronic kidney disease; D63.1 Anemia in chronic kidney disease; E11.42 Type 2 diabetes mellitus with diabetic polyneuropathy; I70.248 Atherosclerosis of native arteries of left leg with ulceration of other part of lower leg; E66.9 Obesity, unspecified; Y84.6 Urinary catheterization as the cause of abnormal reaction of the patient, or of later complication, without mention of misadventure at the time of the procedure; Y83.2 Surgical operation with anastomosis, bypass or graft as the cause of abnormal reaction of the patient, or of later complication, without mention of misadventure at the time of the procedure; F32.A Depression, unspecified; F41.9 Anxiety disorder, unspecified; J44.9 Chronic obstructive pulmonary disease, unspecified; D47.2 Monoclonal gammopathy; E03.9 Hypothyroidism, unspecified; E78.00 Pure hypercholesterolemia, unspecified; I95.89 Other hypotension; Z68.28 Body mass index [BMI] 28.0-28.9, adult; Z79.01 Long term (current) use of anticoagulants; Z79.82 Long term (current) use of aspirin; Z79.891 Long term (current) use of opiate analgesic; Z79.899 Other long term (current) drug therapy; Z86.718 Personal history of other venous thrombosis and embolism; Z87.891 Personal history of nicotine dependence; Z89.511 Acquired absence of right leg below knee; Z95.5 Presence of coronary angioplasty implant and graft
CPT/HCPCS: 36247; 36600; 37211; 37213; 37224; 71045; 75710; 80048; 80053; 80076; 81003; 81015; 82550; 82607; 82746; 82805; 82962; 83036; 83605; 83735; 84100; 85014; 85018; 85025; 85027; 85384; 85610; 85730; 86850; 86900; 86901; 86920; 86922; 87040; 87070; 87077; 87086; 87186; 93005; 93926; 96374; 96376; 97163; 97167; 97530; 99291; C1725; C1760; C1769; C1874; C1887; C1894; J2997; P9016; P9059; Q9967

== ENCOUNTER 2025-07-25 21:17 | Inpatient (IN) | payer MEDICARE, OTHER, SELFPAY ==
[2025-07-25 17:57] VITALS: BP 102/61; BMI 25.2
[2025-07-25 18:01] VITALS: BP 102/61
[2025-07-25 18:25] LABS: Hematocrit 30.8 % (37.0-47.0); Hemoglobin 9.5 g/dL (12.0-16.0); Mean Corp Hgb Conc. 30.8 g/dL (33.0-37.0); Mean Corpuscular Volume 102.0 fL (81.0-99.0); Nucleated Red Blood Cells % 0 %; Platelet Count 220 10^3/uL (130-400); Red Cell Dist. Width 18.0 % (11.5-14.5)
[2025-07-25 19:18] VITALS: BP 108/68
[2025-07-25 19:20] LABS: Blood Urea Nitrogen 19 mg/dl (7-17); Calcium 9.0 mg/dl (8.4-10.2); Carbon Dioxide 21 mmol/L (22-30); Estimated Creatinine Clearance 27 ml/min; Glucose 169 mg/dl (70-99); eGFR 26.71
[2025-07-25 19:38] LABS: Chloride 112 mmol/L (98-107); Sodium 137 mmol/L (135-145)
--- NOTE | 2025-07-25 20:15 | ED.GENMED ---
History of Present Illness
General
Chief Complaint: Skin Problem
Source: patient
Exam Limitations: none
Time Seen by Provider: 07/25/25 18:03
Nursing documentation reviewed up to this point in time: agreed with
History of Present Illness
History of Present Illness:
70-year-old female past medical history of A-fib, kidney disease, lipidemia presenting to the emergency department today with concerns of worsening discomfort drainage foul odor to the left lower extremity where she has a chronic wound and recent
stent of the SFA. Denies specific fevers chest pain shortness of breath. Symptoms visibly worsened over the past 24 hours or so.
Review of Systems
Review of Systems
Allergies reviewed?: Yes
All Other Systems: ROS reviewed and negative except as documented in HPI and ROS
Phy Exam
Physical Exam
Physical Exam:
GENERAL: Alert , in no apparent distress
EYE: pupils equal and reactive
NECK: Supple, no significant adenopathy.
ENT: o/p clr, mmm.
CARDIAC: Regular rate and rhythm .
LUNGS: Clear breath sounds bilaterally, no acute respiratory distress, no wheezes/rales/rhonchi
ABDOMEN: Soft, without focal tenderness, no r/g, no cvat
NEUROLOGICAL: Alert and oriented, no focal neuro deficits
SKIN: Significant ulceration skin breakdown of the left medial bellamy 15 cm in length 7 cm in width able to see down to muscle. Serosanguineous drainage somewhat tender surrounding mild redness. Additional ulceration sole of the foot roughly 5 x 7
cm but oblong and irregularly shaped no drainage from the site somewhat blackened edges
MUSCULOSKELETAL: Right leg BKA
PSYCH: Normal and appropriate interaction.
Course
Orders/Labs/Results
Orders:
Orders
07/25/25 18:18
Basic Metabolic Panel Urgent
Complete Blood Count/With Diff Urgent
07/25/25 19:38
Piperacillin/Tazo 3.375 Gram [Zosyn] 3.375 gram in 50 ml IV NOW
Vancomycin [Vancocin] 2,000 mg 0.9% Sodium Chloride 500 ml [Nss] 500 ml IV NOW
07/25/25 19:52
Blood Culture Q30M
MALA Source: Blood/Venous
Specimen Description:
Wound Culture [Wound/Abscess/Other Culture] Urgent
MALA Source: Leg
Specimen Description: Left
Date Specimen was Collected: 07/25/25
Time Specimen was Collected: 19:12
07/25/25 20:14
Blood Culture Q30M
MALA Source: Blood/Venous
Specimen Description:
07/25/25 20:16
PT/INR [Prothrombin Time] Urgent
Abnormal Lab Results
07/25/25
18:18
RBC 3.02 L 10^6/uL
(4.20-5.40)
Hgb 9.5 L g/dL
(12.0-16.0)
Hct 30.8 L %
(37.0-47.0)
MCV 102.0 H fL
(81.0-99.0)
MCH 31.5 H pg
(27.0-31.0)
MCHC 30.8 L g/dL
(33.0-37.0)
RDW 18.0 H %
(11.5-14.5)
Absolute Lymphs (auto) 0.8 L 10^3/uL
(1.2-3.4)
Absolute Monos (auto) 0.7 H 10^3/uL
(0.1-0.6)
Immature Gran % 0.7 H %
(0-0.5)
Lymphocytes % 14.3 L %
(20.5-51.1)
Monocytes % 11.8 H %
(1.7-9.3)
Chloride 112 H mmol/L
(98-107)
Carbon Dioxide 21 L mmol/L
(22-30)
BUN 19 H mg/dl
(7-17)
Creatinine 2.0 H mg/dL
(0.6-1.0)
Glucose 169 H mg/dl
(70-99)
07/25/25 18:18
07/25/25 18:18
Vital Signs
Initial and Last Documented VS:
Initial Vital Signs
Temp Pulse Resp BP Pulse Ox
98.3 F 78 14 102/61 100
07/25/25 17:57 07/25/25 17:57 07/25/25 17:57 07/25/25 17:57 07/25/25 17:57
Last Documented Vital Signs
Temp Pulse Resp BP Pulse Ox
98.3 F 65 14 108/68 100
07/25/25 17:57 07/25/25 19:30 07/25/25 19:30 07/25/25 19:18 07/25/25 20:16
MDM/Problems Addressed
MDM/Problems Addressed:
70-year-old female presenting with concerns of worsening drainage discomfort and foul smell from the left leg wound. Recent stenting of the SFA. Here labs at patient's baseline no significant white count no fever normal heart rate. Case was
discussed with vascular surgery they recommended IV antibiotics and reassessment in the morning. Initially did recommend a CT angiogram but patient's poor renal would preclude this. Likely will plan on doing an ultrasound tomorrow
*Pulse Oximetry
SaO2: 100
Oxygen Mode of Delivery: Room air
Patient hypoxic: no (100)
*Critical Care Note
Total Time (30-74mins, 75-104mins- exclusive of procedures): Not Applicable
ED Attending Note
-
Portions of this chart may have been created with voice recognition software.� Occasional wrong word or��sound alike� substitutions may have occurred due to the inherent limitations of voice recognition software.
Discharge Plan
Departure
Patient Disposition: Admit
Date of Disposition: 07/25/25
Time of Disposition: 20:20
Admit to: Med/Surg
Admit to doctor: gian
Presentation/result/management discussed w/ accepting MD/DO: Hospitalist
Patient with high blood pressure during this ER visit?: No
Condition: Good
Covid-19: Not Applicable
Discharge Problem:
Leg wound, left, Infected wound
Prescriptions:
No Action
ipratropium-albuterol 0.5 mg-3 mg(2.5 mg base)/3 mL Solution For Nebulization
3 ml INHALATION R Q6HPRN PRN (Reason: sob)
atorvastatin 10 mg Tablet
10 mg PO HS
guaifenesin 100 mg/5 mL Liquid
200 mg PO Q8HPRN PRN (Reason: cough)
lamotrigine 25 mg Tablet
50 mg PO HS
levothyroxine 100 mcg Tablet
100 mcg PO HS
magnesium hydroxide [Milk of Magnesia] 400 mg/5 mL Suspension
30 ml PO DAILYPRN PRN (Reason: constipation)
tamsulosin 0.4 mg Capsule
0.4 mg PO DAILY
trazodone 100 mg Tablet
25 mg PO HS
bisacodyl 10 mg Suppository
10 mg [place] DAILYPRN PRN (Reason: if mom ineffective)
pantoprazole 40 mg Tablet,Delayed Release (Dr/Ec)
40 mg PO DAILY
Enema 19-7 gram/118 mL Enema
118 ml [place] DAILYPRN PRN (Reason: if no result aftr bisacodyl)
gabapentin 300 mg Capsule
300 mg PO BID
aspirin 81 mg Tablet,Chewable
81 mg PO DAILY
folic acid 1 mg Tablet
1 mg PO DAILY
melatonin 5 mg Tablet
10 mg PO HS
cholecalciferol (vitamin D3) [Vitamin D3] 50 mcg (2,000 unit) Tablet
125 mcg PO HS
Santyl 250 unit/gram Ointment
1 applic TOPICAL DAILY
Vashe 0.033 % Irrigation Solution
1 irrig IRRIGATION HS
midodrine 5 mg Tablet
5 mg PO TID
metoprolol succinate 25 mg Tablet Extended Release 24 Hr
25 mg PO BID
loratadine 10 mg Tablet
10 mg PO DAILY
ofloxacin [Ocuflox] 0.3 % Drops
1 drp OPHTHALMIC (EYE) Q12H
Rx Instructions:
One drop in each eye every 12 hours
acetaminophen 500 mg Tablet
1,000 mg PO TID
diphenhydramine HCl 12.5 mg/5 mL Elixir
25 mg PO Q6H PRN (Reason: drug rash)
docusate sodium [Colace] 100 mg Capsule
100 mg PO DAILY
morphine 15 mg Tablet Extended Release
15 mg PO Q12
ondansetron 4 mg Tablet,Disintegrating
4 mg PO Q8H PRN (Reason: nausea)
oxycodone 5 mg Tablet
5 mg PO Q6H PRN (Reason: Pain)
Saccharomyces boulardii 250 mg Capsule
250 mg PO BID
Januvia 25 mg Tablet
25 mg PO DAILY
(DME) PT/INR
See Rx Instructions .ROUTE .MEDSUPPLY Qty: 1 0RF
Rx Instructions:
After 3 days
warfarin 2 mg Tablet
2 mg PO QPM Qty: 0 0RF
Referrals:
Cedrick Pugh DO [Family Provider]
Interventions
Interventions:
*Risk Screen - Suicide Last Done: 07/25/25 17:57
*General Assessment Last Done: 07/25/25 17:57
*Neglect/Abuse Screening Last Done: 07/25/25 17:57
*ED- Fall Risk Assessment Last Done: 07/25/25 17:57
*ED COVID-19 Vaccine History Last Done: 07/25/25 17:57
ED-Skin Assessment Last Done: 07/25/25 18:46
Discharge Date and Time
Print Language: MICRONESIAN
[2025-07-25] MEDS: ZOSYN 50 IV (20:32)
--- NOTE | 2025-07-25 20:35 | HPS.HSE ---
Family Physician
-
Family Physician: Cedrick Pugh, DO
Chief Complaint
-
Worsening left lower extremity wound
History of Present Illness
This is a 70-year-old female with extensive past medical history most notable for peripheral arterial disease status post right BKA and most recently admitted for critical limb ischemia to the left lower extremity status post left angiogram and
admitted to the ICU for heparin and TNK and status post stent placement from SFA into the bypass graft with balloon angioplasty with improvement in pulse and ultimately discharged now presenting with worsening left lower extremity wound. Patient
herself stated that she initially had eschar and clot in the left foot as well chronic wound in the left bellamy. Over the last few days she reported some pain in left lower extremity and she felt that the left lower extremity felt cold. The visiting
nurse noted that there is increasing blackened eschar in both to the bellamy and the foot. The pain has progressed. She has not had any fevers or chills. There has been previous attempt at a graft of the left bellamy.
In the emergency department here she was afebrile, blood pressure was 110/68 with a pulse of 65 and she was satting 100% on room air. There was no leukocytosis, the rest of her CBC shows a chronic anemia with hemoglobin 9.5 and platelet 220.
Electrolytes were stable. BUN and creatinine were similar to prior with a creatinine of 2.0. Glucose was 169.
Medical History
Past Medical History
Past Medical History: Reports Other
Additional Past Medical History:
ASCVD / PAD
DM-II
CKD IV
Hypertension
Chronic Urinary Retention
Obesity
Anemia of CKD
Paroxysmal Atrial Fibrillation
Hypothyroidism
Anxiety / Depression
Peripheral Polyneuropathy
COPD
MGUS
History of DVT
History of CDiff
Past Surgical History: Reports Other
Additional Past Surgical History:
LLE Angioplasty
LLE Bypass
RLE BKA
Social History
Tobacco: Former Smoker
Alcohol: None
Drug: None
Living: Detention
Family History
Family History: Not pertinent
Allergies / Home Medications
Allergies reflects when Allergies were last updated in [facility].
Home Medications with original date entered in [facility]
Allergy/Medication List:
Allergies
Allergy/AdvReac Type Severity Reaction Status Date / Time
cefepime Allergy Unknown Unknown Verified 07/07/25 17:54
ceftriaxone Allergy Unknown Unknown Verified 07/07/25 17:54
Home Medications
aspirin 81 mg chewable tablet 81 mg PO DAILY Blood Clot Prevention/Tx 09/02/24
atorvastatin 10 mg tablet 10 mg PO HS High Cholesterol 09/02/24
bisacodyl 10 mg rectal suppository 10 mg [place] DAILYPRN PRN if mom ineffective 09/02/24
cholecalciferol (vitamin D3) 50 mcg (2,000 unit) tablet (Vitamin D3) 125 mcg PO HS Supplement 09/02/24
folic acid 1 mg tablet 1 mg PO DAILY Supplement 09/02/24
gabapentin 300 mg capsule 300 mg PO BID Neurological Condition 09/02/24
guaifenesin 100 mg/5 mL oral liquid 200 mg PO Q8HPRN PRN cough 09/02/24
ipratropium 0.5 mg-albuterol 3 mg (2.5 mg base)/3 mL nebulization soln 3 ml inhalation R Q6HPRN PRN sob 09/02/24
lamotrigine 25 mg tablet 50 mg PO HS Neurological Condition 09/02/24
levothyroxine 100 mcg tablet 100 mcg PO HS Thyroid 09/02/24
magnesium hydroxide 400 mg/5 mL oral suspension (Milk of Magnesia) 30 ml PO DAILYPRN PRN constipation 09/02/24
melatonin 5 mg tablet 10 mg PO HS Sleep 09/02/24
pantoprazole 40 mg tablet,delayed release 40 mg PO DAILY Gastrointestinal Issue 09/02/24
sodium phosphates 19 gram-7 gram/118 mL enema (Enema) 118 ml NC DAILYPRN PRN if no result aftr bisacodyl 09/02/24
tamsulosin 0.4 mg capsule 0.4 mg PO DAILY Urinary Issue 09/02/24
trazodone 100 mg tablet 25 mg PO HS Mental Health/Anxiety 09/02/24
collagenase clostridium histo. 250 unit/gram topical ointment (Santyl) 1 applic topical DAILY lt bellamy wound 09/28/24
sodium chloride-hypochlorous acid 0.033 % irrigation solution (Vashe) 1 irrig irrigation HS lt bellamy wound 09/28/24
loratadine 10 mg tablet 10 mg PO DAILY 04/07/25
metoprolol succinate 25 mg tablet,extended release 24 hr 25 mg PO BID 04/07/25
midodrine 5 mg tablet 5 mg PO TID 04/07/25
Saccharomyces boulardii 250 mg capsule 250 mg PO BID 07/08/25
acetaminophen 500 mg tablet 1,000 mg PO TID 07/08/25
diphenhydramine HCl 12.5 mg/5 mL oral elixir 25 mg PO Q6H PRN drug rash 07/08/25
docusate sodium 100 mg capsule (Colace) 100 mg PO DAILY 07/08/25
linezolid 600 mg tablet 600 mg PO BID 07/08/25
morphine 15 mg tablet,extended release 15 mg PO Q12H 07/08/25
ofloxacin 0.3 % eye drops (Ocuflox) 1 drp ophthalmic (eye) Q12H 07/08/25
ondansetron 4 mg disintegrating tablet 4 mg PO Q8H PRN nausea 07/08/25
oxycodone 5 mg tablet 5 mg PO Q6H PRN Pain 07/08/25
sitagliptin phosphate 25 mg tablet (Januvia) 25 mg PO DAILY 07/08/25
Review of Systems
-
History Source: Patient
A 12 point ROS was completed and negative except as noted: Yes
Constitutional: Denies Fever or Chills
Respiratory: Denies Cough or Trouble Breathing
Cardiac: Denies Chest Pain or Palpitations
Abdomen/GI: Denies Abdominal Pain, Nausea, Vomiting or Diarrhea
: Reports Thompson
Skin: Reports Other (LLE wound - chronic, )
Neurological: Denies Dizzy or Headache
Hematologic/Lymphatic: Reports Other (LLE pain)
Physical Exam
Vital Signs
Vital Signs
Temp Pulse Resp BP Pulse Ox
98.3 F 65 14 108/68 100
07/25/25 17:57 07/25/25 19:30 07/25/25 19:30 07/25/25 19:18 07/25/25 20:16
Physical Exam
General: Other (70y F in no acute distress. )
HEENT: Moist mucous membranes and PERRLA
Respiratory: Other (decreased at bases - otherwise clear)
Cardiac: S1/S2 and Regular Rhythm
GI: Soft, Non Tender, Non Distended and Normal Bowel Sounds
Musculoskeletal: Other (R BKA.)
Skin: Other (Wound lateral aspect of the LLE without bleeding / discharge. Mild surrounding erythema. There is a dark healing ulceration in the left foot plantar surface. Mild surrounding erythema.)
Neuro: AO x 3
Hematologic/Lymphatic: Other (LLE dusky and pale appearing from knee to the toes. Pulses not appreciated.)
Laboratory Results
-
07/25/25 18:18
07/25/25 18:18
Laboratory Results
Total Bilirubin Cancelled 07/25/25 18:18
AST Cancelled 07/25/25 18:18
ALT Cancelled 07/25/25 18:18
Alkaline Phosphatase Cancelled 07/25/25 18:18
Data Reviewed
-
Lab Data: Labs Reviewed by me
Old Records: Reviewed
Impression/Plan
-
IMPRESSION:
Patient with extensive past medical history including diabetes, hypothyroid, atherosclerosis coronary artery disease with peripheral arterial disease status post right BKA and most recently status post stenting to the SFA 2 weeks ago, history of
DVT, CKD stage IV, paroxysmal atrial fibrillation who presents to the emergency department with appearance of worsening left lower extremity wound despite revascularization 2 weeks ago. She is afebrile, has no leukocytosis. Examination shows
chronic left lower extremity bellamy wound fairly deep but appears stable without any purulent drainage or bleeding. There is also an eschar forming rather large in the left foot which appears to be chronic but may be related to some ulceration. Find
dopplerable pulses of the dorsalis pedis. Feet itself feels warm.
PLAN:
Infection of chronic lower extremity wound versus worsening ischemia
-Admit to MedSurg
-Case discussed with vascular, held off on CT angiogram due to CKD, plan for arterial ultrasound in a.m. given dopplerable pulses not felt to be critical limb ischemia
-Continue anticoagulation and antiplatelet therapy
-Blood cultures sent
-IV Vanco and Zosyn for now
-Continue with chronic pain management, patient reports no pain at rest
-Vascular surgery consulted
- Wound care consultation
Anticoagulation for A-fib and DVT
-Patient on Coumadin 2 mg, goal goal INR 2-2.5
-INR in a.m.
DM 2
-Continue Januvia
-Sliding scale insulin
Hypotension -chronic hypotension now on midodrine
-Continue midodrine per home regimen
Hypothyroid
- Continue levothyroxine
COPD -stable without exacerbation
- Continue as needed IM
CKD -recent SREE with creatinine back to around baseline of 2.0
- Avoid nephrotoxic
Anemia -patient with improving hemoglobin, no acute bleed
- monitor cbc,
DVT prophylaxis�on Coumadin
CODE STATUS�full code
[2025-07-25 20:52] LABS: INR 2.58; PT 27.7 Sec (11.4-14.6)
[2025-07-25] MEDS: VANCOCIN 540 MG IV (21:06)
--- NOTE | 2025-07-25 22:00 | PTCARENOTE ---
Received patient from ED. Patient AAOx3. Patient unable to ambulate and was transferred directly to the bed. Left lower extremity dressing was just applied in the ER. Patient refused to have it redressed. Pain is controlled upon arrival. Patient
assessed. VSS. Patient verbalized an understanding not to get out of bed alone. Call willams in reach. Bed alarm placed for safety. Patient oriented to the unit.
--- NOTE | 2025-07-25 22:06 | PHA.VAN.IN ---
Assessment
- Assessment
Renal Function: SCR Appears Elevated from baseline
Maximum Temperature: 98.3
Concomitant Antimicrobials: piperacillin-tazobactam
Plan
- Plan
Initial / Loading Dose: vanc 2000mg (26 mg/kg) 07/25 21:06
Maintenance Regimen: vancomycin dose by level
Monitoring: vanc R 07/26 06
Pharmacokinetics Vancomycin I
- -
Patient Age: 70
Patient Sex: Female
Vancomycin Day #: 1
Indication: Skin And Soft Tissue
Requesting Provider: Dr Kinney
Pertinent Antimicrobial Allergies:
cefepime Allergy itchy face and chest May 2025 at OSH
Patient has previously tolerated Amox/Clav (Aug 2024); Pip/tazo (Sep 2024); Cephalexin (outpatient prescription history February 2025)
ceftriaxone Allergy- itchy face and chest May 2025 at OSH
Patient has previously tolerated Amox/Clav (Aug 2024); Pip/tazo (Sep 2024); Cephalexin (outpatient prescription history February 2025)
Height / Weight:
Height 5 ft 8 in
Actual Weight 75.1 kg
Pertinent Past Medical History: chronic limb ischemia; BKA; CAD, DM, CKD IV
- Vital Signs / Lab Results
Temp Pulse Resp BP Pulse Ox
98.3 F 64 12 108/68 97
07/25/25 17:57 07/25/25 21:30 07/25/25 21:30 07/25/25 19:18 07/25/25 21:30
Lab Results - Hematology
07/25/25
18:18
WBC 5.7
Lab Results - Chemistry
07/25/25
18:18
BUN 19 H
Creatinine 2.0 H
Estimated Creat Clear 27
Albumin Cancelled
[2025-07-25 22:23] LABS: Glucose - Point of Care 123 mg/dl (70-99)
[2025-07-25 22:39] VITALS: BP 109/64; BMI 25.4
[2025-07-25 22:45] VITALS: BMI 25.4
[2025-07-25 23:07] VITALS: BP 109/64
[2025-07-25] MEDS: LIPITOR 10 MG PO (23:14)
[2025-07-25] MEDS: MELATONIN PO (23:14)
[2025-07-26] VITALS (7 sets, daily range): BP systolic 81–102; BP diastolic 51–64
[2025-07-26] MEDS: ZOSYN 50 IV ×4 (02:13→22:06)
[2025-07-26 06:03] LABS: INR 2.12; PT 23.9 Sec (11.4-14.6)
[2025-07-26] MEDS: SYNTHROID 100 MCG PO (06:03)
[2025-07-26 06:06] LABS: Hematocrit 27.4 % (37.0-47.0); Hemoglobin 8.5 g/dL (12.0-16.0); Mean Corp Hgb Conc. 31.0 g/dL (33.0-37.0); Mean Corpuscular Volume 101.5 fL (81.0-99.0); Platelet Count 185 10^3/uL (130-400); Red Cell Dist. Width 18.1 % (11.5-14.5)
[2025-07-26 06:30] LABS: Blood Urea Nitrogen 18 mg/dl (7-17); Calcium 8.9 mg/dl (8.4-10.2); Carbon Dioxide 17 mmol/L (22-30); Estimated Creatinine Clearance 27 ml/min; Glucose 92 mg/dl (70-99); Magnesium 2.2 mg/dl (1.6-2.3); eGFR 26.71
[2025-07-26 06:55] LABS: Chloride 118 mmol/L (98-107); Potassium 3.7 mmol/L (3.5-5.1); Sodium 140 mmol/L (135-145)
[2025-07-26 07:12] LABS: Glucose - Point of Care 106 mg/dl (70-99)
--- NOTE | 2025-07-26 08:26 | PHA.VAN.FU ---
Vancomycin Assessment / Plan
- Assessment
Renal Function: Stable
WBC's are: Stable
In the past 24 hrs, patient has been: Afebrile
Concomitant Antimicrobials: PIPERACILLIN/TAZOBACTAM
- Assessment - Therapeutic Drug Monitoring
Random Level: 21.7 DRAWN ~8H AFTER PREVIOUS DOSE 2000MG
- Dosing Plan
Dosing by Level: Hold off on dosing today
- Monitoring Plan
Random Level: 07/27 @0600
- Follow Up
Pharmacy will continue to follow.
Vancomycin Follow UP
- -
Patient Age: 70
Patient Sex: Female
Vancomycin Day #: 2
Indication: Skin And Soft Tissue
Requesting Provider: Dr Kinney
Pertinent Antimicrobial Allergies:
cefepime Allergy itchy face and chest May 2025 at OSH
Patient has previously tolerated Amox/Clav (Aug 2024); Pip/tazo (Sep 2024); Cephalexin (outpatient prescription history February 2025)
ceftriaxone Allergy- itchy face and chest May 2025 at OSH
Patient has previously tolerated Amox/Clav (Aug 2024); Pip/tazo (Sep 2024); Cephalexin (outpatient prescription history February 2025)
Height / Weight:
Height 5 ft 8 in
Actual Weight 75.795 kg
Pertinent Past Medical History: chronic limb ischemia; BKA; CAD, DM, CKD IV
- Vital Signs / Lab Results
Temp Pulse Resp BP Pulse Ox
98.9 F 69 16 90/56 97
07/26/25 07:14 07/26/25 07:14 07/26/25 07:14 07/26/25 07:14 07/26/25 07:14
Lab Results - Hematology
07/25/25 07/26/25
18:18 05:20
WBC 5.7 4.1 L
Lab Results - Chemistry
07/25/25 07/26/25
18:18 05:20
BUN 19 H 18 H
Creatinine 2.0 H 2.0 H
Estimated Creat Clear 27 27
Albumin Cancelled
Therapeutic Drug Monitoring
Random Vancomycin 21.7 ug/ml 07/26/25 05:20
[2025-07-26] MEDS: NOVOLOG FLEXPEN-LOW RESISTANCE SC ×2 (09:49→18:24)
[2025-07-26] MEDS: DESENEX/MITRAZOL/ZEASORB 1 APPLIC TOPICAL ×2 (09:55→20:19)
[2025-07-26] MEDS: MS CONTIN (EXTENDED RELEASE) 15 MG PO ×2 (09:57→20:18)
[2025-07-26] MEDS: JANUVIA 25 MG PO (09:58)
[2025-07-26] MEDS: LOW STRENGTH ASPIRIN 81 MG PO (10:00)
[2025-07-26] MEDS: FLOMAX 0.4 MG PO (10:00)
[2025-07-26] MEDS: COLACE 100 MG PO (10:00)
[2025-07-26] MEDS: CLARITIN 10 MG PO (10:00)
[2025-07-26] MEDS: FLORASTOR 250 MG PO ×2 (10:01→20:18)
[2025-07-26] MEDS: FOLVITE 1 MG PO (10:01)
[2025-07-26] MEDS: NEURONTIN 300 MG PO ×2 (10:01→20:18)
[2025-07-26] MEDS: PROTONIX 40 MG PO (10:01)
[2025-07-26] MEDS: SANTYL OINTMENT 1 APPLIC TOPICAL (10:01)
[2025-07-26] MEDS: ZOSYN IV (10:33)
--- NOTE | 2025-07-26 11:23 | W.PN.VS ---
Today's Communication / Plan
-
arteria; duplex pending
debridement sunday
cont anticoagulation
Assessment/Plan
-
need duplex to determine if graft is still patent
given recent intervention, not clear there is any other revasc options
discussed that likely outcome is bka but she is not ready for this yet
check arterial duplex
possible debridement sunday
cont anticoagulation
Subjective Data
-
Date of Service: July 26, 2025
Patient with wounds on left leg
recent graft thrombosis with lysis and stent placement
Objective Data
-
Vital Signs
Temp Pulse Resp BP Pulse Ox
98.9 F 69 16 90/56 97
07/26/25 07:14 07/26/25 10:01 07/26/25 07:14 07/26/25 10:01 07/26/25 07:14
Intake and Output
07/25/25 07/26/25 07/27/25
06:59 06:59 06:59
Other:
Number of unmeasured liquid
stools
Rectum 1
Lab Results
07/26/25 05:20
07/26/25 05:20
Calcium 8.9 mg/dl (8.4-10.2) 07/26/25 05:20
Magnesium 2.2 mg/dl (1.6-2.3) 07/26/25 05:20
Total Bilirubin Cancelled 07/25/25 18:18
AST Cancelled 07/25/25 18:18
ALT Cancelled 07/25/25 18:18
Alkaline Phosphatase Cancelled 07/25/25 18:18
Total Protein Cancelled 07/25/25 18:18
Albumin Cancelled 07/25/25 18:18
Physical Exam
-
extensive wounds on left leg and foot
week dp signal
--- NOTE | 2025-07-26 11:30 | CON.VAS ---
Consultation
Consultation Request
Date/Time Consultation Performed: 07/26/2025 11:23
Performing Provider: Wilian
Reason for Consultation: Worsening wounds
Medical History
-
Chief Complaint: Worsening lower extremity wounds
History of Present Illness:
70-year-old female with past medical history significant for PAD status post right BKA and most recent admission for critical limb ischemia to the left lower extremity status post graft thrombosis with lysis and stent placement on 07/07/2025 and
07/08/2025. Patient was discharged on 07/14/2025. Patient returned to the emergency room for worsening discomfort, drainage, foul odor to the left lower extremity where she has had chronic wounds for quite some time. Patient seen in the emergency
room by Dr. Cedeno. Given recent revascularization there is likely no other revascularization option and will likely need BKA.
Past Medical History
Past Medical History: Other (A-fib, kidney disease, lipidemia, PAD, diabetes, hypertension, chronic urinary retention, obesity, anemia, hypothyroidism, anxiety/depression, peripheral polyneuropathy, COPD, MGUS, DVT)
Past Surgical History: Other (Left lower extremity angioplasties, left lower extremity bypass, right lower extremity BKA)
Social History
Tobacco: Non-Smoker
Alcohol: None
Drug: None
Living: Skilled Nursing
Family History
Family History: Reviewed & Not Pertinent
Allergies / Home Medications
Allergy/AdvReac Type Severity Reaction Status Date / Time
cefepime Allergy Unknown itchy face Verified 07/25/25 18:07
and chest
May 2025
at OSH
ceftriaxone Allergy Unknown itchy face Verified 07/25/25 18:07
and chest
May 2025
at OSH
�Medication �Instructions �Recorded �Confirmed �Type
aspirin 81 mg chewable tablet 81 mg PO DAILY Blood Clot 09/02/24 07/08/25 History
Prevention/Tx
atorvastatin 10 mg tablet 10 mg PO HS High Cholesterol 09/02/24 07/08/25 History
bisacodyl 10 mg rectal suppository 10 mg [place] DAILYPRN PRN if mom 09/02/24 07/08/25 History
ineffective
cholecalciferol (vitamin D3) 50 125 mcg PO HS Supplement 09/02/24 07/08/25 History
mcg (2,000 unit) tablet (Vitamin
D3)
folic acid 1 mg tablet 1 mg PO DAILY Supplement 09/02/24 07/08/25 History
gabapentin 300 mg capsule 300 mg PO BID Neurological 09/02/24 07/08/25 History
Condition
guaifenesin 100 mg/5 mL oral liquid 200 mg PO Q8HPRN PRN cough 09/02/24 07/08/25 History
ipratropium 0.5 mg-albuterol 3 mg 3 ml inhalation R Q6HPRN PRN sob 09/02/24 07/08/25 History
(2.5 mg base)/3 mL nebulization
soln
lamotrigine 25 mg tablet 50 mg PO HS Neurological Condition 09/02/24 07/08/25 History
levothyroxine 100 mcg tablet 100 mcg PO HS Thyroid 09/02/24 07/08/25 History
magnesium hydroxide 400 mg/5 mL 30 ml PO DAILYPRN PRN constipation 09/02/24 07/08/25 History
oral suspension (Milk of Magnesia)
melatonin 5 mg tablet 10 mg PO HS Sleep 09/02/24 07/08/25 History
pantoprazole 40 mg tablet,delayed 40 mg PO DAILY Gastrointestinal 09/02/24 07/08/25 History
release Issue
sodium phosphates 19 gram-7 118 ml [place] DAILYPRN PRN if no 09/02/24 07/08/25 History
gram/118 mL enema (Enema) result aftr bisacodyl
tamsulosin 0.4 mg capsule 0.4 mg PO DAILY Urinary Issue 09/02/24 07/08/25 History
trazodone 100 mg tablet 25 mg PO HS Mental Health/Anxiety 09/02/24 07/08/25 History
collagenase clostridium histo. 250 1 applic topical DAILY lt bellamy 09/28/24 07/08/25 History
unit/gram topical ointment (Santyl) wound
sodium chloride-hypochlorous acid 1 irrig irrigation HS lt bellamy wound 09/28/24 07/08/25 History
0.033 % irrigation solution (Vashe)
loratadine 10 mg tablet 10 mg PO DAILY Allergies 04/07/25 07/08/25 History
metoprolol succinate 25 mg 25 mg PO BID Heart 04/07/25 07/08/25 History
tablet,extended release 24 hr Disease/Condition
midodrine 5 mg tablet 5 mg PO TID Blood Pressure 04/07/25 07/08/25 History
Saccharomyces boulardii 250 mg 250 mg PO BID Supplement 07/08/25 07/08/25 History
capsule
acetaminophen 500 mg tablet 1,000 mg PO TID Pain 07/08/25 07/08/25 History
diphenhydramine HCl 12.5 mg/5 mL 25 mg PO Q6H PRN drug rash 07/08/25 07/08/25 History
oral elixir
docusate sodium 100 mg capsule 100 mg PO DAILY Constipation 07/08/25 07/08/25 History
(Colace)
morphine 15 mg tablet,extended 15 mg PO Q12 Pain 07/08/25 07/08/25 History
release
ofloxacin 0.3 % eye drops (Ocuflox) 1 drp ophthalmic (eye) Q12H Eye 07/08/25 07/08/25 History
Condition
ondansetron 4 mg disintegrating 4 mg PO Q8H PRN nausea 07/08/25 07/08/25 History
tablet
oxycodone 5 mg tablet 5 mg PO Q6H PRN Pain 07/08/25 07/08/25 History
sitagliptin phosphate 25 mg tablet 25 mg PO DAILY Diabetes 07/08/25 07/08/25 History
(Januvia)
PT/INR #1 ea 07/14/25 Rx
warfarin 2 mg tablet 2 mg PO QPM #0 tabs 07/14/25 Rx
Review of Systems
-
History Source: Patient
All other systems: Negative unless noted
Constitutional: Reports No Symptoms
EENT: Reports No Symptoms
Respiratory: Reports No Symptoms
Cardiac: Reports No Symptoms
Vascular: Reports Leg Pain / Claudication
Skin: Reports Other (Wounds)
Physical Exam
Vital Signs
Temp Pulse Resp BP Pulse Ox
97.4 F 63 16 98/56 99
07/28/25 07:20 07/28/25 07:20 07/28/25 07:20 07/28/25 07:20 07/28/25 07:20
Lab Results
07/28/25 06:13
07/28/25 06:13
Physical Exam
General: No Apparent Distress
HEENT: Normocephalic and Atraumatic
Respiratory: Non Labored Respirations
Cardiac: Negative JVD
GI: Soft and Non Tender
Musculoskeletal: No Clubbing and No Cyanosis
Skin: Other (See wound care notes)
Neuro: Awake, Alert and Oriented
Psych: Calm
Pulses: Left Dorsalis Pedis: Doppler
Assessment / Plan
-
70-year-old female here with chronic wounds
Plan:
check arterial duplex
possible debridement sunday
cont anticoagulation
--- NOTE | 2025-07-26 12:46 | W.PN.HOSP.TC ---
Today's Communication/Plan
-
see outlined plan below
Assessment / Plan
Assessment / Plan
Assessment:
LLE wounds - POA
- infected with drainage, surrounding redness
- follow cultures
- continue Vanco/Zosyn, day 1 for now
- Vascular consulted; possible debridement Sunday. YECENIA discussed with patient but she is not ready for that option at this time.
- wound care evaluation
PAD s/p stent placement from SFA into bypass graft with balloon angioplasty 07/08
- repeat US pending
- vascular following
- continue ASA/Coumadin (f/u INRs)
Hx of A. Fib
- continue Coumadin (f/u INRs)
Type 2 DM
- continue Januvia
- SSI
Chronic hypotension
- continue midodrine per home regimen
Hypothyroidism
- continue levothyroxine
COPD - stable without exacerbation
- continue as needed
CKD - recent SREE with creatinine back to around baseline of 2.0
- avoid nephrotoxins
Chronic Anemia
DVT ppx: Coumadin
Code: Full
Anticipated Discharge: > 48 hours
Subjective/Interval History
-
Date of Service: July 26, 2025
resting comfortably, but has wound pain when dressings adjusted or removed
denies fevers
when YECENIA discussed with patient, she is hesitant and wants to explore wound healing
Objective Data
-
Labs:
Laboratory Results
07/26/25 07/26/25
05:20 05:21
WBC 4.1 L
Hgb 8.5 L
Hct 27.4 L
Plt Count 185
PT 23.9 H
INR 2.12
Sodium 140
Potassium 3.7
Chloride 118 H
Carbon Dioxide 17 L
BUN 18 H
Creatinine 2.0 H
Glucose 92
Calcium 8.9
Vital Signs:
Vital Signs
Temp Pulse Resp BP Pulse Ox
98.9 F 75 16 97/56 97
07/26/25 07:14 07/26/25 11:24 07/26/25 07:14 07/26/25 11:24 07/26/25 07:14
Physical Exam
-
General: No Apparent Distress
HEENT: Normocephalic and Atraumatic
Respiratory: Negative Wheezes
Cardiac: Regular Rhythm and S1/S2
GI: Soft and Nontender
Skin: Other (R BKA. LLE wounds across bellamy and heel. area of dry gangrene, drainage)
Neuro: AO x 3
Psych: Calm
Data Reviewed
-
Total Time Spent with Patient (in minutes): 44
Labs: Labs Reviewed by me
[2025-07-26 12:55] LABS: Glucose - Point of Care 157 mg/dl (70-99)
[2025-07-26] MEDS: TOPROL XL PO (13:10)
[2025-07-26] MEDS: NOVOLOG FLEXPEN-LOW RESISTANCE 1 UNITS SC (14:11)
[2025-07-26] MEDS: COUMADIN 2 MG PO (17:20)
[2025-07-26 17:30] LABS: Glucose - Point of Care 107 mg/dl (70-99)
[2025-07-26] MEDS: TOPROL XL 25 MG PO (20:18)
[2025-07-26 21:23] LABS: Glucose - Point of Care 130 mg/dl (70-99)
[2025-07-26] MEDS: DESYREL 25 MG PO (22:06)
[2025-07-26] MEDS: LAMICTAL 50 MG PO (22:06)
[2025-07-26] MEDS: LIPITOR 10 MG PO (22:07)
[2025-07-26] MEDS: MELATONIN 10 MG PO (22:15)
[2025-07-27] MEDS: ZOSYN 50 IV ×4 (03:33→21:17)
[2025-07-27] MEDS: SYNTHROID 100 MCG PO (05:36)
[2025-07-27 06:59] VITALS: BP 97/63
[2025-07-27 08:13] LABS: Glucose - Point of Care 130 mg/dl (70-99)
--- NOTE | 2025-07-27 08:37 | W.PN.HOSP.TC ---
Today's Communication/Plan
-
continue Abx pending cultures
wound care eval
follow Vascular Sx plans; possible debridement Sunday
Assessment / Plan
Assessment / Plan
Assessment:
LLE wounds - POA
- infected with drainage, surrounding redness
- follow cultures
- continue Vanco/Zosyn, day 1 for now
- Vascular consulted; possible debridement Sunday. BKA discussed with patient but she is not ready for that option at this time.
- wound care evaluation
PAD s/p stent placement from SFA into bypass graft with balloon angioplasty 07/08
- repeat US pending
- vascular following
- continue ASA/Coumadin (f/u INRs)
Hx of A. Fib
- continue Coumadin (f/u INRs)
Type 2 DM
- continue Januvia
- SSI
Chronic hypotension
- continue midodrine per home regimen
Hypothyroidism
- continue levothyroxine
COPD - stable without exacerbation
- continue as needed
CKD - recent SREE with creatinine back to around baseline of 2.0
- avoid nephrotoxins
Chronic Anemia
DVT ppx: Coumadin
Code: Full
Anticipated Discharge: > 48 hours
Subjective/Interval History
-
Date of Service: July 27, 2025
denies any new complaints
Objective Data
-
Labs:
Laboratory Results
07/27/25
06:00
WBC Pending
Hgb Pending
Hct Pending
Plt Count Pending
PT Pending
INR Pending
Sodium Pending
Potassium Pending
Chloride Pending
Carbon Dioxide Pending
BUN Pending
Creatinine Pending
Glucose Pending
Calcium Pending
Vital Signs:
Vital Signs
Temp Pulse Resp BP Pulse Ox
98.0 F 77 16 97/63 97
07/27/25 06:59 07/27/25 06:59 07/27/25 06:59 07/27/25 06:59 07/27/25 06:59
I&O
07/26/25 07/27/25 07/28/25
06:59 06:59 06:59
Intake Total 1160 / 1160
Balance 1160 / 1160
Physical Exam
-
General: No Apparent Distress
HEENT: Normocephalic and Atraumatic
Respiratory: Negative Wheezes
Cardiac: Regular Rhythm and S1/S2
GI: Soft
Skin: Other (R BKA. LLE wounds across bellamy and heel. area of dry gangrene, drainage)
Neuro: AO x 3
Psych: Calm
Data Reviewed
-
Total Time Spent with Patient (in minutes): 41
Labs: Labs Reviewed by me
[2025-07-27] MEDS: NOVOLOG FLEXPEN-LOW RESISTANCE SC ×3 (09:01→17:56)
[2025-07-27] MEDS: SANTYL OINTMENT 1 APPLIC TOPICAL (09:02)
[2025-07-27] MEDS: CLARITIN 10 MG PO (09:03)
[2025-07-27] MEDS: TOPROL XL PO (09:03)
[2025-07-27] MEDS: JANUVIA 25 MG PO (09:04)
[2025-07-27] MEDS: FLOMAX 0.4 MG PO (09:04)
[2025-07-27] MEDS: COLACE 100 MG PO (09:05)
[2025-07-27] MEDS: MS CONTIN (EXTENDED RELEASE) 15 MG PO ×2 (09:05→19:49)
[2025-07-27] MEDS: NEURONTIN 300 MG PO ×2 (09:05→19:49)
[2025-07-27] MEDS: PROTONIX 40 MG PO (09:05)
[2025-07-27] MEDS: FOLVITE 1 MG PO (09:05)
[2025-07-27] MEDS: LOW STRENGTH ASPIRIN 81 MG PO (09:06)
[2025-07-27] MEDS: DESENEX/MITRAZOL/ZEASORB 1 APPLIC TOPICAL ×2 (09:07→19:50)
--- NOTE | 2025-07-27 09:28 | W.PN.VS ---
Today's Communication / Plan
-
possible debridement alok
npo after midnight
hold comadin if inr greater than 2 for OR
Assessment/Plan
-
need duplex to determine if graft is still patent
given recent intervention, not clear there is any other revasc options
discussed that likely outcome is bka but she is not ready for this yet
check arterial duplex
possible debridement sunday
cont anticoagulation
Subjective Data
-
Date of Service: July 27, 2025
in better spirits today
no complaints
Objective Data
-
Vital Signs
Temp Pulse Resp BP Pulse Ox
98.0 F 77 16 97/63 97
07/27/25 06:59 07/27/25 09:03 07/27/25 06:59 07/27/25 09:03 07/27/25 06:59
Intake and Output
07/26/25 07/27/25 07/28/25
06:59 06:59 06:59
Intake Total 1160 / 1160
Balance 1160 / 1160
Intake:
Oral fluids 960 / 960
IV piggybacks 200 / 200
Other:
How many times incontinent 1
MODERATE amount urine
How many times incontinent 2
SATURATED amount urine
Number of unmeasured liquid
stools
Rectum 1 2
Calcium 8.9 mg/dl (8.4-10.2) 07/26/25 05:20
Magnesium 2.2 mg/dl (1.6-2.3) 07/26/25 05:20
Total Bilirubin Cancelled 07/25/25 18:18
AST Cancelled 07/25/25 18:18
ALT Cancelled 07/25/25 18:18
Alkaline Phosphatase Cancelled 07/25/25 18:18
Total Protein Cancelled 07/25/25 18:18
Albumin Cancelled 07/25/25 18:18
Physical Exam
-
multiple wounds on left leg
dp signal
[2025-07-27] MEDS: FLORASTOR 250 MG PO ×2 (09:47→19:49)
[2025-07-27 10:24] LABS: Hematocrit 30.2 % (37.0-47.0); Hemoglobin 9.5 g/dL (12.0-16.0); Mean Corp Hgb Conc. 31.5 g/dL (33.0-37.0); Mean Corpuscular Volume 100.3 fL (81.0-99.0); Platelet Count 170 10^3/uL (130-400); Red Cell Dist. Width 18.0 % (11.5-14.5)
[2025-07-27 10:43] LABS: Blood Urea Nitrogen 18 mg/dl (7-17); Calcium 8.8 mg/dl (8.4-10.2); Carbon Dioxide 16 mmol/L (22-30); Chloride 116 mmol/L (98-107); Estimated Creatinine Clearance 26 ml/min; Glucose 141 mg/dl (70-99); Potassium 4.0 mmol/L (3.5-5.1); Sodium 139 mmol/L (135-145); eGFR 25.19
[2025-07-27 11:10] LABS: INR 1.91; PT 22.1 Sec (11.4-14.6)
--- NOTE | 2025-07-27 11:59 | PHA.VAN.FU ---
Vancomycin Assessment / Plan
- Assessment
Renal Function: Stable (CKD, back to baseline function)
WBC's are: Stable
In the past 24 hrs, patient has been: Afebrile
Concomitant Antimicrobials: Piperacillin/tazobactam
- Assessment - Therapeutic Drug Monitoring
Random Level: 15.1 drawn approx 37 hours after loading dose of 2000mg
Levels were drawn: After first dose
Calculated ke: 0.0125
Calculated half life (H): ~55hr
- Dosing Plan
Dosing by Level: Re-dose today (Will give vancomycin 750mg x 1 dose tonight.)
- Monitoring Plan
No level(s) ordered at this time: Consider levels in next few days.
- Follow Up
Pharmacy will continue to follow.
Vancomycin Follow UP
- -
Patient Age: 70
Patient Sex: Female
Vancomycin Day #: 3
Indication: Skin And Soft Tissue
Requesting Provider: Dr Kinney
Pertinent Antimicrobial Allergies:
cefepime Allergy itchy face and chest May 2025 at OSH
Patient has previously tolerated Amox/Clav (Aug 2024); Pip/tazo (Sep 2024); Cephalexin (outpatient prescription history February 2025)
ceftriaxone Allergy- itchy face and chest May 2025 at OSH
Patient has previously tolerated Amox/Clav (Aug 2024); Pip/tazo (Sep 2024); Cephalexin (outpatient prescription history February 2025)
Height / Weight:
Height 5 ft 8 in
Actual Weight 75.795 kg
Pertinent Past Medical History: chronic limb ischemia; BKA; CAD, DM, CKD IV
- Vital Signs / Lab Results
Temp Pulse Resp BP Pulse Ox
98.0 F 77 16 97/63 97
07/27/25 06:59 07/27/25 09:03 07/27/25 06:59 07/27/25 09:03 07/27/25 06:59
Lab Results - Hematology
07/25/25 07/26/25 07/27/25
18:18 05:20 10:17
WBC 5.7 4.1 L 4.3 L
Lab Results - Chemistry
07/25/25 07/26/25 07/27/25
18:18 05:20 10:17
BUN 19 H 18 H 18 H
Creatinine 2.0 H 2.0 H 2.1 H
Estimated Creat Clear 27 27 26
Albumin Cancelled
Microbiology Results
07/25/25 23:08 MRSA Screen - Final
Nose No Methicillin Resistant Staphylococcus aureus isolated.
07/25/25 19:52 Wound Culture - Preliminary
Leg - Left Gram Stain - Preliminary
07/25/25 20:14 Blood Culture - Preliminary
Blood/Venous No Growth in 24 hours- Final report to follow
07/25/25 19:52 Blood Culture - Preliminary
Blood/Venous No Growth in 24 hours- Final report to follow
Therapeutic Drug Monitoring
Random Vancomycin 15.1 ug/ml 07/27/25 10:17
[2025-07-27 12:40] LABS: Glucose - Point of Care 132 mg/dl (70-99)
[2025-07-27 16:00] VITALS: BP 93/52
[2025-07-27 17:38] LABS: Glucose - Point of Care 132 mg/dl (70-99)
[2025-07-27] MEDS: VANCOCIN 150 IV (18:07)
[2025-07-27] MEDS: COUMADIN 1 MG PO (18:07)
[2025-07-27 20:02] VITALS: BP 105/71
[2025-07-27] MEDS: TOPROL XL 25 MG PO (20:03)
[2025-07-27 21:04] LABS: Glucose - Point of Care 168 mg/dl (70-99)
[2025-07-27] MEDS: LIPITOR 10 MG PO (21:18)
[2025-07-27] MEDS: LAMICTAL 50 MG PO (21:18)
[2025-07-27] MEDS: DESYREL 25 MG PO (21:18)
[2025-07-27] MEDS: MELATONIN 10 MG PO (21:18)
[2025-07-27 23:00] VITALS: BP 109/67
[2025-07-28] MEDS: ZOSYN 50 IV ×4 (05:00→21:59)
[2025-07-28] MEDS: SYNTHROID 100 MCG PO (05:03)
[2025-07-28 06:39] LABS: Hematocrit 31.6 % (37.0-47.0); Hemoglobin 9.6 g/dL (12.0-16.0); Mean Corp Hgb Conc. 30.4 g/dL (33.0-37.0); Mean Corpuscular Volume 102.9 fL (81.0-99.0); Platelet Count 170 10^3/uL (130-400); Red Cell Dist. Width 17.7 % (11.5-14.5)
[2025-07-28 06:47] LABS: INR 2.60; PT 27.8 Sec (11.4-14.6)
[2025-07-28 07:07] LABS: Blood Urea Nitrogen 19 mg/dl (7-17); Calcium 9.3 mg/dl (8.4-10.2); Carbon Dioxide 22 mmol/L (22-30); Chloride 111 mmol/L (98-107); Estimated Creatinine Clearance 26 ml/min; Glucose 153 mg/dl (70-99); Potassium 3.7 mmol/L (3.5-5.1); Sodium 139 mmol/L (135-145); eGFR 25.19
[2025-07-28 07:20] VITALS: BP 98/56
[2025-07-28 07:27] LABS: Glucose - Point of Care 158 mg/dl (70-99)
[2025-07-28] MEDS: NOVOLOG FLEXPEN-LOW RESISTANCE SC ×2 (07:28→17:14)
[2025-07-28] MEDS: MS CONTIN (EXTENDED RELEASE) 15 MG PO ×2 (07:29→20:12)
[2025-07-28] MEDS: FLORASTOR 250 MG PO ×2 (07:29→20:13)
[2025-07-28] MEDS: PROTONIX 40 MG PO (07:29)
[2025-07-28] MEDS: LOW STRENGTH ASPIRIN 81 MG PO (07:29)
[2025-07-28] MEDS: CLARITIN 10 MG PO (07:29)
[2025-07-28] MEDS: NEURONTIN 300 MG PO ×2 (07:29→20:13)
[2025-07-28] MEDS: FOLVITE 1 MG PO (07:29)
[2025-07-28] MEDS: JANUVIA PO (07:29)
[2025-07-28] MEDS: COLACE 100 MG PO (07:30)
[2025-07-28] MEDS: TOPROL XL PO ×2 (07:30→20:17)
[2025-07-28] MEDS: SANTYL OINTMENT 1 APPLIC TOPICAL (07:30)
[2025-07-28] MEDS: FLOMAX 0.4 MG PO (07:30)
[2025-07-28] MEDS: DESENEX/MITRAZOL/ZEASORB 1 APPLIC TOPICAL ×2 (07:30→20:18)
--- NOTE | 2025-07-28 09:00 | PHA.VAN.FU ---
Vancomycin Assessment / Plan
- Assessment
Renal Function: Stable
WBC's are: Stable
In the past 24 hrs, patient has been: Afebrile
Concomitant Antimicrobials: piperacillin/tazobactam
- Dosing Plan
Dosing by Level: Hold off on dosing today
- Monitoring Plan
Random Level: 07/29 0600
- Follow Up
Pharmacy will continue to follow.
Vancomycin Follow UP
- -
Patient Age: 70
Patient Sex: Female
Vancomycin Day #: 4
Indication: Skin And Soft Tissue
Requesting Provider: Dr Kinney
Pertinent Antimicrobial Allergies:
cefepime Allergy itchy face and chest May 2025 at OSH
ceftriaxone Allergy- itchy face and chest May 2025 at OSH
Patient has previously tolerated Amox/Clav (Aug 2024); Pip/tazo (Sep 2024); Cephalexin (outpatient prescription history February 2025)
Height / Weight:
Height 5 ft 8 in
Actual Weight 75.795 kg
Pertinent Past Medical History: chronic limb ischemia; BKA; CAD, DM, CKD IV
- Vital Signs / Lab Results
Temp Pulse Resp BP Pulse Ox
97.4 F 63 16 98/56 99
07/28/25 07:20 07/28/25 07:20 07/28/25 07:20 07/28/25 07:20 07/28/25 07:20
Lab Results - Hematology
07/25/25 07/26/25 07/27/25
18:18 05:20 10:17
WBC 5.7 4.1 L 4.3 L
07/28/25
06:13
WBC 4.5 L
Lab Results - Chemistry
07/25/25 07/26/25 07/27/25
18:18 05:20 10:17
BUN 19 H 18 H 18 H
Creatinine 2.0 H 2.0 H 2.1 H
Estimated Creat Clear 27 27 26
Albumin Cancelled
07/28/25
06:13
BUN 19 H
Creatinine 2.1 H
Estimated Creat Clear 26
Albumin
Microbiology Results
07/25/25 19:52 Wound Culture - Preliminary
Leg - Left Proteus species
Gram Stain - Preliminary
07/25/25 20:14 Blood Culture - Preliminary
Blood/Venous Positive culture in progress
Gram Stain - Preliminary
07/25/25 19:52 Blood Culture - Preliminary
Blood/Venous No Growth in 48 hours- Final report to follow
07/25/25 23:08 MRSA Screen - Final
Nose No Methicillin Resistant Staphylococcus aureus isolated.
Therapeutic Drug Monitoring
Random Vancomycin 15.1 ug/ml 07/27/25 10:17
[2025-07-28 11:36] LABS: Glucose - Point of Care 150 mg/dl (70-99)
[2025-07-28] MEDS: NOVOLOG FLEXPEN-LOW RESISTANCE 1 UNITS SC (11:36)
--- NOTE | 2025-07-28 12:00 | W.PN.VS ---
Addendum entered and electronically signed by Benjamin Thompson III, MD 07/28/25 19:31:
This patient was seen and examined in collaboration with AARON Pyle. I agree with the history and physical exam as well as the assessment and plan. I have the following additions:
Patient is well-known to Dr. Rivera
Right below the knee amputation
chronic left lower extremity wounds
Will have Dr. Rivera discuss benefit of debridement versus moving forward with major amputation
Signed:
Benjamin Thompson III, MD
Vascular Surgery
[facility]
Original Note:
Today's Communication / Plan
-
Seen and assessed the Dr. Thompson
Assessment/Plan
-
62-year-old female with chronic lower extremity wounds
Plan:
May have diet today
Planning for debridement versus amputation, Dr. Rivera to speak with patient
Subjective Data
-
Date of Service: July 28, 2025
Patient seen at bedside this a.m. with Dr. Thompson. Patient offers no complaints time. No events overnight.
Objective Data
-
Vital Signs
Temp Pulse Resp BP Pulse Ox
97.4 F 63 16 98/56 99
07/28/25 07:20 07/28/25 07:20 07/28/25 07:20 07/28/25 07:20 07/28/25 07:20
Intake and Output
07/27/25 07/28/25 07/29/25
06:59 06:59 06:59
Intake Total 1160 / 1160 1779 / 1779
Balance 1160 / 1160 178 / 1779
Intake:
Oral fluids 960 / 960 1680 / 1680
IV piggybacks 200 / 200 100 / 100
Other:
How many times incontinent 1
MODERATE amount urine
How many times incontinent 2 3
SATURATED amount urine
Number of unmeasured liquid
stools
Rectum 2 2
Lab Results
07/28/25 06:13
07/28/25 06:13
Calcium 9.3 mg/dl (8.4-10.2) 07/28/25 06:13
Magnesium 2.2 mg/dl (1.6-2.3) 07/26/25 05:20
Total Bilirubin Cancelled 07/25/25 18:18
AST Cancelled 07/25/25 18:18
ALT Cancelled 07/25/25 18:18
Alkaline Phosphatase Cancelled 07/25/25 18:18
Total Protein Cancelled 07/25/25 18:18
Albumin Cancelled 07/25/25 18:18
Physical Exam
-
AAO x 3
No tachypnea on room air
No tachycardia
Abdomen soft
multiple chronic wounds on left leg
Weak dp signal
--- NOTE | 2025-07-28 12:55 | CM ---
CM following re: discharge planning.
Reviewed pt's chart, met with t.
Pt is a 70 year old female, admitted with primary dx of Infection of chronic lower extremity wound versus worsening ischemia. PMH includes: peripheral arterial disease status post right BKA and most recently admitted for critical limb ischemia to
the left lower extremity status post left angiogram. Vascular Surgery, ID and wound care following.
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 Pt reports she has no children, has supportive brother who lives in [place]. Pt reports she is w/c bound and was
able to get around on the wheelchair. Pt expressed her desire to return back to [facility] when medically stable.
PCP: Cedrick Pugh
Pharmacy: [facility]
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
CM will follow with discharge plan updates as hospitalization progresses
--- NOTE | 2025-07-28 13:05 | W.PN.HOSP.TC ---
Today's Communication/Plan
-
maintain on abx
hold warfarin
await vasc discussion tomorrow
Assessment / Plan
Assessment / Plan
LLE wounds - POA
- infected with drainage, surrounding redness
- Superficial wound culture growing Proteus
- on vanc/zosyn empirically, continuing.
- wound care evaluation
- Vascular surgery consult debridement plan for possible need of amputation. Primary Vascular surgeon/Dr. Rivera to discuss options further
PAD s/p stent placement from SFA into bypass graft with balloon angioplasty 07/08
- US LE showing Left SFA to anterior tibial bypass graft is patent. Suggestion of mild distal anastomotic stenosis, velocity ratio 2.9
- vascular follow
Positive blood culture
- one set growing gram-positive cocci in clusters, possible CONS/contamination , await final result
- repeat blood cs if spikes fever
Hx of A. Fib
Therapeutic INR
- Keep warfarin on hold for possible procedure
Type 2 DM
- continue Januvia
- SSI
Chronic hypotension
- continue midodrine per home regimen
Hypothyroidism
- continue levothyroxine
COPD - stable without exacerbation
- continue as needed
CKD - recent SREE with creatinine back to around baseline of 2.0
- avoid nephrotoxins
Chronic Anemia
DVT ppx: Coumadin
Code: Full
Anticipated Discharge: > 48 hours
Subjective/Interval History
-
Date of Service: July 28, 2025
Resting comfortably in bed
Denies having any ongoing issues
Objective Data
-
Labs:
Laboratory Results
07/28/25
06:13
WBC 4.5 L
Hgb 9.6 L
Hct 31.6 L
Plt Count 170
PT 27.8 H
INR 2.60
Sodium 139
Potassium 3.7
Chloride 111 H
Carbon Dioxide 22
BUN 19 H
Creatinine 2.1 H
Glucose 153 H
Calcium 9.3
Vital Signs:
Vital Signs
Temp Pulse Resp BP Pulse Ox
97.4 F 63 16 98/56 99
07/28/25 07:20 07/28/25 07:20 07/28/25 07:20 07/28/25 07:20 07/28/25 07:20
I&O
07/27/25 07/28/25 07/29/25
06:59 06:59 06:59
Intake Total 1160 / 1160 1779
Balance 1160 / 1160 1779
Review of Systems
-
Respiratory: Reports No Symptoms
Cardiac: Reports No Symptoms
Abdomen/GI: Reports No Symptoms
Physical Exam
-
General: Negative Respiratory Distress
HEENT: Negative Oxygen
GI: Soft, Nontender and Nondistended
Skin: Other (Left leg bandage in place, Left foot bandage)
Neuro: Awake, Alert, Oriented and No Motor Deficits
[2025-07-28 15:17] VITALS: BP 96/55
--- NOTE | 2025-07-28 17:03 | WOUNDNOTE ---
HAIDER RN NOTE: Will follow tomorrow pending OR debridement vs amp. L leg dressing done by nurse Benton today.
[2025-07-28 17:11] LABS: Glucose - Point of Care 121 mg/dl (70-99)
[2025-07-28] MEDS: DESYREL 25 MG PO (21:57)
[2025-07-28] MEDS: LIPITOR 10 MG PO (21:58)
[2025-07-28] MEDS: MELATONIN 10 MG PO (21:58)
[2025-07-28] MEDS: LAMICTAL 50 MG PO (21:59)
[2025-07-28 23:10] VITALS: BP 107/49
[2025-07-29] VITALS (15 sets, daily range): BP systolic 73–121; BP diastolic 46–77
[2025-07-29 00:16] LABS: Glucose - Point of Care 239 mg/dl (70-99)
[2025-07-29] MEDS: ZOSYN 50 IV ×2 (03:01→10:54)
[2025-07-29 06:08] LABS: Glucose - Point of Care 153 mg/dl (70-99)
[2025-07-29] MEDS: SYNTHROID 100 MCG PO (06:26)
[2025-07-29] MEDS: NOVOLOG FLEXPEN-LOW RESISTANCE SC ×3 (06:30→17:50)
[2025-07-29 08:27] LABS: Hematocrit 31.3 % (37.0-47.0); Hemoglobin 9.7 g/dL (12.0-16.0); Mean Corp Hgb Conc. 31.0 g/dL (33.0-37.0); Mean Corpuscular Volume 102.0 fL (81.0-99.0); Platelet Count 139 10^3/uL (130-400); Red Cell Dist. Width 17.5 % (11.5-14.5)
[2025-07-29] MEDS: TOPROL XL 25 MG PO (08:52)
[2025-07-29] MEDS: SANTYL OINTMENT 1 APPLIC TOPICAL (08:52)
[2025-07-29] MEDS: FOLVITE 1 MG PO (08:53)
[2025-07-29] MEDS: PROTONIX 40 MG PO (08:53)
[2025-07-29] MEDS: FLORASTOR 250 MG PO ×2 (08:53→22:06)
[2025-07-29] MEDS: CLARITIN 10 MG PO (08:53)
[2025-07-29] MEDS: LOW STRENGTH ASPIRIN 81 MG PO (08:53)
[2025-07-29] MEDS: JANUVIA 25 MG PO (08:53)
[2025-07-29] MEDS: NEURONTIN 300 MG PO ×2 (08:53→22:06)
[2025-07-29] MEDS: COLACE 100 MG PO (08:53)
[2025-07-29] MEDS: MS CONTIN (EXTENDED RELEASE) 15 MG PO ×2 (08:53→22:06)
[2025-07-29] MEDS: FLOMAX 0.4 MG PO (08:53)
[2025-07-29 08:58] LABS: Blood Urea Nitrogen 18 mg/dl (7-17); Calcium 8.6 mg/dl (8.4-10.2); Carbon Dioxide 17 mmol/L (22-30); Chloride 114 mmol/L (98-107); Estimated Creatinine Clearance 26 ml/min; Glucose 138 mg/dl (70-99); Potassium 3.8 mmol/L (3.5-5.1); Sodium 139 mmol/L (135-145); eGFR 25.19
[2025-07-29] MEDS: DESENEX/MITRAZOL/ZEASORB 1 APPLIC TOPICAL ×2 (08:58→22:08)
[2025-07-29 09:45] LABS: INR 2.32; PT 26.0 Sec (11.4-14.6)
--- NOTE | 2025-07-29 10:40 | WOUNDNOTE ---
LOWER ABDOMEN(CREASE) 1957, #[id number]
--- NOTE | 2025-07-29 10:41 | WOUNDNOTE ---
SACRUM/COCCYX/BUTTOCKS
--- NOTE | 2025-07-29 10:45 | WOUNDNOTE ---
HAIDER RN NOTE: Followed up today, patient for OR debridement of L leg today per nurse, OR schedule 1240. Will confirm with vascular and follow post op unless amputation occurs. Sacrum and buttocks with blanchable red skin, MASD. Calazime applied to
buttocks. L heel with tiny scab laterally, appears to be an abrasion. Will update wound care and follow as needed.
--- NOTE | 2025-07-29 10:47 | PHA.VAN.FU ---
Vancomycin Assessment / Plan
- Assessment
Renal Function: Stable
WBC's are: WNL
In the past 24 hrs, patient has been: Afebrile
Concomitant Antimicrobials: piperacillin/tazobactam
- Assessment - Therapeutic Drug Monitoring
Random Level: 13.9 - drawn ~36.5H after previous dose of 750mg
- Dosing Plan
Dosing by Level: Re-dose today (Vanc 750mg)
- Monitoring Plan
No level(s) ordered at this time: consider random level for 07/31
- Follow Up
Pharmacy will continue to follow.
Vancomycin Follow UP
- -
Patient Age: 70
Patient Sex: Female
Vancomycin Day #: 5
Indication: Skin And Soft Tissue
Requesting Provider: Dr Kinney
Pertinent Antimicrobial Allergies:
cefepime Allergy itchy face and chest May 2025 at OSH
ceftriaxone Allergy- itchy face and chest May 2025 at OSH
Patient has previously tolerated Amox/Clav (Aug 2024); Pip/tazo (Sep 2024); Cephalexin (outpatient prescription history February 2025)
Height / Weight:
Height 5 ft 8 in
Actual Weight 75.795 kg
Pertinent Past Medical History: chronic limb ischemia; BKA; CAD, DM, CKD IV
- Vital Signs / Lab Results
Temp Pulse Resp BP Pulse Ox
97.8 F 76 16 121/66 95
07/29/25 07:50 07/29/25 08:53 07/29/25 07:50 07/29/25 08:53 07/29/25 07:50
Lab Results - Hematology
07/27/25 07/28/25 07/29/25
10:17 06:13 08:03
WBC 4.3 L 4.5 L 4.8
Lab Results - Chemistry
07/27/25 07/28/25 07/29/25
10:17 06:13 06:24
BUN 18 H 19 H Cancelled
Creatinine 2.1 H 2.1 H Cancelled
Estimated Creat Clear 26 26 Cancelled
07/29/25
08:03
BUN 18 H
Creatinine 2.1 H
Estimated Creat Clear 26
Microbiology Results
07/25/25 20:14 Blood Culture - Preliminary
Blood/Venous Micrococcus species
Gram Stain - Preliminary
07/25/25 19:52 Wound Culture - Preliminary
Leg - Left Proteus mirabilis
Staphylococcus aureus
Gram Stain - Preliminary
07/25/25 19:52 Blood Culture - Preliminary
Blood/Venous No Growth in 72 hours- Final report to follow
07/25/25 23:08 MRSA Screen - Final
Nose No Methicillin Resistant Staphylococcus aureus isolated.
Therapeutic Drug Monitoring
Random Vancomycin 13.9 ug/ml 07/29/25 06:24
[2025-07-29 11:49] LABS: Glucose - Point of Care 119 mg/dl (70-99)
[2025-07-29] MEDS: VANCOCIN 150 IV (12:09)
--- NOTE | 2025-07-29 13:22 | WOUNDNOTE ---
HAIDER RN NOTE ADDENDUM: Confirmed with vascular OIL HEATER OPERATOR Farrah Menjivar that she will change L leg dressing today if not going to OR, ok to follow post op if necessary.
--- NOTE | 2025-07-29 13:29 | CM ---
CM following re: discharge planning.
Reviewed pt's chart, met with pt.
Per chart review, Vascular surgery consult debridement plan for possible need of amputation
Pt reports she has been living at [facility] for the past 5 years, is a nursing home care resident, on 15 day Medicaid bed hold. Pt reports she has no children, has supportive brother who lives in [place]. Pt reports she is w/c bound. Pt
expressed her desire to return back to [facility] when medically stable.
D/c plan: return back to [facility] for a nursing home care.
CM will follow with discharge plan updates as hospitalization progresses
--- NOTE | 2025-07-29 14:10 | W.PN.HOSP.TC ---
Today's Communication/Plan
-
Await vascular surgery input
Adjust antibiotic
see note
Assessment / Plan
Assessment / Plan
LLE wounds - POA
- infected with drainage, surrounding redness
- Superficial wound culture growing Proteus
- wound care evaluation
- Vascular surgery consult debridement plan for possible need of amputation. Primary Vascular surgeon/Dr. Rivera to discuss options further
- Superficial wound culture growing Proteus mirabilis/Staphylococcus aureus - abx adjusted to Unasyn.
PAD s/p stent placement from SFA into bypass graft with balloon angioplasty 07/08
- US LE showing Left SFA to anterior tibial bypass graft is patent. Suggestion of mild distal anastomotic stenosis, velocity ratio 2.9
- vascular follow
Micrococcus bacteremia
- Positive blood culture growing micrococcus species
- repeat blood cs to prove clearance
- Maintain on vancomycin
Hx of A. Fib
Therapeutic INR
- Keep warfarin on hold for possible procedure
Type 2 DM
- continue Januvia
- SSI
Chronic hypotension
- continue midodrine per home regimen
Hypothyroidism
- continue levothyroxine
COPD - stable without exacerbation
- continue as needed
CKD - recent SREE with creatinine back to around baseline of 2.0
- avoid nephrotoxins
Chronic Anemia
DVT ppx: Coumadin
Code: Full
Anticipated Discharge: 24 - 48 hours
Subjective/Interval History
-
Date of Service: July 29, 2025
no new complains overnight
afebrile
Objective Data
-
Labs:
Laboratory Results
07/29/25 07/29/25 07/29/25
06:24 08:03 09:19
WBC 4.8
Hgb 9.7 L
Hct 31.3 L
Plt Count 139
PT 26.0 H
INR 2.32
Sodium Cancelled 139
Potassium Cancelled 3.8
Chloride Cancelled 114 H
Carbon Dioxide Cancelled 17 L
BUN Cancelled 18 H
Creatinine Cancelled 2.1 H
Glucose Cancelled 138 H
Calcium Cancelled 8.6
Vital Signs:
Vital Signs
Temp Pulse Resp BP Pulse Ox
97.8 F 76 16 121/66 95
07/29/25 07:50 07/29/25 08:53 07/29/25 07:50 07/29/25 08:53 07/29/25 07:50
I&O
07/28/25 07/29/25 07/30/25
06:59 06:59 06:59
Intake Total 1779 1640 / 1640
Balance 1779 1640 / 1640
Review of Systems
-
Respiratory: Reports No Symptoms
Cardiac: Reports No Symptoms
Abdomen/GI: Reports No Symptoms
Physical Exam
-
General: Negative Respiratory Distress
HEENT: Negative Oxygen
GI: Soft, Nontender and Nondistended
Skin: Other (Left leg bandage in place, Left foot bandage)
Neuro: Awake, Alert, Oriented and No Motor Deficits
[2025-07-29] MEDS: UNASYN IV (15:31)
--- NOTE | 2025-07-29 15:48 | W.PN.UPDATE ---
Update Note
Progress Note Update
Seen and examined. See full consultation note from yesterday. I discussed with her my concerns about the wounds in her left calf. There is concern for some infection. I also have concern about the depth of these wounds and the extent, and
chronic ischemic issues despite a patent anterior tibial bypass (single-vessel runoff with very poor collateralization of the foot). Not really a great option here. I think she would actually benefit primarily from [id number] amputation.
However she is not amenable to amputation at this time. I discussed this all with her. Therefore we discussed just debridement of the wounds to see if we can trial conservative approaches towards limb salvage, but I think likely down the line she
would require amputation.
[2025-07-29 16:39] LABS: Glucose - Point of Care 107 mg/dl (70-99)
--- NOTE | 2025-07-29 17:27 | OR.RPT ---
Operative Report
Operative Report
PROCEDURE DATE: 07/29/2025
Preoperative diagnosis: Left calf and foot necrotic wounds.
Postoperative diagnosis: Same
Procedure: Excisional sharp debridement left medial and anterior calf wounds, and plantar foot wound through skin/deep subcutaneous tissue.
Surgeon: Miguel
Motors And Generators Inspector: ATUL Mccauley, required for all aspects of procedure including assistance with traction/countertraction.
Complications: None
Anesthesia: General
Indications for procedure:
Left calf and foot necrotic wounds. Concern for infections. I discussed with patient my concern of viability of limb. She was not amenable to amputation at this time. Therefore discussed debridement with trial of limb salvage. But she clearly
understood possibility of nonhealing and amputation eventually. Risk/benefits/alternatives all fully discussed. She understood all wished to proceed.
Description of procedure:
Patient was identified brought to the operating room placed on the table in supine position. After the adequate administration of anesthesia she was prepped and draped in the standard surgical fashion. A standard preoperative timeout was
undertaken and everybody was in agreement the plan. The long segment anterior/medial calf wound with eschar/necrotic skin and subcutaneous tissue was sharply debrided with a 15 and 10 blade down to the level of bleeding tissue in the deep
subcutaneous tissues. This wound was approximately 10 to 12 cm in length by about 3 to 4 cm in width. An adjacent wound that tracked more anteriorly was also similarly debrided to a similar depth that was about 3 cm x 3 cm. I encountered bleeding
tissue throughout all depth. The more medial aspect/distal aspect may have gone down to the level of tendon but it was difficult to tell with the inflammatory nature of the wound bed.
I now debrided similarly sharply and necrotic island of the plantar aspect of the left foot. This was done with a 10 blade as well sharply excising out the eschar in the subcutaneous tissue until I encountered some bleeding tissue. This was down
to the level of the tendon. The size of this wound is approximately 3 x 3.5 cm. There was reasonable bleeding noted. However I was not sure but it did seem as noted above down to the level of the tendinous tissue. At this point the wounds were
irrigated. Hemostasis was achieved. Packing/dressings were applied. Patient tolerated procedure well.
[2025-07-29 17:48] LABS: Glucose - Point of Care 118 mg/dl (70-99)
--- NOTE | 2025-07-29 18:31 | PTCARENOTE ---
PT HAD brown pudding like stool x 1 in PACU
[2025-07-29] MEDS: TOPROL XL PO (21:36)
[2025-07-29] MEDS: DESYREL PO (22:06)
[2025-07-29] MEDS: LIPITOR 10 MG PO (22:06)
[2025-07-29] MEDS: MELATONIN PO (22:06)
[2025-07-29] MEDS: LAMICTAL 50 MG PO (22:07)
[2025-07-30] VITALS (15 sets, daily range): BP systolic 80–117; BP diastolic 52–79; PULSE 2–95; BMI 25.4
[2025-07-30 00:32] LABS: Glucose - Point of Care 217 mg/dl (70-99)
[2025-07-30] MEDS: NOVOLOG FLEXPEN-LOW RESISTANCE 2 UNITS SC (01:24)
[2025-07-30] MEDS: UNASYN IV ×2 (04:03→15:44)
[2025-07-30] MEDS: SYNTHROID 100 MCG PO (06:05)
[2025-07-30] MEDS: NOVOLOG FLEXPEN-LOW RESISTANCE 1 UNITS SC (06:16)
[2025-07-30 06:17] LABS: Glucose - Point of Care 150 mg/dl (70-99)
--- NOTE | 2025-07-30 08:44 | PHA.VAN.FU ---
Vancomycin Assessment / Plan
- Assessment
Renal Function: No New Labs Today
In the past 24 hrs, patient has been: Afebrile
Concomitant Antimicrobials: ampicillin/sulbactam
- Assessment - Therapeutic Drug Monitoring
Random Level: 18 - drawn ~19H after previous dose of 750mg
- Dosing Plan
Dosing by Level: Hold off on dosing today
- Monitoring Plan
Random Level: 07/31 06 - will calculate half-life trend
- Follow Up
Pharmacy will continue to follow.
Vancomycin Follow UP
- -
Patient Age: 70
Patient Sex: Female
Vancomycin Day #: 6
Indication: Skin And Soft Tissue
Requesting Provider: Dr Kinney
Pertinent Antimicrobial Allergies:
cefepime Allergy itchy face and chest May 2025 at OSH
ceftriaxone Allergy- itchy face and chest May 2025 at OSH
Patient has previously tolerated Amox/Clav (Aug 2024); Pip/tazo (Sep 2024); Cephalexin (outpatient prescription history February 2025)
Height / Weight:
Height 5 ft 8 in
Actual Weight 75.795 kg
Pertinent Past Medical History: chronic limb ischemia; BKA; CAD, DM, CKD IV
- Vital Signs / Lab Results
Temp Pulse Resp BP Pulse Ox
98.9 F 82 16 109/58 95
07/30/25 07:22 07/30/25 07:22 07/30/25 07:22 07/30/25 07:22 07/30/25 07:22
Lab Results - Hematology
07/27/25 07/28/25 07/29/25
10:17 06:13 08:03
WBC 4.3 L 4.5 L 4.8
Lab Results - Chemistry
07/27/25 07/28/25 07/29/25
10:17 06:13 06:24
BUN 18 H 19 H Cancelled
Creatinine 2.1 H 2.1 H Cancelled
Estimated Creat Clear 26 26 Cancelled
07/29/25
08:03
BUN 18 H
Creatinine 2.1 H
Estimated Creat Clear 26
Microbiology Results
07/25/25 19:52 Wound Culture - Final
Leg - Left Proteus mirabilis
Staph aureus MRSA
Gram Stain - Final
07/25/25 19:52 Blood Culture - Preliminary
Blood/Venous No Growth in 4 days- Final report to follow
07/25/25 20:14 Blood Culture - Preliminary
Blood/Venous Micrococcus species
Gram Stain - Preliminary
Therapeutic Drug Monitoring
Random Vancomycin 18.0 ug/ml 07/30/25 07:10
[2025-07-30 09:27] LABS: Hematocrit 30.2 % (37.0-47.0); Hemoglobin 8.9 g/dL (12.0-16.0); Mean Corp Hgb Conc. 29.5 g/dL (33.0-37.0); Mean Corpuscular Volume 105.6 fL (81.0-99.0); Platelet Count 144 10^3/uL (130-400); Red Cell Dist. Width 17.6 % (11.5-14.5)
[2025-07-30 09:40] LABS: Blood Urea Nitrogen 16 mg/dl (7-17); Calcium 8.8 mg/dl (8.4-10.2); Carbon Dioxide 21 mmol/L (22-30); Chloride 113 mmol/L (98-107); Estimated Creatinine Clearance 26 ml/min; Glucose 138 mg/dl (70-99); Potassium 3.8 mmol/L (3.5-5.1); Sodium 139 mmol/L (135-145); eGFR 25.19
[2025-07-30] MEDS: CLARITIN PO (10:30)
[2025-07-30] MEDS: COLACE PO (10:30)
[2025-07-30] MEDS: FLOMAX PO (10:31)
[2025-07-30] MEDS: FOLVITE PO (10:31)
[2025-07-30] MEDS: FLORASTOR PO ×2 (10:31→19:58)
[2025-07-30] MEDS: DESENEX/MITRAZOL/ZEASORB 1 APPLIC TOPICAL ×2 (10:31→19:58)
[2025-07-30] MEDS: JANUVIA PO (10:31)
[2025-07-30] MEDS: NEURONTIN PO (10:32)
[2025-07-30] MEDS: PROTONIX PO (10:32)
[2025-07-30] MEDS: MS CONTIN (EXTENDED RELEASE) PO (10:32)
[2025-07-30] MEDS: LOW STRENGTH ASPIRIN PO (10:32)
[2025-07-30] MEDS: TOPROL XL PO (10:33)
[2025-07-30] MEDS: NSS 500 IV (10:35)
--- NOTE | 2025-07-30 10:53 | PTCARENOTE ---
Patient drowsy and lethargic, responds to verbal. Unable to take am po meds. Dr aware. new orders in place and initiated. plan of care ongoing. Pt seen by at bedside.
[2025-07-30 11:04] LABS: Glucose - Point of Care 154 mg/dl (70-99)
[2025-07-30] MEDS: SANTYL OINTMENT TOPICAL (11:09)
--- NOTE | 2025-07-30 11:20 | W.PN.HOSP.TC ---
Addendum entered and electronically signed by Mynor oHyt MD 07/30/25 11:32:
Venous blood gas reported with pH of 7.16, pCO2 of 62
Suspecting patient may have hypercapnic respiratory failure and related encephalopathy
patient POD1 and sedative meds/pain medication may have aggravated the problem
Bipap 4hr trial and IMU transfer ordered
Recheck Blood gas in 4hrs and if improved can be transitioned back to NC
Original Note:
Today's Communication/Plan
-
see note
Assessment / Plan
Assessment / Plan
LLE wounds - POA
- infected with drainage, surrounding redness
- Superficial wound culture growing Proteus
- wound care evaluation
- S/p debridement on 07/29. Vascular surgeon feels patient will eventually require amputation which was discussed although patient not amenable to plan.
- Superficial wound culture growing Proteus mirabilis/Staphylococcus aureus - abx adjusted to Unasyn.
- Will hold Coumadin tonight in light of surgical site minor bleed going on, INR check in the morning
Acute toxic metabolic encephalopathy
- Difficult to arouse
- Hold MS Contin/gabapentin/nighttime trazodone.
- VBG check pending. Blood glucose within normal limit
- Transferred to telemetry level.
- Blood pressure soft, hold blood pressure medication and providing IV fluid bolus
PAD s/p stent placement from SFA into bypass graft with balloon angioplasty 07/08
- US LE showing Left SFA to anterior tibial bypass graft is patent. Suggestion of mild distal anastomotic stenosis, velocity ratio 2.9
- vascular follow
Micrococcus bacteremia
- Positive blood culture growing micrococcus species
- repeat blood cs to prove clearance
- Maintain on vancomycin
Hx of A. Fib
Therapeutic INR
- Keep warfarin on hold for possible procedure
Type 2 DM
- continue Januvia
- SSI
Chronic hypotension
- continue midodrine per home regimen
Hypothyroidism
- continue levothyroxine
COPD - stable without exacerbation
- continue as needed
CKD - recent SREE with creatinine back to around baseline of 2.0
- avoid nephrotoxins
Chronic Anemia
DVT ppx: hold coumadin
Code: Full
Total time spent 55 minutes
Anticipated Discharge: > 48 hours
Subjective/Interval History
-
Date of Service: July 30, 2025
Patient is sedated/difficult to arouse today
Afebrile
Blood pressure soft with systolic pressure in 110 range
have some blood loss from the surgical site
Objective Data
-
Labs:
Laboratory Results
07/30/25
07:10
WBC 4.6 L
Hgb 8.9 L
Hct 30.2 L
Plt Count 144
Sodium 139
Potassium 3.8
Chloride 113 H
Carbon Dioxide 21 L
BUN 16
Creatinine 2.1 H
Glucose 138 H
Calcium 8.8
Vital Signs:
Vital Signs
Temp Pulse Resp BP Pulse Ox
98.9 F 82 16 109/58 95
07/30/25 07:22 07/30/25 07:22 07/30/25 07:22 07/30/25 07:22 07/30/25 07:22
I&O
07/29/25 07/30/25 07/31/25
06:59 06:59 06:59
Intake Total 1640 / 1640 640 / 640
Balance 1640 / 1640 640 / 640
Review of Systems
-
Unable to obtain full review of systems at this time due to: Acuity
Physical Exam
-
General: Comfortable
HEENT: Negative Oxygen
Respiratory: Clear to Auscultation
Cardiac: Regular Rhythm and S1/S2; Negative Murmur or Rub
Musculoskeletal: No Edema and Other (Left leg dressing in place, fresh blood )
Neuro: Negative Awake, Alert or Oriented
Psych: Calm
[2025-07-30 11:21] LABS: Venous Blood Gas B.E. -6.8 mmol/L (-4 to +4); Venous Blood Gas O2 Sat % 98.5 %
--- NOTE | 2025-07-30 11:27 | CM ---
CM following for discharge planning; pt to return to [facility] when medically ready. Per MD, discharge anticipated in >48 hours.
[2025-07-30] MEDS: NOVOLOG FLEXPEN-LOW RESISTANCE SC ×2 (12:31→18:43)
--- NOTE | 2025-07-30 13:02 | W.PN.VS ---
Today's Communication / Plan
-
Plan reviewed with attending Dr. Chadd Rivera.
Assessment/Plan
-
62-year-old female with chronic lower extremity wounds, POD#1 LLE wound debridement
Plan:
Continue wet to dry dressing and local wound care
Agree with plan to decrease narcotics given lethargy
Subjective Data
-
Date of Service: July 30, 2025
Patient seen and examined, initially was challenging to arouse but then was AAOx3 and talkative. Denies pain at LLE debridement site.
Objective Data
-
Vital Signs
Temp Pulse Resp BP Pulse Ox
98.9 F 82 16 109/58 95
07/30/25 07:22 07/30/25 07:22 07/30/25 07:22 07/30/25 07:22 07/30/25 11:48
Intake and Output
07/29/25 07/30/25 07/31/25
06:59 06:59 06:59
Intake Total 1640 / 1640 640 / 640
Balance 1640 / 1640 640 / 640
Intake:
Oral fluids 1440 / 1440 240 / 240
IV fluids (Total) 100 / 100
NS 100 / 100
IV piggybacks 200 / 200 300 / 300
Other:
Number of approximated SMALL 1
amounts of urine
Number of approximated MODERATE 1
amounts of urine
Number of approximated LARGE 4
amounts of urine
How many times incontinent 1
MODERATE amount urine
Lab Results
07/30/25 07:10
07/30/25 07:10
Calcium 8.8 mg/dl (8.4-10.2) 07/30/25 07:10
Magnesium 2.2 mg/dl (1.6-2.3) 07/26/25 05:20
Total Bilirubin Cancelled 07/25/25 18:18
AST Cancelled 07/25/25 18:18
ALT Cancelled 07/25/25 18:18
Alkaline Phosphatase Cancelled 07/25/25 18:18
Total Protein Cancelled 07/25/25 18:18
Albumin Cancelled 07/25/25 18:18
Physical Exam
-
AAO x 3
No tachypnea on room air
No tachycardia
Abdomen soft
multiple chronic wounds on left leg, s/p debridement, wet to dry dressing placed
[2025-07-30 16:16] LABS: Glucose - Point of Care 128 mg/dl (70-99)
[2025-07-30 17:09] LABS: Venous Blood Gas B.E. -6.8 mmol/L (-4 to +4); Venous Blood Gas O2 Sat % 95.9 %
--- NOTE | 2025-07-30 18:25 | PTCARENOTE ---
Pt received as upgrade from . Aox2, not place. Afib on tele monitor. Desatting on RA to low 80s. Placed on 2L NC with sats recovering to mid 90s. VSS. Bed alarm in place for safety.
[2025-07-30 18:33] LABS: Glucose - Point of Care 149 mg/dl (70-99)
[2025-07-30] MEDS: MELATONIN PO (21:04)
[2025-07-30] MEDS: LAMICTAL PO (21:04)
[2025-07-30] MEDS: LIPITOR PO (21:04)
--- NOTE | 2025-07-30 21:46 | PTCARENOTE ---
Pt unable to take PO medications d/t lethargy. Pt opens eyes, provides minimal verbal response, unable to remain awake. Afib with PVCs on CM. 97% on 1L O2. Hypotensive, but stable at this time, 98/62 (73). Bed alarm in place for pt safety. Care
ongoing
[2025-07-31] VITALS (28 sets, daily range): BP systolic 87–130; BP diastolic 51–89
[2025-07-31] MEDS: NOVOLOG FLEXPEN-LOW RESISTANCE SC ×4 (00:20→17:46)
[2025-07-31 00:31] LABS: Glucose - Point of Care 135 mg/dl (70-99)
[2025-07-31] MEDS: UNASYN IV ×2 (04:22→16:19)
[2025-07-31 05:51] LABS: Hematocrit 30.5 % (37.0-47.0); Hemoglobin 9.0 g/dL (12.0-16.0); Mean Corp Hgb Conc. 29.5 g/dL (33.0-37.0); Mean Corpuscular Volume 106.3 fL (81.0-99.0); Platelet Count 126 10^3/uL (130-400); Red Cell Dist. Width 17.4 % (11.5-14.5)
[2025-07-31] MEDS: SYNTHROID PO (06:01)
[2025-07-31 06:05] LABS: INR 2.11; PT 24.2 Sec (11.4-14.6)
[2025-07-31 06:09] LABS: Glucose - Point of Care 129 mg/dl (70-99)
[2025-07-31 07:22] LABS: Blood Urea Nitrogen 18 mg/dl (7-17); Calcium 8.8 mg/dl (8.4-10.2); Carbon Dioxide 19 mmol/L (22-30); Chloride 115 mmol/L (98-107); Estimated Creatinine Clearance 26 ml/min; Glucose 128 mg/dl (70-99); Potassium 3.8 mmol/L (3.5-5.1); Sodium 140 mmol/L (135-145); eGFR 25.19
--- NOTE | 2025-07-31 08:03 | W.PN.VS ---
Addendum entered and electronically signed by Chadd Rivera MD 07/31/25 09:48:
Seen and examined with [facility]. Yesterday's wound change pictures reviewed with them. Left calf dressings all clean dry and intact currently. Plan/we will change dressing later today and then can transition to wound care management. Wounds remain
clean now. Still not clear that these are fully healable wound/questionable viability of the limb still. Will sign off. Please call with questions.
Original Note:
Today's Communication / Plan
-
Seen and assessed with Dr. Rivera
Assessment/Plan
-
62-year-old female with chronic lower extremity wounds, POD#2 LLE wound debridement
Plan:
I will change her dressing later today and leave wound care instructions in the chart for daily wet-to-dry dressing changes
Can follow-up outpatient
Subjective Data
-
Date of Service: July 31, 2025
Patient seen at bedside this a.m. with Dr. Rivera. No events overnight. Dressing remains dry and intact.
Objective Data
-
Vital Signs
Temp Pulse Resp BP Pulse Ox
98.4 F 89 21 92/67 100
07/31/25 08:00 07/31/25 06:00 07/31/25 06:00 07/31/25 06:00 07/31/25 03:00
Intake and Output
07/30/25 07/31/25 08/01/25
06:59 06:59 06:59
Intake Total 640 / 640 20 / 20
Balance 640 / 640 20 / 20
Intake:
Oral fluids 240 / 240 20 / 20
IV fluids (Total) 100 / 100
NS 100 / 100
IV piggybacks 300 / 300
Other:
Number of approximated SMALL 1
amounts of urine
Number of approximated MODERATE 1 1
amounts of urine
How many times incontinent 1 1
MODERATE amount urine
How many times incontinent 2
SATURATED amount urine
Lab Results
07/31/25 05:35
07/31/25 06:32
Calcium 8.8 mg/dl (8.4-10.2) 07/31/25 06:32
Magnesium 2.2 mg/dl (1.6-2.3) 07/26/25 05:20
Total Bilirubin Cancelled 07/25/25 18:18
AST Cancelled 07/25/25 18:18
ALT Cancelled 07/25/25 18:18
Alkaline Phosphatase Cancelled 07/25/25 18:18
Total Protein Cancelled 07/25/25 18:18
Albumin Cancelled 07/25/25 18:18
Physical Exam
-
AAO x 3
No tachypnea on room air
No tachycardia
Abdomen soft
Left leg dressings intact and dry
--- NOTE | 2025-07-31 08:07 | PHA.VAN.FU ---
Vancomycin Assessment / Plan
- Assessment
Renal Function: Stable
WBC's are: Stable
In the past 24 hrs, patient has been: Afebrile
Concomitant Antimicrobials: ampicillin/sulbactam
- Assessment - Therapeutic Drug Monitoring
Random Level: 16.5 - drawn ~22.5H after previous level of 18
Calculated ke: 0.0039
Calculated half life (H): 178.5
- Dosing Plan
Dosing by Level: Hold off on dosing today
Dosing Comments: patient likely to maintain level for several days
- Monitoring Plan
Random Level: 08/01 0600
- Follow Up
Pharmacy will continue to follow.
Vancomycin Follow UP
- -
Patient Age: 70
Patient Sex: Female
Vancomycin Day #: 7
Indication: Skin And Soft Tissue
Requesting Provider: Dr Kinney
Pertinent Antimicrobial Allergies:
cefepime Allergy itchy face and chest May 2025 at OSH
ceftriaxone Allergy- itchy face and chest May 2025 at OSH
Patient has previously tolerated Amox/Clav (Aug 2024); Pip/tazo (Sep 2024); Cephalexin (outpatient prescription history February 2025)
Height / Weight:
Height 5 ft 8 in
Actual Weight 75.795 kg
Pertinent Past Medical History: chronic limb ischemia; BKA; CAD, DM, CKD IV
- Vital Signs / Lab Results
Temp Pulse Resp BP Pulse Ox
98.4 F 89 21 92/67 100
07/31/25 08:00 07/31/25 06:00 07/31/25 06:00 07/31/25 06:00 07/31/25 03:00
Lab Results - Hematology
07/29/25 07/30/25 07/31/25
08:03 07:10 05:35
WBC 4.8 4.6 L 4.5 L
Lab Results - Chemistry
07/29/25 07/29/2525
06:24 08:03 07:10
BUN Cancelled 18 H 16
Creatinine Cancelled 2.1 H 2.1 H
Estimated Creat Clear Cancelled 26 26
07/31/25 07/31/25
05:35 06:32
BUN Cancelled 18 H
Creatinine Cancelled 2.1 H
Estimated Creat Clear Cancelled 26
Microbiology Results
07/25/25 19:52 Blood Culture - Final
Blood/Venous No Growth - Final Report
07/29/25 14:43 Blood Culture - Preliminary
Blood/Venous No Growth in 24 hours- Final report to follow
07/25/25 19:52 Wound Culture - Final
Leg - Left Proteus mirabilis
Staph aureus MRSA
Gram Stain - Final
07/25/25 20:14 Blood Culture - Preliminary
Blood/Venous Micrococcus species
Gram Stain - Preliminary
Therapeutic Drug Monitoring
Random Vancomycin 16.5 ug/ml 07/31/25 05:35
--- NOTE | 2025-07-31 08:45 | W.PN.HOSP.TC ---
Today's Communication/Plan
-
maintain on abx
mentation improved
hold narc/sedative meds
Assessment / Plan
Assessment / Plan
LLE wounds - POA
- infected with drainage, surrounding redness
- Superficial wound culture growing Proteus
- wound care evaluation
- S/p debridement on 07/29. Vascular surgeon feels patient will eventually require amputation which was discussed although patient not amenable to plan.
- Superficial wound culture growing Proteus mirabilis/Staphylococcus aureus - abx adjusted to Unasyn.
Acute toxic metabolic encephalopathy - Improved
- Suspecting combination of medication/sedation versus possible bacteremia post debridement
- Continue Hold MS Contin/gabapentin/nighttime trazodone.
- VBG questionable for hypercapnic respiratory failure although no response to BiPAP therapy and remains identical
- Blood continues to remain soft, continue holding metoprolol
PAD s/p stent placement from SFA into bypass graft with balloon angioplasty 07/08
- US LE showing Left SFA to anterior tibial bypass graft is patent. Suggestion of mild distal anastomotic stenosis, velocity ratio 2.9
- vascular follow
Micrococcus bacteremia
- Positive blood culture growing micrococcus species
- repeat blood cs to prove clearance
- Maintain on vancomycin
Hx of A. Fib
Therapeutic INR
- Keep warfarin on hold for possible procedure
Type 2 DM
- continue Januvia
- SSI
Chronic hypotension
- continue midodrine per home regimen
Hypothyroidism
- continue levothyroxine
COPD - stable without exacerbation
- continue as needed
CKD - recent SREE with creatinine back to around baseline of 2.0
- avoid nephrotoxins
Chronic Anemia
DVT ppx: hold coumadin
Code: Full
Anticipated Discharge: > 48 hours
Subjective/Interval History
-
Date of Service: July 31, 2025
Patient more awake although remain withdrawn
At time comes off confused while talking
Afebrile overnight
Denies of any significant pain
Objective Data
-
Labs:
Laboratory Results
07/31/25 07/31/25
05:35 06:32
WBC 4.5 L
Hgb 9.0 L
Hct 30.5 L
Plt Count 126 L
PT 24.2 H
INR 2.11
Sodium Cancelled 140
Potassium Cancelled 3.8
Chloride Cancelled 115 H
Carbon Dioxide Cancelled 19 L
BUN Cancelled 18 H
Creatinine Cancelled 2.1 H
Glucose Cancelled 128 H
Calcium Cancelled 8.8
Vital Signs:
Vital Signs
Temp Pulse Resp BP Pulse Ox
98.4 F 89 21 92/67 100
07/31/25 08:00 07/31/25 06:00 07/31/25 06:00 07/31/25 06:00 07/31/25 03:00
I&O
07/30/25 07/31/25 08/01/25
06:59 06:59 06:59
Intake Total 640 / 640 20 / 20
Balance 640 / 640 20 / 20
Review of Systems
-
Respiratory: Reports No Symptoms
Cardiac: Reports No Symptoms
Abdomen/GI: Reports No Symptoms
Physical Exam
-
General: Comfortable
HEENT: Negative Oxygen
Respiratory: Clear to Auscultation
Cardiac: Regular Rhythm and S1/S2; Negative Murmur or Rub
Musculoskeletal: No Edema and Other (Left leg dressing in place, fresh blood )
Neuro: Awake, Alert, Oriented and No Motor Deficits
[2025-07-31] MEDS: COLACE PO (09:30)
[2025-07-31] MEDS: LOW STRENGTH ASPIRIN 81 MG PO (09:31)
[2025-07-31] MEDS: FOLVITE 1 MG PO (09:33)
[2025-07-31] MEDS: CLARITIN 10 MG PO (09:33)
[2025-07-31] MEDS: JANUVIA 25 MG PO (09:33)
[2025-07-31] MEDS: PROTONIX 40 MG PO (09:33)
[2025-07-31] MEDS: FLORASTOR 250 MG PO ×2 (09:34→19:33)
[2025-07-31] MEDS: FLOMAX 0.4 MG PO (09:34)
[2025-07-31] MEDS: DESENEX/MITRAZOL/ZEASORB 1 APPLIC TOPICAL ×2 (09:34→19:33)
[2025-07-31] MEDS: SANTYL OINTMENT TOPICAL (09:34)
[2025-07-31 12:45] LABS: Glucose - Point of Care 168 mg/dl (70-99)
--- NOTE | 2025-07-31 15:59 | CM ---
LLE wound, s/p debridement on 07/29, IV/AB. Discharge POC: Return to [facility] for resumption of LTC.
--- NOTE | 2025-07-31 17:30 | PTCARENOTE ---
Patient drowsy but arousable today. Confused, occasionally yells out. Able to tolerate PO meds whole 1 at a time with water, attempted to feed but patients confusion led her to refuse the meals that were sent (although requested by patient).. After
ordering a meal, once it arrived patient stated it is not what she ordered and proceeded to say she ordered [and would say what was in front of her.] VSS, BPs soft, afib with PVCs on monitor. Update given over phone to patients son with DIL. LLE
wound CDI and changed by surgery. Patient with no complaints. Bed alarm on. Will closely monitor.
[2025-07-31 17:53] LABS: Glucose - Point of Care 135 mg/dl (70-99)
[2025-07-31 21:11] LABS: Glucose - Point of Care 213 mg/dl (70-99)
[2025-07-31] MEDS: LAMICTAL 50 MG PO (21:46)
[2025-07-31] MEDS: MELATONIN 10 MG PO (21:46)
[2025-07-31] MEDS: LIPITOR 10 MG PO (21:46)
--- NOTE | 2025-07-31 23:24 | PTCARENOTE ---
Pt remains drowsy, but arousable. Pt able to tolerate PO medications without incident. Remains afib with PVCs on CM. 96% on RA at this time. LLE dressing remains CDI. Pt inc of liquid stool and urine. Hygiene care performed. Bed alarm in place for
pt safety. Care ongoing.
[2025-08-01] VITALS (19 sets, daily range): BP systolic 83–128; BP diastolic 51–79
[2025-08-01] MEDS: UNASYN IV ×2 (03:01→16:17)
[2025-08-01] MEDS: SYNTHROID 100 MCG PO (05:08)
[2025-08-01 06:15] LABS: Hematocrit 24.7 % (37.0-47.0); Hemoglobin 7.5 g/dL (12.0-16.0); Mean Corp Hgb Conc. 30.4 g/dL (33.0-37.0); Mean Corpuscular Volume 103.8 fL (81.0-99.0); Platelet Count 102 10^3/uL (130-400); Red Cell Dist. Width 17.3 % (11.5-14.5)
[2025-08-01 06:36] LABS: Blood Urea Nitrogen 17 mg/dl (7-17); Calcium 8.7 mg/dl (8.4-10.2); Carbon Dioxide 19 mmol/L (22-30); Chloride 115 mmol/L (98-107); Estimated Creatinine Clearance 29 ml/min; Glucose 115 mg/dl (70-99); Potassium 3.5 mmol/L (3.5-5.1); Sodium 140 mmol/L (135-145); eGFR 28.41
[2025-08-01 08:17] LABS: Glucose - Point of Care 136 mg/dl (70-99)
[2025-08-01] MEDS: FLORASTOR 250 MG PO ×2 (08:22→20:21)
[2025-08-01] MEDS: NOVOLOG FLEXPEN-LOW RESISTANCE SC (08:22)
[2025-08-01] MEDS: CLARITIN 10 MG PO (08:22)
[2025-08-01] MEDS: JANUVIA 25 MG PO (08:22)
[2025-08-01] MEDS: FOLVITE 1 MG PO (08:24)
[2025-08-01] MEDS: COLACE PO (08:24)
[2025-08-01] MEDS: LOW STRENGTH ASPIRIN 81 MG PO (08:24)
[2025-08-01] MEDS: PROTONIX 40 MG PO (08:24)
[2025-08-01] MEDS: DESENEX/MITRAZOL/ZEASORB 1 APPLIC TOPICAL ×2 (08:24→20:21)
[2025-08-01] MEDS: FLOMAX 0.4 MG PO (08:29)
[2025-08-01] MEDS: SANTYL OINTMENT TOPICAL (08:29)
--- NOTE | 2025-08-01 08:56 | PHA.VAN.FU ---
Vancomycin Assessment / Plan
- Assessment
Renal Function: SCR Decreasing (2.1-->1.9)
WBC's are: Stable
In the past 24 hrs, patient has been: Afebrile
Concomitant Antimicrobials: UNASYN
- Assessment - Therapeutic Drug Monitoring
Random Level: 12.7
Calculated ke: 0.0142
Calculated half life (H): 48.6
- Dosing Plan
Dosing by Level: Re-dose today (500MG)
- Monitoring Plan
Random Level: 9/7 IN AM
- Follow Up
Pharmacy will continue to follow.
Vancomycin Follow UP
- -
Patient Age: 70
Patient Sex: Female
Vancomycin Day #: 8
Indication: Skin And Soft Tissue
Requesting Provider: Dr Kinney
Pertinent Antimicrobial Allergies:
cefepime Allergy itchy face and chest May 2025 at OSH
ceftriaxone Allergy- itchy face and chest May 2025 at OSH
Patient has previously tolerated Amox/Clav (Aug 2024); Pip/tazo (Sep 2024); Cephalexin (outpatient prescription history February 2025)
Height / Weight:
Height 5 ft 8 in
Actual Weight 75.795 kg
Pertinent Past Medical History: chronic limb ischemia; BKA; CAD, DM, CKD IV
- Vital Signs / Lab Results
Temp Pulse Resp BP Pulse Ox
97.7 F 100 15 83/58 96
08/01/25 07:05 08/01/25 08:22 08/01/25 06:04 08/01/25 08:22 07/31/25 22:05
Lab Results - Hematology
07/30/25 07/31/25 08/01/25
07:10 05:35 06:04
WBC 4.6 L 4.5 L 3.1 L
Lab Results - Chemistry
07/29/25 07/30/25 07/31/25
08:03 07:10 05:35
BUN 18 H 16 Cancelled
Creatinine 2.1 H 2.1 H Cancelled
Estimated Creat Clear 26 26 Cancelled
07/31/25 08/01/25
06:32 06:04
BUN 18 H 17
Creatinine 2.1 H 1.9 H
Estimated Creat Clear 26 29
Microbiology Results
07/29/25 14:43 Blood Culture - Preliminary
Blood/Venous No Growth in 48 hours- Final report to follow
07/25/25 19:52 Blood Culture - Final
Blood/Venous No Growth - Final Report
07/25/25 19:52 Wound Culture - Final
Leg - Left Proteus mirabilis
Staph aureus MRSA
Gram Stain - Final
Therapeutic Drug Monitoring
Random Vancomycin 12.7 ug/ml 08/01/25 06:04
[2025-08-01] MEDS: VANCOCIN HCL 500 MG 100 IV (10:20)
[2025-08-01] MEDS: NOVOLOG FLEXPEN-LOW RESISTANCE 1 UNITS SC ×2 (13:06→18:18)
[2025-08-01 13:13] LABS: Glucose - Point of Care 165 mg/dl (70-99)
--- NOTE | 2025-08-01 15:18 | W.PN.HOSP.TC ---
Today's Communication/Plan
-
f/u hbg
d/c vanc
hold coumadin
check inr in am
downgrade to tele
Assessment / Plan
Assessment / Plan
LLE wounds - POA
- infected with drainage, surrounding redness
- Superficial wound culture growing Proteus
- wound care evaluation
- S/p debridement on 07/29. Vascular surgeon feels patient will eventually require amputation which was discussed although patient not amenable to plan.
- Superficial wound culture growing Proteus mirabilis/Staphylococcus aureus - abx adjusted to Unasyn.
Acute toxic metabolic encephalopathy - Improved
- Suspecting combination of medication/sedation versus possible bacteremia post debridement
- Continue Hold MS Contin/gabapentin/nighttime trazodone.
- VBG questionable for hypercapnic respiratory failure although no response to BiPAP therapy and remains identical
- Blood continues to remain soft, continue holding metoprolol
PAD s/p stent placement from SFA into bypass graft with balloon angioplasty 07/08
- US LE showing Left SFA to anterior tibial bypass graft is patent. Suggestion of mild distal anastomotic stenosis, velocity ratio 2.9
- vascular follow
Micrococcus bacteremia
- Positive blood culture growing micrococcus species
- repeat blood cs NTD
- D/matt vanomycin, on unasyn .
Acute blood loss anemia
- hbg down to 7.5, recheck in am
- hold warfarin one more day
Hx of A. Fib
Therapeutic INR
- have some blood loss anemia from surgical site bleeding
- f/u INR in am
Type 2 DM
- continue Januvia
- SSI
Chronic hypotension
- continue midodrine per home regimen
Hypothyroidism
- continue levothyroxine
COPD - stable without exacerbation
- continue as needed
CKD - recent SREE with creatinine back to around baseline of 2.0
- avoid nephrotoxins
Chronic Anemia
DVT ppx: hold coumadin
Code: Full
Anticipated Discharge: 24 - 48 hours
Subjective/Interval History
-
Date of Service: August 01, 2025
mentation better
affect remains flat
BP soft at times but remains asymptomatic
Objective Data
-
Labs:
Laboratory Results
08/01/25
06:04
WBC 3.1 L
Hgb 7.5 L
Hct 24.7 L
Plt Count 102 L
Sodium 140
Potassium 3.5
Chloride 115 H
Carbon Dioxide 19 L
BUN 17
Creatinine 1.9 H
Glucose 115 H
Calcium 8.7
Vital Signs:
Vital Signs
Temp Pulse Resp BP Pulse Ox
98.1 F 106 12 118/59 96
08/01/25 11:39 08/01/25 10:00 08/01/25 10:00 08/01/25 10:00 08/01/25 08:00
I&O
07/31/25 08/01/25 08/02/25
06:59 06:59 06:59
Intake Total 20 / 20
Balance 20 / 20
Review of Systems
-
Respiratory: Reports No Symptoms
Cardiac: Reports No Symptoms
Abdomen/GI: Reports No Symptoms
Physical Exam
-
General: Comfortable
HEENT: Negative Oxygen
Respiratory: Clear to Auscultation
Cardiac: Regular Rhythm and S1/S2; Negative Murmur or Rub
Musculoskeletal: No Edema and Other (Left leg dressing in place, fresh blood )
Neuro: Awake, Alert, Oriented and No Motor Deficits
--- NOTE | 2025-08-01 15:49 | PTCARENOTE ---
Patient much more alert today, laughing and AAOx3. Periods of confusion but easily redirectable. VSS, BPs occasionally soft. Afib with PVCs on monitor. RA 96%. Wound CDI. Appetite improved from yesterday. Patient with no complaints. Update given to
brother and REGGIE. Patient downgraded to tele. Continuing to monitor.
--- NOTE | 2025-08-01 17:48 | PTCARENOTE ---
pt arrived to [facility] from IMU approx 1730, pt alert and oriented, oriented to room, case monitor placed, VSS
[2025-08-01 18:17] LABS: Glucose - Point of Care 162 mg/dl (70-99)
[2025-08-01] MEDS: MELATONIN 10 MG PO (21:29)
[2025-08-01] MEDS: LAMICTAL 50 MG PO (21:29)
[2025-08-01] MEDS: LIPITOR 10 MG PO (21:29)
[2025-08-01 21:58] LABS: Glucose - Point of Care 163 mg/dl (70-99)
[2025-08-02] VITALS (11 sets, daily range): BP systolic 97–128; BP diastolic 51–69
[2025-08-02] MEDS: UNASYN IV ×2 (05:11→16:47)
[2025-08-02] MEDS: SYNTHROID 100 MCG PO (05:12)
[2025-08-02 06:31] LABS: Hematocrit 23.1 % (37.0-47.0); Hemoglobin 7.3 g/dL (12.0-16.0); Mean Corp Hgb Conc. 31.6 g/dL (33.0-37.0); Mean Corpuscular Volume 103.6 fL (81.0-99.0); Platelet Count 99 10^3/uL (130-400); Red Cell Dist. Width 17.2 % (11.5-14.5)
[2025-08-02 06:36] LABS: INR 1.98; PT 22.7 Sec (11.4-14.6)
[2025-08-02 06:49] LABS: Blood Urea Nitrogen 14 mg/dl (7-17); Calcium 8.7 mg/dl (8.4-10.2); Carbon Dioxide 19 mmol/L (22-30); Chloride 116 mmol/L (98-107); Estimated Creatinine Clearance 30 ml/min; Glucose 114 mg/dl (70-99); Potassium 3.3 mmol/L (3.5-5.1); Sodium 140 mmol/L (135-145); eGFR 30.31
[2025-08-02] MEDS: PROTONIX 40 MG PO (08:06)
[2025-08-02] MEDS: COLACE 100 MG PO (08:06)
[2025-08-02] MEDS: FLORASTOR 250 MG PO ×2 (08:06→22:42)
[2025-08-02] MEDS: CLARITIN 10 MG PO (08:06)
[2025-08-02] MEDS: LOW STRENGTH ASPIRIN 81 MG PO (08:06)
[2025-08-02] MEDS: FOLVITE 1 MG PO (08:06)
[2025-08-02] MEDS: JANUVIA 25 MG PO (08:07)
[2025-08-02] MEDS: DESENEX/MITRAZOL/ZEASORB 1 APPLIC TOPICAL ×2 (08:08→22:42)
[2025-08-02] MEDS: SANTYL OINTMENT TOPICAL (08:08)
[2025-08-02 08:35] LABS: Glucose - Point of Care 112 mg/dl (70-99)
[2025-08-02] MEDS: NOVOLOG FLEXPEN-LOW RESISTANCE SC ×3 (08:37→17:06)
[2025-08-02 12:05] LABS: Glucose - Point of Care 126 mg/dl (70-99)
--- NOTE | 2025-08-02 12:34 | W.PN.HOSP.TC ---
Today's Communication/Plan
-
1 u prbc
resuming Coumadin, INR 1.98 today
consider de-escalation of abx, on unasyn
Assessment / Plan
Assessment / Plan
LLE wounds - POA
- infected with drainage, surrounding redness
- Superficial wound culture growing Proteus
- wound care evaluation
- S/p debridement on 07/29. Vascular surgeon feels patient will eventually require amputation which was discussed although patient not amenable to plan.
- Superficial wound culture growing Proteus mirabilis/Staphylococcus aureus - abx adjusted to Unasyn.
Acute toxic metabolic encephalopathy - Improved
- Suspecting combination of medication/sedation versus possible bacteremia post debridement
- Continue Hold MS Contin/gabapentin/nighttime trazodone.
- VBG questionable for hypercapnic respiratory failure although no response to BiPAP therapy and remains identical
- Blood continues to remain soft, continue holding metoprolol
PAD s/p stent placement from SFA into bypass graft with balloon angioplasty 07/08
- US LE showing Left SFA to anterior tibial bypass graft is patent. Suggestion of mild distal anastomotic stenosis, velocity ratio 2.9
- vascular follow
Micrococcus bacteremia
- Positive blood culture growing micrococcus species
- repeat blood cs NTD
- D/matt vanomycin, on unasyn .
Acute blood loss anemia
from surgical blood loos likely
- hbg down to 7.3 today, consent taken, one unit PRBC ordered
Hx of A. Fib
Therapeutic INR
- have some blood loss anemia from surgical site bleeding
- f/u INR in am
Type 2 DM
- continue Januvia
- SSI
Chronic hypotension
- continue midodrine per home regimen
Hypothyroidism
- continue levothyroxine
COPD - stable without exacerbation
- continue as needed
CKD - recent SREE with creatinine back to around baseline of 2.0
- avoid nephrotoxins
Hypokalemia - replaced with 20meq k
Chronic Anemia
DVT ppx: hold coumadin
Code: Full
Anticipated Discharge: 24 - 48 hours
Subjective/Interval History
-
Date of Service: August 02, 2025
Feeling fatigued and tired
no new complains overnight
Objective Data
-
Labs:
Laboratory Results
08/02/25
05:55
WBC 2.9 L
Hgb 7.3 L
Hct 23.1 L
Plt Count 99 L
PT 22.7 H
INR 1.98
Sodium 140
Potassium 3.3 L
Chloride 116 H
Carbon Dioxide 19 L
BUN 14
Creatinine 1.8 H
Glucose 114 H
Calcium 8.7
Vital Signs:
Vital Signs
Temp Pulse Resp BP Pulse Ox
97.8 F 91 19 102/55 98
08/02/25 11:00 08/02/25 11:00 08/02/25 11:00 08/02/25 11:00 08/02/25 11:00
I&O
08/01/25 08/02/25 08/03/25
06:59 06:59 06:59
Intake Total 240 / 240
Balance 240 / 240
Review of Systems
-
Respiratory: Reports No Symptoms
Cardiac: Reports No Symptoms
Abdomen/GI: Reports No Symptoms
Physical Exam
-
General: Comfortable
HEENT: Negative Oxygen
Respiratory: Clear to Auscultation
Cardiac: Regular Rhythm and S1/S2; Negative Murmur or Rub
Musculoskeletal: No Edema and Other (Left leg dressing in place, fresh blood )
Neuro: Awake, Alert, Oriented and No Motor Deficits
[2025-08-02] MEDS: KLOR-CON 20 MEQ PO (13:22)
[2025-08-02] MEDS: COUMADIN 2 MG PO (16:48)
[2025-08-02 16:53] LABS: Glucose - Point of Care 118 mg/dl (70-99)
[2025-08-02 20:39] LABS: Glucose - Point of Care 149 mg/dl (70-99)
[2025-08-02] MEDS: LAMICTAL 50 MG PO (22:43)
[2025-08-02] MEDS: LIPITOR 10 MG PO (22:43)
[2025-08-02] MEDS: MELATONIN 10 MG PO (22:44)
[2025-08-03 03:00] VITALS: BP 120/60
[2025-08-03] MEDS: UNASYN IV ×2 (03:44→16:55)
[2025-08-03] MEDS: SYNTHROID 100 MCG PO (06:19)
[2025-08-03 06:34] LABS: INR 2.00; PT 22.8 Sec (11.4-14.6)
[2025-08-03 08:20] VITALS: BP 128/66
[2025-08-03] MEDS: PROTONIX 40 MG PO (08:30)
[2025-08-03] MEDS: COLACE 100 MG PO (08:30)
[2025-08-03] MEDS: CLARITIN 10 MG PO (08:30)
[2025-08-03] MEDS: JANUVIA 25 MG PO (08:31)
[2025-08-03] MEDS: FOLVITE 1 MG PO (08:31)
[2025-08-03] MEDS: FLORASTOR 250 MG PO ×2 (08:32→20:45)
[2025-08-03] MEDS: LOW STRENGTH ASPIRIN 81 MG PO (08:32)
[2025-08-03 08:36] LABS: Glucose - Point of Care 103 mg/dl (70-99)
[2025-08-03] MEDS: NOVOLOG FLEXPEN-LOW RESISTANCE SC ×3 (08:45→17:34)
[2025-08-03] MEDS: TYLENOL 650 MG PO (08:45)
[2025-08-03] MEDS: DESENEX/MITRAZOL/ZEASORB 1 APPLIC TOPICAL ×2 (10:09→20:44)
[2025-08-03] MEDS: KLOR-CON 20 MEQ PO (10:55)
[2025-08-03 11:00] VITALS: BP 119/68
[2025-08-03 11:26] LABS: Hematocrit 27.9 % (37.0-47.0); Hemoglobin 8.7 g/dL (12.0-16.0); Mean Corp Hgb Conc. 31.2 g/dL (33.0-37.0); Mean Corpuscular Volume 100.4 fL (81.0-99.0); Platelet Count 94 10^3/uL (130-400); Red Cell Dist. Width 18.3 % (11.5-14.5)
[2025-08-03 12:06] LABS: Blood Urea Nitrogen 12 mg/dl (7-17); Calcium 8.7 mg/dl (8.4-10.2); Carbon Dioxide 20 mmol/L (22-30); Chloride 118 mmol/L (98-107); Estimated Creatinine Clearance 32 ml/min; Glucose 98 mg/dl (70-99); Potassium 3.4 mmol/L (3.5-5.1); Sodium 140 mmol/L (135-145); eGFR 32.46
[2025-08-03 12:25] LABS: Glucose - Point of Care 97 mg/dl (70-99)
--- NOTE | 2025-08-03 14:02 | W.PN.HOSP.TC ---
Today's Communication/Plan
-
continue Unasyn
add Doxy
Assessment / Plan
Assessment / Plan
Assessment:
LLE wounds - POA
- infected with drainage, surrounding redness
- Superficial wound culture growing Proteus
- wound care evaluation
- S/p debridement on 07/29. Vascular surgeon feels patient will eventually require amputation which was discussed although patient not amenable to plan.
- Superficial wound culture growing Proteus mirabilis/MRSA.
- continue Unasyn day 04/08
- add Doxy with MRSA growth, day 12/09
Acute toxic metabolic encephalopathy - Improved
- Suspecting combination of medication/sedation versus possible bacteremia post debridement
- Continue Hold MS Contin/gabapentin/nighttime trazodone.
- VBG questionable for hypercapnic respiratory failure although no response to BiPAP therapy and remains identical
- Blood continues to remain soft, continue holding metoprolol
PAD s/p stent placement from SFA into bypass graft with balloon angioplasty 07/08
- US LE showing Left SFA to anterior tibial bypass graft is patent. Suggestion of mild distal anastomotic stenosis, velocity ratio 2.9
- vascular following
Micrococcus bacteremia
- Positive blood culture growing micrococcus species
- repeat blood culture NGTD
- continue Unasyn day 04/08
Acute blood loss anemia
from surgical blood loss likely
- Hb 8.7 after 1 unit PRBC
Hx of A. Fib
Therapeutic INR
- have some blood loss anemia from surgical site bleeding
- daily Coumadin, f/u AM INRs
Type 2 DM
- continue Januvia
- SSI
Chronic hypotension
- continue midodrine per home regimen
Hypothyroidism
- continue levothyroxine
COPD - stable without exacerbation
- continue as needed
CKD - recent SREE with creatinine back to around baseline of 2.0
- avoid nephrotoxins
Hypokalemia - replaced with 20meq k
Chronic Anemia
DVT ppx: Coumadin
Code: Full
Anticipated Discharge: > 48 hours
Subjective/Interval History
-
Date of Service: August 03, 2025
resting comfortably, no complaints at present
Objective Data
-
Labs:
Laboratory Results
08/03/25 08/03/25
05:39 11:09
WBC 3.5 L
Hgb 8.7 L
Hct 27.9 L
Plt Count 94 L
PT 22.8 H
INR 2.00
Sodium 140
Potassium 3.4 L
Chloride 118 H
Carbon Dioxide 20 L
BUN 12
Creatinine 1.7 H
Glucose 98
Calcium 8.7
Vital Signs:
Vital Signs
Temp Pulse Resp BP Pulse Ox
98.4 F 76 17 119/68 98
08/03/25 11:00 08/03/25 11:00 08/03/25 11:00 08/03/25 11:00 08/03/25 11:00
I&O
08/02/25 08/03/25 08/04/25
06:59 06:59 06:59
Intake Total 240 / 240 970 / 970 480 / 480
Balance 240 / 240 970 / 970 480 / 480
Physical Exam
-
General: No Apparent Distress
HEENT: Normocephalic and Atraumatic
Respiratory: Negative Wheezes
Cardiac: Regular Rhythm and S1/S2
GI: Soft and Nontender
Genito-urinary: No Costovertebral Tender
Skin: Other (Left leg dressing in place)
Neuro: AO x 3
Psych: Calm
Data Reviewed
-
Total Time Spent with Patient (in minutes): 42
Labs: Labs Reviewed by me
[2025-08-03 15:40] VITALS: BP 114/66
[2025-08-03 16:36] LABS: Glucose - Point of Care 97 mg/dl (70-99)
--- NOTE | 2025-08-03 16:52 | WOUNDNOTE ---
L MEDIAL LOWER LEG
--- NOTE | 2025-08-03 16:53 | WOUNDNOTE ---
L LATERAL LOWER LEG
--- NOTE | 2025-08-03 16:53 | WOUNDNOTE ---
HAIDER RN NOTE: Followed up today regarding L leg/foot. Reviewed vascular pictures taken post OR debridement last week. Compared to those pictures wounds appear unchanged. Recommend continue Vashe moistened gauze to dry dressing daily and prn drainage.
Dressing changed using Saline WTD dressing, called [facility] for more Vashe, nurse Juan Manuel aware and will place in patient's supplies. Sacrum intact, MASD in perineum and buttocks, gave patient air chair cushion to place under sacrum. Patient informed can
take air cushion upon discharge. Patient is on an Accumax bed, able to turn self in bed, encouraged turning. Will update wound care and follow as needed.
[2025-08-03] MEDS: SANTYL OINTMENT TOPICAL (16:54)
[2025-08-03] MEDS: COUMADIN 2 MG PO (17:04)
--- NOTE | 2025-08-03 17:08 | CM ---
Spoke with patient and Sister Amy.
PT said she like to return to ling term care at [facility].
IMM reviewed with patient and Sister signed it on chart.
Referral placed in care port for [facility] .
Plan : return to [facility] via ambulance
[2025-08-03 20:17] VITALS: BP 134/60
[2025-08-03] MEDS: VIBRAMYCIN 100 MG PO (20:45)
[2025-08-03 21:31] LABS: Glucose - Point of Care 100 mg/dl (70-99)
[2025-08-03] MEDS: LAMICTAL 50 MG PO (22:11)
[2025-08-03] MEDS: LIPITOR 10 MG PO (22:11)
[2025-08-03] MEDS: MELATONIN 10 MG PO (22:12)
[2025-08-04 00:01] VITALS: BP 129/72
[2025-08-04 03:17] VITALS: BP 142/75
[2025-08-04] MEDS: UNASYN IV ×2 (04:15→12:20)
[2025-08-04] MEDS: SYNTHROID 100 MCG PO (05:49)
[2025-08-04 05:58] LABS: INR 2.43; PT 26.5 Sec (11.4-14.6)
[2025-08-04 06:33] LABS: Hematocrit 26.7 % (37.0-47.0); Hemoglobin 8.4 g/dL (12.0-16.0); Mean Corp Hgb Conc. 31.5 g/dL (33.0-37.0); Mean Corpuscular Volume 101.1 fL (81.0-99.0); Platelet Count 95 10^3/uL (130-400); Red Cell Dist. Width 17.7 % (11.5-14.5)
[2025-08-04 07:37] LABS: Blood Urea Nitrogen 11 mg/dl (7-17); Calcium 8.6 mg/dl (8.4-10.2); Carbon Dioxide 18 mmol/L (22-30); Chloride 119 mmol/L (98-107); Estimated Creatinine Clearance 36 ml/min; Glucose 82 mg/dl (70-99); Potassium 3.6 mmol/L (3.5-5.1); Sodium 142 mmol/L (135-145); eGFR 37.72
[2025-08-04 07:50] LABS: Glucose - Point of Care 101 mg/dl (70-99)
[2025-08-04 08:10] VITALS: BP 130/67
[2025-08-04] MEDS: VIBRAMYCIN 100 MG PO (08:16)
[2025-08-04] MEDS: JANUVIA 25 MG PO (08:16)
[2025-08-04] MEDS: FOLVITE 1 MG PO (08:16)
[2025-08-04] MEDS: LOW STRENGTH ASPIRIN 81 MG PO (08:16)
[2025-08-04] MEDS: PROTONIX 40 MG PO (08:16)
[2025-08-04] MEDS: CLARITIN 10 MG PO (08:16)
[2025-08-04] MEDS: FLORASTOR 250 MG PO (08:18)
[2025-08-04] MEDS: COLACE 100 MG PO (08:19)
[2025-08-04] MEDS: DESENEX/MITRAZOL/ZEASORB 1 APPLIC TOPICAL (08:19)
[2025-08-04] MEDS: NOVOLOG FLEXPEN-LOW RESISTANCE SC ×2 (09:08→12:20)
--- NOTE | 2025-08-04 09:52 | CM ---
MD indicates pt for discharge.
referral placed to [facility]
Spoke with Sarah at [facility] pt accepted back.
Spoke with Dee and Adriel brother notified of dc They requested update from MD . TT with request.
Pt R BKA and Left wound care after debridement 07/29/25
Pt requested ambulance transport. Medical nec form completed.
[facility]
report [phone]
fax [phone]
Plan : return to [facility] via ambulance
--- NOTE | 2025-08-04 10:06 | PN.CDI ---
CDI
- -
CDI:
Physician Documentation Request
Admit Date: 07/25/25 21:17
Dear Doctor Haris,
Please review the following and provide your response in the progress notes.
Clinical Indicators:
Selected Entries
07/26/25
10:12
Pressure injury stage [Present on admission Buttock] Stage 2
Selected Entries
07/28/25
09:54
Pressure injury stage [Present on admission Buttock] Stage 2
[place] text, 08/04, Iram Sargent
#...it�s a combination of both.
#...stage 2 PI caused by moisture and pressure.
Physician documentation of the type and location of wounds is required for compliant documentation. Based on the above clinical findings and your assessment, please provide the following in your progress note:
Yes, Stage 2 pressure injury buttock, POA
No, stage 2 pressure injury buttock
Other (please specify)
1. Location of the ulcer/wound, including laterality.
2. Type (etiology) of ulcer/wound:
- Diabetic ulcer
- Arterial (ischemic) ulcer
- Traumatic wound
- Pressure (decubitus) ulcer
3. For a non-pressure ulcer, please indicate the depth/severity:
- Limited to the breakdown of skin
- With fat layer exposed
- With necrosis of muscle
4. If a pressure ulcer, please also include the stage* of the ulcer:
- Stage 1 - Skin intact, non-blanchable redness
- Stage 2 - Partial thickness loss of dermis, includes intact or open blister
- Stage 3 - Full thickness tissue not including bone, tendon or muscle
- Stage 4 - Full thickness tissue loss, including exposed bone, tendon or muscle
- Unstageable - Full thickness loss in which the base of the ulcer is covered by slough (yellow, betancourt, montoya, green or brown) and/or eschar (betancourt, brown or black) in the wound bed.
- Unable to determine
Use of terms such as suspected, likely, concern for, or probable (associated with a specific diagnosis that is being evaluated, monitored, or treated as if it exists) are acceptable and can be coded in the inpatient setting, when documented at the
time of discharge.
Thank you,
Prisca Potts RN BSN CCDS
CDI Specialist
Please contact via tiger text
Please use your independent medical judgment in providing your response.
*Source: National Pressure Ulcer Advisory Panel (NPUAP)
--- NOTE | 2025-08-04 10:52 | W.PN.HOSP.TC ---
Today's Communication/Plan
-
dc later today
Assessment / Plan
Assessment / Plan
Assessment:
LLE wounds - POA
- infected with drainage, surrounding redness
- Superficial wound culture growing Proteus
- wound care evaluation
- S/p debridement on 07/29. Vascular surgeon feels patient will eventually require amputation which was discussed although patient not amenable to plan.
- Superficial wound culture growing Proteus mirabilis/MRSA.
- continue Unasyn day 05/09 - switch to Augmentin today
- continue Doxy with MRSA growth, day 01/09
- high risk for readmission for infection of wounds, d/w family about high likelihood of amputation in future
Acute toxic metabolic encephalopathy - Improved
- Suspecting combination of medication/sedation versus possible bacteremia post debridement
- Continue Hold MS Contin/gabapentin/nighttime trazodone.
- VBG questionable for hypercapnic respiratory failure although no response to BiPAP therapy and remains identical
- resume metoprolol at discharge
PAD s/p stent placement from SFA into bypass graft with balloon angioplasty 07/08
- US LE showing Left SFA to anterior tibial bypass graft is patent. Suggestion of mild distal anastomotic stenosis, velocity ratio 2.9
- vascular following
Micrococcus bacteremia
- Positive blood culture growing micrococcus species
- repeat blood culture NGTD
- continue Unasyn day 05/09 - switch to Augmentin today
Acute blood loss anemia
from surgical blood loss likely
- Hb 8.4 after 1 unit PRBC
Hx of A. Fib
Therapeutic INR
- have some blood loss anemia from surgical site bleeding
- daily Coumadin, f/u AM INRs
Type 2 DM
- continue Januvia
- SSI
Chronic hypotension
- continue midodrine per home regimen
Hypothyroidism
- continue levothyroxine
COPD - stable without exacerbation
- continue as needed
CKD - recent SREE with creatinine back to around baseline of 2.0
- avoid nephrotoxins
Hypokalemia - replaced with 20meq k
Chronic Anemia
stage 2 PI caused by moisture and pressure
DVT ppx: Coumadin
Code: Full
Anticipated Discharge: Today
Subjective/Interval History
-
Date of Service: August 04, 2025
resting comfortably
Objective Data
-
Labs:
Laboratory Results
08/04/25 08/04/25
05:30 05:31
WBC 3.3 L
Hgb 8.4 L
Hct 26.7 L
Plt Count 95 L
PT 26.5 H
INR 2.43
Sodium 142
Potassium 3.6
Chloride 119 H
Carbon Dioxide 18 L
BUN 11
Creatinine 1.5 H
Glucose 82
Calcium 8.6
Vital Signs:
Vital Signs
Temp Pulse Resp BP Pulse Ox
98.1 F 72 16 130/67 96
08/04/25 08:10 08/04/25 08:10 08/04/25 08:10 08/04/25 08:10 08/04/25 08:10
I&O
08/03/25 08/04/25 08/05/25
06:59 06:59 06:59
Intake Total 970 / 970 1140 / 1140
Balance 970 / 970 1140 / 1140
Physical Exam
-
General: No Apparent Distress
HEENT: Normocephalic and Atraumatic
Respiratory: Negative Wheezes
Cardiac: Regular Rhythm and S1/S2
GI: Soft
Neuro: AO x 3
Psych: Calm
Data Reviewed
-
Total Time Spent with Patient (in minutes): 41
Labs: Labs Reviewed by me
[2025-08-04 11:05] VITALS: BP 131/71
[2025-08-04 11:14] VITALS: BP 131/71
[2025-08-04 11:33] LABS: Glucose - Point of Care 131 mg/dl (70-99)
--- NOTE | 2025-08-04 12:46 | W.DS.TRANS ---
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
-
Discharge Instructions:
Sleep Apnea Risk Low
Discharge Diagnosis/Procedures LLE wound in setting of PAD s/p debridement,
micrococcus bacteremia, anemia requiring 1 unit
blood
Diet Diabetic, Carb Controlled
Activity As tolerated
Other Services PT,OT
Instructions:
Stand-Alone Forms:
Changes to Home Medications: No
Discharge Medications:
DC Medications w/original date entered in [facility]
aspirin 81 mg chewable tablet 81 mg PO DAILY Blood Clot Prevention/Tx 09/02/24
atorvastatin 10 mg tablet 10 mg PO HS High Cholesterol 09/02/24
bisacodyl 10 mg rectal suppository 10 mg TN DAILYPRN PRN if mom ineffective 09/02/24
cholecalciferol (vitamin D3) 50 mcg (2,000 unit) tablet (Vitamin D3) 125 mcg PO HS Supplement 09/02/24
gabapentin 300 mg capsule 300 mg PO BID Neurological Condition 09/02/24
guaifenesin 100 mg/5 mL oral liquid 200 mg PO Q8HPRN PRN cough 09/02/24
ipratropium 0.5 mg-albuterol 3 mg (2.5 mg base)/3 mL nebulization soln 3 ml inhalation R Q4HPRN PRN WHEEZING 09/02/24
lamotrigine 25 mg tablet 50 mg PO HS Depression 09/02/24
levothyroxine 100 mcg tablet 100 mcg PO HS Thyroid 09/02/24
magnesium hydroxide 400 mg/5 mL oral suspension (Milk of Magnesia) 30 ml PO DAILYPRN PRN constipation 09/02/24
melatonin 5 mg tablet 10 mg PO HS Sleep 09/02/24
pantoprazole 40 mg tablet,delayed release 40 mg PO DAILY Gastrointestinal Issue 09/02/24
sodium phosphates 19 gram-7 gram/118 mL enema (Enema) 118 ml TN DAILYPRN PRN if no result aftr bisacodyl 09/02/24
tamsulosin 0.4 mg capsule 0.4 mg PO DAILY Urinary Issue 09/02/24
trazodone 100 mg tablet 25 mg PO HS Mental Health/Anxiety 09/02/24
loratadine 10 mg tablet 10 mg PO DAILY Allergies 04/07/25
midodrine 5 mg tablet 5 mg PO TID Blood Pressure 04/07/25
acetaminophen 500 mg tablet 1,000 mg PO TID Pain 07/08/25
diphenhydramine HCl 12.5 mg/5 mL oral elixir 25 mg PO Q6H PRN drug rash 07/08/25
docusate sodium 100 mg capsule (Colace) 100 mg PO DAILY Constipation 07/08/25
ondansetron 4 mg disintegrating tablet 4 mg PO Q8HPRN PRN nausea 07/08/25
sitagliptin phosphate 25 mg tablet (Januvia) 25 mg PO DAILY Diabetes 07/08/25
PT/INR #1 ea 07/14/25
warfarin 2 mg tablet 2 mg PO QPM #0 tabs 07/14/25
amoxicillin 875 mg-potassium clavulanate 125 mg tablet 1 tab PO Q12H #16 tabs 08/04/25
doxycycline hyclate 100 mg capsule 100 mg PO Q12 #24 caps 08/04/25
folic acid 1 mg tablet 1 mg PO DAILY #100 tabs 08/04/25
folic acid 400 mcg tablet 800 mcg PO DAILY ANEMIA 08/04/25
metoprolol succinate 25 mg tablet,extended release 24 hr 25 mg PO BID #60 tabs 08/04/25
Home Medication Changes
Pending Results: No
Total time spent discharging patient (in min): 41
[2025-08-04 15:39] VITALS: BP 133/65
== END 2025-08-04 17:34 | DRG 264 ==
LOC: 3 WEST ACU 21:17
PROVIDERS: Hospitalist; Physician Assistant; Surgery Vascular Surgery; ADMITTING PHYSICIAN Internal Medicine; ATTENDING PHYSICIAN Internal Medicine; EMERGENCY PHYSICIAN Emergency Medicine; FAMILY PHYSICIAN Internal Medicine; OTHER PHYSICIAN Nurse Practitioner Acute Care
PROC: 0JBR0ZZ Excision of Left Foot Subcutaneous Tissue and Fascia, Open Approach (ICD-10-PCS; 2025-07-30)
PROC: 0JBP0ZZ Excision of Left Lower Leg Subcutaneous Tissue and Fascia, Open Approach (ICD-10-PCS; 2025-07-30)
PROC: 5A09357 Assistance with Respiratory Ventilation, Less than 24 Consecutive Hours, Continuous Positive Airway Pressure (ICD-10-PCS; 2025-07-30)
PROC: 30233N1 Transfusion of Nonautologous Red Blood Cells into Peripheral Vein, Percutaneous Approach (ICD-10-PCS; 2025-08-02)
DX: E11.52 Type 2 diabetes mellitus with diabetic peripheral angiopathy with gangrene (principal); G92.8 Other toxic encephalopathy; D62 Acute posthemorrhagic anemia; R78.81 Bacteremia; N18.4 Chronic kidney disease, stage 4 (severe); D63.1 Anemia in chronic kidney disease; E11.42 Type 2 diabetes mellitus with diabetic polyneuropathy; E11.22 Type 2 diabetes mellitus with diabetic chronic kidney disease; Z89.511 Acquired absence of right leg below knee; I25.10 Atherosclerotic heart disease of native coronary artery without angina pectoris; I12.9 Hypertensive chronic kidney disease with stage 1 through stage 4 chronic kidney disease, or unspecified chronic kidney disease; R33.9 Retention of urine, unspecified; E66.9 Obesity, unspecified; I48.0 Paroxysmal atrial fibrillation; E03.9 Hypothyroidism, unspecified; F32.A Depression, unspecified; F41.9 Anxiety disorder, unspecified; J44.9 Chronic obstructive pulmonary disease, unspecified; D47.2 Monoclonal gammopathy; Z86.718 Personal history of other venous thrombosis and embolism; Z87.891 Personal history of nicotine dependence; E78.00 Pure hypercholesterolemia, unspecified; Z79.890 Hormone replacement therapy; K59.00 Constipation, unspecified; B96.4 Proteus (mirabilis) (morganii) as the cause of diseases classified elsewhere; I95.89 Other hypotension; E87.6 Hypokalemia; Z79.01 Long term (current) use of anticoagulants; Z79.899 Other long term (current) drug therapy; L89.622 Pressure ulcer of left heel, stage 2; L89.892 Pressure ulcer of other site, stage 2; Z79.82 Long term (current) use of aspirin
CPT/HCPCS: 11042; 11045; 70450; 80048; 80202; 82805; 82962; 83735; 85025; 85027; 85610; 86850; 86900; 86901; 86920; 86922; 87040; 87070; 87071; 87147; 87186; 87205; 93925; 94660; 96365; 96367; 99284; P9016

== ENCOUNTER 2025-08-29 16:36 | Emergency (ER) | payer MEDICARE, OTHER, SELFPAY ==
[2025-08-29 16:37] VITALS: BP 99/59; BMI 25.5
[2025-08-29 16:39] VITALS: BP 99/59
--- NOTE | 2025-08-29 16:57 | ED.GENMED ---
History of Present Illness
<Frank Moulton MD - Last Filed: 08/29/25 17:02>
General
Chief Complaint: Skin Problem
Time Seen by Provider: 08/29/25 16:44
<Bryce Gregg PA-C - Last Filed: 08/29/25 19:49>
History of Present Illness
History of Present Illness:
70-year-old female presents to the emergency department for evaluation of worsening wounds to left lower extremity. Patient was admitted to this hospital for infected wounds with bacteremia in early July, during that admission amputation was
discussed due to poor vascular status lower extremity however the patient refused at that time. Was recently restarted on antibiotics earlier this week after completing posthospital course. She denies any pain to the area. No fevers or chills.
Denies any melena
Review of Systems
<Bryce Gregg PA-C - Last Filed: 08/29/25 19:49>
Review of Systems
Allergies reviewed?: Yes
All Other Systems: ROS reviewed and negative except as documented in HPI and ROS
Phy Exam
<Bryce Gregg PA-C - Last Filed: 08/29/25 19:49>
Physical Exam
Physical Exam:
GEN: Well appearing, NAD, WDWN
HEENT: Oral mucosa moist, no scleral icterus
Cardiac: Regular rate
Lung: No respiratory distress, no tachypnea
MSK: No gross deformity or injuries
Skin: Good color, no pallor or jaundice, no rashes. Large full-thickness wound to the left medial calf, anterior bellamy, and plantar aspect of the left foot without elation tissue, exposed muscle bellies are noted; no erythema or discharge
Neuro: AO x3, moves all extremities freely
Psych: Calm, cooperative
Sepsis
<Frank Moulton MD - Last Filed: 08/29/25 17:02>
Sepsis Screen
Sepsis Screen: Possible Sepsis
Date: 08/29/25
Time: 16:57
<Bryce Gregg PA-C - Last Filed: 08/29/25 19:49>
Sepsis Screening
Sepsis Assessment: Sepsis Ruled Out
Sepsis Screen
Sepsis Screen: Sepsis Ruled Out
Date: 08/29/25
Time: 19:49
Course
<Frank Moulton MD - Last Filed: 08/29/25 17:02>
Orders/Labs/Results
Orders:
Orders
08/29/25 17:07
Type+Screen Urgent
Complete Blood Count/With Diff Urgent
Comprehensive Metabolic Panel Urgent
08/29/25 18:19
Prothrombin Time Urgent
Abnormal Lab Results
08/29/25 08/29/25
17:07 18:19
RBC 3.16 L 10^6/uL
(4.20-5.40)
Hgb 10.0 L g/dL
(12.0-16.0)
Hct 32.1 L %
(37.0-47.0)
MCV 101.6 H fL
(81.0-99.0)
MCH 31.6 H pg
(27.0-31.0)
MCHC 31.2 L g/dL
(33.0-37.0)
RDW 15.9 H %
(11.5-14.5)
Abs Immat Gran (auto) 0.1 H 10^3/uL
(0-0.05)
Absolute Lymphs (auto) 0.9 L 10^3/uL
(1.2-3.4)
Immature Gran % 1.2 H %
(0-0.5)
Lymphocytes % 15.4 L %
(20.5-51.1)
PT 44.3 H Sec
(11.4-14.6)
Potassium 3.2 L mmol/L
(3.5-5.1)
Chloride 111 H mmol/L
(98-107)
Carbon Dioxide 15 L mmol/L
(22-30)
BUN 24 H mg/dl
(7-17)
Creatinine 2.3 H mg/dL
(0.6-1.0)
Glucose 176 H mg/dl
(70-99)
Total Protein 6.0 L g/dl
(6.3-8.2)
Albumin 3.0 L g/dl
(3.5-5.0)
08/29/25 17:07
08/29/25 17:07
Vital Signs
Initial and Last Documented VS:
Initial Vital Signs
Temp Pulse Resp BP
97.4 F 66 20 99/59
08/29/25 16:37 08/29/25 16:37 08/29/25 16:37 08/29/25 16:37
Last Documented Vital Signs
Temp Pulse Resp BP
97.4 F 67 12 100/56
08/29/25 16:37 08/29/25 17:45 08/29/25 17:45 08/29/25 17:05
<Bryce Gregg PA-C - Last Filed: 08/29/25 19:49>
Orders/Labs/Results
Orders:
Orders
08/29/25 17:07
Type+Screen Urgent
Complete Blood Count/With Diff Urgent
Comprehensive Metabolic Panel Urgent
08/29/25 18:19
Prothrombin Time Urgent
Abnormal Lab Results
08/29/25 08/29/25
17:07 18:19
RBC 3.16 L 10^6/uL
(4.20-5.40)
Hgb 10.0 L g/dL
(12.0-16.0)
Hct 32.1 L %
(37.0-47.0)
MCV 101.6 H fL
(81.0-99.0)
MCH 31.6 H pg
(27.0-31.0)
MCHC 31.2 L g/dL
(33.0-37.0)
RDW 15.9 H %
(11.5-14.5)
Abs Immat Gran (auto) 0.1 H 10^3/uL
(0-0.05)
Absolute Lymphs (auto) 0.9 L 10^3/uL
(1.2-3.4)
Immature Gran % 1.2 H %
(0-0.5)
Lymphocytes % 15.4 L %
(20.5-51.1)
PT 44.3 H Sec
(11.4-14.6)
Potassium 3.2 L mmol/L
(3.5-5.1)
Chloride 111 H mmol/L
(98-107)
Carbon Dioxide 15 L mmol/L
(22-30)
BUN 24 H mg/dl
(7-17)
Creatinine 2.3 H mg/dL
(0.6-1.0)
Glucose 176 H mg/dl
(70-99)
Total Protein 6.0 L g/dl
(6.3-8.2)
Albumin 3.0 L g/dl
(3.5-5.0)
08/29/25 17:07
08/29/25 17:07
Vital Signs
Initial and Last Documented VS:
Initial Vital Signs
Temp Pulse Resp BP
97.4 F 66 20 99/59
08/29/25 16:37 08/29/25 16:37 08/29/25 16:37 08/29/25 16:37
Last Documented Vital Signs
Temp Pulse Resp BP
97.4 F 67 12 100/56
08/29/25 16:37 08/29/25 17:45 08/29/25 17:45 08/29/25 17:05
<Bryce Gregg PA-C - Last Filed: 08/29/25 19:49>
MDM/Problems Addressed
MDM/Problems Addressed:
I reviewed images of the wounds with vascular surgery on-call as well as attending physician Dr. Moulton. At this time the wounds look relatively clean with no evidence for active infection. Labs reassuring, relatively stable compared to baseline.
I do not see any indication for further antibiotics. Case was discussed with vascular surgery who agrees there is no indication for urgent admission however she will be set up for outpatient amputation per the vascular surgery office
<Frank Moulton MD - Last Filed: 08/29/25 17:02>
*Pulse Oximetry
Oxygen Mode of Delivery: Room air
<Bryce Gregg PA-C - Last Filed: 08/29/25 19:49>
*Pulse Oximetry
Patient hypoxic: no
*Critical Care Note
Total Time (30-74mins, 75-104mins- exclusive of procedures): Not Applicable
ED Attending Note
<Frank Moulton MD - Last Filed: 08/29/25 17:02>
ED Attending Note
Patient seen and examined by attending physician: Yes
I performed the substantive portion of visit, reviewed & personally made and approve the management plan that is documented in note by myself or GITA.: Yes
ED Attending Note:
Patient presents for evaluation of ongoing wound to the left lower extremity. The nurse saw the wounds today, sent pictures to her physician who recommended ED evaluation. Patient denies acute complaints denying acute fever chills unusual pain
distal numbness tingling or weakness. She is medically at her baseline. She was recently admitted with wound debridement from July 25 to August 04. She was seen by vascular surgery. Wounds at that time grew Proteus and MRSA. She was started
on antibiotics. She had debridement done. There was recommendation to have an amputation which patient refused at that time.
On exam patient is nontoxic. Chronically ill-appearing no distress. Warm and dry. No respiratory distress. Regular rate and rhythm.
Left lower extremity has large full-thickness chronic wounds. There is surrounding hyperpigmentation changes. No obvious cellulitis. Some debris within the wounds. No palpable distal pulses and there is an ulceration on the ball of the foot of
the left foot however there is reasonable capillary refill and the foot is warm.
Impression is chronic wounds nonhealing in nature. No obvious cellulitis at this time. Likely nonhealing from chronic vascular issues. Nothing to support an acute ischemic process. Will check labs discussed with vascular surgery.
-
Portions of this chart may have been created with voice recognition software.� Occasional wrong word or��sound alike� substitutions may have occurred due to the inherent limitations of voice recognition software.
Discharge Plan
Departure
Patient Disposition: Home (Routine Discharge)
Date of Disposition: 08/29/25
Time of Disposition: 18:18
Patient with high blood pressure during this ER visit?: No
Discharge Problem:
Peripheral vascular disease of lower extremity with ulceration
Instructions: Wound Care (DC)
Prescriptions:
No Action
ipratropium-albuterol 0.5 mg-3 mg(2.5 mg base)/3 mL Solution For Nebulization
3 ml INHALATION R Q4HPRN PRN (Reason: WHEEZING)
atorvastatin 10 mg Tablet
10 mg PO HS
guaifenesin 100 mg/5 mL Liquid
200 mg PO Q8HPRN PRN (Reason: cough)
lamotrigine 25 mg Tablet
50 mg PO HS
levothyroxine 100 mcg Tablet
100 mcg PO HS
magnesium hydroxide [Milk of Magnesia] 400 mg/5 mL Suspension
30 ml PO DAILYPRN PRN (Reason: constipation)
tamsulosin 0.4 mg Capsule
0.4 mg PO DAILY
trazodone 100 mg Tablet
25 mg PO HS
bisacodyl 10 mg Suppository
10 mg WV DAILYPRN PRN (Reason: if mom ineffective)
pantoprazole 40 mg Tablet,Delayed Release (Dr/Ec)
40 mg PO DAILY
Enema 19-7 gram/118 mL Enema
118 ml W[place] DAILYPRN PRN (Reason: if no result aftr bisacodyl)
gabapentin 300 mg Capsule
300 mg PO BID
aspirin 81 mg Tablet,Chewable
81 mg PO DAILY
melatonin 5 mg Tablet
10 mg PO HS
cholecalciferol (vitamin D3) [Vitamin D3] 50 mcg (2,000 unit) Tablet
125 mcg PO HS
midodrine 5 mg Tablet
5 mg PO TID
loratadine 10 mg Tablet
10 mg PO DAILY
acetaminophen 500 mg Tablet
1,000 mg PO TID
diphenhydramine HCl 12.5 mg/5 mL Elixir
25 mg PO Q6H PRN (Reason: drug rash)
docusate sodium [Colace] 100 mg Capsule
100 mg PO DAILY
ondansetron 4 mg Tablet,Disintegrating
4 mg PO Q8HPRN PRN (Reason: nausea)
Januvia 25 mg Tablet
25 mg PO DAILY
warfarin 2 mg Tablet
2 mg PO QPM Qty: 0 0RF
folic acid 400 mcg Tablet
800 mcg PO DAILY
amoxicillin-pot clavulanate 875-125 mg tablet
1 tab PO Q12H Qty: 16 0RF
doxycycline hyclate 100 mg Capsule
100 mg PO Q12 Qty: 24 0RF
folic acid 1 mg Tablet
1 mg PO DAILY Qty: 100 0RF
metoprolol succinate 25 mg Tablet Extended Release 24 Hr
25 mg PO BID Qty: 60 0RF
Referrals:
Uatsdin,Cedrick M., DO [Family Provider]
Chadd Rivera MD [Active, Vascular Surgery]
Activity Restrictions/Additional Instructions:
At this point the only option for treatment is a is an amputation.
Wounds do not look acutely infected at this time. Please continue local wound care measures and vascular surgery office will follow-up with you this week to schedule outpatient amputation
Interventions
Interventions:
*Risk Screen - Suicide Last Done: 08/29/25 17:57
*General Assessment Last Done: 08/29/25 16:41
*Neglect/Abuse Screening Last Done: 08/29/25 17:57
*ED- Fall Risk Assessment Last Done: 08/29/25 17:58
*ED COVID-19 Vaccine History Last Done: 08/29/25 17:57
*ED Influenza Vaccine History Last Done: 08/29/25 17:57
ED-Skin Assessment Last Done: 08/29/25 17:57
Discharge Date and Time
Print Language: LAO
[2025-08-29 17:05] VITALS: BP 100/56
[2025-08-29 17:18] LABS: Hematocrit 32.1 % (37.0-47.0); Hemoglobin 10.0 g/dL (12.0-16.0); Mean Corp Hgb Conc. 31.2 g/dL (33.0-37.0); Mean Corpuscular Volume 101.6 fL (81.0-99.0); Nucleated Red Blood Cells % 0 %; Platelet Count 162 10^3/uL (130-400); Red Cell Dist. Width 15.9 % (11.5-14.5)
[2025-08-29 17:32] LABS: ALT (SGPT) 12 U/L (0-35); AST (SGOT) 22 U/L (14-36); Albumin 3.0 g/dl (3.5-5.0); Alkaline Phosphatase 85 U/L (38-126); Blood Urea Nitrogen 24 mg/dl (7-17); Calcium 9.0 mg/dl (8.4-10.2); Carbon Dioxide 15 mmol/L (22-30); Chloride 111 mmol/L (98-107); Estimated Creatinine Clearance 23 ml/min; Glucose 176 mg/dl (70-99); Potassium 3.2 mmol/L (3.5-5.1); Sodium 135 mmol/L (135-145); Total Protein 6.0 g/dl (6.3-8.2); eGFR 22.59
[2025-08-29 18:55] LABS: INR 4.80; PT 44.3 Sec (11.4-14.6)
== END 2025-08-29 23:59 | disposition home or self-care (01) ==
LOC: EMR 16:36
PROVIDERS: Physician Assistant; EMERGENCY PHYSICIAN Emergency Medicine; FAMILY PHYSICIAN Internal Medicine
DX: I73.9 Peripheral vascular disease, unspecified (principal); L97.222 Non-pressure chronic ulcer of left calf with fat layer exposed; L97.522 Non-pressure chronic ulcer of other part of left foot with fat layer exposed; L81.9 Disorder of pigmentation, unspecified
CPT/HCPCS: 99283; 80053; 85025; 85610; 86850; 86900; 86901

== ENCOUNTER 2025-09-09 22:00 | Inpatient (IN) | payer MEDICARE, OTHER, SELFPAY ==
[2025-09-09] VITALS (11 sets, daily range): BP systolic 91–109; BP diastolic 58–74; BMI 25.6; BMI 24.7
[2025-09-09 18:10] LABS: Hematocrit 33.4 % (37.0-47.0); Hemoglobin 10.5 g/dL (12.0-16.0); Mean Corp Hgb Conc. 31.4 g/dL (33.0-37.0); Mean Corpuscular Volume 103.1 fL (81.0-99.0); Nucleated Red Blood Cells % 0 %; Platelet Count 157 10^3/uL (130-400); Red Cell Dist. Width 17.7 % (11.5-14.5)
[2025-09-09 18:33] LABS: ALT (SGPT) 14 U/L (0-35); AST (SGOT) 21 U/L (14-36); Albumin 2.8 g/dl (3.5-5.0); Alkaline Phosphatase 123 U/L (38-126); Blood Urea Nitrogen 23 mg/dl (7-17); Calcium 9.1 mg/dl (8.4-10.2); Carbon Dioxide 13 mmol/L (22-30); Chloride 112 mmol/L (98-107); Estimated Creatinine Clearance 25 ml/min; Glucose 167 mg/dl (70-99); Potassium 3.0 mmol/L (3.5-5.1); Sodium 135 mmol/L (135-145); Total Protein 6.1 g/dl (6.3-8.2); eGFR 25.19
[2025-09-09] MEDS: NSS 1000 IV ×2 (18:50→21:14)
[2025-09-09 19:09] LABS: COVID-19 Antigen Negative (Negative)
--- NOTE | 2025-09-09 20:00 | ED.GENMED ---
History of Present Illness
General
Chief Complaint: Blood Pressure Problem
Time Seen by Provider: 09/09/25 18:16
History of Present Illness
History of Present Illness:
70-year-old female with significant comorbidities including diabetes with right AKA, chronic left lower extremity wounds, history of CVA, hypertension, CKD, hyperlipidemia, anemia A-fib on Coumadin presenting to the emergency department for concern
of sepsis, blood pressure and low-grade temperature. Patient arrives from [facility] rehab. At the rehab, noted to have low blood pressures, tachycardia, sent to the ER due to prior history of sepsis. Patient on arrival without specific
complaints. Does note history of UTI in the past, however denies dysuria. Denies any abdominal pain. Denies cough, chest pain, difficulty breathing. Does note chronic wounds to the left lower extremity, is due to get an amputation on Sunday by
vascular. Denies additional acute medical complaints
Phy Exam
Physical Exam
Physical Exam:
General: no clinical signs of dehydration, nontoxic and in no acute distress
HEENT: protecting airway
Neck: appears supple
CV: Normal heart rate, regular rhythm
Resp: No accessory muscle use, no increased work of breathing, lungs clear to auscultation bilaterally
Abd: Soft and non-distended, no tenderness to palpation
Extremities: Right AKA. On examination of the left lower extremity, significant necrotic wound to the left plantar foot as well as the left medial calf. No significant erythema or drainage. Palpable pulses to the left lower extremity
Neuro: alert, no focal neurologic deficit
: deferred
Rectal: deferred
Psych: Normal affect
Skin: Intact
Sepsis
Sepsis Screening
Sepsis Assessment: Sepsis
Sepsis Screen
Sepsis Screen: Sepsis
Date: 09/09/25
Time: 20:21
Course
Orders/Labs/Results
Orders:
Orders
09/09/25 17:35
Electrocardiogram (*1) Urgent
Reason for Study: Other
Other Reason for Exam: Possible Sepsis
Cardiac Monitoring- Treatment ONCE
EKG- Treatment ONCE
IV Insert/Care/Rem.- Treatment PRN
O2 Therapy [RESP] Urgent
Titrate/Wean O2 to maintain O2 sat greater than (%): 93
Special Instructions: TO MAINTAIN CONTINUOUS O2 SATS > OR = 93%
Pulse Ox/cont/shift [RESP] Urgent
Quantity: 1
Special Instructions: CONTINUOUS
09/09/25 17:54
Complete Blood Count/With Diff Urgent
Comprehensive Metabolic Panel Urgent
Lactic Acid Q4H
Comment: ON ICE, CANCEL 2ND ORDER IF FIRST LACTIC ACID LEVEL <2
Blood Culture Q20M
MALA Source: Blood/Venous
Specimen Description:
Comment: Urgent from separate sites. If patient screens positive for possible sepsis
09/09/25 17:55
Blood Culture Q20M
MALA Source: Blood/Venous
Specimen Description:
Comment: Urgent from separate sites. If patient screens positive for possible sepsis
09/09/25 18:26
0.9% Sodium Chloride 1000 ml [Nss] 1,000 ml IV BOLUS
Foot, Left 3 View [CR Foot - Left Min 3 Views] Urgent
Comment:
Reason For Exam: wound, sepsis
Tib/Fib, Left 2 View [CR Leg Tibia/fibula Left 2 Vw] Urgent
Comment:
Reason For Exam: wound, sepsis
09/09/25 18:49
COVID-19 Antigen Urgent
Source: Nasal Swab
Influenza A+B Rapid Molecular Urgent
MALA Source: Nasal Swab
Specimen Description:
09/09/25 19:55
Potassium Chloride [KCl] 40 meq 0.9% Sodium Chloride 250 ml [Nss] 250 ml IV NOW
09/09/25 20:06
Urinalysis Reflex To Culture Urgent
Date Specimen was Collected: 09/09/25
Time Specimen was Collected: 20:01
Urine Microscopic Reflex Cult Urgent
Urine Culture Urgent
MALA Source: U
Specimen Description:
Date Specimen was Collected: 09/09/25
Time Specimen was Collected: 20:01
09/09/25 20:21
*Vancomycin 2,000 mg Loading Dose (consider for >/= 70 kg) Vancomycin [Vancocin] 2,000 mg 0.9% Sodium Chloride 500 ml [Nss] 500 ml IV NOW
Abnormal Lab Results
09/09/25 09/09/25
17:54 20:06
RBC 3.24 L 10^6/uL
(4.20-5.40)
Hgb 10.5 L g/dL
(12.0-16.0)
Hct 33.4 L %
(37.0-47.0)
MCV 103.1 H fL
(81.0-99.0)
MCH 32.4 H pg
(27.0-31.0)
MCHC 31.4 L g/dL
(33.0-37.0)
RDW 17.7 H %
(11.5-14.5)
Absolute Lymphs (auto) 0.9 L 10^3/uL
(1.2-3.4)
Immature Gran % 0.7 H %
(0-0.5)
Lymphocytes % 14.7 L %
(20.5-51.1)
Monocytes % 10.0 H %
(1.7-9.3)
Potassium 3.0 L mmol/L
(3.5-5.1)
Chloride 112 H mmol/L
(98-107)
Carbon Dioxide 13 L* mmol/L
(22-30)
BUN 23 H mg/dl
(7-17)
Creatinine 2.1 H mg/dL
(0.6-1.0)
Glucose 167 H mg/dl
(70-99)
Total Protein 6.1 L g/dl
(6.3-8.2)
Albumin 2.8 L g/dl
(3.5-5.0)
Ur Occult Blood Reflex 4+ A
(Negative)
Leukocyte Esterase Rfl 3+ A
(Negative)
Urine Albumin (Reflex) 3+ A
(Neg - Trace)
09/09/25 17:54
09/09/25 17:54
Vital Signs
Initial and Last Documented VS:
Initial Vital Signs
Temp Pulse Resp BP Pulse Ox
99.2 F 107 18 101/59 100
09/09/25 17:32 09/09/25 17:32 09/09/25 17:32 09/09/25 17:32 09/09/25 17:32
Last Documented Vital Signs
Temp Pulse Resp BP Pulse Ox
99.2 F 88 15 99/68 100
09/09/25 17:32 09/09/25 19:00 09/09/25 19:00 09/09/25 18:30 09/09/25 20:04
MDM/Problems Addressed
MDM/Problems Addressed:
70-year-old female with significant comorbidities including diabetes with right AKA, chronic left lower extremity wounds, history of CVA, hypertension, CKD, hyperlipidemia, anemia A-fib on Coumadin presenting to the emergency department for concern
of low blood pressure and tachycardia with fever.
Vital signs on arrival are significant for hypotension, tachycardia, low-grade fever. Vital signs concerning for sepsis. Suspected source is being urinary, notes history of UTI in the past, versus left lower extremity chronic wounds. Plan for
laboratory analysis, lactic acid, blood cultures, urinalysis, COVID and flu. Patient started on IV fluids.
20:20 - Urine without significant sign of infection. At this time we will treat with antibiotics with suspected source being chronic wounds. Plan for admission for continued hemodynamic monitoring due to hypotension, which is fluid responsive.
Will likely need vascular surgery consultation
*Pulse Oximetry
SaO2: 100
Oxygen Mode of Delivery: Room air
Patient hypoxic: no
*Critical Care Note
Total Time (30-74mins, 75-104mins- exclusive of procedures): Not Applicable
ED Attending Note
-
Portions of this chart may have been created with voice recognition software.� Occasional wrong word or��sound alike� substitutions may have occurred due to the inherent limitations of voice recognition software.
Discharge Plan
Departure
Prescriptions:
No Action
ipratropium-albuterol 0.5 mg-3 mg(2.5 mg base)/3 mL Solution For Nebulization
3 ml INHALATION R Q4HPRN PRN (Reason: WHEEZING)
atorvastatin 10 mg Tablet
10 mg PO HS
guaifenesin 100 mg/5 mL Liquid
200 mg PO Q8HPRN PRN (Reason: cough)
lamotrigine 25 mg Tablet
50 mg PO HS
levothyroxine 100 mcg Tablet
100 mcg PO HS
magnesium hydroxide [Milk of Magnesia] 400 mg/5 mL Suspension
30 ml PO DAILYPRN PRN (Reason: constipation)
tamsulosin 0.4 mg Capsule
0.4 mg PO DAILY
trazodone 100 mg Tablet
25 mg PO HS
bisacodyl 10 mg Suppository
10 mg SD DAILYPRN PRN (Reason: if mom ineffective)
pantoprazole 40 mg Tablet,Delayed Release (Dr/Ec)
40 mg PO DAILY
Enema 19-7 gram/118 mL Enema
118 ml SD DAILYPRN PRN (Reason: if no result aftr bisacodyl)
gabapentin 300 mg Capsule
300 mg PO BID
aspirin 81 mg Tablet,Chewable
81 mg PO DAILY
melatonin 5 mg Tablet
10 mg PO HS
cholecalciferol (vitamin D3) [Vitamin D3] 50 mcg (2,000 unit) Tablet
125 mcg PO HS
midodrine 5 mg Tablet
5 mg PO TID
loratadine 10 mg Tablet
10 mg PO DAILY
acetaminophen 500 mg Tablet
1,000 mg PO TID
diphenhydramine HCl 12.5 mg/5 mL Elixir
25 mg PO Q6H PRN (Reason: drug rash)
docusate sodium [Colace] 100 mg Capsule
100 mg PO DAILY
ondansetron 4 mg Tablet,Disintegrating
4 mg PO Q8HPRN PRN (Reason: nausea)
Januvia 25 mg Tablet
25 mg PO DAILY
warfarin 2 mg Tablet
2 mg PO QPM Qty: 0 0RF
folic acid 400 mcg Tablet
800 mcg PO DAILY
amoxicillin-pot clavulanate 875-125 mg tablet
1 tab PO Q12H Qty: 16 0RF
doxycycline hyclate 100 mg Capsule
100 mg PO Q12 Qty: 24 0RF
folic acid 1 mg Tablet
1 mg PO DAILY Qty: 100 0RF
metoprolol succinate 25 mg Tablet Extended Release 24 Hr
25 mg PO BID Qty: 60 0RF
Referrals:
Cedrick Pugh DO [Family Provider]
Interventions
Interventions:
*Risk Screen - Suicide Last Done: 09/09/25 17:46
*General Assessment Last Done: 09/09/25 17:43
*Neglect/Abuse Screening Last Done: 09/09/25 17:46
*ED- Fall Risk Assessment Last Done: 09/09/25 17:43
*ED COVID-19 Vaccine History Last Done: 09/09/25 17:43
*ED Influenza Vaccine History Last Done: 09/09/25 17:43
ED- Cardiac Assessment Last Done: 09/09/25 17:50
ED- Neurological Assessment Last Done: 09/09/25 17:50
ED- Pulmonary Assessment Last Done: 09/09/25 17:50
Discharge Date and Time
Print Language: TELUGU
[2025-09-09 20:12] LABS: Anisocytosis 1+; Normal RBC Morphology No
[2025-09-09 20:13] LABS: Urine Character Slightly Cloudy (Clear)
--- NOTE | 2025-09-09 20:32 | HPS.HSE ---
Family Physician
-
Family Physician: Cedrick Pugh,
Chief Complaint
-
low blood pressure
History of Present Illness
This is a 70-year-old female with past medical history significant for insulin-dependent diabetes, paroxysmal atrial fibrillation on anticoagulation, chronic hypotension, peripheral arterial disease status post who revascularization, right AKA,
chronic left lower extremity wounds, CVA, hyperlipidemia, anemia who presents to the emergency department from a rehab with low blood pressure and tachycardia.
Patient himself has no specific complaints on arrival. The wound in the lower extremity is reported to be poor healing and involving both the foot and the calf. She is supposed to have an amputation with vascular soon.
She stated [facility] felt that she was not doing well. Her blood pressure was 87/58 at the office. She was also tachycardic. The physician was concerned that she might be getting septic due to
the nonhealing wounds in her left lower extremity. Patient reported that her blood pressure was also low the previous day and she did receive artificial saline infusion subcutaneously but blood pressure did not improve. She has self denied feeling
fevers or chills. She reports decreased appetite and low p.o. intake for several days to weeks now. She denies any urinary symptoms. She denies any diarrhea. She is not having any significant pain in her lower extremities.
She was last admitted in late June and discharged in July with left lower extremity wound in the setting of peripheral arterial disease status post debridement with wound cultures grew polymicrobial including MRSA, Proteus and micrococcus.
She was treated with IV Unasyn and doxycycline and discharged on oral Augmentin and doxycycline to complete the course.
In the emergency department was 100/60, pulse rate of 100. She is satting 100% on room air. She has a low-grade temp of 99.2. ECG shows atrial fibrillation at a rate of 109.
CBC is unremarkable with a white count of 5.8, hemoglobin of 10.5 and a blood count of 57. Potassium 3.0, bicarb 13 with anion gap of 10. BUN and creatinine are 22 and 2.1 with a glucose of 167. Lactic acid was 2.0. UA showed 3+ leukocyte
esterase with the rest of the studies pending.
Foot Xray:Diffuse demineralization. No convincing acute fracture or dislocation. Soft tissue irregularity throughout the medial lower leg and along the plantar midfoot suggesting wounds/ulcerations. No overt radiographic evidence for active
osteomyelitis.
Medical History
Past Medical History
Past Medical History: Reports Other
Additional Past Medical History:
ASCVD / PAD
DM-II
CKD IV
Hypertension
Chronic Urinary Retention
Obesity
Anemia of CKD
Paroxysmal Atrial Fibrillation
Hypothyroidism
Anxiety / Depression
Peripheral Polyneuropathy
COPD
MGUS
History of DVT
History of CDiff
Past Surgical History: Reports Other
Additional Past Surgical History:
LLE Angioplasty - status post stent placement from SFA into bypass graft with
balloon angioplasty
LLE Bypass
RLE BKA
Social History
Tobacco: Former Smoker
Alcohol: None
Drug: None
Living: Detention
Family History
Family History: Not pertinent
Allergies / Home Medications
Allergies reflects when Allergies were last updated in [employer].
Home Medications with original date entered in [employer]
Allergy/Medication List:
Allergies
Allergy/AdvReac Type Severity Reaction Status Date / Time
cefepime Allergy Unknown itchy face Verified 09/09/25 17:41
and chest
May 2025
at OSH
ceftriaxone Allergy Unknown itchy face Verified 09/09/25 17:41
and chest
May 2025
at OSH
Home Medications
aspirin 81 mg chewable tablet 81 mg PO DAILY Blood Clot Prevention/Tx 09/02/24
atorvastatin 10 mg tablet 10 mg PO HS High Cholesterol 09/02/24
bisacodyl 10 mg rectal suppository 10 mg PA DAILYPRN PRN if mom ineffective 09/02/24
cholecalciferol (vitamin D3) 50 mcg (2,000 unit) tablet (Vitamin D3) 125 mcg PO HS Supplement 09/02/24
gabapentin 300 mg capsule 300 mg PO BID Neurological Condition 09/02/24
guaifenesin 100 mg/5 mL oral liquid 200 mg PO Q8HPRN PRN cough 09/02/24
ipratropium 0.5 mg-albuterol 3 mg (2.5 mg base)/3 mL nebulization soln 3 ml inhalation R Q4HPRN PRN WHEEZING 09/02/24
lamotrigine 25 mg tablet 50 mg PO HS Depression 09/02/24
levothyroxine 100 mcg tablet 100 mcg PO HS Thyroid 09/02/24
magnesium hydroxide 400 mg/5 mL oral suspension (Milk of Magnesia) 30 ml PO DAILYPRN PRN constipation 09/02/24
melatonin 5 mg tablet 10 mg PO HS Sleep 09/02/24
pantoprazole 40 mg tablet,delayed release 40 mg PO DAILY Gastrointestinal Issue 09/02/24
sodium phosphates 19 gram-7 gram/118 mL enema (Enema) 118 ml PA DAILYPRN PRN if no result aftr bisacodyl 09/02/24
tamsulosin 0.4 mg capsule 0.4 mg PO DAILY Urinary Issue 09/02/24
trazodone 100 mg tablet 25 mg PO HS Mental Health/Anxiety 09/02/24
loratadine 10 mg tablet 10 mg PO DAILY Allergies 04/07/25
midodrine 5 mg tablet 5 mg PO TID Blood Pressure 04/07/25
acetaminophen 500 mg tablet 1,000 mg PO TID Pain 07/08/25
diphenhydramine HCl 12.5 mg/5 mL oral elixir 25 mg PO Q6H PRN drug rash 07/08/25
docusate sodium 100 mg capsule (Colace) 100 mg PO DAILY Constipation 07/08/25
ondansetron 4 mg disintegrating tablet 4 mg PO Q8HPRN PRN nausea 07/08/25
sitagliptin phosphate 25 mg tablet (Januvia) 25 mg PO DAILY Diabetes 07/08/25
warfarin 2 mg tablet 2 mg PO QPM #0 tabs 07/14/25
amoxicillin 875 mg-potassium clavulanate 125 mg tablet 1 tab PO Q12H #16 tabs 08/04/25
doxycycline hyclate 100 mg capsule 100 mg PO Q12 #24 caps 08/04/25
folic acid 1 mg tablet 1 mg PO DAILY #100 tabs 08/04/25
folic acid 400 mcg tablet 800 mcg PO DAILY ANEMIA 08/04/25
metoprolol succinate 25 mg tablet,extended release 24 hr 25 mg PO BID #60 tabs 08/04/25
Review of Systems
-
History Source: Patient
A 12 point ROS was completed and negative except as noted: Yes
Constitutional: Denies Fever or Chills
Respiratory: Denies Cough or Trouble Breathing
Cardiac: Denies Chest Pain or Palpitations
Abdomen/GI: Denies Abdominal Pain, Nausea, Vomiting or Diarrhea
: Reports Thompson
Skin: Reports Other (LLE wound - chronic, )
Neurological: Denies Dizzy or Headache
Physical Exam
Vital Signs
Vital Signs
Temp Pulse Resp BP Pulse Ox
99.2 F 88 15 99/68 100
09/09/25 17:32 09/09/25 19:00 09/09/25 19:00 09/09/25 18:30 09/09/25 20:04
Physical Exam
General: No Apparent Distress and Other
HEENT: Moist mucous membranes and PERRLA
Respiratory: Other (decreased at bases - otherwise clear)
Cardiac: S1/S2 and Regular Rhythm
GI: Soft, Non Tender, Non Distended and Normal Bowel Sounds
Musculoskeletal: Other (R BKA. Left calf open wound with VU of subcutaneous tissue and muscle. There is mild drainage at the edges. There is chronic inflammatory changes surrounding the wound which is about 12 to 15 cm in length. )
Skin: Other (The left foot has more concerning wound for a chronic ulcer and possibly diabetic foot infection as well.)
Neuro: AO x 3
Hematologic/Lymphatic: Other (LLE dusky and pale appearing from knee to the toes. Pulses not appreciated.)
Psych: Calm
Laboratory Results
-
09/09/25 17:54
09/09/25 17:54
Laboratory Results
Lactic Acid Cancelled 09/09/25 21:45
Total Bilirubin 0.8 mg/dl (0.2-1.3) 09/09/25 17:54
AST 21 U/L (14-36) 09/09/25 17:54
ALT 14 U/L (0-35) 09/09/25:54
Alkaline Phosphatase 123 U/L (38-126) 09/09/25 17:54
Data Reviewed
-
Diagnostic Radiology: Report Reviewed by me
Medical Tests (Nuc Med, Echo, EKG etc): Image Personally Visualized and interpreted
Lab Data: Labs Reviewed by me
Old Records: Reviewed
Impression/Plan
-
IMPRESSION:
70-year-old with past medical history significant for insulin dependent diabetes, chronic hypotension, peripheral arterial disease status post right BKA and chronic wound in the left lower extremity thought to be secondary to vascular insufficiency
and is pending vascular evaluation on Sunday, recent admission for sepsis in the setting of wound infection that grew polymicrobial bacteria and treated with prolonged Unasyn doxycycline and eventually Augmentin doxycycline at home now presenting to
the emergency department with low blood pressure and concern for wound infection. Her temperature is 99.2. Blood pressure was maintained at 98/68. Heart rate in the low 100s 90s. She is in no acute distress at this time. UA is pending but she
does have 3+ leukocyte esterase otherwise negative nitrites
PLAN:
Left lower extremity wound infection -concern for local subcutaneous infection surrounding the wound versus diabetic foot ulcer affecting the left foot. Patient has chronic low blood pressure. Xray w/o evidence of osteo,.
- Admit to Tele
-Status post 2 L normal saline
-Status post vancomycin
-Blood cultures-sent
-urine culture sent
- esr/crp
-Will continue vancomycin and Unasyn for now
-ID consultation
-Podiatry consultation
-Consider vascular consultation in a.m.
- Wound care consultation
Hypotension -chronic hypotension, possible sepsis
-IV fluids given as above
-Continue midodrine 5 mg p.o. 3 times daily for now
Non-anion gap metabolic acidosis -anion gap 10, potassium 3.0. Creatinine 2.1. Diabetes. Suspect type IV RTA however not consistent with low potassium. At any rate no evidence of DKA. No diarrhea.
-Venous blood gas
-Stat fluids containing bicarb, will give half-normal saline plus bicarb
-Oral bicarb supplementation
-Oral potassium supplementation
- check magnesium level and supplement
CKD -creatinine 2.1, baseline creatinine has ranged anywhere from 1.5-2.3., Last creatinine was 10.3 at discharge
- Renal dose medication
- Avoid nephrotoxic
- Bicarb supplementation as above
Atrial fibrillation
- Treat infection as above, fluid resuscitation
- Midodrine
- Metoprolol with hold parameters
-Check INR
- Continue Coumadin
DM2�patient only on gliptin at this time
-Continue gliptin
-Low-dose sliding scale insulin
- a1c in am
Hypothyroid
- Continue Synthroid
COPD stable -
continue prn nebs
DVT prophylaxis�on Coumadin
CODE STATUS�full code
[2025-09-09 20:45] LABS: Urine White Cell >100 /HPF (0-5)
[2025-09-09 21:14] LABS: Venous Blood Gas B.E. -13.3 mmol/L (-4 to +4); Venous Blood Gas O2 Sat % 61.6 %
[2025-09-09] MEDS: VANCOCIN 540 MG IV (21:15)
[2025-09-09 21:25] LABS: INR 2.07; PT 23.8 Sec (11.4-14.6)
[2025-09-09 21:43] LABS: Magnesium 1.9 mg/dl (1.6-2.3)
[2025-09-09 22:00] LABS: C-Reactive Protein 49.50 mg/L (0.0-10.00)
[2025-09-09] MEDS: SODIUM BICARBONATE 1150 MEQ IV (23:52)
[2025-09-09] MEDS: KCL 270 MEQ IV (23:52)
[2025-09-09] MEDS: LIPITOR 10 MG PO (23:59)
[2025-09-10] MEDS: DESYREL 25 MG PO ×2 (00:11→22:00)
[2025-09-10 01:12] VITALS: BMI 24.7
[2025-09-10 03:35] VITALS: BP 103/58
[2025-09-10] MEDS: UNASYN IV ×2 (03:53→17:11)
--- NOTE | 2025-09-10 04:14 | PTCARENOTE ---
Patient arrived to [facility] from ED. Patient pulled over from stretcher to bed. Patient AAOx3. Patient oriented to room, bed in lowest position, call willams within reach. Will continue to monitor.
[2025-09-10] MEDS: SYNTHROID 100 MCG PO (06:08)
[2025-09-10 06:46] LABS: Hematocrit 25.2 % (37.0-47.0); Hemoglobin 8.3 g/dL (12.0-16.0); Mean Corp Hgb Conc. 32.9 g/dL (33.0-37.0); Mean Corpuscular Volume 102.9 fL (81.0-99.0); Platelet Count 125 10^3/uL (130-400); Red Cell Dist. Width 17.5 % (11.5-14.5)
[2025-09-10 06:53] LABS: Blood Urea Nitrogen 19 mg/dl (7-17); Calcium 7.9 mg/dl (8.4-10.2); Carbon Dioxide 16 mmol/L (22-30); Chloride 119 mmol/L (98-107); Estimated Creatinine Clearance 31 ml/min; Glucose 82 mg/dl (70-99); Potassium 3.2 mmol/L (3.5-5.1); Sodium 139 mmol/L (135-145); eGFR 32.46
[2025-09-10 08:11] VITALS: BP 95/55
[2025-09-10 08:22] LABS: Glucose - Point of Care 95 mg/dl (70-99)
[2025-09-10 08:59] LABS: Glycohemoglobin (HgbA1c) 4.7 % (4.0-5.6)
[2025-09-10] MEDS: NOVOLOG FLEXPEN-LOW RESISTANCE SC ×3 (09:37→16:56)
[2025-09-10] MEDS: LOW STRENGTH ASPIRIN 81 MG PO (09:43)
[2025-09-10] MEDS: SODIUM BICARBONATE 650 MG PO ×2 (09:43→21:58)
[2025-09-10] MEDS: FLOMAX 0.4 MG PO (09:43)
[2025-09-10] MEDS: NEURONTIN 300 MG PO ×2 (09:43→21:58)
[2025-09-10] MEDS: PROTONIX 40 MG PO (09:43)
[2025-09-10] MEDS: JANUVIA 25 MG PO (09:44)
--- NOTE | 2025-09-10 09:51 | PHA.VAN.IN ---
Assessment
- Assessment
Renal Function: Appears similar to baseline
Plan
- Plan
Initial / Loading Dose: 2000mg - 09/09 21:15
Maintenance Regimen: dosing by level
Monitoring: random 09/11 0600
Pharmacokinetics Vancomycin I
- -
Patient Age: 70
Patient Sex: Female
Vancomycin Day #: 1
Indication: Skin And Soft Tissue
Requesting Provider: Yessi Forman
Pertinent Antimicrobial Allergies:
cefepime and ceftriaxone - itchy face and chest May 2025 at OSH
Patient has previously tolerated Amox/Clav (Aug 2024); Pip/tazo (Sep 2024); Cephalexin (outpatient prescription history February 2025)
Height / Weight:
Height 5 ft 7 in
Actual Weight 71.412 kg
Pertinent Past Medical History: DM 2, PAD, R. AKA, CKD (1.5-2.3)
- Vital Signs / Lab Results
Temp Pulse Resp BP Pulse Ox
98.4 F 87 16 95/55 99
09/10/25 08:11 09/10/25 08:11 09/10/25 08:11 09/10/25 08:11 09/10/25 08:11
Lab Results - Hematology
09/09/25 09/10/25
17:54 05:49
WBC 5.8 4.9
Lab Results - Chemistry
09/09/25 09/10/25
17:54 05:49
BUN 23 H 19 H
Creatinine 2.1 H 1.7 H
Estimated Creat Clear 25 31
Albumin 2.8 L
09/09/25 09/09/25
17:54 21:45
Lactic Acid 2.0 Cancelled
Lab Results - Urine
09/09/25
20:06
Urine Nitrite (Reflex) Negative
Leukocyte Esterase Rfl 3+ A
Urine WBC (Reflex) >100 A
Ur Squamous Epith Cells
Urine Bacteria (Reflex) Many A
Microbiology Results
09/09/25 18:49 Influenza Types A & B (JAYCOB) - Final
Nasal Swab Negative for Influenza A & B, NAAT
Negative results must be combined with clinical observations
and patient history.
Nucleic Acid Amplification test (NAAT)performed on the
[employer] platform.
--- NOTE | 2025-09-10 10:08 | CON.ID ---
Addendum entered and electronically signed by Rajinder Miller DO 09/10/25 11:50:
I personally performed a history and physical exam of the patient and discussed management with the resident. I reviewed the resident's note and agree with the documented findings and plan of care HPI/CC. Wounds personally examined with Resident.
Continue empiric abx.
Await further eval by Vasc. Sx. for possible BKA. By exam and labs, LLE wounds with low healing potential.
Original Note:
Consultation
-
Date/Time Consultation Requested: 09/09/2025 22:22
Date/Time Consultation Performed: 09/10/2025 09:20
Requesting Provider: Cony Forman
Performing Provider: Dr. Rajinder Miller, Dr. Kingsley Rouse
Reason for Consultation: Left Lower Extremity Wound Infection
Chief Complaint / Past History
Chief Complaint
Left Lower Extremity Wound Possible Infection
History of Present Illness
70-year-old female with a significant past medical history of type 2 diabetes, paroxysmal A-fib on anticoagulation, chronic hypertension, right BKA, and chronic left lower extremity wounds presented to the ED her facility at [facility] rehab for
possible infection of her chronic left lower extremity wounds. On presentation, she did not have any specific complaints however when she was evaluated at her rehab facility yesterday, her wounds were noted to be nonhealing. She was tachycardic at
that time and hypotensive which did not improve with saline infusion. Patient denied any fever or chills but has had decreased appetite and lower food intake with several past few days due to some nausea.
Most recently she was admitted in late June and discharged in July for her left lower extremity wound debridement. At that time her wound cultures grew MRSA, Proteus and micrococcus. During that admission she was treated with IV Unasyn and
doxycycline and discharged on oral Augmentin and doxycycline which she completed the course of 7 days.
In the emergency department she was found to be a bit hyportensive 100/60, and had an increased pulse of 100. She did not have fever and had a normal leukocyte count of 5.8. She has a lactic acid of 2.0 and her urine studies showed 3+ leukocyte
esterase. Foot x-ray done at the time showed no acute fracture or dislocation and no overt radiographic evidence for active osteomyelitis. Blood cultures, urine cultures were obtained at this time and patient was started on Unasyn and Vancomycin
for possible wound infection.
Patient says that she had an appointment scheduled for Sunday next week with vascular surgery with Dr. Rivera regarding possible amputation of her left lower extremity.
Past History
Additional Past Medical History:
ASCVD / PAD
DM-II
CKD IV
Hypertension
Chronic Urinary Retention
Anemia of CKD
Paroxysmal Atrial Fibrillation
Hypothyroidism
Anxiety / Depression
Peripheral Polyneuropathy
COPD
MGUS
Additional Past Surgical History:
LLE Angioplasty - status post stent placement
LLE Bypass
RLE BKA
Allergy History:
cefepime Allergy (Verified 09/09/25 20:51)
itchy face and chest May 2025 at OSH
ceftriaxone Allergy (Verified 09/09/25 20:51)
itchy face and chest May 2025 at OSH
Medications Reviewed: Yes
Current Antibiotics:
Unasyn 3gm Q12
Vancomycin
Social History
Tobacco: Former Smoker (Stopped in )
Alcohol: None
Drug: None
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
Family History
Family History: Not Pertinent
Review of Systems
Review of Systems
General: Negative Fever or Chills
Cardiovascular: Negative Chest Pain
Respiratory: Negative Dyspnea or Cough
Gasteroenterology: Negative Nausea or Vomiting
Vital Signs
Temp Pulse Resp BP Pulse Ox
98.4 F 87 16 95/55 99
09/10/25 08:11 09/10/25 08:11 09/10/25 08:11 09/10/25 08:11 09/10/25 08:11
Physical Exam
Physical Exam
Constitutional: No Acute Distress, Chronically Ill and Non-toxic
Head: Normocephalic
Eyes: Sclera Anicteric
Cardiovascular: Regular Rate and S1/S2; Negative S3/S4
Pulmonary: Clear, Symmetric and Non Labored
Gastrointestinal: Soft, Non Tender, Non Distended and Normal Bowel Sounds
Musculoskeletal: Other (Right BKA, left calf open wound covered with dressing.)
Wound: Other (Multiple wounds on left lower extremity, covered with dressings at this time.)
Neurological: Awake, Alert, Oriented and AO x 3
Psychological: Calm
.
Lab / Diagnostic Study Results
09/10/25 05:49
09/10/25 05:49
Abs Immat Gran (auto) 0.0 10^3/uL (0-0.05) 09/09/25 17:54
Absolute Neuts (auto) 4.2 10^3/uL (1.4-6.5) 09/09/25 17:54
Absolute Lymphs (auto) 0.9 10^3/uL (1.2-3.4) L 09/09/25 17:54
Absolute Monos (auto) 0.6 10^3/uL (0.1-0.6) 09/09/25 17:54
Absolute Basos (auto) 0.0 10^3/uL (0-0.2) 09/09/25 17:54
Immature Gran % 0.7 % (0-0.5) H 09/09/25 17:54
Neutrophils % 72.2 % (42.2-75.2) 09/09/25 17:54
Lymphocytes % 14.7 % (20.5-51.1) L 09/09/25 17:54
Monocytes % 10.0 % (1.7-9.3) H 09/09/25 17:54
Eosinophils % 2.1 % (0-6) 10/15/25 17:54
Basophils % 0.3 % (0-2) 09/09/25 17:54
ESR 84 mm/hour (0-20) H 09/09/25 17:54
PT 23.8 Sec (11.4-14.6) H 09/09/25 21:09
INR 2.07 09/09/25 21:09
Lactic Acid Cancelled 09/09/25 21:45
C-Reactive Protein 49.50 mg/L (0.0-10.00) H 09/09/25 17:54
Ur Squamous Epith Cells /LPF (Few) 09/09/25 20:06
Microbiology Results
Micro:
09/09/25 20:06 Urine Culture - Pending
Urine
09/09/25 18:49 Influenza Types A & B (JAYCOB) - Final
Nasal Swab Negative for Influenza A & B, NAAT
Negative results must be combined with clinical observations
and patient history.
Nucleic Acid Amplification test (NAAT)performed on the
[employer] platform.
09/09/25 17:54 Blood Culture - Pending
Blood/Venous
09/09/25 17:55 Blood Culture - Pending
Blood/Venous
Imaging:
09/10/2025 CR Foot - Left (3 Views); CR Leg Tibia/fibula (Left 2 View): Diffuse demineralization. No convincing acute fracture or dislocation. Soft tissue irregularity throughout the medial lower leg and along the plantar midfoot suggesting
wounds/ulcerations. No overt radiographic evidence for active osteomyelitis. Scattered mild to moderate osteoarthritic changes of the interphalangeal and first metatarsophalangeal joints. Moderate calcaneal enthesopathy. Partially visualized
degenerative changes of the left knee. Extensive vascular calcifications.
Assessment / Plan
#Chronic Left Lower Extremity Wounds with possible infection
#Hypotension
#CKD
#Type 2 Diabetes with Neuropathy
#Right BKA
#A-Fib
#Hypothyroidism
Plan:
No Leukocytosis, fevers, or chills
On Empiric treatment with Unasyn and Vancomycin due to previous wound cultures
Follow Blood/Urine Cultures
Continue Wound Care
Follow Vascular Surgery/Podiatry recommendations for discussed BKA
[2025-09-10 10:13] VITALS: BMI 24.7
[2025-09-10 11:26] VITALS: BP 87/53
[2025-09-10 11:59] LABS: Glucose - Point of Care 80 mg/dl (70-99)
--- NOTE | 2025-09-10 12:21 | CON.VAS ---
Addendum entered and electronically signed by Chadd Rivera MD 09/10/25 12:39:
Seen and evaluated with ATUL Menjivar. Agree with findings as noted below. Patient known to me. Prior had debrided the left calf wounds and the left foot. Left foot area still nonhealing. Her exam demonstrates nicely granulating calf wound. However
her foot wound has some granulation tissue, but there is also area of gangrene. Not overt wet gangrene but not dry either. No surrounding erythema or crepitus. Plan/I discussed with her we could try to attempt repeat debridement of the foot. But
I did not think that this would be very successful. Her perfusion is very limited (has a patent anterior tibial artery bypass, but has very poor distal flow through the anterior tibial artery). I therefore discussed as she likely will eventually
need [id number] amputation performing that. She understood the entirety of our discussion she agrees to proceed. I do not think she is overtly septic at this time. Therefore is not emergent. I discussed with her performing it but I discussed
that her INR is still slightly elevated and she has received Coumadin. Therefore would favor if we can electively do this or semielective we do this to await more normalization of her INR/holding of Coumadin. Decreasing her bleeding risk. She
understands. I discussed with her that I am not in the OR tomorrow or early next week. Will be back in the OR Sunday next week. Discussed that I could ask one of our partners to perform the procedure. However she was adamant about me being
the one to do it. Therefore we will hold her Coumadin to reverse her fully and then we will await my availability to perform in the OR.
Original Note:
Consultation
Consultation Request
Date/Time Consultation Performed: 09/10/25 1200
Requesting Provider: Hospitalist
Performing Provider: Farrah Menjivar, ATUL-C for Chadd Rivera M.D.
Reason for Consultation: Continue nonhealing left lower extremity wounds
Medical History
-
Chief Complaint: Continued nonhealing left lower extremity wounds
History of Present Illness:
This is a 70 year-old female with past medical history significant for PAD status post right BKA, atrial fibrillation, kidney disease, lipidemia, diabetes, hypertension, obesity, anemia, hypothyroidism, COPD, MGUS, and DVT presents to [place] ED
from detention on 09/09/2025 with reports of hypotension and tachycardia in her nursing facility. Currently she offers no complaints and is resting comfortably in bed. She is known to our service as we have attempted limb salvage for her of her
left lower extremity she has had chronic wounds for quite some time, and advanced peripheral arterial disease. Please see vascular surgical history below, of note she has had prior vascular inventions done at outside hospitals, below listed
procedures are surgeries our vascular surgery team has performed. She reports that wounds on her left calf have remained stable, however the wound at the bottom of her foot has progressed. Denies nausea, vomiting, fever, and chills. We have been
following along with the patient in the outpatient setting, and have for some time now been recommending amputation. However, patient has not been agreeable, she does endorse that she is now agreeable to BKA versus AKA amputation.
Vascular surgical history:
09/03/2024- Duplex assisted right common femoral artery cannulation. Aortogram and pelvic angiogram. Left lower extremity arteriogram with third order vessel catheterization of left anterior tibial artery via right common femoral artery puncture.
Balloon angioplasty of distal anastomotic stenosis with 3 mm and 3.5 mm angioplasty balloon. Balloon angioplasty of proximal anastomotic stenosis with 5 mm x 4 cm Bard Lutonix drug-coated balloon. Right femoral angiogram. Supervision and
interpretation.- Chadd Rivera MD
07/07/2025- Ultrasound Guided Percutaneous Right Common Femoral Artery Access. Aortogram. Left Leg Angiogram. Selective Third Order Catheterization of Left Anterior Tibial Artery. Initiation of Lysis with 50cm infusion length Cragg-Nica Catheter
- Jenise Monsivais MD
07/08/2025- Left lower extremity arteriogram through existing sheath. Placement of self-expanding Zilver PTX 6 mm x 4 cm stent extending from SFA into bypass graft. Balloon angioplasty distal anastomotic stenosis with 3 mm angioplasty balloon. Right
femoral angiogram and Pro-glide percutaneous suture closure right femoral artery. Supervision and interpretation.
07/29/2025- Excisional sharp debridement left medial and anterior calf wounds, and plantar foot wound through skin/deep subcutaneous tissue.- Dr. Chadd Rivera MD
Past Medical History
Past Medical History: Other (A-fib, kidney disease, lipidemia, PAD, diabetes, hypertension, chronic urinary retention, obesity, anemia, hypothyroidism, anxiety/depression, peripheral polyneuropathy, COPD, MGUS, DVT)
Past Surgical History: Other (left lower extremity bypass, right lower extremity BKA (done at outside hospital))
Social History
Tobacco: Non-Smoker
Alcohol: None
Drug: None
Living: [facility]
Allergies / Home Medications
Allergy/AdvReac Type Severity Reaction Status Date / Time
cefepime Allergy itchy face Verified 09/09/25 20:51
and chest
May 2025
at OSH
ceftriaxone Allergy itchy face Verified 09/09/25 20:51
and chest
May 2025
at OSH
�Medication �Instructions �Recorded �Confirmed �Type
aspirin 81 mg chewable tablet 81 mg PO DAILY Blood Clot 09/02/24 09/09/25 History
Prevention/Tx
atorvastatin 10 mg tablet 10 mg PO HS High Cholesterol 09/02/24 09/09/25 History
bisacodyl 10 mg rectal suppository 10 mg NH DAILYPRN PRN if mom 09/02/24 09/09/25 History
ineffective
cholecalciferol (vitamin D3) 50 125 mcg PO DAILY Supplement 09/02/24 09/09/25 History
mcg (2,000 unit) tablet (Vitamin
D3)
gabapentin 300 mg capsule 300 mg PO BID Neurological 09/02/24 09/09/25 History
Condition
guaifenesin 100 mg/5 mL oral liquid 200 mg PO Q4HPRN PRN cough 09/02/24 09/09/25 History
lamotrigine 25 mg tablet 25 mg PO HS Depression 09/02/24 09/09/25 History
levothyroxine 100 mcg tablet 100 mcg PO DAILY Thyroid 09/02/24 09/09/25 History
magnesium hydroxide 400 mg/5 mL 30 ml PO DAILYPRN PRN constipation 09/02/24 09/09/25 History
oral suspension (Milk of Magnesia)
melatonin 5 mg tablet 10 mg PO HS Sleep 09/02/24 09/09/25 History
pantoprazole 40 mg tablet,delayed 40 mg PO DAILY Gastrointestinal 09/02/24 09/09/25 History
release Issue
sodium phosphates 19 gram-7 118 ml NH DAILYPRN PRN if no 09/02/24 09/09/25 History
gram/118 mL enema (Enema) result aftr bisacodyl
tamsulosin 0.4 mg capsule 0.4 mg PO DAILY Urinary Issue 09/02/24 09/09/25 History
trazodone 100 mg tablet 25 mg PO HS Mental Health/Anxiety 09/02/24 09/09/25 History
loratadine 10 mg tablet 10 mg PO QPM Allergies 04/07/25 09/09/25 History
midodrine 5 mg tablet 5 mg PO TID Blood Pressure 04/07/25 09/09/25 History
acetaminophen 500 mg tablet 1,000 mg PO TID Pain 07/08/25 09/09/25 History
diphenhydramine HCl 12.5 mg/5 mL 25 mg PO Q6H PRN drug rash 07/08/25 09/09/25 History
oral elixir
docusate sodium 100 mg capsule 100 mg PO DAILY Constipation 07/08/25 09/09/25 History
(Colace)
ondansetron 4 mg disintegrating 4 mg PO Q8HPRN PRN nausea 07/08/25 09/09/25 History
tablet
folic acid 400 mcg tablet 800 mcg PO DAILY ANEMIA 08/04/25 09/09/25 History
alogliptin 6.25 mg tablet 6.25 mg PO DAILY Antidiabetic 09/09/25 09/09/25 History
Agent,
collagenase clostridium histo. 250 1 applic topical BID Skin Issues 09/09/25 09/09/25 History
unit/gram topical ointment (Santyl)
metoprolol succinate 25 mg 25 mg PO QPM Blood Pressure 09/09/25 09/09/25 History
tablet,extended release 24 hr
multivitamin 1 tab PO DAILY Supplement 09/09/25 09/09/25 History
silver sulfadiazine 1 % topical 1 applic topical BID Skin Issues 09/09/25 09/09/25 History
cream (Silvadene)
sodium bicarbonate 650 mg tablet 650 mg PO BID ALKALINIZER 09/09/25 09/09/25 History
warfarin 3 mg tablet 3 mg PO QPM Blood Clot 09/09/25 09/09/25 History
Prevention/Tx
Review of Systems
-
History Source: Patient
Constitutional: Reports No Symptoms
EENT: Reports No Symptoms
Respiratory: Reports No Symptoms
Cardiac: Reports No Symptoms
Abdomen/GI: Reports No Symptoms
: Reports No Symptoms
Musculoskeletal: Reports No Symptoms
Skin: Reports Other (Various chronic left lower extremity wounds)
Neurological: Reports No Symptoms
Endocrine: Reports No Symptoms
Physical Exam
Vital Signs
Temp Pulse Resp BP Pulse Ox
98.2 F 86 16 87/53 100
09/10/25 11:26 09/10/25 11:26 09/10/25 11:26 09/10/25 11:26 09/10/25 11:26
Lab Results
09/10/25 05:49
09/10/25 05:49
Physical Exam
General: No Apparent Distress
HEENT: Normocephalic, Anicteric and Atraumatic
Respiratory: Non Labored Respirations
Cardiac: Negative JVD
GI: Soft, Non Tender and Non Distended
Musculoskeletal: No Edema
Skin: Other (Wounds present over left lower extremity calf, and at plantar of foot, dry gangrene, please see wound care notes for pictures and full description, nonpalpable distal pulses at left foot)
Neuro: Awake and Alert
Assessment / Plan
-
Assessment: 70-year-old female with extensive chronic wounds of left lower extremity and peripheral arterial disease
Plan:
Patient is now agreeable to amputation that has been recommended for some time, given extent of wounds on will require AKA. However, patient is on Coumadin and INR is elevated today. Would hold Coumadin, defer to primary team if heparin bridge is
required, and when INR is reasonable can then proceed with amputation.
Patient seen and examined at bedside with Dr. Chadd Rivera M.D., above plan reviewed with attending.
[2025-09-10] MEDS: SODIUM BICARBONATE 1150 MEQ IV (13:11)
--- NOTE | 2025-09-10 13:13 | WOUNDNOTE ---
[facility] RN NOTE: Reviewed chart and met with patient. All care provided with RN, Jackie. Pictures of left lower legs and left plantar wounds sent to Dr. Hunter and AARON No. Medial and anterior leg wound appear clean, with without odor.
Plantar foot wound is necrotic appearing and .3 cm deep. Please see worklist for measurements and details. Right stump with scabbed area. Patient reports that wound on right stump occurred in NH. No drainage or erythema noted. Sacrum and left heel
intact. Wounds cleaned and packed with saline. Will recommend Vashe for cleaning and packing. Will recommend air overlay (patient reports having air mattress at facility).
0
--- NOTE | 2025-09-10 13:20 | WOUNDNOTE ---
[facility] RN NOTE: Reviewed chart and met with patient. All care provided with RN, Jackie. Pictures of left lower legs and left plantar wounds sent to Dr. Hunetr and AARON No. Medial and anterior leg wound appear clean, with without odor.
Plantar foot wound is necrotic appearing and .3 cm deep. Please see worklist for measurements and details. Right stump with scabbed area. Patient reports that wound on right stump occurred in NH. No drainage or erythema noted. Sacrum and left heel
intact. Wounds cleaned and packed with saline. Will recommend Vashe for cleaning and packing. Will recommend air overlay (patient reports having air mattress at facility). Will update care plan and follow as needed.
--- NOTE | 2025-09-10 13:21 | WOUNDNOTE ---
RIGHT STUMP SCABBED WOUND
--- NOTE | 2025-09-10 13:23 | WOUNDNOTE ---
RIGHT SCABBED STUMP
--- NOTE | 2025-09-10 13:23 | WOUNDNOTE ---
LEFT PLANTAR WOUND
--- NOTE | 2025-09-10 13:23 | WOUNDNOTE ---
LEFT PLANTAR WOUND
--- NOTE | 2025-09-10 13:24 | WOUNDNOTE ---
LEFT ANTERIOR LEG
--- NOTE | 2025-09-10 13:24 | WOUNDNOTE ---
LEFT MEDIAL LEG WOUND
--- NOTE | 2025-09-10 13:57 | W.PN.HOSP.TC ---
Today's Communication/Plan
-
Antibiotics
Observe off IV fluids
Midodrine
Oral bicarb
Hold Coumadin in anticipation for a left AKA early next week
Assessment / Plan
Assessment / Plan
Impression
70-year-old with past medical history significant for insulin dependent diabetes, chronic hypotension, peripheral arterial disease status post right BKA and chronic wound in the left lower extremity thought to be secondary to vascular insufficiency
and is pending vascular evaluation on Sunday, recent admission for sepsis in the setting of wound infection that grew polymicrobial bacteria and treated with prolonged Unasyn doxycycline and eventually Augmentin doxycycline at home now presenting to
the emergency department with low blood pressure and concern for wound infection. Her temperature is 99.2. Blood pressure was maintained at 98/68. Heart rate in the low 100s 90s. She is in no acute distress at this time. UA is pending but she
does have 3+ leukocyte esterase otherwise negative nitrites
Chronic left lower extremity leg and foot infected wound secondary to PAD.
Normal gap metabolic acidosis
Conditions prior to admission
Chronic hypotension requiring midodrine.
PAD.
� Status post left lower extremity stent placement from SFA to bypass graft with balloon angioplasty on 07/08/2025
� Status post right AKA
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
CKD stage IIIb with baseline creatinine around 2
Chronic anemia with macrocytosis
Chronic atrial fibrillation
Anticoagulation with Coumadin
Diabetes type 2
Hypothyroidism on replacement
COPD without exacerbation
History of TME related to medications and infection
Plan
Chronic nonhealing wounds infection left calf and foot pedal site wound.
Patient presents to be afebrile and nontoxic-appearing.
Chronic hypotension responded to IV fluids while remaining on midodrine.
Discussed with vascular surgery.
At this point no option for revascularization with plan for AKA
Maintain empiric antibiotics including vancomycin and Unasyn (prior cultures reviewed)
Wound care daily.
Hold Coumadin anticipating surgical intervention early next week.
Continue Lipitor
CKD stage IIIb.
Creatinine at the baseline
Non-anion gap metabolic acidosis, acute on chronic.
Improving with IV fluids.
Continue oral bicarb.
Follow BMP.
Avoid hypotension
Monitor for recurrent retention while off Flomax
Chronic anemia with macrocytosis.
Hemoglobin close to baseline at 8�9
Monitor closely
May require transfusion perioperatively
Update iron/B12 stores, chest
Chronic atrial fibrillation
Continue metoprolol
Hold Coumadin in anticipation for AKA
Continue aspirin
Type 2 diabetes
Update hemoglobin A1c.
Carbohydrate controlled diet.
Hold Januvia.
Basal bolus protocol
Hypothyroidism on replacement
Full code
DVT prophylaxis initially on Coumadin. Start Lovenox once INR drifting down below 2
Anticipated Discharge: > 48 hours
Subjective/Interval History
-
Date of Service: September 10, 2025
Objective Data
-
Labs:
Laboratory Results
09/10/25
05:49
WBC 4.9
Hgb 8.3 L D
Hct 25.2 L
Plt Count 125 L D
Sodium 139
Potassium 3.2 L
Chloride 119 H
Carbon Dioxide 16 L
BUN 19 H
Creatinine 1.7 H
Glucose 82
Calcium 7.9 L
Vital Signs:
Vital Signs
Temp Pulse Resp BP Pulse Ox
98.2 F 86 16 87/53 100
09/10/25 11:26 09/10/25 11:26 09/10/25 11:26 09/10/25 11:26 09/10/25 11:26
I&O
09/09/25 09/10/25 09/11/25
06:59 06:59 06:59
Intake Total 120 / 120
Balance 120 / 120
Physical Exam
-
General: Well Developed and No Apparent Distress
HEENT: Normocephalic, Atraumatic and Moist Mucous Membranes
Respiratory: Clear to Auscultation
Cardiac: Regular Rhythm and S1/S2; Negative Murmur, Rub or Gallop
GI: Soft, Nontender, Nondistended and Normal Bowel Sounds; Negative Organomegaly
Rectal: Deferred by Provider
Musculoskeletal: No Clubbing, No Cyanosis and No Edema
Skin: Negative Rash
Neuro: Nonfocal/Grossly Intact
--- NOTE | 2025-09-10 14:04 | CON.SURG ---
Surgical Consultation
-
Medical History
-
Chief Complaint: Continued nonhealing left lower extremity wounds
History of Present Illness:
This is a 70 year-old female with past medical history significant for PAD status post right BKA, atrial fibrillation, kidney disease, lipidemia, diabetes, hypertension, obesity, anemia, hypothyroidism, COPD, MGUS, and DVT presents to [place] ED
from longterm on 09/09/2025 with reports of hypotension and tachycardia in her nursing facility. Currently she offers no complaints and is resting comfortably in bed. She is well known to vascular surgery, has her a right leg amputation and
several left leg wound debridements. She reports that wounds on her left calf have remained stable, however the wound at the bottom of her foot has progressed. Denies nausea, vomiting, fever, and chills. We have been following along with the
patient in the outpatient setting, and have for some time now been recommending amputation.
Past Medical History
Past Medical History: Other (A-fib, kidney disease, lipidemia, PAD, diabetes, hypertension, chronic urinary retention, obesity, anemia, hypothyroidism, anxiety/depression, peripheral polyneuropathy, COPD, MGUS, DVT)
Past Surgical History: Other (left lower extremity bypass, right lower extremity BKA (done at outside hospital))
Social History
Tobacco: Non-Smoker
Alcohol: None
Drug: None
Living: Longterm
Allergies / Home Medications
Allergy/AdvReac Type Severity Reaction Status Date / Time
cefepime Allergy itchy face Verified 09/09/25 20:51
and chest
May 2025
at OSH
ceftriaxone Allergy itchy face Verified 09/09/25 20:51
and chest
May 2025
at OSH
�Medication �Instructions �Recorded �Confirmed �Type
aspirin 81 mg chewable tablet 81 mg PO DAILY Blood Clot 09/02/24 09/09/25 History
Prevention/Tx
atorvastatin 10 mg tablet 10 mg PO HS High Cholesterol 09/02/24 09/09/25 History
bisacodyl 10 mg rectal suppository 10 mg NH DAILYPRN PRN if mom 09/02/24 09/09/25 History
ineffective
cholecalciferol (vitamin D3) 50 125 mcg PO DAILY Supplement 09/02/24 09/09/25 History
mcg (2,000 unit) tablet (Vitamin
D3)
gabapentin 300 mg capsule 300 mg PO BID Neurological 09/02/24 09/09/25 History
Condition
guaifenesin 100 mg/5 mL oral liquid 200 mg PO Q4HPRN PRN cough 09/02/24 09/09/25 History
lamotrigine 25 mg tablet 25 mg PO HS Depression 09/02/24 09/09/25 History
levothyroxine 100 mcg tablet 100 mcg PO DAILY Thyroid 09/02/24 09/09/25 History
magnesium hydroxide 400 mg/5 mL 30 ml PO DAILYPRN PRN constipation 09/02/24 09/09/25 History
oral suspension (Milk of Magnesia)
melatonin 5 mg tablet 10 mg PO HS Sleep 09/02/24 09/09/25 History
pantoprazole 40 mg tablet,delayed 40 mg PO DAILY Gastrointestinal 09/02/24 09/09/25 History
release Issue
sodium phosphates 19 gram-7 118 ml NH DAILYPRN PRN if no 09/02/24 09/09/25 History
gram/118 mL enema (Enema) result aftr bisacodyl
tamsulosin 0.4 mg capsule 0.4 mg PO DAILY Urinary Issue 09/02/24 09/09/25 History
trazodone 100 mg tablet 25 mg PO HS Mental Health/Anxiety 09/02/24 09/09/25 History
loratadine 10 mg tablet 10 mg PO QPM Allergies 04/07/25 09/09/25 History
midodrine 5 mg tablet 5 mg PO TID Blood Pressure 04/07/25 09/09/25 History
acetaminophen 500 mg tablet 1,000 mg PO TID Pain 07/08/25 09/09/25 History
diphenhydramine HCl 12.5 mg/5 mL 25 mg PO Q6H PRN drug rash 07/08/25 09/09/25 History
oral elixir
docusate sodium 100 mg capsule 100 mg PO DAILY Constipation 07/08/25 09/09/25 History
(Colace)
ondansetron 4 mg disintegrating 4 mg PO Q8HPRN PRN nausea 07/08/25 09/09/25 History
tablet
folic acid 400 mcg tablet 800 mcg PO DAILY ANEMIA 08/04/25 09/09/25 History
alogliptin 6.25 mg tablet 6.25 mg PO DAILY Antidiabetic 09/09/25 09/09/25 History
Agent,
collagenase clostridium histo. 250 1 applic topical BID Skin Issues 09/09/25 09/09/25 History
unit/gram topical ointment (Santyl)
metoprolol succinate 25 mg 25 mg PO QPM Blood Pressure 09/09/25 09/09/25 History
tablet,extended release 24 hr
multivitamin 1 tab PO DAILY Supplement 09/09/25 09/09/25 History
silver sulfadiazine 1 % topical 1 applic topical BID Skin Issues 09/09/25 09/09/25 History
cream (Silvadene)
sodium bicarbonate 650 mg tablet 650 mg PO BID ALKALINIZER 09/09/25 09/09/25 History
warfarin 3 mg tablet 3 mg PO QPM Blood Clot 09/09/25 09/09/25 History
Prevention/Tx
Review of Systems
-
History Source: Patient
Constitutional: Reports No Symptoms
EENT: Reports No Symptoms
Respiratory: Reports No Symptoms
Cardiac: Reports No Symptoms
Abdomen/GI: Reports No Symptoms
: Reports No Symptoms
Musculoskeletal: Reports No Symptoms
Skin: Reports Other (Various chronic left lower extremity wounds)
Neurological: Reports No Symptoms
Endocrine: Reports No Symptoms
Physical Exam
Vital Signs
Temp Pulse Resp BP Pulse Ox
98.2 F 86 16 87/53 100
09/10/25 11:26 09/10/25 11:26 09/10/25 11:26 09/10/25 11:26 09/10/25 11:26
Lab Results
09/10/25 05:49
09/10/25 05:49
Physical Exam
General: No Apparent Distress
HEENT: Normocephalic, Anicteric and Atraumatic
Respiratory: Non Labored Respirations
Cardiac: Negative JVD
GI: Soft, Non Tender and Non Distended
Musculoskeletal: No Edema
Skin: Other (Wounds present over left lower extremity calf, and at plantar of foot, dry gangrene, please see wound care notes for pictures and full description, nonpalpable distal pulses at left foot)
Neuro: Awake and Alert
Assessment / Plan
-
Assessment: 70-year-old female with extensive chronic wounds of left lower extremity and peripheral arterial disease. History of right leg amputation, has been previously recommended left leg proximal amputation
Plan:
-Continue local wound care per previous recommendations
-Discussed case with vascular surgery team, leg has been deemed nonsalvageable
-Will defer to vascular surgery for proximal amputation
-Will sign off at this time
[2025-09-10 14:57] LABS: Iron 24 ug/dl (37-170)
[2025-09-10 15:05] VITALS: BP 92/57
[2025-09-10 15:06] LABS: Total Iron Binding Capacity 125 ug/dl (265-497)
--- NOTE | 2025-09-10 15:47 | PTCARENOTE ---
tiger texted Dr. Munoz regarding patient's potassium level of 3.2and requested oral potassium replacement. Dr. Hinson ordering KCL 40eq PO now. patient with poor intake, Po's encouraged, turns with assist x2, will have amputation next week
with Dr. Rivera, vss, will continue to monitor.
[2025-09-10 15:54] LABS: TSH 0.02 uIU/ml (0.47-4.68)
[2025-09-10 15:58] LABS: Ferritin 300.0 ng/ml (11.1-264.0)
[2025-09-10 16:12] LABS: Vitamin B12 521 pg/ml (239-931)
--- NOTE | 2025-09-10 16:21 | CM ---
CM following for discharge to [facility] where Kianna resides in LTC.
Ambulance transport to be requested when medically ready.
[facility]
report: [phone]
fax: [phone]
[2025-09-10 16:39] LABS: Glucose - Point of Care 126 mg/dl (70-99)
[2025-09-10] MEDS: KCL 40 MEQ PO (17:05)
[2025-09-10] MEDS: TOPROL XL PO (17:08)
[2025-09-10] MEDS: CLARITIN 10 MG PO (17:11)
[2025-09-10 20:26] VITALS: BP 82/48
[2025-09-10 21:39] LABS: Glucose - Point of Care 104 mg/dl (70-99)
[2025-09-10] MEDS: MELATONIN 10 MG PO ×2 (21:57)
[2025-09-10] MEDS: LAMICTAL 25 MG PO ×2 (21:57)
[2025-09-10] MEDS: LIPITOR 10 MG PO (21:58)
[2025-09-10 23:00] VITALS: BP 88/53
[2025-09-11] VITALS (10 sets, daily range): BP systolic 77–122; BP diastolic 50–86
[2025-09-11] MEDS: UNASYN IV ×3 (05:19→18:18)
[2025-09-11] MEDS: SYNTHROID 100 MCG PO (06:03)
[2025-09-11] MEDS: SODIUM BICARBONATE 1150 MEQ IV ×2 (06:03→20:40)
[2025-09-11 06:26] LABS: Hematocrit 26.2 % (37.0-47.0); Hemoglobin 7.8 g/dL (12.0-16.0); Mean Corp Hgb Conc. 29.8 g/dL (33.0-37.0); Mean Corpuscular Volume 107.4 fL (81.0-99.0); Nucleated Red Blood Cells % 0 %; Platelet Count 111 10^3/uL (130-400); Red Cell Dist. Width 18.4 % (11.5-14.5)
[2025-09-11 06:35] LABS: INR 2.39; PT 26.5 Sec (11.4-14.6)
[2025-09-11 06:51] LABS: Blood Urea Nitrogen 17 mg/dl (7-17); Calcium 7.7 mg/dl (8.4-10.2); Carbon Dioxide 21 mmol/L (22-30); Chloride 114 mmol/L (98-107); Estimated Creatinine Clearance 35 ml/min; Glucose 87 mg/dl (70-99); Potassium 3.0 mmol/L (3.5-5.1); Sodium 139 mmol/L (135-145); eGFR 37.72
--- NOTE | 2025-09-11 08:05 | PHA.VAN.FU ---
Vancomycin Assessment / Plan
- Assessment
Renal Function: Stable
In the past 24 hrs, patient has been: Afebrile
Concomitant Antimicrobials: ampicillin/sulbactam
- Assessment - Therapeutic Drug Monitoring
Random Level: 15.6 - drawn ~32.5H after 2g loading dose
- Dosing Plan
Dosing by Level: Hold off on dosing today (patient has had prolonged half-life on prior admissions)
- Monitoring Plan
Random Level: 09/12 0600
- Follow Up
Pharmacy will continue to follow.
Vancomycin Follow UP
- -
Patient Age: 70
Patient Sex: Female
Vancomycin Day #: 2
Indication: Skin And Soft Tissue
Requesting Provider: Yessi Forman / Dr. Miller
Pertinent Antimicrobial Allergies:
cefepime and ceftriaxone - itchy face and chest May 2025 at OSH
Patient has previously tolerated Amox/Clav (Aug 2024); Pip/tazo (Sep 2024); Cephalexin (outpatient prescription history February 2025)
Height / Weight:
Height 5 ft 7 in
Actual Weight 71.412 kg
Pertinent Past Medical History: DM 2, PAD, R. AKA, CKD (1.5-2.3)
- Vital Signs / Lab Results
Temp Pulse Resp BP Pulse Ox
98.0 F 88 18 89/59 99
09/11/25 07:00 09/11/25 07:00 09/11/25 07:00 09/11/25 07:00 09/11/25 07:00
Lab Results - Hematology
09/09/25 09/10/25 09/11/25
17:54 05:49 05:57
WBC 5.8 4.9 3.9 L
Lab Results - Chemistry
09/09/25 09/10/25 09/11/25
17:54 05:49 05:57
BUN 23 H 19 H 17
Creatinine 2.1 H 1.7 H 1.5 H
Estimated Creat Clear 25 31 35
Albumin 2.8 L
09/09/25 09/09/25
17:54 21:45
Lactic Acid 2.0 Cancelled
Microbiology Results
09/09/25 17:55 Blood Culture - Preliminary
Blood/Venous No Growth in 24 hours- Final report to follow
09/09/25 17:54 Blood Culture - Preliminary
Blood/Venous No Growth in 24 hours- Final report to follow
09/09/25 18:49 Influenza Types A & B (JAYCOB) - Final
Nasal Swab Negative for Influenza A & B, NAAT
Negative results must be combined with clinical observations
and patient history.
Nucleic Acid Amplification test (NAAT)performed on the
[employer] platform.
Therapeutic Drug Monitoring
Random Vancomycin 15.6 ug/ml 09/11/25 05:57
[2025-09-11 08:11] LABS: Glucose - Point of Care 95 mg/dl (70-99)
[2025-09-11] MEDS: NOVOLOG FLEXPEN-LOW RESISTANCE SC ×3 (08:33→16:57)
[2025-09-11] MEDS: SODIUM BICARBONATE 650 MG PO (08:53)
[2025-09-11] MEDS: NEURONTIN 300 MG PO ×2 (08:53→20:40)
[2025-09-11] MEDS: PROTONIX 40 MG PO (08:55)
[2025-09-11] MEDS: LOW STRENGTH ASPIRIN 81 MG PO (08:55)
--- NOTE | 2025-09-11 11:06 | W.PN.ID1 ---
Addendum entered and electronically signed by Rajinder Miller DO 09/11/25 15:36:
I saw and evaluated the patient. I reviewed the resident�s note and agree with findings and plan as documented in the resident�s note.
Original Note:
Date of Service
Date of Service: September 11, 2025
Today's Communication
Continue antibiotics
Assessment / Plan
#Chronic Left Lower Extremity Wounds with possible infection
#Hypotension
#CKD
#Type 2 Diabetes with Neuropathy
#Right BKA
#A-Fib
#Hypothyroidism
Plan:
No Leukocytosis, fevers, or chills
On Empiric treatment with Unasyn and Vancomycin due to previous wound cultures
Follow Blood/Urine Cultures
Continue Wound Care
Plan for left AKA next week
Will discontinue vancomycin, continue monotherapy with Unasyn until surgery

Chief Complaint
-: Other (Left lower extremity nonhealing wounds with likely infection)
Subjective / Review of Systems
Patient seen comfortably resting in her bed. No acute concerns at this time. Discussed with vascular surgery yesterday regarding AKA scheduled for next week. Reassured her that she made the right decision.
Review of Systems: No Fever and No Chills
Vital Signs / Physical Exam
Vital Signs
Vital Signs
Temp Pulse Resp BP Pulse Ox
97.6 F 78 19 92/56 98
09/11/25 11:00 09/11/25 11:00 09/11/25 11:00 09/11/25 11:00 09/11/25 11:00
Physical Exam
Constitutional: No Acute Distress, Comfortable and Chronically Ill
Cardiovascular: Regular Rate and S1/S2
Pulmonary: Clear and Non Labored
Gastrointestinal: Soft, Non Tender and Non Distended
Skin: Other (Left lower extremity wounds covered with dressing)
Wound: Other (Left lower extremity wounds covered with dressing)
Neurological: Awake, Alert, Oriented and AO x 3
Psychological: Calm
Objective Data
Lab Data
Lab Results
09/11/25 05:57
09/11/25 05:57
ESR 84 mm/hour (0-20) H 09/09/25 17:54
PT 26.5 Sec (11.4-14.6) H 09/11/25 05:57
INR 2.39 09/11/25 05:57
Estimated Creat Clear 35 ml/min 09/11/25 05:57
Lactic Acid Cancelled 09/09/25 21:45
Total Bilirubin 0.8 mg/dl (0.2-1.3) 09/09/25 17:54
AST 21 U/L (14-36) 09/09/25 17:54
ALT 14 U/L (0-35) 09/09/25 17:54
Alkaline Phosphatase 123 U/L (38-126) 09/09/25 17:54
C-Reactive Protein 49.50 mg/L (0.0-10.00) H 09/09/25 17:54
Most recent labs reviewed.
Micro Results:
09/09/25 20:06 Urine Culture - Preliminary
Urine
09/09/25 17:55 Blood Culture - Preliminary
Blood/Venous No Growth in 24 hours- Final report to follow
09/09/25 17:54 Blood Culture - Preliminary
Blood/Venous No Growth in 24 hours- Final report to follow
09/09/25 18:49 Influenza Types A & B (JAYCOB) - Final
Nasal Swab Negative for Influenza A & B, NAAT
Negative results must be combined with clinical observations
and patient history.
Nucleic Acid Amplification test (NAAT)performed on the
[employer] platform.
Imaging:
09/10/2025 CR Foot - Left (3 Views); CR Leg Tibia/fibula (Left 2 View): Diffuse demineralization. No convincing acute fracture or dislocation. Soft tissue irregularity throughout the medial lower leg and along the plantar midfoot suggesting
wounds/ulcerations. No overt radiographic evidence for active osteomyelitis. Scattered mild to moderate osteoarthritic changes of the interphalangeal and first metatarsophalangeal joints. Moderate calcaneal enthesopathy. Partially visualized
degenerative changes of the left knee. Extensive vascular calcifications.
[2025-09-11 12:26] LABS: Glucose - Point of Care 88 mg/dl (70-99)
--- NOTE | 2025-09-11 14:21 | W.PN.HOSP.TC ---
Today's Communication/Plan
-
Transfuse and follow hemoglobin
Off Coumadin anticipating AKA early next week
Follow INR daily
Assessment / Plan
Assessment / Plan
Impression
70-year-old with past medical history significant for insulin dependent diabetes, chronic hypotension, peripheral arterial disease status post right BKA and chronic wound in the left lower extremity thought to be secondary to vascular insufficiency
and is pending vascular evaluation on Sunday, recent admission for sepsis in the setting of wound infection that grew polymicrobial bacteria and treated with prolonged Unasyn doxycycline and eventually Augmentin doxycycline at home now presenting to
the emergency department with low blood pressure and concern for wound infection. Her temperature is 99.2. Blood pressure was maintained at 98/68. Heart rate in the low 100s 90s. She is in no acute distress at this time. UA is pending but she
does have 3+ leukocyte esterase otherwise negative nitrites
Chronic left lower extremity leg and foot infected wound secondary to PAD.
Normal gap metabolic acidosis
Conditions prior to admission
Chronic hypotension requiring midodrine.
PAD.
� Status post left lower extremity stent placement from SFA to bypass graft with balloon angioplasty on 07/08/2025
� Status post right AKA
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
CKD stage IIIb with baseline creatinine around 2
Chronic anemia with macrocytosis
Chronic atrial fibrillation
Anticoagulation with Coumadin
Diabetes type 2
Hypothyroidism on replacement
COPD without exacerbation
History of TME related to medications and infection
Plan
Chronic nonhealing wounds infection left calf and foot pedal site wound.
Patient presents to be afebrile and nontoxic-appearing.
Chronic hypotension responded to IV fluids while remaining on midodrine.
Discussed with vascular surgery.
At this point no option for revascularization with plan for AKA
Maintain empiric antibiotics including vancomycin and Unasyn (prior cultures reviewed)
Wound care daily.
Hold Coumadin anticipating surgical intervention early next week.
Continue Lipitor
CKD stage IIIb.
Creatinine at the baseline
Non-anion gap metabolic acidosis, acute on chronic.
Improving with IV fluids.
Continue oral bicarb.
Follow BMP.
Avoid hypotension
Monitor for recurrent retention while off Flomax
Chronic anemia with macrocytosis.
Hemoglobin close to baseline at 8�9 and drifting down to 7.8
Iron stores consistent with mixed picture of iron deficiency anemia of chronic disease
Transfused. 1 unit of PRBC ordered on 09/11 to keep hemoglobin above 8�9 preoperatively
IV iron
Chronic atrial fibrillation
Continue metoprolol
Hold Coumadin in anticipation for AKA
Continue aspirin
Type 2 diabetes
Update hemoglobin A1c.
Carbohydrate controlled diet.
Hold Januvia.
Basal bolus protocol
Hypothyroidism on replacement. TSH suppressed and likely consistent with euthyroid sick state
Patient is on lamotrigine [employer] at low-dose for unknown reasons will continue for now.
Continue gabapentin for chronic pain/neuropathy
Full code
DVT prophylaxis initially on Coumadin. Start Lovenox once INR drifting down below 2
Anticipated Discharge: > 48 hours
Subjective/Interval History
-
Date of Service: September 11, 2025
Objective Data
-
Labs:
Laboratory Results
09/11/25
05:57
WBC 3.9 L
Hgb 7.8 L
Hct 26.2 L
Plt Count 111 L
PT 26.5 H
INR 2.39
Sodium 139
Potassium 3.0 L
Chloride 114 H
Carbon Dioxide 21 L
BUN 17
Creatinine 1.5 H
Glucose 87
Calcium 7.7 L
Vital Signs:
Vital Signs
Temp Pulse Resp BP Pulse Ox
97.6 F 76 19 95/55 98
09/11/25 11:00 09/11/25 13:14 09/11/25 11:00 09/11/25 13:14 09/11/25 11:00
I&O
09/10/25 09/11/25 09/12/25
06:59 06:59 06:59
Intake Total 120 / 120 2270 / 2270
Balance 120 / 120 2270 / 2270
Physical Exam
-
General: Well Developed and No Apparent Distress
HEENT: Normocephalic, Atraumatic and Moist Mucous Membranes
Respiratory: Clear to Auscultation
Cardiac: Regular Rhythm and S1/S2; Negative Murmur, Rub or Gallop
GI: Soft, Nontender, Nondistended and Normal Bowel Sounds; Negative Organomegaly
Rectal: Deferred by Provider
Musculoskeletal: No Clubbing, No Cyanosis and No Edema
Skin: Negative Rash
Neuro: Nonfocal/Grossly Intact
--- NOTE | 2025-09-11 14:35 | PN.CDI ---
CDI
- -
CDI:
Physician Documentation Request
Admit Date: 09/09/25 22:00
Dear Doctor Joya,
Please review the following and provide your response in the progress notes.
Clinical Indicators:
Pt admitted with Diabetic foot ulcer / PAD
Potassium levels are as below /Pt did get Potassium chloride 40 meq x 2 doses on 09/09, Potassium KCL PO 40 meq 09/10
Laboratory Tests
09/09/25 09/10/25 09/11/25
17:54 05:49 05:57
Potassium 3.0 L 3.2 L 3.0 L
Based on the above, could you clarify in the progress notes, the appropriate diagnosis, if significant, that supports the above abnormalities and additional evaluation, monitoring and/or treatment rendered:
Hypokalemia
Abnormal lab value
Other ( please specify)
Use of terms such as suspected, likely, concern for, or probable (associated with a specific diagnosis that is being evaluated, monitored, or treated as if it exists) are acceptable and can be coded in the inpatient setting, when documented at the
time of discharge.
Thank you,
Pily Albarran RN
CDI Specialist
[place] [facility]
Please use your independent medical judgment in providing your response.
--- NOTE | 2025-09-11 14:40 | PN.CDI ---
CDI
- -
CDI:
Physician Documentation Request
Admit Date: 09/09/25 22:00
Dear Doctor Joya,
Please review the following and provide your response in the progress notes.
Clinical Indicators:
Pt admitted with Diabetic foot ulcer wound infection /PAD
Documented per nutrition consult 09/10, ' CBW (09/09) 157lb 7oz BMI 27.1 adj for AKA overwt/ht...Significant 17lb, 10.8% weight loss x 2 months....Pt meets criteria for moderate protein calorie malnutrition of chronic illness with ~5% wt loss x 1
month, orbital with dark circles and somewhat hollow, some protrusion of clavicle. RD encouraged pt to increase po intake >50%, eat at least 3 x daily. Pt continues to decline po supplements. Encouraged increase in protein intake from food sources.
Will modify diet to easy to chew due to endentulousness.Poor intake <75% of estimated energy needs for >/= 1 month .... Assessment subcutaneous loss over orbital severity moderate ... Clavicle severity mild...'
Based on the above information and your assessment, which of the following most accurately represents the patient's nutritional status?
Moderate protein calorie Malnutrition
Mild protein calorie malnutrition
Other (please specify)
[place] Criteria ([employer] Hospitalist 2017)
2 or more criteria must be present for either
non severe or severe malnutrition
Note that the criteria differs related to the
presence of an acute or chronic illness
Acute Illness Chronic Illness
Energy Intake Non Severe: <75% for >7 days Non Severe: <75% for >1 month
Severe: <50% for >5 days Severe: <75% for >1 month
Weight Loss Non Severe: 1-2% over 1 week Non Severe: 5% over 1 month
5% over 1 month 7.5% over 3 months
7.5% over 3 months 10% over 6 months
1 year N/A 20% over 1 year
Severe: >2% over 1 week Severe: >5% over 1 month
>5% over 1 month >7.5% over 3 months
>7.5% over 3 months >10% over 6 months
1 year N/A >20% over 1 year
Body Fat Non Severe: Mild Decrease Non Severe: Mild Loss
Severe: Moderate Decrease Severe: Severe Loss
Muscle Mass Non Severe: Mild Decrease Non Severe: Mild Loss
Severe: Moderate Decrease Severe: Severe Loss
Fluid Accumulation Non Severe: Mild Accumulation Non Severe: Mild Accumulation
Severe: Moderate to severe Severe: Moderate to severe
accumulation accumulation
Reduced Buzzle Buffer Strength Non Severe: N/A Non Severe: N/A
Severe: Measurably reduced Severe: Measurably reduced
Use of terms such as suspected, likely, concern for, or probable (associated with a specific diagnosis that is being evaluated, monitored, or treated as if it exists) are acceptable and can be coded in the inpatient setting, when documented at the
time of discharge.
Thank you,
Pily Albarran RN
CDI Specialist
[place] [facility]
Please use your independent medical judgment in providing your response.
[2025-09-11] MEDS: FERRLECIT 110 MG IV (14:46)
--- NOTE | 2025-09-11 14:46 | PN.CDI ---
CDI
- -
CDI:
Physician Documentation Request
Admit Date: 09/09/25 22:00
Dear Doctor Joya,
Please review the following and provide your response in the progress notes.
Clinical Indicators:
Pt admitted with Diabetic foot ulcer / PAD
There is potentially conflicting documentation in the record regarding the type of atrial fibrillation
Documented per H&P, ' paroxysmal atrial fibrillation on anticoagulation...'
Progress note 09/10 &09/11, ' Chronic atrial fibrillation Anticoagulation with Coumadin...'
External medical summary 09/09, 'Jun, AF (paroxysmal atrial fibrillation) (ICD-10 - I48.0) ..'
Due to potentially conflicting documentation please clarify the type of afib:
Paroxysmal atrial fibrillation - terminates spontaneously or with intervention within 7 days of onset
Permanent atrial fibrillation - when a decision has been made to accept the presence of AF and there is no further attempt to restore or maintain sinus rhythm
Chronic atrial fibrillation ( No change in documentation)
Other - please specify
Use of terms such as suspected, likely, concern for, or probable (associated with a specific diagnosis that is being evaluated, monitored, or treated as if it exists) are acceptable and can be coded in the inpatient setting, when documented at the
time of discharge.
Thank you,
Pily Albarran RN
CDI Specialist
[place] [facility]
Please use your independent medical judgment in providing your response.
[2025-09-11 16:52] LABS: Glucose - Point of Care 95 mg/dl (70-99)
[2025-09-11] MEDS: TOPROL XL 25 MG PO (18:09)
[2025-09-11 21:14] LABS: Glucose - Point of Care 122 mg/dl (70-99)
[2025-09-11] MEDS: LAMICTAL 25 MG PO (21:15)
[2025-09-11] MEDS: LIPITOR 10 MG PO (21:15)
[2025-09-11] MEDS: DESYREL 25 MG PO (21:15)
[2025-09-11] MEDS: MELATONIN 10 MG PO (21:15)
[2025-09-12] MEDS: UNASYN IV ×6 (00:06→23:26)
[2025-09-12] MEDS: SODIUM BICARBONATE 650 MG PO ×3 (00:43→20:45)
[2025-09-12 03:00] VITALS: BP 81/48
[2025-09-12] MEDS: SYNTHROID 100 MCG PO (05:37)
[2025-09-12 07:00] LABS: Hematocrit 28.1 % (37.0-47.0); Hemoglobin 8.9 g/dL (12.0-16.0); Mean Corp Hgb Conc. 31.7 g/dL (33.0-37.0); Mean Corpuscular Volume 99.6 fL (81.0-99.0); Nucleated Red Blood Cells % 0 %; Platelet Count 109 10^3/uL (130-400); Red Cell Dist. Width 18.1 % (11.5-14.5)
[2025-09-12 07:12] LABS: Blood Urea Nitrogen 15 mg/dl (7-17); Calcium 7.2 mg/dl (8.4-10.2); Carbon Dioxide 26 mmol/L (22-30); Chloride 107 mmol/L (98-107); Estimated Creatinine Clearance 40 ml/min; Glucose 80 mg/dl (70-99); Potassium 2.9 mmol/L (3.5-5.1); Sodium 136 mmol/L (135-145); eGFR 44.79
[2025-09-12 07:17] LABS: INR 2.14; PT 24.0 Sec (11.4-14.6)
--- NOTE | 2025-09-12 07:36 | PHA.VAN.FU ---
Vancomycin Assessment / Plan
- Assessment
Renal Function: SCR Decreasing
In the past 24 hrs, patient has been: Afebrile
Concomitant Antimicrobials: ampicillin/sulbactam
- Assessment - Therapeutic Drug Monitoring
Random Level: 13.6 - drawn ~24.5H after previous level of 15.6
Calculated ke: 0.0056
Calculated half life (H): 124
- Dosing Plan
Dosing by Level: Hold off on dosing today (patient currently expected to maintain level > 10 for over 2 days)
- Monitoring Plan
Random Level: 09/13 06
- Follow Up
Pharmacy will continue to follow.
Vancomycin Follow UP
- -
Patient Age: 70
Patient Sex: Female
Vancomycin Day #: 3
Indication: Skin And Soft Tissue
Requesting Provider: Yessi Forman / Dr. Miller
Pertinent Antimicrobial Allergies:
cefepime and ceftriaxone - itchy face and chest May 2025 at OSH
Patient has previously tolerated Amox/Clav (Aug 2024); Pip/tazo (Sep 2024); Cephalexin (outpatient prescription history February 2025)
Height / Weight:
Height 5 ft 7 in
Actual Weight 71.412 kg
Pertinent Past Medical History: DM 2, PAD, R. AKA, CKD (1.5-2.3)
- Vital Signs / Lab Results
Temp Pulse Resp BP Pulse Ox
98.2 F 73 18 81/48 98
09/12/25 03:00 09/12/25 03:00 09/12/25 03:00 09/12/25 03:00 09/12/25 03:00
Lab Results - Hematology
09/09/25 09/10/25 09/11/25
17:54 05:49 05:57
WBC 5.8 4.9 3.9 L
09/12/25
06:24
WBC 3.9 L
Lab Results - Chemistry
09/09/25 09/10/25 09/11/25
17:54 05:49 05:57
BUN 23 H 19 H 17
Creatinine 2.1 H 1.7 H 1.5 H
Estimated Creat Clear 25 31 35
Albumin 2.8 L
09/12/25
06:24
BUN 15
Creatinine 1.3 H
Estimated Creat Clear 40
Albumin
09/09/25 09/09/25
17:54 21:45
Lactic Acid 2.0 Cancelled
Microbiology Results
09/09/25 17:54 Blood Culture - Preliminary
Blood/Venous No Growth in 48 hours- Final report to follow
09/09/25 17:55 Blood Culture - Preliminary
Blood/Venous No Growth in 48 hours- Final report to follow
09/09/25 20:06 Urine Culture - Preliminary
Urine
Therapeutic Drug Monitoring
Random Vancomycin 13.6 ug/ml 09/12/25 06:24
[2025-09-12 08:04] VITALS: BP 87/48
[2025-09-12 08:14] LABS: Glucose - Point of Care 84 mg/dl (70-99)
[2025-09-12] MEDS: NEURONTIN 300 MG PO ×2 (08:45→20:45)
[2025-09-12] MEDS: NOVOLOG FLEXPEN-LOW RESISTANCE SC ×3 (08:45→17:23)
[2025-09-12] MEDS: PROTONIX 40 MG PO (08:45)
[2025-09-12] MEDS: LOW STRENGTH ASPIRIN 81 MG PO (08:46)
[2025-09-12] MEDS: KLOR-CON 40 MEQ PO (09:07)
[2025-09-12 11:05] VITALS: BP 111/47
[2025-09-12 11:43] LABS: Glucose - Point of Care 114 mg/dl (70-99)
[2025-09-12] MEDS: FERRLECIT 110 MG IV (13:50)
--- NOTE | 2025-09-12 13:52 | W.PN.HOSP.TC ---
Today's Communication/Plan
-
f/u urine cs report
continue abx
f/u INR
Assessment / Plan
Assessment / Plan
Impression
70-year-old with past medical history significant for insulin dependent diabetes, chronic hypotension, peripheral arterial disease status post right BKA and chronic wound in the left lower extremity thought to be secondary to vascular insufficiency
and is pending vascular evaluation on Sunday, recent admission for sepsis in the setting of wound infection that grew polymicrobial bacteria and treated with prolonged Unasyn doxycycline and eventually Augmentin doxycycline at home now presenting to
the emergency department with low blood pressure and concern for wound infection. Her temperature is 99.2. Blood pressure was maintained at 98/68. Heart rate in the low 100s 90s. She is in no acute distress at this time. UA is pending but she
does have 3+ leukocyte esterase otherwise negative nitrites
Chronic left lower extremity leg and foot infected wound secondary to PAD.
Normal gap metabolic acidosis
Conditions prior to admission
Chronic hypotension requiring midodrine.
PAD.
� Status post left lower extremity stent placement from SFA to bypass graft with balloon angioplasty on 07/08/2025
� Status post right AKA
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
CKD stage IIIb with baseline creatinine around 2
Chronic anemia with macrocytosis
Chronic atrial fibrillation
Anticoagulation with Coumadin
Diabetes type 2
Hypothyroidism on replacement
COPD without exacerbation
History of TME related to medications and infection
UTI
Plan
Chronic nonhealing wounds infection left calf and foot pedal site wound.
Patient presents to be afebrile and nontoxic-appearing.
Chronic hypotension responded to IV fluids while remaining on midodrine.
Discussed with vascular surgery.
At this point no option for revascularization with plan for AKA
Maintain empiric antibiotics including vancomycin and Unasyn (prior cultures reviewed)
Wound care daily.
Hold Coumadin anticipating surgical intervention early next week.
Continue Lipitor
CKD stage IIIb.
Creatinine at the baseline
Non-anion gap metabolic acidosis, acute on chronic.
Improving with IV fluids.
Continue oral bicarb.
Monitor for recurrent retention while off Flomax
Chronic anemia with macrocytosis.
Hemoglobin close to baseline at 8�9 and drifting down to 7.8
Iron stores consistent with mixed picture of iron deficiency anemia of chronic disease
Transfused. 1 unit of PRBC ordered on 09/11 to keep hemoglobin above 8�9 preoperatively
IV iron
Chronic atrial fibrillation
Continue metoprolol
Hold Coumadin in anticipation for AKA. INR remains supra-theraputic
Continue aspirin
UA showing extensive bacteriuria and pyuria from 09/09
Urine culture growing gram-negative bacilli -further identification and susceptibility pending
Currently on empiric unasyn
Type 2 diabetes
Update hemoglobin A1c.
Carbohydrate controlled diet.
Hold Januvia.
Basal bolus protocol
Hypothyroidism on replacement. TSH suppressed and likely consistent with euthyroid sick state
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
Continue gabapentin for chronic pain/neuropathy
Full code
DVT prophylaxis initially on Coumadin. Start Lovenox once INR drifting down below 2
Anticipated Discharge: 24 - 48 hours
Subjective/Interval History
-
Date of Service: September 12, 2025
no issues overnight
appetite remains poor
Objective Data
-
Labs:
Laboratory Results
09/12/25
06:24
WBC 3.9 L
Hgb 8.9 L
Hct 28.1 L
Plt Count 109 L
PT 24.0 H
INR 2.14
Sodium 136
Potassium 2.9 L
Chloride 107
Carbon Dioxide 26
BUN 15
Creatinine 1.3 H
Glucose 80
Calcium 7.2 L
Vital Signs:
Vital Signs
Temp Pulse Resp BP Pulse Ox
97.6 F 81 16 111/47 100
09/12/25 11:05 09/12/25 12:50 09/12/25 11:05 09/12/25 12:50 09/12/25 11:05
I&O
09/11/25 09/12/25 09/13/25
06:59 06:59 06:59
Intake Total 2270 / 2270 1450 / 1450
Balance 2270 / 2270 1450 / 1450
Review of Systems
-
Respiratory: Reports No Symptoms
Cardiac: Reports No Symptoms
Abdomen/GI: Reports No Symptoms
Physical Exam
-
General: No Apparent Distress
HEENT: Negative Oxygen
Respiratory: Clear to Auscultation
Cardiac: Regular Rhythm and S1/S2; Negative Murmur, Rub or Gallop
GI: Negative Organomegaly
Musculoskeletal: Other (left leg dressing in place, )
Skin: Negative Rash
Neuro: Awake, Alert and Oriented
[2025-09-12] MEDS: MIRALAX 17 GRAMS PO (16:32)
[2025-09-12 16:33] VITALS: BP 82/49
[2025-09-12] MEDS: CLARITIN 10 MG PO (17:09)
[2025-09-12 17:13] LABS: Glucose - Point of Care 122 mg/dl (70-99)
[2025-09-12] MEDS: TOPROL XL PO (17:22)
[2025-09-12 19:11] VITALS: BP 98/62
[2025-09-12 21:27] LABS: Glucose - Point of Care 110 mg/dl (70-99)
[2025-09-12] MEDS: MELATONIN 10 MG PO (23:26)
[2025-09-12] MEDS: LAMICTAL 25 MG PO (23:26)
[2025-09-12] MEDS: LIPITOR 10 MG PO (23:26)
[2025-09-12] MEDS: DESYREL 25 MG PO (23:29)
[2025-09-12 23:41] VITALS: BP 98/59
[2025-09-13 03:18] VITALS: BP 95/60
[2025-09-13] MEDS: SYNTHROID 100 MCG PO (05:31)
[2025-09-13] MEDS: UNASYN IV ×3 (05:32→18:13)
[2025-09-13 06:00] VITALS: BMI 24.8
[2025-09-13 06:51] LABS: INR 2.11; PT 23.8 Sec (11.4-14.6)
[2025-09-13 07:00] VITALS: BP 94/58
[2025-09-13 08:17] LABS: Glucose - Point of Care 79 mg/dl (70-99)
[2025-09-13] MEDS: NOVOLOG FLEXPEN-LOW RESISTANCE SC ×3 (08:18→17:29)
[2025-09-13] MEDS: PROTONIX 40 MG PO (08:19)
[2025-09-13] MEDS: NEURONTIN 300 MG PO ×2 (08:19→20:35)
[2025-09-13] MEDS: MIRALAX 17 GRAMS PO (08:20)
[2025-09-13] MEDS: LOW STRENGTH ASPIRIN 81 MG PO (08:20)
[2025-09-13] MEDS: SODIUM BICARBONATE 650 MG PO ×2 (08:20→20:35)
[2025-09-13 11:00] VITALS: BP 85/48
[2025-09-13 12:08] LABS: Glucose - Point of Care 86 mg/dl (70-99)
--- NOTE | 2025-09-13 13:09 | W.PN.HOSP.TC ---
Today's Communication/Plan
-
Enema for constipation
Preparation H afterwards
Assessment / Plan
Assessment / Plan
Impression
70-year-old with past medical history significant for insulin dependent diabetes, chronic hypotension, peripheral arterial disease status post right BKA and chronic wound in the left lower extremity thought to be secondary to vascular insufficiency
and is pending vascular evaluation on Sunday, recent admission for sepsis in the setting of wound infection that grew polymicrobial bacteria and treated with prolonged Unasyn doxycycline and eventually Augmentin doxycycline at home now presenting to
the emergency department with low blood pressure and concern for wound infection. Her temperature is 99.2. Blood pressure was maintained at 98/68. Heart rate in the low 100s 90s. She is in no acute distress at this time. UA is pending but she
does have 3+ leukocyte esterase otherwise negative nitrites
Chronic left lower extremity leg and foot infected wound secondary to PAD.
Normal gap metabolic acidosis
Conditions prior to admission
Chronic hypotension requiring midodrine.
PAD.
� Status post left lower extremity stent placement from SFA to bypass graft with balloon angioplasty on 07/08/2025
� Status post right AKA
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
CKD stage IIIb with baseline creatinine around 2
Chronic anemia with macrocytosis
Chronic atrial fibrillation
Anticoagulation with Coumadin
Diabetes type 2
Hypothyroidism on replacement
COPD without exacerbation
History of TME related to medications and infection
UTI
Plan
1. Chronic nonhealing wounds infection left calf and foot pedal site wound.
Patient presents to be afebrile and nontoxic-appearing.
Chronic hypotension responded to IV fluids while remaining on midodrine.
Discussed with vascular surgery.
At this point no option for revascularization with plan for AKA
Maintain empiric antibiotics including vancomycin and Unasyn (prior cultures reviewed)
Wound care daily.
Hold Coumadin anticipating surgical intervention early next week.
Continue Lipitor
2. CKD stage IIIb.
Creatinine at the baseline
Non-anion gap metabolic acidosis, acute on chronic.
Improving with IV fluids.
Continue oral bicarb.
Monitor for recurrent retention while off Flomax
3. Chronic anemia with macrocytosis.
Hemoglobin close to baseline at 8�9 and drifting down to 7.8
Iron stores consistent with mixed picture of iron deficiency anemia of chronic disease
Transfused. 1 unit of PRBC ordered on 09/11 to keep hemoglobin above 8�9 preoperatively
IV iron
Check labs tomorrow
4. Chronic atrial fibrillation
Continue metoprolol
Hold Coumadin in anticipation for AKA. INR remains supra-theraputic
Continue aspirin
5. UA showing extensive bacteriuria and pyuria from 09/09
Urine culture growing gram-negative bacilli -further identification and susceptibility pending
Currently on empiric unasyn
6. Type 2 diabetes - Updated hemoglobin A1c. 4.7
Carbohydrate controlled diet.
Hold Januvia.
Basal bolus protocol
7. Hypothyroidism on replacement.
TSH suppressed and likely consistent with euthyroid sick state
8. 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
Continue gabapentin for chronic pain/neuropathy
9. Constipation - new complaint
Enema
Oral therapy
Preparation H afterwards
Full code
DVT prophylaxis initially on Coumadin.
Start Lovenox once INR drifting down below 2 - today 2.11
Anticipated Discharge: > 48 hours
Subjective/Interval History
-
Date of Service: September 13, 2025
Feels constipated
Objective Data
-
Labs:
Laboratory Results
09/13/25
06:10
PT 23.8 H
INR 2.11
Vital Signs:
Vital Signs
Temp Pulse Resp BP Pulse Ox
98.8 F 90 18 93/60 95
09/13/25 11:00 09/13/25 11:43 09/13/25 11:00 09/13/25 11:43 09/13/25 11:00
I&O
09/12/25 09/13/25 09/14/25
06:59 06:59 06:59
Intake Total 1450 / 1450 960 / 960
Balance 1450 / 1450 960 / 960
Review of Systems
-
History Source: Patient
All other systems: Reviewed and negative
Physical Exam
-
General: Well Developed, Well Nourished and No Apparent Distress
HEENT: Normocephalic, Moist Mucous Membranes, Nose Appears Normal and Ears Appear Normal
Respiratory: Clear to Auscultation
Cardiac: Regular Rhythm and S1/S2
GI: Soft, Nontender and Nondistended
Musculoskeletal: No Cyanosis
Skin: Warm and Dry
Neuro: Awake, Alert and Oriented
Psych: Calm
Data Reviewed
-
Labs: Labs Reviewed by me
[2025-09-13] MEDS: FERRLECIT 110 MG IV (14:19)
[2025-09-13 15:00] VITALS: BP 104/65
[2025-09-13 16:42] LABS: Glucose - Point of Care 81 mg/dl (70-99)
[2025-09-13] MEDS: TOPROL XL PO (18:13)
--- NOTE | 2025-09-13 18:25 | PTCARENOTE ---
Pt given Milk and Molasses enema at 1715 with positive effect. Pt reports feeling much relief and decrease in rectal pain afterwards.
[2025-09-13 19:35] VITALS: BP 85/53
[2025-09-13] MEDS: TOPROL XL 25 MG PO (21:27)
[2025-09-13] MEDS: DESYREL 25 MG PO (21:28)
[2025-09-13] MEDS: LIPITOR 10 MG PO (21:29)
[2025-09-13] MEDS: MELATONIN 10 MG PO (21:29)
[2025-09-13] MEDS: LAMICTAL 25 MG PO (21:29)
[2025-09-13 21:50] LABS: Glucose - Point of Care 120 mg/dl (70-99)
[2025-09-13 23:35] VITALS: BP 83/50
[2025-09-14] MEDS: UNASYN IV ×3 (00:02→12:05)
[2025-09-14 03:45] VITALS: BP 84/52
[2025-09-14] MEDS: SYNTHROID 100 MCG PO (05:23)
[2025-09-14 06:33] LABS: Hematocrit 30.9 % (37.0-47.0); Hemoglobin 9.3 g/dL (12.0-16.0); Mean Corp Hgb Conc. 30.1 g/dL (33.0-37.0); Mean Corpuscular Volume 107.7 fL (81.0-99.0); Platelet Count 107 10^3/uL (130-400); Red Cell Dist. Width 17.9 % (11.5-14.5)
[2025-09-14 07:00] LABS: INR 2.22; PT 24.7 Sec (11.4-14.6)
[2025-09-14 07:10] LABS: Blood Urea Nitrogen 12 mg/dl (7-17); Calcium 7.6 mg/dl (8.4-10.2); Carbon Dioxide 26 mmol/L (22-30); Chloride 108 mmol/L (98-107); Estimated Creatinine Clearance 40 ml/min; Glucose 82 mg/dl (70-99); Potassium 3.1 mmol/L (3.5-5.1); Sodium 138 mmol/L (135-145); eGFR 44.79
[2025-09-14 07:39] LABS: Glucose - Point of Care 80 mg/dl (70-99)
[2025-09-14] MEDS: MIRALAX PO (07:53)
[2025-09-14] MEDS: NEURONTIN 300 MG PO ×2 (07:55→21:10)
[2025-09-14] MEDS: LOW STRENGTH ASPIRIN 81 MG PO (07:56)
[2025-09-14] MEDS: SODIUM BICARBONATE 650 MG PO ×2 (07:56→21:10)
[2025-09-14] MEDS: PROTONIX 40 MG PO (07:56)
[2025-09-14 07:57] VITALS: BP 96/58
[2025-09-14] MEDS: NOVOLOG FLEXPEN-LOW RESISTANCE SC ×2 (08:01→11:54)
[2025-09-14 11:17] VITALS: BP 101/63
--- NOTE | 2025-09-14 11:26 | W.PN.ID1 ---
Date of Service
Date of Service: September 14, 2025
Today's Communication
D/C antibiotics.
Assessment / Plan
#Chronic Left Lower Extremity Wounds with possible infection
#Hypotension
#CKD
#Type 2 Diabetes with Neuropathy
#Right BKA
#A-Fib
#Hypothyroidism
Plan:
No Leukocytosis, fevers, or chills
Wounds appear stable, and noninfected at present.
Discontinue further antibiotics.
For AKA later in week.
Little more to offer from a Infectious Disease standpoint.
Will see again at your request.

Chief Complaint
-: Other (Left lower extremity nonhealing wounds; PAD)
Subjective / Review of Systems
Review of Systems: No Fever and No Chills
Vital Signs / Physical Exam
Vital Signs
Vital Signs
Temp Pulse Resp BP Pulse Ox
99.4 F 94 14 101/63 98
09/14/25 11:17 09/14/25 11:17 09/14/25 11:17 09/14/25 11:17 09/14/25 11:17
Physical Exam
Constitutional: No Acute Distress, Comfortable, Chronically Ill and Non-toxic
Cardiovascular: S1/S2; Negative S3/S4
Pulmonary: Clear; Negative Wheezes or Rales
Gastrointestinal: Soft, Non Tender and Non Distended
Wound: Other (Left lower extremity wounds stable. No overt purulence. No malodor.)
Neurological: Awake and Alert
Psychological: Calm
Objective Data
Lab Data
Lab Results
09/14/25 06:07
09/14/25 06:07
ESR 84 mm/hour (0-20) H 09/09/25 17:54
PT 24.7 Sec (11.4-14.6) H 09/14/25 06:07
INR 2.22 09/14/25 06:07
Estimated Creat Clear 40 ml/min 09/14/25 06:07
Lactic Acid Cancelled 09/09/25 21:45
Total Bilirubin 0.8 mg/dl (0.2-1.3) 09/09/25 17:54
AST 21 U/L (14-36) 09/09/25 17:54
ALT 14 U/L (0-35) 09/09/25 17:54
Alkaline Phosphatase 123 U/L (38-126) 09/09/25 17:54
C-Reactive Protein 49.50 mg/L (0.0-10.00) H 09/09/25 17:54
Most recent labs reviewed.
Micro Results:
09/09/25 20:06 Urine Culture - Final
Urine Klebsiella pneumoniae
Escherichia coli - ESBL
09/09/25 17:55 Blood Culture - Preliminary
Blood/Venous No Growth in 4 days- Final report to follow
09/09/25 17:54 Blood Culture - Preliminary
Blood/Venous No Growth in 4 days- Final report to follow
09/09/25 18:49 Influenza Types A & B ([facility]) - Final
Nasal Swab Negative for Influenza A & B, NAAT
Negative results must be combined with clinical observations
and patient history.
Nucleic Acid Amplification test (NAAT)performed on the
[employer] platform.
Imaging:
09/10/2025 CR Foot - Left (3 Views); CR Leg Tibia/fibula (Left 2 View): Diffuse demineralization. No convincing acute fracture or dislocation. Soft tissue irregularity throughout the medial lower leg and along the plantar midfoot suggesting
wounds/ulcerations. No overt radiographic evidence for active osteomyelitis. Scattered mild to moderate osteoarthritic changes of the interphalangeal and first metatarsophalangeal joints. Moderate calcaneal enthesopathy. Partially visualized
degenerative changes of the left knee. Extensive vascular calcifications.
[2025-09-14 11:49] LABS: Glucose - Point of Care 127 mg/dl (70-99)
--- NOTE | 2025-09-14 12:31 | CM ---
RADHA met with Kianna and her sister this afternoon. Kianna is going to have AKA done later this week. She asked about the possibility of going to [facility] when she is medically stable. She is a senior care resident at [facility], but with AKA in
the near future, she is hoping she may be considered for [facility] when medically stable.
Plan: Return to LTC at [facility] vs. [facility] admission.
[2025-09-14] MEDS: KCL 40 MEQ PO (13:36)
[2025-09-14] MEDS: FERRLECIT 110 MG IV (13:36)
[2025-09-14 15:00] VITALS: BP 109/70
--- NOTE | 2025-09-14 15:38 | W.PN.HOSP.TC ---
Today's Communication/Plan
-
Observe off antibiotics.
Awaiting vascular surgery input on timing for AKA
Assessment / Plan
Assessment / Plan
Impression
70-year-old with past medical history significant for insulin dependent diabetes, chronic hypotension, peripheral arterial disease status post right BKA and chronic wound in the left lower extremity thought to be secondary to vascular insufficiency
and is pending vascular evaluation on Sunday, recent admission for sepsis in the setting of wound infection that grew polymicrobial bacteria and treated with prolonged Unasyn doxycycline and eventually Augmentin doxycycline at home now presenting to
the emergency department with low blood pressure and concern for wound infection. Her temperature is 99.2. Blood pressure was maintained at 98/68. Heart rate in the low 100s 90s. She is in no acute distress at this time. UA is pending but she
does have 3+ leukocyte esterase otherwise negative nitrites
Chronic left lower extremity leg and foot infected wound secondary to PAD.
Normal gap metabolic acidosis
Conditions prior to admission
Chronic hypotension requiring midodrine.
PAD.
� Status post left lower extremity stent placement from SFA to bypass graft with balloon angioplasty on 07/08/2025
� Status post right AKA
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
CKD stage IIIb with baseline creatinine around 2
Chronic anemia with macrocytosis
Chronic atrial fibrillation
Anticoagulation with Coumadin
Diabetes type 2
Hypothyroidism on replacement
COPD without exacerbation
History of TME related to medications and infection
UTI
Plan
1. Chronic nonhealing wounds infection left calf and foot pedal site wound.
Patient presents to be afebrile and nontoxic-appearing.
Chronic hypotension responded to IV fluids while remaining on midodrine.
Discussed with vascular surgery.
At this point no option for revascularization with plan for AKA
Initially on Unasyn discontinued on 09/14
Wound care daily.
Hold Coumadin anticipating surgical intervention early next week.
Continue Lipitor
2. CKD stage IIIb.
Creatinine at the baseline
Non-anion gap metabolic acidosis, acute on chronic.
Improving with IV fluids.
Continue oral bicarb.
Monitor for recurrent retention while off Flomax
3. Chronic anemia with macrocytosis.
Hemoglobin close to baseline at 8�9 and drifting down to 7.8
Iron stores consistent with mixed picture of iron deficiency anemia of chronic disease
Transfused. 1 unit of PRBC ordered on 09/11 to keep hemoglobin above 8�9 preoperatively
IV iron
Check labs tomorrow
4. Chronic atrial fibrillation
Continue metoprolol
Hold Coumadin in anticipation for AKA. INR remains supra-theraputic
Continue aspirin
5. UA showing extensive bacteriuria and pyuria from 09/09
Urine culture growing gram-negative bacilli -further identification and susceptibility pending
Currently on empiric unasyn
6. Type 2 diabetes - Updated hemoglobin A1c. 4.7
Carbohydrate controlled diet.
Hold Januvia.
Basal bolus protocol
7. Hypothyroidism on replacement.
TSH suppressed and likely consistent with euthyroid sick state
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
Continue gabapentin for chronic pain/neuropathy
9. Constipation - new complaint
Enema
Oral therapy
Preparation H afterwards
Full code
DVT prophylaxis initially on Coumadin.
Start Lovenox once INR drifting down below 2 - today 2.22
Anticipated Discharge: > 48 hours
Subjective/Interval History
-
Date of Service: September 14, 2025
Objective Data
-
Labs:
Laboratory Results
09/14/25
06:07
WBC 5.1
Hgb 9.3 L
Hct 30.9 L
Plt Count 107 L
PT 24.7 H
INR 2.22
Sodium 138
Potassium 3.1 L
Chloride 108 H
Carbon Dioxide 26
BUN 12
Creatinine 1.3 H
Glucose 82
Calcium 7.6 L
Vital Signs:
Vital Signs
Temp Pulse Resp BP Pulse Ox
99.4 F 94 14 101/63 98
09/14/25 11:17 09/14/25 12:06 09/14/25 11:17 09/14/25 12:06 09/14/25 11:17
I&O
09/13/25 09/14/25 09/15/25
06:59 06:59 06:59
Intake Total 960 / 960 1200 / 1200
Balance 960 / 960 1200 / 1200
Physical Exam
-
General: Well Developed, Well Nourished and No Apparent Distress
HEENT: Normocephalic, Moist Mucous Membranes, Nose Appears Normal and Ears Appear Normal
Respiratory: Clear to Auscultation
Cardiac: Regular Rhythm and S1/S2
GI: Soft, Nontender and Nondistended
Musculoskeletal: No Cyanosis
Skin: Warm and Dry
Neuro: Awake, Alert and Oriented
Psych: Calm
[2025-09-14 16:41] LABS: Glucose - Point of Care 217 mg/dl (70-99)
[2025-09-14] MEDS: CLARITIN 10 MG PO (17:39)
[2025-09-14] MEDS: NOVOLOG FLEXPEN-LOW RESISTANCE 2 UNITS SC (17:39)
[2025-09-14 19:00] VITALS: BP 91/58
[2025-09-14 20:51] LABS: Glucose - Point of Care 125 mg/dl (70-99)
[2025-09-14] MEDS: LAMICTAL 25 MG PO (21:10)
[2025-09-14] MEDS: MELATONIN 10 MG PO (21:10)
[2025-09-14] MEDS: DESYREL 25 MG PO (21:10)
[2025-09-14] MEDS: LIPITOR 10 MG PO (21:11)
[2025-09-14 23:00] VITALS: BP 85/54
[2025-09-15 03:00] VITALS: BP 85/54
[2025-09-15] MEDS: SYNTHROID 100 MCG PO (05:18)
[2025-09-15] MEDS: MIRALAX PO (07:10)
[2025-09-15 07:50] VITALS: BP 90/57
[2025-09-15 08:02] LABS: Glucose - Point of Care 95 mg/dl (70-99)
[2025-09-15] MEDS: NEURONTIN 300 MG PO ×2 (08:11→20:48)
[2025-09-15] MEDS: NOVOLOG FLEXPEN-LOW RESISTANCE SC ×3 (08:11→17:04)
[2025-09-15] MEDS: SODIUM BICARBONATE 650 MG PO ×2 (08:11→20:48)
[2025-09-15] MEDS: LOW STRENGTH ASPIRIN 81 MG PO (08:11)
[2025-09-15] MEDS: PROTONIX 40 MG PO (08:12)
[2025-09-15 10:55] VITALS: BP 88/56
[2025-09-15 11:18] LABS: Hematocrit 34.7 % (37.0-47.0); Hemoglobin 10.4 g/dL (12.0-16.0); Mean Corp Hgb Conc. 30.0 g/dL (33.0-37.0); Mean Corpuscular Volume 108.8 fL (81.0-99.0); Nucleated Red Blood Cells % 0 %; Platelet Count 126 10^3/uL (130-400); Red Cell Dist. Width 17.4 % (11.5-14.5)
[2025-09-15 11:28] LABS: INR 2.11; PT 23.8 Sec (11.4-14.6)
[2025-09-15 11:45] LABS: Glucose - Point of Care 119 mg/dl (70-99)
[2025-09-15 12:10] LABS: Blood Urea Nitrogen 10 mg/dl (7-17); Calcium 8.0 mg/dl (8.4-10.2); Carbon Dioxide 27 mmol/L (22-30); Chloride 107 mmol/L (98-107); Estimated Creatinine Clearance 40 ml/min; Glucose 100 mg/dl (70-99); Potassium 3.7 mmol/L (3.5-5.1); Sodium 138 mmol/L (135-145); eGFR 44.79
--- NOTE | 2025-09-15 13:33 | W.PN.UPDATE ---
Update Note
Progress Note Update
Planning for left AKA on with Dr. Rivera. N.p.o. after midnight Sunday night.
--- NOTE | 2025-09-15 13:53 | CM ---
Pt is to have left AKA on August. Pt visited today, support offered.
Plan: CM will continue to follow for discharge planning; [facility] vs. return to [facility] at discharge.
[2025-09-15] MEDS: FERRLECIT 110 MG IV (14:49)
[2025-09-15 15:00] VITALS: BP 86/57
--- NOTE | 2025-09-15 15:32 | CM ---
CM met with Kianna today who needed help with completing a medical records request. CM assisted with completion of form and provided it to Medical Records. Pt requested the entire medical record to be sent via mail to [facility] in [place], room
[address].
--- NOTE | 2025-09-15 16:03 | W.PN.HOSP.TC ---
Today's Communication/Plan
-
Off antibiotics
Pending amputation tentatively on 09/17.
Off Coumadin with drifting INR prior to surgery
Assessment / Plan
Assessment / Plan
Impression
70-year-old with past medical history significant for insulin dependent diabetes, chronic hypotension, peripheral arterial disease status post right BKA and chronic wound in the left lower extremity thought to be secondary to vascular insufficiency
and is pending vascular evaluation on Sunday, recent admission for sepsis in the setting of wound infection that grew polymicrobial bacteria and treated with prolonged Unasyn doxycycline and eventually Augmentin doxycycline at home now presenting to
the emergency department with low blood pressure and concern for wound infection. Her temperature is 99.2. Blood pressure was maintained at 98/68. Heart rate in the low 100s 90s. She is in no acute distress at this time. UA is pending but she
does have 3+ leukocyte esterase otherwise negative nitrites
Chronic left lower extremity leg and foot infected wound secondary to PAD.
Normal gap metabolic acidosis
Hypokalemia, improved
Conditions prior to admission
Chronic hypotension requiring midodrine.
PAD.
� Status post left lower extremity stent placement from SFA to bypass graft with balloon angioplasty on 07/08/2025
� Status post right AKA
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
CKD stage IIIb with baseline creatinine around 2
Chronic anemia with macrocytosis
Chronic atrial fibrillation
Anticoagulation with Coumadin
Diabetes type 2
Hypothyroidism on replacement
COPD without exacerbation
History of TME related to medications and infection
UTI
Mild protein calorie malnutrition with BMI of 24
Plan
1. Chronic nonhealing wounds infection left calf and foot pedal site wound.
Patient presents to be afebrile and nontoxic-appearing.
Chronic hypotension responded to IV fluids while remaining on midodrine.
Discussed with vascular surgery.
At this point no option for revascularization with plan for AKA
Initially on Unasyn discontinued on 10/20
Wound care daily.
Hold Coumadin anticipating surgical intervention early next week.
Continue Lipitor
2. CKD stage IIIb.
Creatinine at the baseline
Non-anion gap metabolic acidosis, acute on chronic.
Improving with IV fluids.
Continue oral bicarb.
Monitor for recurrent retention while off Flomax
3. Chronic anemia with macrocytosis.
Hemoglobin close to baseline at 8�9 and drifting down to 7.8
Iron stores consistent with mixed picture of iron deficiency anemia of chronic disease
Transfused. 1 unit of PRBC ordered on 09/11 to keep hemoglobin above 8�9 preoperatively
IV iron
Check labs tomorrow
4. Chronic atrial fibrillation
Continue metoprolol
Hold Coumadin in anticipation for AKA. INR remains supra-theraputic
Continue aspirin
5. UA showing extensive bacteriuria and pyuria from 09/09
Urine culture growing gram-negative bacilli -further identification and susceptibility pending
Currently on empiric unasyn
6. Type 2 diabetes - Updated hemoglobin A1c. 4.7
Carbohydrate controlled diet.
Hold Januvia.
Basal bolus protocol
7. Hypothyroidism on replacement.
TSH suppressed and likely consistent with euthyroid sick state
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
Continue gabapentin for chronic pain/neuropathy
9. Constipation - new complaint
Enema
Oral therapy
Preparation H afterwards
Full code
DVT prophylaxis initially on Coumadin.
Start Lovenox once INR drifting down below 2 - today 2.22
Anticipated Discharge: 24 - 48 hours
Subjective/Interval History
-
Date of Service: September 15, 2025
Objective Data
-
Labs:
Laboratory Results
09/15/25
11:05
WBC 5.6
Hgb 10.4 L
Hct 34.7 L
Plt Count 126 L
PT 23.8 H
INR 2.11
Sodium 138
Potassium 3.7
Chloride 107
Carbon Dioxide 27
BUN 10
Creatinine 1.3 H
Glucose 100 H
Calcium 8.0 L
Vital Signs:
Vital Signs
Temp Pulse Resp BP Pulse Ox
98.3 F 83 16 88/56 96
09/15/25 10:55 09/15/25 12:20 09/15/25 10:55 09/15/25 12:20 09/15/25 10:55
I&O
09/14/25 09/15/25 09/16/25
06:59 06:59 06:59
Intake Total 1200 / 1200 1580 / 1580
Balance 1200 / 1200 1580 / 1580
Physical Exam
-
General: Well Developed, Well Nourished and No Apparent Distress
HEENT: Normocephalic, Moist Mucous Membranes, Nose Appears Normal and Ears Appear Normal
Respiratory: Clear to Auscultation
Cardiac: Regular Rhythm and S1/S2
GI: Soft, Nontender and Nondistended
Musculoskeletal: No Cyanosis
Skin: Warm and Dry
Neuro: Awake, Alert and Oriented
Psych: Calm
[2025-09-15 16:54] LABS: Glucose - Point of Care 149 mg/dl (70-99)
[2025-09-15] MEDS: TOPROL XL PO (17:56)
[2025-09-15 19:40] VITALS: BP 83/55
[2025-09-15 21:38] LABS: Glucose - Point of Care 120 mg/dl (70-99)
[2025-09-15] MEDS: DESYREL 25 MG PO (21:52)
[2025-09-15] MEDS: MELATONIN 10 MG PO (21:53)
[2025-09-15] MEDS: LAMICTAL 25 MG PO (21:53)
[2025-09-15] MEDS: LIPITOR 10 MG PO (21:53)
[2025-09-15 23:35] VITALS: BP 100/62
--- NOTE | 2025-09-16 02:49 | DOWNTIME ---
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 Downtime documentation of patient's care, including medication administrations, has been reconciled in the electronic record per guidelines. Refer to the
patient's paper chart under the miscellaneous tab to see printed paper medication records and downtime forms.
[2025-09-16 03:25] VITALS: BP 87/53
[2025-09-16] MEDS: SYNTHROID 100 MCG PO (05:50)
[2025-09-16 07:00] VITALS: BP 92/55
[2025-09-16 07:44] LABS: Hematocrit 32.9 % (37.0-47.0); Hemoglobin 9.9 g/dL (12.0-16.0); Mean Corp Hgb Conc. 30.1 g/dL (33.0-37.0); Mean Corpuscular Volume 109.7 fL (81.0-99.0); Nucleated Red Blood Cells % 0 %; Platelet Count 105 10^3/uL (130-400); Red Cell Dist. Width 17.1 % (11.5-14.5)
[2025-09-16 07:56] LABS: Glucose - Point of Care 99 mg/dl (70-99)
[2025-09-16 07:58] LABS: INR 2.17; PT 24.6 Sec (11.4-14.6)
[2025-09-16] MEDS: NOVOLOG FLEXPEN-LOW RESISTANCE SC ×2 (08:03→12:00)
[2025-09-16 08:27] LABS: Blood Urea Nitrogen 8 mg/dl (7-17); Calcium 7.7 mg/dl (8.4-10.2); Carbon Dioxide 28 mmol/L (22-30); Chloride 108 mmol/L (98-107); Estimated Creatinine Clearance 37 ml/min; Glucose 87 mg/dl (70-99); Potassium 4.0 mmol/L (3.5-5.1); Sodium 138 mmol/L (135-145); eGFR 40.98
[2025-09-16] MEDS: NEURONTIN 300 MG PO ×2 (08:38→20:00)
[2025-09-16] MEDS: LOW STRENGTH ASPIRIN 81 MG PO (08:38)
[2025-09-16] MEDS: PROTONIX 40 MG PO (08:38)
[2025-09-16] MEDS: SODIUM BICARBONATE 650 MG PO ×2 (08:38→20:00)
[2025-09-16] MEDS: MIRALAX PO (08:42)
[2025-09-16 11:00] VITALS: BP 89/56
[2025-09-16 11:55] LABS: Glucose - Point of Care 137 mg/dl (70-99)
--- NOTE | 2025-09-16 12:25 | CM ---
RADHA visited Kianna this afternoon; provided her with a copy of her medical records request.
Kianna is anxious about AKA, support provided.
[2025-09-16 15:00] VITALS: BP 101/60
[2025-09-16] MEDS: MEPHYTON 5 MG PO (15:22)
--- NOTE | 2025-09-16 15:58 | W.PN.HOSP.TC ---
Today's Communication/Plan
-
Fall left AKA tomorrow
Vitamin K today
Follow-up with INR in a.m.
Assessment / Plan
Assessment / Plan
Impression
70-year-old with past medical history significant for insulin dependent diabetes, chronic hypotension, peripheral arterial disease status post right BKA and chronic wound in the left lower extremity thought to be secondary to vascular insufficiency
and is pending vascular evaluation on Sunday, recent admission for sepsis in the setting of wound infection that grew polymicrobial bacteria and treated with prolonged Unasyn doxycycline and eventually Augmentin doxycycline at home now presenting to
the emergency department with low blood pressure and concern for wound infection. Her temperature is 99.2. Blood pressure was maintained at 98/68. Heart rate in the low 100s 90s. She is in no acute distress at this time. UA is pending but she
does have 3+ leukocyte esterase otherwise negative nitrites
Chronic left lower extremity leg and foot infected wound secondary to PAD.
Normal gap metabolic acidosis
Hypokalemia, improved
Conditions prior to admission
Chronic hypotension requiring midodrine.
PAD.
� Status post left lower extremity stent placement from SFA to bypass graft with balloon angioplasty on 07/08/2025
� Status post right AKA
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
CKD stage IIIb with baseline creatinine around 2
Chronic anemia with macrocytosis
Chronic atrial fibrillation
Anticoagulation with Coumadin
Diabetes type 2
Hypothyroidism on replacement
COPD without exacerbation
History of TME related to medications and infection
UTI
Mild protein calorie malnutrition with BMI of 24
Plan
1. Chronic nonhealing wounds infection left calf and foot pedal site wound.
Patient presents to be afebrile and nontoxic-appearing.
Chronic hypotension responded to IV fluids while remaining on midodrine.
Discussed with vascular surgery.
At this point no option for revascularization with plan for AKA
Initially on Unasyn discontinued on 09/14
Wound care daily.
Hold Coumadin anticipating surgical intervention early next week.
Continue Lipitor
2. CKD stage IIIb.
Creatinine at the baseline
Non-anion gap metabolic acidosis, acute on chronic.
Improving with IV fluids.
Continue oral bicarb.
Monitor for recurrent retention while off Flomax
3. Chronic anemia with macrocytosis.
Hemoglobin close to baseline at 8�9 and drifting down to 7.8
Iron stores consistent with mixed picture of iron deficiency anemia of chronic disease
Transfused. 1 unit of PRBC ordered on 09/11 to keep hemoglobin above 8�9 preoperatively
IV iron
Check labs tomorrow
4. Chronic atrial fibrillation
Continue metoprolol
Hold Coumadin in anticipation for AKA. INR remains supra-theraputic
Continue aspirin
5. UA showing extensive bacteriuria and pyuria from 09/09
Urine culture growing gram-negative bacilli -further identification and susceptibility pending
Currently on empiric unasyn
6. Type 2 diabetes - Updated hemoglobin A1c. 4.7
Carbohydrate controlled diet.
Hold Januvia.
Basal bolus protocol
7. Hypothyroidism on replacement.
TSH suppressed and likely consistent with euthyroid sick state
8. 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
Continue gabapentin for chronic pain/neuropathy
9. Constipation - new complaint
Enema
Oral therapy
Preparation H afterwards
Full code
DVT prophylaxis initially on Coumadin.
Start Lovenox once INR drifting down below 2 - today 2.22
Anticipated Discharge: > 48 hours
Subjective/Interval History
-
Date of Service: September 16, 2025
Objective Data
-
Labs:
Laboratory Results
09/16/25
07:06
WBC 4.9
Hgb 9.9 L
Hct 32.9 L
Plt Count 105 L
PT 24.6 H
INR 2.17
Sodium 138
Potassium 4.0
Chloride 108 H
Carbon Dioxide 28
BUN 8
Creatinine 1.4 H
Glucose 87
Calcium 7.7 L
Vital Signs:
Vital Signs
Temp Pulse Resp BP Pulse Ox
98.3 F 87 18 101/60 96
09/16/25 15:00 09/16/25 15:00 09/16/25 15:00 09/16/25 15:00 09/16/25 15:00
I&O
09/15/25 09/16/25 09/17/25
06:59 06:59 06:59
Intake Total 1580 / 1580 1240 / 1240
Balance 1580 / 1580 1240 / 1240
Physical Exam
-
General: Well Developed, Well Nourished and No Apparent Distress
HEENT: Normocephalic, Moist Mucous Membranes, Nose Appears Normal and Ears Appear Normal
Respiratory: Clear to Auscultation
Cardiac: Regular Rhythm and S1/S2
GI: Soft, Nontender and Nondistended
Musculoskeletal: No Cyanosis
Skin: Warm and Dry
Neuro: Awake, Alert and Oriented
Psych: Calm
[2025-09-16 16:54] LABS: Glucose - Point of Care 176 mg/dl (70-99)
[2025-09-16] MEDS: TOPROL XL PO (17:10)
[2025-09-16] MEDS: CLARITIN 10 MG PO (17:10)
[2025-09-16] MEDS: NOVOLOG FLEXPEN-LOW RESISTANCE 1 UNITS SC (17:10)
[2025-09-16 19:00] VITALS: BP 94/52
[2025-09-16 21:03] LABS: Glucose - Point of Care 172 mg/dl (70-99)
[2025-09-16] MEDS: LIPITOR 10 MG PO (22:07)
[2025-09-16] MEDS: LAMICTAL 25 MG PO (22:07)
[2025-09-16] MEDS: MELATONIN 10 MG PO (22:07)
[2025-09-16] MEDS: DESYREL 25 MG PO (22:08)
[2025-09-16 23:00] VITALS: BP 109/67
[2025-09-17] VITALS (16 sets, daily range): BP systolic 65–157; BP diastolic 22–126
[2025-09-17] MEDS: SYNTHROID 100 MCG PO (06:06)
[2025-09-17 06:29] LABS: Glucose - Point of Care 111 mg/dl (70-99)
[2025-09-17 06:36] LABS: Hematocrit 33.7 % (37.0-47.0); Hemoglobin 9.9 g/dL (12.0-16.0); Mean Corp Hgb Conc. 29.4 g/dL (33.0-37.0); Mean Corpuscular Volume 108.7 fL (81.0-99.0); Nucleated Red Blood Cells % 0 %; Platelet Count 129 10^3/uL (130-400); Red Cell Dist. Width 16.6 % (11.5-14.5)
[2025-09-17 06:40] LABS: INR 1.51; PT 18.5 Sec (11.4-14.6)
[2025-09-17 06:50] LABS: Blood Urea Nitrogen 8 mg/dl (7-17); Calcium 7.9 mg/dl (8.4-10.2); Carbon Dioxide 29 mmol/L (22-30); Chloride 108 mmol/L (98-107); Estimated Creatinine Clearance 37 ml/min; Glucose 103 mg/dl (70-99); Potassium 3.9 mmol/L (3.5-5.1); Sodium 138 mmol/L (135-145); eGFR 40.98
[2025-09-17] MEDS: BACTROBAN 2% OINTMENT 1 APPLIC NASAL (07:20)
[2025-09-17] MEDS: PERIDEX 0.12% ORAL RINSE 15 ML PO (07:20)
[2025-09-17] MEDS: SODIUM BICARBONATE 650 MG PO ×2 (07:20→20:10)
[2025-09-17] MEDS: NEURONTIN 300 MG PO ×2 (07:25→20:09)
[2025-09-17] MEDS: PROTONIX 40 MG PO (07:25)
[2025-09-17] MEDS: LOW STRENGTH ASPIRIN 81 MG PO (07:25)
[2025-09-17] MEDS: MIRALAX PO (07:26)
--- NOTE | 2025-09-17 09:28 | PN.CDI ---
CDI
- -
CDI:
Physician Documentation Request
Admit Date: 09/09/25 22:00
Dear Doctor Joya,
Please review the following and provide your response in the progress notes.
Clinical Indicators:
Pt admitted with Diabetic foot ulcer / PAD
Progress notes 09/15 &09/16 , ' UA showing extensive bacteriuria and pyuria from 09/09
Urine culture growing gram-negative bacilli -further identification and susceptibility pending
Currently on empiric Unasyn...'
Urine findings below
Laboratory Tests
09/09/25
20:06
Potassium
Urine Color Yellow
Urine Clarity Slightly cloudy
Urine WBC (Reflex) >100 A
Urine Bacteria (Reflex) Many A
09/09/25 20:06 Urine Culture - Final
Urine Klebsiella pneumoniae
Escherichia coli - ESBL
Please provide a diagnosis for the above findings/treatment :
UTI
Abnormal UA only
Other ( please specify)
Use of terms such as suspected, likely, concern for, or probable (associated with a specific diagnosis that is being evaluated, monitored, or treated as if it exists) are acceptable and can be coded in the inpatient setting, when documented at the
time of discharge.
Thank you,
Pily Albarran RN
CDI Specialist
[facility]
Please use your independent medical judgment in providing your response.
[2025-09-17] MEDS: VANCOCIN 200 IV (10:48)
[2025-09-17 12:48] LABS: Urine Character Cloudy (Clear)
[2025-09-17 13:01] LABS: Urine White Cell >100 /HPF (0-5)
--- NOTE | 2025-09-17 13:02 | W.SUR.POST ---
Surgical Immediate Post Op
Note
Pre Op Diagnosis: Left calf and foot necrotic wounds, chronic limb threatening ischemia
Post Op Diagnosis: Left calf and foot necrotic wounds, chronic limb threatening ischemia
Procedure Performed: Left above the knee amputation
Primary Surgeon: Chadd Rivera MD
Court Bailiff Or Sheriff: AARON Pyle
Anesthesia: GETA
Estimated Blood Loss: 150 ml
Fluids: See anesthesia flow sheet
Drains/Shunts: N/A
Specimens/Cultures: Left leg
Doppler/Duplex/Angio (Y/N): No
Complications: None
Operative Findings: successful amputation
--- NOTE | 2025-09-17 13:18 | OR.RPT ---
Operative Report
Operative Report
PROCEDURE DATE: 09/17/2025
Preoperative diagnosis: Gangrene left foot, nonhealing wounds left calf
Postoperative diagnosis: Same
Procedure: Left above the knee amputation
Surgeon: Miguel
Corncob Pipe Supervisor: ATUL Mccauley, required for all aspects of procedure including assistance with traction/countertraction, assistance with closure.
Complications: None
Anesthesia: General
Indications for procedure:
Nonhealing left leg wound with chronic gangrene left foot nonhealing on the plantar aspect. Risk/benefits/alternatives of [id number] amputation fully discussed. Patient understood all wished to proceed.
Description of procedure:
Patient was identified brought to the operating room placed on the table in supine position. After the adequate administration of anesthesia and perioperative antibiotics she was prepped and draped in the standard surgical fashion. A standard
preoperative timeout was undertaken and everybody was in agreement the plan. Standard fishmouth flap type incisions were made in the left lower extremity with anterior/posterior incision circumferentially around the distal thigh just above the
knee. Incisions were carried through skin subcutaneous tissue with the electrocautery. Note on the lateral aspect the bypass graft was clearly noted in the subcutaneous tissue. I ligated with a heavy silk tie proximally. I also placed a silk
suture ligature around approximately. I then placed a silk tie around it distally. I transected the graft. Additional silk suture ligature was placed for hemostasis. Now, crural fascia was divided with the electrocautery. This was done
circumferentially. Anteriorly using electrocautery dissected down to the level of the bone. All the muscle surrounding the femur were carefully transected with the electrocautery. Then the muscles and tendon structures posteriorly were similarly
transected. The sciatic nerve was cut and allowed to retract back. There was a little bit of bleeding from the vessels and therefore a gentle tie was placed around it. (Silk tie). I had difficulty dissecting the popliteal artery and vein due to
significant inflammatory tissue. Dissection around the femur was a little bit tough because of some of the inflammatory nature of the tissue. The artery and vein had been ensconced in fatty tissue. But some of the tissue surrounding or inflamed.
Therefore I just placed heavy silk ties proximally and distally around both the artery and vein together. Before transecting them (indicates that they would bleed), I completed dissection around the femur completely. Periosteal elevator was used
to elevate the periosteum. An oscillating saw was then used to transect the femur. Now, I transected the artery and vein together between the silk ties. The leg specimen was then sent off. Now, I placed careful suture ligatures around the artery
and vein.
Note prior to completing my transection, I made a small separate incision more proximally on the thigh overlying the bypass graft. This was carried through skin to be the incision with the electrocautery. I then passed a vessel loop around the
bypass graft after carefully dissecting it circumferentially. Several heavy silk ties were placed to completely ligated at this juncture. In doing so, once I removed the leg specimen, I then was able to grasp the graft close to the transection
edge, and the dissected away from the fatty tissues and then cut it higher up and allowing it to retract back so it was away from the closure.
Now tissues were copiously irrigated. Hemostasis was meticulously achieved. The popliteal artery and vein bundles were buried using an anterior mild pexy type Vicryl stitch. Once this was completed, we confirmed hemostasis. We then closed in
layers using interrupted 0 Vicryl to reapproximate the fascial layer. 3-0 Vicryl deep dermal layer was run then. Skin clips were applied. Bulky dressings were applied. The patient tolerated the procedure well. All sponge, needle, instrument
counts were correct at the end of the case. Patient was transported to recovery room in stable condition.
[2025-09-17 13:27] LABS: Glucose - Point of Care 122 mg/dl (70-99)
[2025-09-17] MEDS: DILAUDID 0.25 MG IV ×2 (13:40→20:10)
[2025-09-17 14:15] LABS: Hematocrit 34.9 % (37.0-47.0); Hemoglobin 10.8 g/dL (12.0-16.0); Mean Corp Hgb Conc. 30.9 g/dL (33.0-37.0); Mean Corpuscular Volume 103.6 fL (81.0-99.0); Platelet Count 162 10^3/uL (130-400); Red Cell Dist. Width 16.4 % (11.5-14.5)
--- NOTE | 2025-09-17 14:50 | W.PN.HOSP.TC ---
Today's Communication/Plan
-
INR 1.5 status post vitamin K
To OR for left AKA
Assessment / Plan
Assessment / Plan
Impression
70-year-old with past medical history significant for insulin dependent diabetes, chronic hypotension, peripheral arterial disease status post right BKA and chronic wound in the left lower extremity thought to be secondary to vascular insufficiency
and is pending vascular evaluation on Sunday, recent admission for sepsis in the setting of wound infection that grew polymicrobial bacteria and treated with prolonged Unasyn doxycycline and eventually Augmentin doxycycline at home now presenting to
the emergency department with low blood pressure and concern for wound infection. Her temperature is 99.2. Blood pressure was maintained at 98/68. Heart rate in the low 100s 90s. She is in no acute distress at this time. UA is pending but she
does have 3+ leukocyte esterase otherwise negative nitrites
Chronic left lower extremity leg and foot infected wound secondary to PAD.
Normal gap metabolic acidosis
Hypokalemia, improved
Conditions prior to admission
Chronic hypotension requiring midodrine.
PAD.
� Status post left lower extremity stent placement from SFA to bypass graft with balloon angioplasty on 07/08/2025
� Status post right AKA
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
CKD stage IIIb with baseline creatinine around 2
Chronic anemia with macrocytosis
Chronic atrial fibrillation
Anticoagulation with Coumadin
Diabetes type 2
Hypothyroidism on replacement
COPD without exacerbation
History of TME related to medications and infection
UTI
Mild protein calorie malnutrition with BMI of 24
Plan
1. Chronic nonhealing wounds infection left calf and foot pedal site wound.
Patient presents to be afebrile and nontoxic-appearing.
Chronic hypotension responded to IV fluids while remaining on midodrine.
Discussed with vascular surgery.
At this point no option for revascularization with plan for AKA
Initially on Unasyn discontinued on 09/14
Wound care daily.
Hold Coumadin anticipating surgical intervention early next week.
Continue Lipitor
2. CKD stage IIIb.
Creatinine at the baseline
Non-anion gap metabolic acidosis, acute on chronic.
Improving with IV fluids.
Continue oral bicarb.
Monitor for recurrent retention while off Flomax
3. Chronic anemia with macrocytosis.
Hemoglobin close to baseline at 8�9 and drifting down to 7.8
Iron stores consistent with mixed picture of iron deficiency anemia of chronic disease
Transfused. 1 unit of PRBC ordered on 09/11 to keep hemoglobin above 8�9 preoperatively
IV iron
Check labs tomorrow
4. Chronic atrial fibrillation
Continue metoprolol
Hold Coumadin in anticipation for AKA. INR remains supra-theraputic
Continue aspirin
5. UA showing extensive bacteriuria and pyuria from 09/09
Urine culture growing gram-negative bacilli -further identification and susceptibility pending
Currently on empiric unasyn
6. Type 2 diabetes - Updated hemoglobin A1c. 4.7
Carbohydrate controlled diet.
Hold Januvia.
Basal bolus protocol
7. Hypothyroidism on replacement.
TSH suppressed and likely consistent with euthyroid sick state
8. Patient is on lamotrigine [employer] at low-dose for unknown reasons will continue for now.
Continue gabapentin for chronic pain/neuropathy
9. Constipation - new complaint
Enema
Oral therapy
Preparation H afterwards
Full code
DVT prophylaxis initially on Coumadin.
Start Lovenox once INR drifting down below 2 - today 2.22
Anticipated Discharge: > 48 hours
Subjective/Interval History
-
Date of Service: September 17, 2025
Objective Data
-
Labs:
Laboratory Results
09/17/25 09/17/25
06:09 13:57
WBC 5.4 7.0
Hgb 9.9 L 10.8 L
Hct 33.7 L 34.9 L
Plt Count 129 L D 162 D
PT 18.5 H
INR 1.51
Sodium 138
Potassium 3.9
Chloride 108 H
Carbon Dioxide 29
BUN 8
Creatinine 1.4 H
Glucose 103 H
Calcium 7.9 L
Vital Signs:
Vital Signs
Temp Pulse Resp BP Pulse Ox
98.1 F 123 20 99/65 94
09/17/25 14:10 09/17/25 14:15 09/17/25 14:15 09/17/25 14:15 09/17/25 14:10
I&O
09/16/25 09/17/25 09/18/25
06:59 06:59 06:59
Intake Total 1240 / 1240 820 / 820
Output Total 200 / 200
Balance 1240 / 1240 820 / 820 -200 / -200
Physical Exam
-
General: Well Developed and No Apparent Distress
HEENT: Normocephalic, Atraumatic and Moist Mucous Membranes
Respiratory: Clear to Auscultation
Cardiac: Regular Rhythm and S1/S2; Negative Murmur, Rub or Gallop
GI: Soft, Nontender, Nondistended and Normal Bowel Sounds; Negative Organomegaly
Rectal: Deferred by Provider
Musculoskeletal: No Clubbing, No Cyanosis and No Edema
Skin: Negative Rash
Neuro: Nonfocal/Grossly Intact
[2025-09-17] MEDS: DILAUDID 0.5 MG IV (15:06)
--- NOTE | 2025-09-17 16:46 | CM ---
Pt was in the OR today for Left AKA. Pt not seen by CM. Will follow up tomorrow.
Plan: Discharge/return to [facility] when medically stable.
[2025-09-17] MEDS: TYLENOL 650 MG PO ×2 (17:11→20:09)
[2025-09-17] MEDS: TOPROL XL PO (17:15)
[2025-09-17 17:51] LABS: Glucose - Point of Care 176 mg/dl (70-99)
[2025-09-17] MEDS: NOVOLOG FLEXPEN-LOW RESISTANCE 1 UNITS SC (18:03)
[2025-09-17] MEDS: ROXICODONE 5 MG PO (18:06)
[2025-09-17] MEDS: LAMICTAL 25 MG PO (21:23)
[2025-09-17] MEDS: LIPITOR 10 MG PO (21:23)
[2025-09-17] MEDS: DESYREL 25 MG PO (21:24)
[2025-09-17] MEDS: MELATONIN 10 MG PO (21:25)
[2025-09-17 22:08] LABS: Glucose - Point of Care 186 mg/dl (70-99)
--- NOTE | 2025-09-17 23:26 | PTCARENOTE ---
Addendum entered by Winnie Aguilar 09/18/25 01:01:
BP taken 1 hour after administration of midodrine, 84/58. O2 saturation is 94%. House provider notified.
Original Note:
PCT informed this RN that BP was 77/53 and O2 saturation was 91% with 2300 vitals. Took manual with a result of 76/54. Pt did receive a dose of Dilaudid 0.25 @ 20:10 for a pain of 6/10 in left stump. House provider TT. Order for Midodrine placed.
See JAN.
[2025-09-18] VITALS (8 sets, daily range): BP systolic 91–128; BP diastolic 53–98; PULSE 101
[2025-09-18] MEDS: TYLENOL PO ×3 (01:03→16:40)
[2025-09-18] MEDS: DILAUDID 0.5 MG IV ×4 (03:12→22:51)
[2025-09-18] MEDS: SYNTHROID 100 MCG PO (05:12)
--- NOTE | 2025-09-18 07:25 | W.PN.VS ---
Addendum entered and electronically signed by Chadd Rivera MD 09/18/25 09:38:
Seen and examined with ATUL Menjivar. Agree with findings as noted below. Agree with plan as discussed and noted below.
Original Note:
Today's Communication / Plan
-
Patient seen and examined at bedside with Dr. Chadd Rivera, below plan reviewed with attending.
Assessment/Plan
-
Assessment: 70-year-old female POD #1 left [id number] amputation
Plan:
Continue as needed pain medication regimen
Thompson catheter to be removed tomorrow morning
PT/OT eval and treat
Dressing change tomorrow
A.m. labs pending, no concern for bleeding given dry dressing and stable vital signs, but will review hemoglobin once finalized, if hemoglobin is stable okay to reinitiate patient's oral anticoagulation of Coumadin this evening
Subjective Data
-
Date of Service: September 18, 2025
Patient seen and examined at bedside, offers no complaints. Endorses well-managed postoperative pain with current as needed pain medication regimen. Denies nausea, vomiting, fever, and chills.
Objective Data
-
Vital Signs
Temp Pulse Resp BP Pulse Ox
98.5 F 90 16 110/66 96
09/18/25 03:35 09/18/25 03:35 09/18/25 03:35 09/18/25 03:35 09/18/25 03:35
Intake and Output
09/17/25 09/18/25 09/19/25
06:59 06:59 06:59
Intake Total 820 / 820 840 / 840
Output Total 250 / 250
Balance 820 / 820 590 / 590
Intake:
Oral fluids 820 / 820 840 / 840
Output:
Urine, Thompson 250 / 250
Other:
How many times incontinent 2
MODERATE amount urine
How many times incontinent 1 2
SATURATED amount urine
Calcium 7.9 mg/dl (8.4-10.2) L 09/17/25 06:09
Magnesium 1.9 mg/dl (1.6-2.3) 09/09/25 17:54
Total Bilirubin 0.8 mg/dl (0.2-1.3) 09/09/25 17:54
AST 21 U/L (14-36) 09/09/25 17:54
ALT 14 U/L (0-35) 09/09/25 17:54
Alkaline Phosphatase 123 U/L (38-126) 09/09/25 17:54
Total Protein 6.1 g/dl (6.3-8.2) L 09/09/25 17:54
Albumin 2.8 g/dl (3.5-5.0) L 09/09/25 17:54
Physical Exam
-
AAO x 3
No tachypnea on room air
No tachycardia
Abdomen soft
Left [id number] amputation dressing clean, dry, and intact
[2025-09-18 08:26] LABS: Glucose - Point of Care 151 mg/dl (70-99)
[2025-09-18 08:32] LABS: Hematocrit 29.7 % (37.0-47.0); Hemoglobin 9.0 g/dL (12.0-16.0); Mean Corp Hgb Conc. 30.3 g/dL (33.0-37.0); Mean Corpuscular Volume 107.2 fL (81.0-99.0); Platelet Count 168 10^3/uL (130-400); Red Cell Dist. Width 16.1 % (11.5-14.5)
[2025-09-18 08:48] LABS: INR 1.26; PT 16.1 Sec (11.4-14.6)
[2025-09-18 08:53] LABS: Blood Urea Nitrogen 11 mg/dl (7-17); Calcium 8.1 mg/dl (8.4-10.2); Carbon Dioxide 25 mmol/L (22-30); Chloride 105 mmol/L (98-107); Estimated Creatinine Clearance 31 ml/min; Glucose 146 mg/dl (70-99); Potassium 4.7 mmol/L (3.5-5.1); Sodium 132 mmol/L (135-145); eGFR 32.46
[2025-09-18] MEDS: TYLENOL 650 MG PO ×3 (09:03→19:47)
[2025-09-18] MEDS: PROTONIX 40 MG PO (09:03)
[2025-09-18] MEDS: LOW STRENGTH ASPIRIN 81 MG PO (09:04)
[2025-09-18] MEDS: SODIUM BICARBONATE 650 MG PO ×2 (09:04→19:47)
[2025-09-18] MEDS: NEURONTIN 300 MG PO ×2 (09:04→19:47)
[2025-09-18] MEDS: NOVOLOG FLEXPEN-LOW RESISTANCE 1 UNITS SC (09:05)
[2025-09-18] MEDS: MIRALAX PO (09:13)
[2025-09-18 14:06] LABS: Glucose - Point of Care 111 mg/dl (70-99)
[2025-09-18] MEDS: NOVOLOG FLEXPEN-LOW RESISTANCE SC (14:06)
--- NOTE | 2025-09-18 14:58 | PTCARENOTE ---
patient experiencing left AKA surgical pain, medicated with PRN Dilaudid with good relief. poor appetite, Po's encouraged, turns with assist x2, vss, will continue to monitor.
--- NOTE | 2025-09-18 16:24 | W.PN.HOSP.TC ---
Today's Communication/Plan
-
Monitor hemoglobin
Resume Coumadin
Adjust analgesic regimen postoperatively.
PT assessment
Physiatry evaluation
Assessment / Plan
Assessment / Plan
Impression
70-year-old with past medical history significant for insulin dependent diabetes, chronic hypotension, peripheral arterial disease status post right BKA and chronic wound in the left lower extremity thought to be secondary to vascular insufficiency
and is pending vascular evaluation on Sunday, recent admission for sepsis in the setting of wound infection that grew polymicrobial bacteria and treated with prolonged Unasyn doxycycline and eventually Augmentin doxycycline at home now presenting to
the emergency department with low blood pressure and concern for wound infection. Her temperature is 99.2. Blood pressure was maintained at 98/68. Heart rate in the low 100s 90s. She is in no acute distress at this time. UA is pending but she
does have 3+ leukocyte esterase otherwise negative nitrites
Chronic left lower extremity leg and foot infected wound secondary to PAD.
Normal gap metabolic acidosis
Hypokalemia, improved
Conditions prior to admission
Chronic hypotension requiring midodrine.
PAD.
� Status post left lower extremity stent placement from SFA to bypass graft with balloon angioplasty on 07/08/2025
� Status post right AKA
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
CKD stage IIIb with baseline creatinine around 2
Chronic anemia with macrocytosis
Chronic atrial fibrillation
Anticoagulation with Coumadin
Diabetes type 2
Hypothyroidism on replacement
COPD without exacerbation
History of TME related to medications and infection
UTI
Mild protein calorie malnutrition with BMI of 24
Plan
1. Chronic nonhealing wounds infection left calf and foot pedal site wound.
Patient presents to be afebrile and nontoxic-appearing.
Chronic hypotension responded to IV fluids while remaining on midodrine.
Discussed with vascular surgery.
Initially on Unasyn discontinued on 09/14
Status post left AKA on 09/17
Postoperative care as per vascular. Plan is to remove Thompson catheter on 09/19
Hemoglobin stable. Resume Coumadin tonight on 09/18
Continue Lipitor
2. CKD stage IIIb.
Creatinine at the baseline
Non-anion gap metabolic acidosis, acute on chronic.
Improving with IV fluids.
Continue oral bicarb.
Monitor for recurrent retention while off Flomax
3. Chronic anemia with macrocytosis.
Hemoglobin close to baseline at 8�9 and drifting down to 7.8
Iron stores consistent with mixed picture of iron deficiency anemia of chronic disease
Transfused. 1 unit of PRBC ordered on 09/11 to keep hemoglobin above 8�9 preoperatively
Status post IV iron
Follow hemoglobin postoperative
4. Chronic atrial fibrillation
Continue metoprolol
Coumadin held prior to surgery. Status post single dose of vitamin K given on 09/16 with INR drifted down to 1.5
Resume Coumadin on 09/18
Continue aspirin
5. UA showing extensive bacteriuria and pyuria from 09/09
Urine culture growing gram-negative bacilli -further identification and susceptibility pending
Currently on empiric unasyn
6. Type 2 diabetes - Updated hemoglobin A1c. 4.7
Carbohydrate controlled diet.
Hold Januvia.
Basal bolus protocol
7. Hypothyroidism on replacement.
TSH suppressed and likely consistent with euthyroid sick state
8. Patient is on lamotrigine [employer] at low-dose for unknown reasons will continue for now.
Continue gabapentin for chronic pain/neuropathy
9. Constipation - new complaint
Enema
Oral therapy
Preparation H afterwards
Full code
DVT prophylaxis initially on Coumadin.
Anticipated Discharge: > 48 hours
Subjective/Interval History
-
Date of Service: September 18, 2025
Objective Data
-
Labs:
Laboratory Results
09/18/25
07:49
WBC 11.2 H
Hgb 9.0 L
Hct 29.7 L
Plt Count 168
PT 16.1 H
INR 1.26
Sodium 132 L
Potassium 4.7
Chloride 105
Carbon Dioxide 25
BUN 11
Creatinine 1.7 H
Glucose 146 H
Calcium 8.1 L
Vital Signs:
Vital Signs
Temp Pulse Resp BP Pulse Ox
98.3 F 100 20 92/53 99
09/18/25 15:55 09/18/25 15:55 09/18/25 15:55 09/18/25 15:55 09/18/25 15:55
I&O
09/17/25 09/18/25 09/19/25
06:59 06:59 06:59
Intake Total 820 / 820 840 / 840
Output Total 250 / 250
Balance 820 / 820 590 / 590
Physical Exam
-
General: Well Developed and No Apparent Distress
HEENT: Normocephalic, Atraumatic and Moist Mucous Membranes
Respiratory: Clear to Auscultation
Cardiac: Regular Rhythm and S1/S2; Negative Murmur, Rub or Gallop
GI: Soft, Nontender, Nondistended and Normal Bowel Sounds; Negative Organomegaly
Rectal: Deferred by Provider
Musculoskeletal: No Clubbing, No Cyanosis and No Edema
Skin: Negative Rash
Neuro: Nonfocal/Grossly Intact
[2025-09-18 17:43] LABS: Glucose - Point of Care 225 mg/dl (70-99)
[2025-09-18] MEDS: TOPROL XL PO (17:59)
[2025-09-18] MEDS: CLARITIN 10 MG PO (18:14)
[2025-09-18] MEDS: COUMADIN 3 MG PO (18:14)
[2025-09-18] MEDS: NOVOLOG FLEXPEN-LOW RESISTANCE 2 UNITS SC (18:17)
[2025-09-18 20:15] LABS: Glucose - Point of Care 171 mg/dl (70-99)
[2025-09-18] MEDS: DESYREL 25 MG PO (21:46)
[2025-09-18] MEDS: MELATONIN 10 MG PO (21:46)
[2025-09-18] MEDS: LAMICTAL 25 MG PO (21:46)
[2025-09-18] MEDS: LIPITOR 10 MG PO (21:47)
[2025-09-19] VITALS (10 sets, daily range): BP systolic 74–125; BP diastolic 46–86
[2025-09-19] MEDS: TYLENOL PO ×2 (02:13→04:16)
[2025-09-19] MEDS: SYNTHROID 100 MCG PO (06:06)
--- NOTE | 2025-09-19 06:53 | W.PN.VS ---
Today's Communication / Plan
-
Today's plan below, reviewed with on-call attending.
Assessment/Plan
-
Assessment: 70-year-old female POD #2 left otfcg-snw-oooe amputation
Plan:
Continue as needed pain medication regimen, transitioned off of IV push to p.o. in hopes of better coverage and decreased breakthrough pain, especially given patient has intermittently reliable IV access
Thompson catheter discontinued
PT/OT eval and treat
Daily dressing change of gentle Tai wrap
Case management following for disposition planning
Subjective Data
-
Date of Service: September 19, 2025
Patient seen examined at bedside, slightly tearful right now because patient endorses breakthrough pain and because she is a difficult IV stick and thus does not have reliable peripheral IV access. Denies nausea, vomiting, fever, and chills.
Objective Data
-
Vital Signs
Temp Pulse Resp BP Pulse Ox
98.1 F 86 17 91/56 93
09/19/25 03:16 09/19/25 03:16 09/19/25 03:16 09/19/25 03:16 09/19/25 03:16
Intake and Output
09/17/25 09/18/25 09/19/25
06:59 06:59 06:59
Intake Total 820 / 820 840 / 840 480 / 480
Output Total 250 / 250 775 / 775
Balance 820 / 820 590 / 590 -295 / -295
Intake:
Oral fluids 820 / 820 840 / 840 480 / 480
Output:
Urine, Thompson 250 / 250 775 / 775
Other:
How many times incontinent 2
MODERATE amount urine
How many times incontinent 1 2
SATURATED amount urine
Calcium 8.1 mg/dl (8.4-10.2) L 09/18/25 07:49
Magnesium 1.9 mg/dl (1.6-2.3) 09/09/25 17:54
Total Bilirubin 0.8 mg/dl (0.2-1.3) 09/09/25 17:54
AST 21 U/L (14-36) 09/09/25 17:54
ALT 14 U/L (0-35) 09/09/25 17:54
Alkaline Phosphatase 123 U/L (38-126) 09/09/25 17:54
Total Protein 6.1 g/dl (6.3-8.2) L 09/09/25 17:54
Albumin 2.8 g/dl (3.5-5.0) L 09/09/25 17:54
Physical Exam
-
AAO x 3
No tachypnea on room air
No tachycardia
Abdomen soft
Left wjwca-ucr-rbjk amputation dressing removed, staple site clean, dry, and intact, no evidence of hematoma, all surrounding compartments soft, scant area of ecchymosis along the posterior area of the incision gentle compression Tai wrap applied
for dressing
[2025-09-19] MEDS: DILAUDID 0.5 MG IV (07:42)
[2025-09-19 07:51] LABS: Glucose - Point of Care 112 mg/dl (70-99)
[2025-09-19] MEDS: NOVOLOG FLEXPEN-LOW RESISTANCE SC ×3 (08:58→18:11)
[2025-09-19] MEDS: PROTONIX 40 MG PO (09:01)
[2025-09-19] MEDS: NEURONTIN 300 MG PO ×2 (09:01→19:50)
[2025-09-19] MEDS: DILAUDID 4 MG PO ×2 (09:01→18:37)
[2025-09-19] MEDS: MIRALAX 17 GRAMS PO (09:01)
[2025-09-19] MEDS: LOW STRENGTH ASPIRIN 81 MG PO (09:01)
[2025-09-19] MEDS: TYLENOL 650 MG PO ×4 (09:02→19:50)
[2025-09-19] MEDS: SODIUM BICARBONATE 650 MG PO ×2 (09:02→19:51)
--- NOTE | 2025-09-19 10:00 | VATNOTE ---
ra tender, +1 edema. suggested US, will cont to monitor for vat needs
[2025-09-19 11:11] LABS: Hematocrit 26.4 % (37.0-47.0); Hemoglobin 8.0 g/dL (12.0-16.0); Mean Corp Hgb Conc. 30.3 g/dL (33.0-37.0); Mean Corpuscular Volume 106.0 fL (81.0-99.0); Nucleated Red Blood Cells % 0 %; Platelet Count 162 10^3/uL (130-400); Red Cell Dist. Width 15.9 % (11.5-14.5)
[2025-09-19 11:22] LABS: INR 1.24; PT 15.9 Sec (11.4-14.6)
[2025-09-19 11:36] LABS: Blood Urea Nitrogen 11 mg/dl (7-17); Calcium 7.9 mg/dl (8.4-10.2); Carbon Dioxide 29 mmol/L (22-30); Chloride 104 mmol/L (98-107); Estimated Creatinine Clearance 28 ml/min; Glucose 108 mg/dl (70-99); Potassium 4.4 mmol/L (3.5-5.1); Sodium 131 mmol/L (135-145); eGFR 28.41
[2025-09-19 12:16] LABS: Glucose - Point of Care 122 mg/dl (70-99)
--- NOTE | 2025-09-19 13:19 | W.PN.HOSP.TC ---
Today's Communication/Plan
-
change to PO regimen; increased frequency as needed
Pt/OT
Assessment / Plan
Assessment / Plan
Impression
70-year-old with past medical history significant for insulin dependent diabetes, chronic hypotension, peripheral arterial disease status post right BKA and chronic wound in the left lower extremity thought to be secondary to vascular insufficiency
and is pending vascular evaluation on Sunday, recent admission for sepsis in the setting of wound infection that grew polymicrobial bacteria and treated with prolonged Unasyn doxycycline and eventually Augmentin doxycycline at home now presenting to
the emergency department with low blood pressure and concern for wound infection. Her temperature is 99.2. Blood pressure was maintained at 98/68. Heart rate in the low 100s 90s. She is in no acute distress at this time. UA is pending but she
does have 3+ leukocyte esterase otherwise negative nitrites
Chronic left lower extremity leg and foot infected wound secondary to PAD.
Normal gap metabolic acidosis
Hypokalemia, improved
Conditions prior to admission
Chronic hypotension requiring midodrine.
PAD.
� Status post left lower extremity stent placement from SFA to bypass graft with balloon angioplasty on 07/08/2025
� Status post right AKA
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
CKD stage IIIb with baseline creatinine around 2
Chronic anemia with macrocytosis
Chronic atrial fibrillation
Anticoagulation with Coumadin
Diabetes type 2
Hypothyroidism on replacement
COPD without exacerbation
History of TME related to medications and infection
UTI
Mild protein calorie malnutrition with BMI of 24
Plan
1. Chronic nonhealing wounds infection left calf and foot pedal site wound.
Patient presents to be afebrile and nontoxic-appearing.
Chronic hypotension responded to IV fluids while remaining on midodrine.
Discussed with vascular surgery.
Initially on Unasyn discontinued on 09/14
Status post left AKA on 09/17
Postoperative care as per vascular. Plan is to remove Thompson catheter on 09/19
Hemoglobin stable. Resume Coumadin tonight on 09/18
Continue Lipitor
2. CKD stage IIIb.
Creatinine at the baseline
Non-anion gap metabolic acidosis, acute on chronic.
Improving with IV fluids.
Continue oral bicarb.
Monitor for recurrent retention while off Flomax
3. Chronic anemia with macrocytosis.
Hemoglobin close to baseline at 8�9 and drifting down to 7.8
Iron stores consistent with mixed picture of iron deficiency anemia of chronic disease
Transfused. 1 unit of PRBC ordered on 09/11 to keep hemoglobin above 8�9 preoperatively
Status post IV iron
Follow hemoglobin postoperative
4. Chronic atrial fibrillation
Continue metoprolol
Coumadin held prior to surgery. Status post single dose of vitamin K given on 09/16 with INR drifted down to 1.5
Resume Coumadin on 09/18
Continue aspirin
5. UA showing extensive bacteriuria and pyuria from 09/09
Urine culture growing gram-negative bacilli -further identification and susceptibility pending
Currently on empiric unasyn
6. Type 2 diabetes - Updated hemoglobin A1c. 4.7
Carbohydrate controlled diet.
Hold Januvia.
Basal bolus protocol
7. Hypothyroidism on replacement.
TSH suppressed and likely consistent with euthyroid sick state
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
Continue gabapentin for chronic pain/neuropathy
9. Constipation - new complaint
Enema
Oral therapy
Preparation H afterwards
10. Hyponatremia
mild
monitor
Full code
DVT prophylaxis initially on Coumadin.
Update 09/19 - changing pain meds to PO in effort to transition to outpatient plan; Donna rowan; PT/OT
Anticipated Discharge: 24 - 48 hours
Subjective/Interval History
-
Date of Service: September 19, 2025
No acute events overnight, attempting to get pain under control
Objective Data
-
Labs:
Laboratory Results
09/19/25
10:41
WBC 9.6
Hgb 8.0 L
Hct 26.4 L
Plt Count 162
PT 15.9 H
INR 1.24
Sodium 131 L
Potassium 4.4
Chloride 104
Carbon Dioxide 29
BUN 11
Creatinine 1.9 H
Glucose 108 H
Calcium 7.9 L
Vital Signs:
Vital Signs
Temp Pulse Resp BP Pulse Ox
98.3 F 88 17 112/86 98
09/19/25 08:33 09/19/25 09:47 09/19/25 08:33 09/19/25 08:33 09/19/25 08:33
I&O
09/18/25 09/19/25 09/20/25
06:59 06:59 06:59
Intake Total 840 / 840 480 / 480
Output Total 250 / 250 775 / 775
Balance 590 / 590 -295 / -295
Review of Systems
-
History Source: Patient
All other systems: Reviewed and negative
Data Reviewed
-
Labs: Labs Reviewed by me
--- NOTE | 2025-09-19 14:04 | PTCARENOTE ---
Pt in extreme pain this am with some tremors noted, tears and HR 125-135 afib. pt given one time IV dilaudid that did eventually work for her pain. Pt is aaox3 pleasant able to make her needs known. pt knows how to call for nurse with return
demonstration. Pt makes no attempts to get OOB but is on fall risk. sign on door. HR irregular soft systolic murmur noted no cp no sob. lungs course but decreased. HR 125 mostof shift but is now 90 afib. tele renewed per protocol. pt on
metoprolol for afib and proamatine for bp. pulse ox 96% on room air, not coughing. abd soft nd hypoactive bs no bm. she did have bowel regime and did not want it, but with education she took it. pt incontinent of urine. milligan removed at 6 am
and at noon she had not voided but bladder scan at that time was 189 ml however at 1 45 she voided incontent and a post void bladder scan was 10 ml. PT has been turned and repositoned q 2 hours. She is cachectic with severe fat losswith sunken
facial apperanse and weak hand steel rod buster. significant loss of muscle wasting noted in BUE. Pt has severe pitting edema in RUE that if you press fluid leaks out. RUE is elevated on pillow, made aware and us ordered to rule out DVT. Also dependent
edema noted in right labial and right sacrum after lying on right side. In am vascular Md completed amputation first surgical dressing change.
[2025-09-19 16:55] LABS: Glucose - Point of Care 157 mg/dl (70-99)
[2025-09-19] MEDS: TOPROL XL PO (17:59)
[2025-09-19 18:07] LABS: Glucose - Point of Care 175 mg/dl (70-99)
[2025-09-19] MEDS: COUMADIN 3 MG PO (18:12)
[2025-09-19] MEDS: NSS 500 IV (18:36)
--- NOTE | 2025-09-19 19:36 | PTCARENOTE ---
Pt sent down to US for BUE US. pt very talkative the entire time. she was laughing and joking very high spirited. When we picked her up, she was sleeping but she had told us earlier that she did not sleep last night. Later her SBP was in high 80s
so i rechecked for low 90s, She was sleeping as she was when i came on this am. However, I came back in again. this time her SBP was 78 with a manual and verified with a palpable Bp. she was awake enough to take her proamatine po without any issues.
a couple minutes later she fell asleep again and would not wake up. I repeated the sternal rub a bit deeper, she moved a tad but did not wake up. I repeated the sternal rub much harder and this time she moaned and pushed me away but would not wake
up. at this point we got a BS (170, called who odered IV NSS bolus ) ,She had excellent muscle control, no weakness noted but she would not talk . she opened eyes briefly and they shut very quickly, pupils 2 , She had her arms tight winter
crossed over her chest and her alarm was ringing asystole but had no amplification and alot of artifact. pt had been running 125s most of day afib. We attempted an EKG but she would not release her winter crossed tight fists to be able to get a
rhythm or heart rate so we aborted the EKG at that time. Because of not being able to verify her rhythm, change in mental status, stuporous and tightness in arms. i called a rapid to get other people involved with her care. As other people entered
the room, she woke up, SBP re checked for 125, IVF stopped, EKG obtained afib . Pt now resting in room.
[2025-09-19 20:27] LABS: Glucose - Point of Care 166 mg/dl (70-99)
[2025-09-19] MEDS: LAMICTAL 25 MG PO (22:20)
[2025-09-19] MEDS: MELATONIN 10 MG PO (22:20)
[2025-09-19] MEDS: LIPITOR 10 MG PO (22:20)
[2025-09-19] MEDS: DESYREL 25 MG PO (22:21)
--- NOTE | 2025-09-19 23:25 | PTCARENOTE ---
Addendum entered by Winnie Aguilar 09/20/25 00:33:
BP taken 45 minutes later, 108/63. HR 98. Pt was given a dose of Midodrine 5MG.
Original Note:
PCT informed this RN that pt BP was 74/46. Pt is very drowsy but able to be woken up by sternal rub. Pt has slight tremors which are new this shift. Temp 97.3 and O2 sat 96%. House provider TT. Awaiting new orders.
[2025-09-20] VITALS (8 sets, daily range): BP systolic 75–108; BP diastolic 45–63
[2025-09-20] MEDS: TYLENOL PO (01:06)
[2025-09-20] MEDS: DILAUDID 4 MG PO (03:33)
[2025-09-20] MEDS: TYLENOL 650 MG PO ×5 (03:33→21:17)
[2025-09-20 04:48] LABS: INR 1.32; PT 16.7 Sec (11.4-14.6)
[2025-09-20] MEDS: SYNTHROID 100 MCG PO (06:24)
[2025-09-20 07:57] LABS: Glucose - Point of Care 117 mg/dl (70-99)
[2025-09-20] MEDS: NOVOLOG FLEXPEN-LOW RESISTANCE SC ×3 (09:09→17:19)
[2025-09-20] MEDS: COLACE 100 MG PO (09:13)
[2025-09-20] MEDS: MIRALAX 17 GRAMS PO (09:13)
[2025-09-20] MEDS: NEURONTIN 300 MG PO ×2 (09:14→21:18)
[2025-09-20] MEDS: PROTONIX 40 MG PO (09:14)
[2025-09-20] MEDS: SODIUM BICARBONATE 650 MG PO ×2 (09:14→21:17)
[2025-09-20] MEDS: LOW STRENGTH ASPIRIN 81 MG PO (09:14)
[2025-09-20] MEDS: ROXICODONE 5 MG PO ×2 (09:32→15:23)
--- NOTE | 2025-09-20 11:36 | W.PN.HOSP.TC ---
Today's Communication/Plan
-
reduce pain meds
Assessment / Plan
Assessment / Plan
Impression
70-year-old with past medical history significant for insulin dependent diabetes, chronic hypotension, peripheral arterial disease status post right BKA and chronic wound in the left lower extremity thought to be secondary to vascular insufficiency
and is pending vascular evaluation on Sunday, recent admission for sepsis in the setting of wound infection that grew polymicrobial bacteria and treated with prolonged Unasyn doxycycline and eventually Augmentin doxycycline at home now presenting to
the emergency department with low blood pressure and concern for wound infection. Her temperature is 99.2. Blood pressure was maintained at 98/68. Heart rate in the low 100s 90s. She is in no acute distress at this time. UA is pending but she
does have 3+ leukocyte esterase otherwise negative nitrites
Chronic left lower extremity leg and foot infected wound secondary to PAD.
Normal gap metabolic acidosis
Hypokalemia, improved
Conditions prior to admission
Chronic hypotension requiring midodrine.
PAD.
� Status post left lower extremity stent placement from SFA to bypass graft with balloon angioplasty on 07/08/2025
� Status post right AKA
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
CKD stage IIIb with baseline creatinine around 2
Chronic anemia with macrocytosis
Chronic atrial fibrillation
Anticoagulation with Coumadin
Diabetes type 2
Hypothyroidism on replacement
COPD without exacerbation
History of TME related to medications and infection
UTI
Mild protein calorie malnutrition with BMI of 24
Plan
1. Chronic nonhealing wounds infection left calf and foot pedal site wound.
Patient presents to be afebrile and nontoxic-appearing.
Chronic hypotension responded to IV fluids while remaining on midodrine.
Discussed with vascular surgery.
Initially on Unasyn discontinued on 09/14
Status post left AKA on 09/17
Postoperative care as per vascular. Plan is to remove Thompson catheter on 09/19
Hemoglobin stable. Resume Coumadin tonight on 09/18
Continue Lipitor
2. CKD stage IIIb.
Creatinine at the baseline
Non-anion gap metabolic acidosis, acute on chronic.
Improving with IV fluids.
Continue oral bicarb.
Monitor for recurrent retention while off Flomax
3. Chronic anemia with macrocytosis.
Hemoglobin close to baseline at 8�9 and drifting down to 7.8
Iron stores consistent with mixed picture of iron deficiency anemia of chronic disease
Transfused. 1 unit of PRBC ordered on 09/11 to keep hemoglobin above 8�9 preoperatively
Status post IV iron
Follow hemoglobin postoperative
4. Chronic atrial fibrillation
Continue metoprolol
Coumadin held prior to surgery. Status post single dose of vitamin K given on 09/16 with INR drifted down to 1.5
Resume Coumadin on 09/18
Continue aspirin
5. UA showing extensive bacteriuria and pyuria from 09/09
Urine culture growing gram-negative bacilli -further identification and susceptibility pending
Currently on empiric unasyn
6. Type 2 diabetes - Updated hemoglobin A1c. 4.7
Carbohydrate controlled diet.
Hold Januvia.
Basal bolus protocol
7. Hypothyroidism on replacement.
TSH suppressed and likely consistent with euthyroid sick state
8. 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
Continue gabapentin for chronic pain/neuropathy
9. Constipation - new complaint
Enema
Oral therapy
Preparation H afterwards
10. Hyponatremia
mild
monitor
Full code
DVT prophylaxis initially on Coumadin.
Update 09/19 - changing pain meds to PO in effort to transition to outpatient plan; Donna rowan; PT/OT
Update 09/20 - sometimes lethargic with opiates - reduce dosing;
Anticipated Discharge: Within 24 hours
Subjective/Interval History
-
Date of Service: September 20, 2025
No acute events overnight, sometimes patient becomes lethargic, possible secondary to opiates.
Objective Data
-
Labs:
Laboratory Results
09/20/25
04:24
PT 16.7 H
INR 1.32
Vital Signs:
Vital Signs
Temp Pulse Resp BP Pulse Ox
98 F 84 16 96/46 87
09/20/25 08:10 09/20/25 08:10 09/20/25 08:10 09/20/25 08:10 09/20/25 08:10
I&O
09/19/25 09/20/25 09/21/25
06:59 06:59 06:59
Intake Total 480 / 480 1380 / 1380
Output Total 775 / 775
Balance -295 / -295 1380 / 1380
Review of Systems
-
History Source: Patient
All other systems: Reviewed and negative
Data Reviewed
-
Labs: Labs Reviewed by me
[2025-09-20 11:47] LABS: Glucose - Point of Care 131 mg/dl (70-99)
[2025-09-20 16:13] LABS: Hematocrit 25.3 % (37.0-47.0); Hemoglobin 7.7 g/dL (12.0-16.0); Mean Corp Hgb Conc. 30.4 g/dL (33.0-37.0); Mean Corpuscular Volume 108.6 fL (81.0-99.0); Platelet Count 180 10^3/uL (130-400); Red Cell Dist. Width 15.8 % (11.5-14.5)
--- NOTE | 2025-09-20 16:38 | PTCARENOTE ---
was made aware of low bp but arousable this am, no new orders. Labs came back at hg 7.7 INR 1.32 no signs of bleeding T max 100.7. aware
[2025-09-20 16:44] LABS: Blood Urea Nitrogen 11 mg/dl (7-17); Calcium 7.7 mg/dl (8.4-10.2); Carbon Dioxide 30 mmol/L (22-30); Chloride 103 mmol/L (98-107); Estimated Creatinine Clearance 28 ml/min; Glucose 103 mg/dl (70-99); Potassium 4.6 mmol/L (3.5-5.1); Sodium 133 mmol/L (135-145); eGFR 28.41
[2025-09-20 17:12] LABS: Glucose - Point of Care 125 mg/dl (70-99)
[2025-09-20] MEDS: TOPROL XL PO (17:19)
[2025-09-20] MEDS: CLARITIN 10 MG PO (17:19)
[2025-09-20] MEDS: COUMADIN 3 MG PO (17:21)
[2025-09-20] MEDS: LIPITOR 10 MG PO (21:18)
[2025-09-20] MEDS: LAMICTAL 25 MG PO (21:18)
[2025-09-20] MEDS: DESYREL 25 MG PO (21:18)
[2025-09-20] MEDS: MELATONIN 10 MG PO (21:18)
[2025-09-20] MEDS: ANTIFUNGAL CLEAR 1 APPLIC TOPICAL (21:20)
[2025-09-20 22:00] LABS: Glucose - Point of Care 145 mg/dl (70-99)
[2025-09-21] MEDS: NSS 500 IV (00:10)
[2025-09-21] MEDS: TYLENOL 650 MG PO ×5 (00:17→20:00)
[2025-09-21 03:46] VITALS: BP 102/63
[2025-09-21] MEDS: TYLENOL PO (03:57)
[2025-09-21] MEDS: SYNTHROID 100 MCG PO (06:11)
[2025-09-21 07:48] VITALS: BP 127/96
[2025-09-21 08:02] LABS: Glucose - Point of Care 100 mg/dl (70-99)
[2025-09-21] MEDS: NOVOLOG FLEXPEN-LOW RESISTANCE SC ×3 (08:05→17:31)
[2025-09-21] MEDS: LOW STRENGTH ASPIRIN 81 MG PO (08:07)
[2025-09-21] MEDS: NEURONTIN 300 MG PO ×2 (08:07→19:59)
[2025-09-21] MEDS: PROTONIX 40 MG PO (08:07)
[2025-09-21] MEDS: SODIUM BICARBONATE 650 MG PO ×2 (08:07→20:00)
[2025-09-21] MEDS: MIRALAX PO (08:11)
[2025-09-21] MEDS: ANTIFUNGAL CLEAR 1 APPLIC TOPICAL ×2 (08:13→20:00)
[2025-09-21 09:06] LABS: Hematocrit 29.8 % (37.0-47.0); Hemoglobin 8.8 g/dL (12.0-16.0); Mean Corp Hgb Conc. 29.5 g/dL (33.0-37.0); Mean Corpuscular Volume 112.0 fL (81.0-99.0); Platelet Count 175 10^3/uL (130-400); Red Cell Dist. Width 15.9 % (11.5-14.5)
[2025-09-21 09:21] LABS: INR 1.72; PT 20.3 Sec (11.4-14.6)
[2025-09-21 09:32] LABS: Blood Urea Nitrogen 11 mg/dl (7-17); Calcium 7.8 mg/dl (8.4-10.2); Carbon Dioxide 30 mmol/L (22-30); Chloride 105 mmol/L (98-107); Estimated Creatinine Clearance 28 ml/min; Glucose 100 mg/dl (70-99); Potassium 4.9 mmol/L (3.5-5.1); Sodium 134 mmol/L (135-145); eGFR 28.41
--- NOTE | 2025-09-21 09:56 | W.PN.VS ---
Today's Communication / Plan
-
Seen and assessed with Dr. Rivera
Assessment/Plan
-
Assessment: 70-year-old female POD #3 left [id number]-byn-[id number] amputation
Plan:
PT/OT
Daily dressing change of gentle Tai wrap
Okay for discharge from vascular standpoint
I will add follow-up to the chart. Please call with questions or concerns
Subjective Data
-
Date of Service: September 21, 2025
Patient seen at bedside this a.m. with Dr. Rivera. Patient offers no complaints at this time. No events overnight.
Objective Data
-
Vital Signs
Temp Pulse Resp BP Pulse Ox
97.4 F 59 17 127/96 94
09/21/25 07:48 09/21/25 08:06 09/21/25 07:48 09/21/25 08:06 09/21/25 07:48
Intake and Output
09/20/25 09/21/25 09/22/25
06:59 06:59 06:59
Intake Total 1380 / 1380 870 / 870
Balance 1380 / 1380 870 / 870
Intake:
Oral fluids 1380 / 1380 870 / 870
Other:
How many times incontinent 2
MODERATE amount urine
How many times incontinent 1 2
SATURATED amount urine
Number of approximated MODERATE 1
amounts of urine
Number of approximated LARGE 2
amounts of urine
Lab Results
09/21/25 08:53
09/21/25 08:53
Calcium 7.8 mg/dl (8.4-10.2) L 09/21/25 08:53
Magnesium 1.9 mg/dl (1.6-2.3) 09/09/25 17:54
Total Bilirubin 0.8 mg/dl (0.2-1.3) 09/09/25 17:54
AST 21 U/L (14-36) 09/09/25 17:54
ALT 14 U/L (0-35) 09/09/25 17:54
Alkaline Phosphatase 123 U/L (38-126) 09/09/25 17:54
Total Protein 6.1 g/dl (6.3-8.2) L 09/09/25 17:54
Albumin 2.8 g/dl (3.5-5.0) L 09/09/25 17:54
Physical Exam
-
AAO x 3
No tachypnea on room air
No tachycardia
Abdomen soft
Left iawtl-zad-shrd amputation dressing removed, staple site clean, dry, and intact, no evidence of hematoma, all surrounding compartments soft, gentle compression Tai wrap applied for dressing
--- NOTE | 2025-09-21 10:11 | PN.CDI ---
Addendum entered and electronically signed by Shaji Hinson MD 09/23/25 15:35:
Chronic anemia with iron deficiency
Original Note:
CDI
- -
CDI:
Physician Documentation Request
Admit Date: 09/09/25 22:00
Dear Doctor,
Please review the following and provide your response in the progress notes.
Clinical Indicators:
Pt admitted with Diabetic foot ulcer / PAD s/p AKA on 09/17
ESBL 150 ml
Progress notes 09/17 -09/20, ' Chronic anemia with macrocytosis.Hemoglobin close to baseline at 8�9 and drifting down to 7.8 Iron stores consistent with mixed picture of iron deficiency anemia of chronic disease Transfused. 1 unit of PRBC
ordered on 09/11 to keep hemoglobin above 8�9 preoperatively IV iron..'
Trended Hemoglobin /Hematocrit below
Laboratory Tests
09/09/25 09/17/25 09/19/25
17:54 13:57 10:41
Hgb 10.5 L 10.8 L 8.0 L
Hct 33.4 L 34.9 L 26.4 L
09/20/25
15:54
Hgb 7.7 L
Hct 25.3 L
Based on the above, could you clarify, in your progress note, which of the following is the most likely type of anemia you are evaluating, monitoring and/or treating?
Acute blood loss anemia with baseline chronic iron deficiency anemia
Anemia of chronic disease iron deficiency only
Other ( please specify)
Use of terms such as suspected, likely, concern for, or probable (associated with a specific diagnosis that is being evaluated, monitored, or treated as if it exists) are acceptable and can be coded in the inpatient setting, when documented at the
time of discharge.
Thank you,
Pily Albarran RN
CDI Specialist
[facility]
Please use your independent medical judgment in providing your response.
[2025-09-21] MEDS: DILAUDID 2 MG PO (10:30)
[2025-09-21 11:21] VITALS: BP 81/46
[2025-09-21 11:57] LABS: Glucose - Point of Care 134 mg/dl (70-99)
--- NOTE | 2025-09-21 12:24 | CM ---
CM following for discharge planning. Referral sent to [facility] due to prior R BKA and new L AKA on 09/17/2025. Awaiting review of referral; consult pending for physiatry.
Plan: CM will continue to follow for transfer to [facility] accepted.
--- NOTE | 2025-09-21 14:39 | W.PN.HOSP.TC ---
Today's Communication/Plan
-
Physiatry evaluation
Wound care
Monitor hemoglobin
Continue Coumadin with daily INR
Adjust analgesic regimen. Given worsening of pain continue oral Dilaudid. Stop Roxicodone. Continue gabapentin.
Assessment / Plan
Assessment / Plan
Impression
70-year-old with past medical history significant for insulin dependent diabetes, chronic hypotension, peripheral arterial disease status post right BKA and chronic wound in the left lower extremity thought to be secondary to vascular insufficiency
and is pending vascular evaluation on Sunday, recent admission for sepsis in the setting of wound infection that grew polymicrobial bacteria and treated with prolonged Unasyn doxycycline and eventually Augmentin doxycycline at home now presenting to
the emergency department with low blood pressure and concern for wound infection. Her temperature is 99.2. Blood pressure was maintained at 98/68. Heart rate in the low 100s 90s. She is in no acute distress at this time. UA is pending but she
does have 3+ leukocyte esterase otherwise negative nitrites
Chronic left lower extremity leg and foot infected wound secondary to PAD.
Normal gap metabolic acidosis
Hypokalemia, improved
Conditions prior to admission
Chronic hypotension requiring midodrine.
PAD.
� Status post left lower extremity stent placement from SFA to bypass graft with balloon angioplasty on 07/08/2025
� Status post right AKA
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
CKD stage IIIb with baseline creatinine around 2
Chronic anemia with macrocytosis
Chronic atrial fibrillation
Anticoagulation with Coumadin
Diabetes type 2
Hypothyroidism on replacement
COPD without exacerbation
History of TME related to medications and infection
UTI
Mild protein calorie malnutrition with BMI of 24
Plan
1. Chronic nonhealing wounds infection left calf and foot pedal site wound.
Patient presents to be afebrile and nontoxic-appearing.
Chronic hypotension responded to IV fluids while remaining on midodrine.
Discussed with vascular surgery.
Initially on Unasyn discontinued on 09/14
Status post left AKA on 09/17
Postoperative care as per vascular. Plan is to remove Thompson catheter on 09/19
Hemoglobin stable. Resume Coumadin tonight on 09/18
Continue Lipitor
2. CKD stage IIIb.
Creatinine at the baseline
Non-anion gap metabolic acidosis, acute on chronic.
Improving with IV fluids.
Continue oral bicarb.
Monitor for recurrent retention while off Flomax
3. Chronic anemia with macrocytosis.
Hemoglobin close to baseline at 8�9 and drifting down to 7.8
Iron stores consistent with mixed picture of iron deficiency anemia of chronic disease
Transfused. 1 unit of PRBC ordered on 09/11 to keep hemoglobin above 8�9 preoperatively
Status post IV iron
Follow hemoglobin postoperative
4. Chronic atrial fibrillation
Continue metoprolol
Coumadin held prior to surgery. Status post single dose of vitamin K given on 09/16 with INR drifted down to 1.5
Resume Coumadin on 09/18
Continue aspirin
5. UA showing extensive bacteriuria and pyuria from 09/09
Urine culture growing gram-negative bacilli -further identification and susceptibility pending
Currently on empiric unasyn
6. Type 2 diabetes - Updated hemoglobin A1c. 4.7
Carbohydrate controlled diet.
Hold Januvia.
Basal bolus protocol
7. Hypothyroidism on replacement.
TSH suppressed and likely consistent with euthyroid sick state
8. Patient is on lamotrigine PRIMER CHARGER at low-dose for unknown reasons will continue for now.
Continue gabapentin for chronic pain/neuropathy
9. Constipation - new complaint
Enema
Oral therapy
Preparation H afterwards
10. Hyponatremia
mild
monitor
Full code
DVT prophylaxis initially on Coumadin.
Update 09/19 - changing pain meds to PO in effort to transition to outpatient plan; Donna dced; PT/OT
Update 09/20 - sometimes lethargic with opiates - reduce dosing;
Anticipated Discharge: 24 - 48 hours
Subjective/Interval History
-
Date of Service: September 21, 2025
Objective Data
-
Labs:
Laboratory Results
09/21/25
08:53
WBC 7.4
Hgb 8.8 L
Hct 29.8 L
Plt Count 175
PT 20.3 H
INR 1.72
Sodium 134 L
Potassium 4.9
Chloride 105
Carbon Dioxide 30
BUN 11
Creatinine 1.9 H
Glucose 100 H
Calcium 7.8 L
Vital Signs:
Vital Signs
Temp Pulse Resp BP Pulse Ox
98.2 F 83 17 81/46 93
09/21/25 11:21 09/21/25 12:14 09/21/25 11:21 09/21/25 12:14 09/21/25 11:21
I&O
09/20/25 09/21/25 09/22/25
06:59 06:59 06:59
Intake Total 1380 / 1380 870 / 870
Balance 1380 / 1380 870 / 870
Physical Exam
-
General: Well Developed and No Apparent Distress
HEENT: Normocephalic, Atraumatic and Moist Mucous Membranes
Respiratory: Clear to Auscultation
Cardiac: Regular Rhythm and S1/S2; Negative Murmur, Rub or Gallop
GI: Soft, Nontender, Nondistended and Normal Bowel Sounds; Negative Organomegaly
Rectal: Deferred by Provider
Musculoskeletal: No Clubbing, No Cyanosis and No Edema
Skin: Negative Rash
Neuro: Nonfocal/Grossly Intact
[2025-09-21 15:34] VITALS: BP 100/73
--- NOTE | 2025-09-21 15:38 | CM ---
CM contacted by Dawn at [facility]. Kianna is being evaluated for possible transfer to [facility]. CM spoke with admissions at [facility] to make them aware of possible [facility] prior to returning to [facility].
CM to follow up in AM regarding determination for [facility]. Pt is Medicare Primary, so no authorization should need to be completed.
[facility] Report: [phone]
[facility]
[2025-09-21 16:54] LABS: Glucose - Point of Care 112 mg/dl (70-99)
[2025-09-21] MEDS: TOPROL XL PO (18:37)
[2025-09-21] MEDS: COUMADIN 3 MG PO (18:40)
[2025-09-21 19:46] VITALS: BP 86/53
[2025-09-21] MEDS: MELATONIN 10 MG PO (21:28)
[2025-09-21] MEDS: DESYREL 25 MG PO (21:28)
[2025-09-21] MEDS: LIPITOR 10 MG PO (21:28)
[2025-09-21] MEDS: LAMICTAL 25 MG PO (21:29)
[2025-09-21 22:10] LABS: Glucose - Point of Care 150 mg/dl (70-99)
[2025-09-21 23:25] VITALS: BP 82/49
[2025-09-22 01:05] VITALS: BP 106/92
[2025-09-22] MEDS: TYLENOL PO ×2 (01:09→05:04)
[2025-09-22 03:40] VITALS: BP 84/50
[2025-09-22] MEDS: SYNTHROID 100 MCG PO (05:41)
[2025-09-22] MEDS: DILAUDID 2 MG PO ×2 (06:15→16:31)
[2025-09-22 07:20] VITALS: BP 90/49
[2025-09-22 08:02] LABS: Glucose - Point of Care 94 mg/dl (70-99)
[2025-09-22] MEDS: NOVOLOG FLEXPEN-LOW RESISTANCE SC ×3 (08:33→17:15)
[2025-09-22] MEDS: PROTONIX 40 MG PO (08:35)
--- NOTE | 2025-09-22 08:35 | CON.MD ---
Addendum entered and electronically signed by Sandeep Altman MD 09/22/25 17:06:
A total of 60 minutes were spent with the patient preparing for the evaluation, obtaining history, performing examination and evaluation, counseling, data review, case management, care coordination, short order fry cook, and EMR documentation.
Original Note:
Documented by User: Patricia Vaca PA-C 09/22/25 15:58
Consultation - Medical
-
Referring Provider:�Shaji Wetzel
Chief Complaint:�Ambulatory dysfunction, s/p left AKA
�
History of Present Illness:�70 year old female with PMH of (Chronic hypotension requiring midodrine, PAD s/p LLE stent placement from SFA to bypass graft with balloon angioplasty on 07/08/2025, Status post right BKA, Chronic left lower extremity
wound infection , CKD stage IIIb with baseline creatinine around 2, Chronic anemia, Chronic atrial fibrillation on Coumadin, Diabetes type 2, Hypothyroidism, COPD without exacerbation) presented to the [facility] ED on 09/09/2025 due to hypotension,
tachycardia, concern for infection in chronic LLE wound. Patient is status post left AKA by Dr. Rivera on 09/17/2025.
patient reported right BKA about 5-1/2 years ago. Had a prosthetic leg that did not fit. Had a second one that she could not manage. She has been without one for about a year or so. She has been scooting backward from her bed to the wheelchair
then scoots forward to her bed. She currently resides at [facility] long-term, assisted living. She is being assisted with ADLs. Patient not interested in using prosthetics. She is however interested in getting an electrical scooter. Advised
to discuss with social work.
�
Past Medical History:�Chronic hypotension requiring midodrine,PAD. s/p LLE stent placement from SFA to bypass graft with balloon angioplasty on 07/08/2025, Status post right AKA, Chronic left lower extremity wound infection with micrococcus on
bacteremia
CKD stage IIIb with baseline creatinine around 2, Chronic anemia with macrocytosis, Chronic atrial fibrillation on Coumadin, Diabetes type 2, Hypothyroidism, COPD without exacerbation ,history of TME related to medications and infection
Procedure History:�right BKA, LLE stent placement from SFA to bypass graft with balloon angioplasty on 07/08/2025, left AKA, cataracts excised
Family History:�non contributory
�
Social History:�
Functional Level Premorbidly:�Independent with all activities�
Functional Level Currently:�Bed mobility�independent for rolling. Patient really posteriorly pushing during bed mobility. Cues for use of bed rail to assist with rolling. Patient unable to tolerate further bed mobility at this time and not able
to tolerate rolling to sitting, grooming�min assist, toileting�dependent, lower extremity care�max assist,
�
Tobacco:�Denies�
Alcohol:�Denies�
Drug use:�Denies�
�
Lives with:�[facility] ,Assisted Living
24-hour assistance available:�yes
Number of floors:�1
# steps to enter:�0
# steps to second floor:0
Potential First floor set up:�yes
Driving:�no
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
�
�
Allergies:�
Allergy/AdvReac Type Severity Reaction Status Date / Time
cefepime Allergy itchy face Verified 09/09/25 20:51
and chest
May 2025
at OSH
ceftriaxone Allergy itchy face Verified 09/09/25 20:51
and chest
May 2025
at OSH
�
Review of Systems:�
Constitutional: (x) Normal _
Eye: (x) Normal _
Ear/Nose/Throat: (x) Normal _
Respiratory: (x) Normal _
Cardiovascular: (x) Normal _
Gastrointestinal: (x) Normal _
Genitourinary: (x) Normal _
Musculoskeletal: (x) abNormal _right leg pain, s/p bka, left above knee amputation, left residual limb pain
Integumentary: (x) Normal _
Neurologic: (x) Normal _
Psychiatric: (x) Normal _
Endocrine: (x) Normal _
Hematologic/Lymphatic: (x) Normal _
Allergic/Immunologic: (x) Normal _
�
Medications:�
Active Current Visit Medication List
Category Date Time Status
Acetaminophen [Tylenol] Med 09/17/25 16:00 Active
650 mg PO Q4HWA
Aspirin Chewable [Low Strength Aspirin] Med 09/10/25 08:00 Active
81 mg PO DAILY
Atorvastatin [Lipitor] Med 09/09/25 22:22 Active
10 mg PO HS
Bisacodyl [Dulcolax] Med 09/17/25 12:27 Active
10 mg RECTAL DAILYPRN PRN
Dextrose 50%-Water [Dextrose 50% Syringe] Med 09/09/25 22:22 Active
12.5 grams IV [id number] PRN
Docusate Sodium [Colace] Med 09/13/25 13:17 Active
100 mg PO BIDPRN PRN
Flush (0.9% Sodium Chloride) [Flush (Nss)] Med 09/09/25 23:00 Active
See Dose Instructions IV PER PROTOCOL
Gabapentin [Neurontin] Med 09/10/25 08:00 Active
300 mg PO BID
Glucagon [GlucaGen] Med 09/09/25 22:22 Active
1 mg IM PRN PRN
HYDROmorphone [Dilaudid] Med 09/19/25 11:57 Active
2 mg PO Q4HPRN PRN
HYDROmorphone [Dilaudid] Med 09/19/25 06:49 Active
4 mg PO Q6HPRN PRN
Insulin Aspart Corrective Low [Novolog Flexpen-Low Med 09/17/25 18:00 Active
Resistance]
See Protocol SC AC
Lamotrigine [Lamictal] Med 09/09/25 23:00 Active
25 mg PO HS
Levothyroxine [Synthroid] Med 09/10/25 06:00 Active
100 mcg PO DAILY @ 0600
Loratadine [Claritin] Med 09/10/25 18:00 Active
10 mg PO Q48H
Melatonin Med 09/09/25 22:22 Active
10 mg PO HS
Metoprolol Xl [Toprol Xl] Med 09/10/25 18:00 Active
25 mg PO QPM
Midodrine [ProAmatine] Med 09/10/25 08:00 Active
5 mg PO TID @ 0800,1200,1700
Oxycodone [Roxicodone] Med 09/19/25 06:52 Active
5 mg PO Q6HPRN PRN
Pantoprazole [Protonix] Med 09/10/25 08:00 Active
40 mg PO DAILY
Phenyleph/Pramoxin/Glycr/W.pet [Preparation H Max Med 09/13/25 13:17 Active
Strength Pain Relief Cream]
See Dose Instructions RECTAL Q6HPRN PRN
Polyethylene Glycol Powder [Miralax] Med 09/12/25 17:00 Active
17 grams PO DAILY
Sitagliptin Phosphate [Januvia] Med 09/10/25 08:00 Hold
25 mg PO DAILY
Sodium Bicarbonate Med 09/10/25 08:00 Active
650 mg PO BID
Trazodone [Desyrel] Med 09/09/25 23:00 Active
25 mg PO HS
Warfarin [Coumadin] Med 09/18/25 18:00 Active
3 mg PO QPM
�
Vitals:�
Temp Pulse Resp BP Pulse Ox
97.7 F 77 17 84/50 97
09/22/25 03:40 09/22/25 03:40 09/22/25 03:40 09/22/25 03:40 09/22/25 03:40
Height 5 ft 7 in
Actual Weight 71.724 kg
Body Mass Index (BMI) 24.8
�
Physical Exam:�
General Appearance/Observation: Well-developed, well-nourished individual in no apparent distress.�
Pain/Comfort Assessment: right residual limb pain
Mood/Affect: Appropriate�
�
Integumentary/Operative Site:�Left residual limb wrapped in ramona
�� Pressure Ulcer Evaluation: absent over heels.�
��
�� Other Type of Wound: Multiple ecchymosis in the bilateral upper extremities, right side of her face, upper chest areas. Multiple skin tears with dressing
��
Eyes: Conjunctiva/Lids: normal���� Pupils: pupils equal round
Ears/Nose/Throat: oral mucosa moist,� throat clear.������������ Lips/Teeth/Gums: normal�
Neck: No muscle spasm or tenderness�
Cardiovascular: Heart: irregular, no murmur�
Pulses: dorsalis pedis: n/a
Respiratory: Respiratory Effort/Chest Expansion: normal������� Auscultation: Clear to auscultation bilaterally�
Gastrointestinal: abdomen not tender, no distension, normal abdominal bowel sounds
Genitourinary: No Thompson�
Extremities:�Edema: right residual limb in ramona wrap�cyanosis: None�Trophic�changes: None
�
Neurology Exam:
Orientation: Alert, Oriented to self, Time, Place�
Memory: Intact immediate for medical concerns�
Comprehension: Intact
Two step command: Intact
Naming: Intact
Cranial Nerves:
�� CNII:�Pupillary light reflex: Intact����Visual Field: Intact
�� CN III, IV, : Extraocular muscles: Intact�
�� CN VII:�Facial movement: Symmetric
�� CN VIII:�Hearing: Normal
�� CN IX/X:�Speech & swallow: Normal,�Position of Uvula: Midline
�� CN XI:�Shoulder shrug: Symmetric
��
Sensory:
�� Light touch: Intact in bilateral upper and thighs
��
�
Reflexes:
�� Biceps: 2+ bilaterally
�� Brachioradialis: 2+ bilaterally
�� Triceps: 2+ bilaterally
�� Patellar: 2+ bilaterally
�� Achilles: n/a
�� Babinski: n/a
�� Clonus: n/a
�� Nora: Negative bilaterally�
Cerebellar: Dysmetria/Ataxia: None�
Musculoskeletal:
Motor: (Manual muscle scale 0-5)�
Muscle SA EF WE EE FF FA HF KE DF EHL PF
Right� 3+ 5 5 5 5 4 4 - - -
Left 5 5 5 5 5 *2 - - - -
�*post op pain. left thigh/residual limb painful to palpation
Tone: Normal in all extremities�
Range of Motion: Passively within normal limits .�Moderately diminished rom in right shoulder due to rotator cuff issues
�
Lab Results:
Labs
WBC 7.4 10^3/uL (4.8-10.8) 09/21/25 08:53
RBC 2.66 10^6/uL (4.20-5.40) L 09/21/25 08:53
Hgb 8.8 g/dL (12.0-16.0) L 09/21/25 08:53
Hct 29.8 % (37.0-47.0) L 09/21/25 08:53
MCV 112.0 fL (81.0-99.0) H 09/21/25 08:53
MCH 33.1 pg (27.0-31.0) H 09/21/25 08:53
MCHC 29.5 g/dL (33.0-37.0) L 09/21/25 08:53
RDW 15.9 % (11.5-14.5) H 09/21/25 08:53
Plt Count 175 10^3/uL (130-400) 09/21/25 08:53
MPV 9.2 fL (7.4-10.4) 09/21/25 08:53
Abs Immat Gran (auto) 0.1 10^3/uL (0-0.05) H 09/19/25 10:41
Absolute Neuts (auto) 6.6 10^3/uL (1.4-6.5) H 09/19/25 10:41
Absolute Lymphs (auto) 1.5 10^3/uL (1.2-3.4) 09/19/25 10:41
Absolute Monos (auto) 1.0 10^3/uL (0.1-0.6) H 09/19/25 10:41
Absolute Eos (auto) 0.4 10^3/uL (0-0.7) 09/19/25 10:41
Absolute Basos (auto) 0.0 10^3/uL (0-0.2) 09/19/25 10:41
Immature Gran % 0.9 % (0-0.5) H 09/19/25 10:41
Neutrophils % 68.9 % (42.2-75.2) 09/19/25 10:41
Lymphocytes % 15.6 % (20.5-51.1) L 09/19/25 10:41
Monocytes % 10.4 % (1.7-9.3) H 09/19/25 10:41
Eosinophils % 3.8 % (0-6) 09/19/25 10:41
Basophils % 0.4 % (0-2) 09/19/25 10:41
Nucleated RBC % 0 % 09/19/25 10:41
Normal RBC Morphology No 09/09/25 17:54
Anisocytosis 1+ 09/09/25 17:54
ESR 84 mm/hour (0-20) H 09/09/25 17:54
PT 20.3 Sec (11.4-14.6) H 09/21/25 08:53
INR 1.72 09/21/25 08:53
VBG pH Cancelled 09/19/25 18:30
VBG pCO2 Cancelled 09/19/25 18:30
VBG pO2 Cancelled 09/19/25 18:30
VBG HCO3 Cancelled 09/19/25 18:30
VBG O2 Sat (Sharon) Cancelled 09/19/25 18:30
VBG Base Excess Cancelled 09/19/25 18:30
VBG O2 Therapy Cancelled 09/19/25 18:30
Sodium 134 mmol/L (135-145) L 09/21/25 08:53
Potassium 4.9 mmol/L (3.5-5.1) 09/21/25 08:53
Chloride 105 mmol/L (98-107) 09/21/25 08:53
Carbon Dioxide 30 mmol/L (22-30) 09/21/25 08:53
BUN 11 mg/dl (7-17) 09/21/25 08:53
Creatinine 1.9 mg/dL (0.6-1.0) H 09/21/25 08:53
Estimated Creat Clear 28 ml/min 09/21/25 08:53
eGFR 28.41 09/21/25 08:53
Glucose 100 mg/dl (70-99) H 09/21/25 08:53
Hemoglobin A1c 4.7 % (4.0-5.6) 09/10/25 05:49
Lactic Acid Cancelled 09/09/25 21:45
Calcium 7.8 mg/dl (8.4-10.2) L 09/21/25 08:53
Magnesium 1.9 mg/dl (1.6-2.3) 09/09/25 17:54
Iron 24 ug/dl (37-170) L 09/10/25 05:49
TIBC 125 ug/dl (265-497) L 09/10/25 05:49
% Saturation 19 % (20-50) L 09/10/25 05:49
Ferritin 300.0 ng/ml (11.1-264.0) H 09/10/25 05:49
Total Bilirubin 0.8 mg/dl (0.2-1.3) 09/09/25 17:54
AST 21 U/L (14-36) 09/09/25 17:54
ALT 14 U/L (0-35) 09/09/25 17:54
Alkaline Phosphatase 123 U/L (38-126) 09/09/25 17:54
C-Reactive Protein 49.50 mg/L (0.0-10.00) H 09/09/25 17:54
Total Protein 6.1 g/dl (6.3-8.2) L 09/09/25 17:54
Albumin 2.8 g/dl (3.5-5.0) L 09/09/25 17:54
Vitamin B12 521 pg/ml (239-931) 09/10/25 05:49
TSH 0.02 uIU/ml (0.47-4.68) L 09/10/25 05:49
Urine Color Yellow 09/17/25 12:28
Urine Clarity Cloudy (Clear) 09/17/25 12:28
Urine pH 8.0 (5.0-9.0) 09/17/25 12:28
Ur Specific Stearns 1.015 (<1.030) 09/17/25 12:28
Urine Ketones Negative (Negative) 09/17/25 12:28
Ur Occult Blood Reflex 3+ (Negative) A 09/17/25 12:28
Urine Nitrite (Reflex) Negative (Negative) 09/17/25 12:28
Urine Bilirubin Negative (Negative) 09/17/25 12:28
Urine Urobilinogen Negative (Neg - 1+) 09/17/25 12:28
Leukocyte Esterase Rfl 3+ (Negative) A 09/17/25 12:28
Urine RBC /HPF (0-2) 09/17/25 12:28
Urine WBC (Reflex) >100 /HPF (0-5) A 09/17/25 12:28
Ur Squamous Epith Cells Not Reportable 09/17/25 12:28
Urine Bacteria (Reflex) (Negative) 09/17/25 12:28
Urine Yeast (Negative) 09/17/25 12:28
Urine Glucose Negative (Negative) 09/17/25 12:28
Urine Albumin (Reflex) 2+ (Neg - Trace) A 09/17/25 12:28
Random Vancomycin 10.9 ug/ml 09/13/25 06:10
SARS-CoV-2 Antigen Negative (Negative) 09/09/25 18:49
POC Glucose 150 mg/dl (70-99) H 09/21/25 22:09
Blood Type A POS 09/17/25 06:09
Antibody Screen (Negative) 09/17/25 06:09
Ab Screen Tube Method Negative 09/17/25 06:09
Crossmatch IS Only See Detail 09/11/25 13:02
MTS Gel Crossmatch See Detail 09/11/25 13:02
�
Diagnostic Results:�as per HPI�
Peripheral Vascular ultrasound
FINDINGS: Right upper extremity: There is no thrombus seen in the right internal jugular, subclavian and axillary veins. No thrombus is seen in the cephalic vein in the upper arm, cephalic vein in the forearm not visualized due to overlying bandage.
No thrombus seen in the left basilic or brachial veins.
Left upper extremity: There is no thrombus seen in the left internal jugular, subclavian, axillary or proximal cephalic, brachial or basilic veins. Deep veins in the left antecubital fossa and distal left upper extremity are obscured by overlying
bandage. No thrombus is seen in the cephalic or basilic veins in the left forearm.
IMPRESSION:
No findings to confirm deep venous thrombosis of the upper extremities bilaterally.
Portions of the venous system obscured by overlying soft tissue bandages of the upper extremities bilaterally, as noted above.
�
Assessment:70-year-old with PMH of (insulin dependent diabetes, chronic hypotension, peripheral arterial disease status post right BKA and chronic wound in the left lower extremity secondary to vascular insufficiency, now s/p left above the knee
amputation on 09/[address] Rivera.
�
Plan�
PM&R�PT/OT to increase independence with ADLs, improve balance, coordination, endurance, strength, mobility, community reintegration, decreased burden of care on others and family education.�
�
Left Above the Knee amputation: By Dr. Rivera on 09/17/2025. Monitor incision, edema control with RAMONA wrap, pain control, desensitization, Phantom limb pain education, maintain full ROM at hip and knee.�
H/O right BKA: per patient 5.5 years ago. No longer uses prosthetic leg. scoots backward to wheelchair than forward to bed.
HTN: continue medications, monitor closely�
HLD: Statin�
Coronary artery disease�: Aspirin, statin, beta-dimitri
Orthostatic hypotension: Midodrine 5 mg 3 times daily
Chronic Atrial fibrillation:� Continue warfarin and rate control medications.�������������������������������������������
CKD stage IIIb: baseline creatinine around 2,
COPD: without exacerbation
Chronic Anemia: Likely multifactorial.� Continue to monitor.�
Psych: Psychology consult.� Monitor mood, adjust medications as needed.� Lamictal 25 mg bedtime, trazodone
Skin: monitor for pressure sores/rashes/lesions.�
Pain: acetaminophen, oxycodone as needed switched to Dilaudid 2 or 4mg q 4 prn.�Gabapentin
Type 2 diabetes - hemoglobin A1c. 4.7. Carbohydrate controlled diet. Januvia- on hold. Basal bolus protocol
Hypothyroidism: TSH suppressed, likely consistent with euthyroid sick state
Hyponatremia: mild,monitor
Insomnia: Trazodone 25mg HS, Melatonin
Bowel/constipation: Recommend adding Colace and Senna, PRN bisacodyl.�Miralax
Bladder: Time void, PVRs, PRN straight cath.�
GI Prophylaxis: Pantoprazole�40mg daily
DVT Prophylaxis: not on chemoprophylaxis
Pulmonary: Incentive spirometry�
Safety: Continue to reinforce assistance with all transfers.�
Code Status:� Full code
Dispo�(date/plan/equipment needs): Home with medical staff.� Social history reviewed.�
Discharge Destination: Patient is a current resident at [facility] and would recommend� SNF for continuation of PT/OT
��
�
Thank you for allowing me to care for your patient. Please contact me with any questions or concerns.

Documented by User: Sandeep Altman MD 09/22/25 17:04
Consultation - Medical
-
Chief Complaint:�Ambulatory dysfunction, s/p left AKA
�
History of Present Illness:�70 year old female with PMH of (Chronic hypotension requiring midodrine, PAD s/p LLE stent placement from SFA to bypass graft with balloon angioplasty on 07/08/2025, Status post right BKA, Chronic left lower extremity
wound infection , CKD stage IIIb with baseline creatinine around 2, Chronic anemia, Chronic atrial fibrillation on Coumadin, Diabetes type 2, Hypothyroidism, COPD without exacerbation) presented to the [facility] ED on 09/09/2025 due to hypotension,
tachycardia, concern for infection in chronic LLE wound. Patient is status post left AKA by Dr. Rivera on 09/17/2025.
patient reported right BKA about 5-1/2 years ago. Had a prosthetic leg that did not fit. Had a second one that she could not manage. She has been without one for about a year or so. She has been scooting backward from her bed to the wheelchair
then scoots forward to her bed. She currently resides at [facility] long-term, assisted living. She is being assisted with ADLs. Patient not interested in using prosthetics. She is however interested in getting an electrical scooter. Advised
to discuss with social work.
�
Past Medical History:�Chronic hypotension requiring midodrine,PAD. s/p LLE stent placement from SFA to bypass graft with balloon angioplasty on 07/08/2025, Status post right AKA, Chronic left lower extremity wound infection with micrococcus on
bacteremia
CKD stage IIIb with baseline creatinine around 2, Chronic anemia with macrocytosis, Chronic atrial fibrillation on Coumadin, Diabetes type 2, Hypothyroidism, COPD without exacerbation ,history of TME related to medications and infection
Procedure History:�right BKA, LLE stent placement from SFA to bypass graft with balloon angioplasty on 07/08/2025, left AKA, cataracts excised
Family History:�non contributory
�
Social History:�
Functional Level Premorbidly:�Independent with all activities�
Functional Level Currently:�Bed mobility�independent for rolling. Patient really posteriorly pushing during bed mobility. Cues for use of bed rail to assist with rolling. Patient unable to tolerate further bed mobility at this time and not able
to tolerate rolling to sitting, grooming�min assist, toileting�dependent, lower extremity care�max assist,
�
Tobacco:�Denies�
Alcohol:�Denies�
Drug use:�Denies�
�
[facility]
24-hour assistance available:�yes
Number of floors:�1
# steps to enter:�0
# steps to second floor:0
Potential First floor set up:�yes
Driving:�no
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
�
�
Allergies:�
Allergy/AdvReac Type Severity Reaction Status Date / Time
cefepime Allergy itchy face Verified 09/09/25 20:51
and chest
May 2025
at OSH
ceftriaxone Allergy itchy face Verified 09/09/25 20:51
and chest
May 2025
at OSH
�
Review of Systems:�
Constitutional: (x) abNormal _fatigue
Eye: (x) Normal _
Ear/Nose/Throat: (x) Normal _
Respiratory: (x) Normal _
Cardiovascular: (x) Normal _
Gastrointestinal: (x) Normal _
Genitourinary: (x) abNormal _ incontinent of urine.
Musculoskeletal: (x) abNormal _right leg pain, s/p bka, left above knee amputation, left residual limb pain
Integumentary: (x) abNormal _ skin tears on arms, wound over bottom of right residual limb limiting use.
Neurologic: (x) Normal _
Psychiatric: (x) Normal _
Endocrine: (x) Normal _
Hematologic/Lymphatic: (x) Normal _
Allergic/Immunologic: (x) Normal _
�
Medications:�
Active Current Visit Medication List
Category Date Time Status
Acetaminophen [Tylenol] Med 09/17/25 16:00 Active
650 mg PO Q4HWA
Aspirin Chewable [Low Strength Aspirin] Med 09/10/25 08:00 Active
81 mg PO DAILY
Atorvastatin [Lipitor] Med 09/09/25 22:22 Active
10 mg PO HS
Bisacodyl [Dulcolax] Med 09/17/25 12:27 Active
10 mg RECTAL DAILYPRN PRN
Dextrose 50%-Water [Dextrose 50% Syringe] Med 09/09/25 22:22 Active
12.5 grams IV [id number] PRN
Docusate Sodium [Colace] Med 09/13/25 13:17 Active
100 mg PO BIDPRN PRN
Flush (0.9% Sodium Chloride) [Flush (Nss)] Med 09/09/25 23:00 Active
See Dose Instructions IV PER PROTOCOL
Gabapentin [Neurontin] Med 09/10/25 08:00 Active
300 mg PO BID
Glucagon [GlucaGen] Med 09/09/25 22:22 Active
1 mg IM PRN PRN
HYDROmorphone [Dilaudid] Med 09/19/25 11:57 Active
2 mg PO Q4HPRN PRN
HYDROmorphone [Dilaudid] Med 09/19/25 06:49 Active
4 mg PO Q6HPRN PRN
Insulin Aspart Corrective Low [Novolog Flexpen-Low Med 09/17/25 18:00 Active
Resistance]
See Protocol SC AC
Lamotrigine [Lamictal] Med 09/09/25 23:00 Active
25 mg PO HS
Levothyroxine [Synthroid] Med 09/10/25 06:00 Active
100 mcg PO DAILY @ 0600
Loratadine [Claritin] Med 09/10/25 18:00 Active
10 mg PO Q48H
Melatonin Med 09/09/25 22:22 Active
10 mg PO HS
Metoprolol Xl [Toprol Xl] Med 09/10/25 18:00 Active
25 mg PO QPM
Midodrine [ProAmatine] Med 09/10/25 08:00 Active
5 mg PO TID @ 0800,1200,1700
Oxycodone [Roxicodone] Med 09/19/25 06:52 Active
5 mg PO Q6HPRN PRN
Pantoprazole [Protonix] Med 09/10/25 08:00 Active
40 mg PO DAILY
Phenyleph/Pramoxin/Glycr/W.pet [Preparation H Max Med 09/13/25 13:17 Active
Strength Pain Relief Cream]
See Dose Instructions RECTAL Q6HPRN PRN
Polyethylene Glycol Powder [Miralax] Med 09/12/25 17:00 Active
17 grams PO DAILY
Sitagliptin Phosphate [Januvia] Med 09/10/25 08:00 Hold
25 mg PO DAILY
Sodium Bicarbonate Med 09/10/25 08:00 Active
650 mg PO BID
Trazodone [Desyrel] Med 09/09/25 23:00 Active
25 mg PO HS
Warfarin [Coumadin] Med 09/18/25 18:00 Active
3 mg PO QPM
�
Vitals:�
Temp Pulse Resp BP Pulse Ox
97.7 F 77 17 84/50 97
09/22/25 03:40 09/22/25 03:40 09/22/25 03:40 09/22/25 03:40 09/22/25 03:40
Height 5 ft 7 in
Actual Weight 71.724 kg
Body Mass Index (BMI) 24.8
�
Physical Exam:�
General Appearance/Observation: Well-developed female in no apparent distress.�
Pain/Comfort Assessment: left leg burning pain
Mood/Affect: Appropriate�
�
Integumentary/Operative Site:�Left residual limb wrapped in ramona.
�� Other Type of Wound: Multiple ecchymosis in the bilateral upper extremities, right side of her face, upper chest areas. Multiple skin tears with dressing
��
Eyes: Conjunctiva/Lids: normal���� Pupils: pupils equal round
Ears/Nose/Throat: oral mucosa moist,� throat clear.������������ Lips/Teeth/Gums: normal�
Cardiovascular: Heart: Irregularly irregular, no murmur�
Respiratory: Respiratory Effort/Chest Expansion: normal������� Auscultation: Clear to auscultation bilaterally�
Gastrointestinal: abdomen not tender, no distension, normal abdominal bowel sounds
Genitourinary: No Thompson�
Extremities:�Edema: Left residual limb in ramona wrap�cyanosis: None�Trophic�changes: None
�
Neurology Exam:
Orientation: Alert, Oriented to self, Time, Place�
Memory: Intact for immediate medical concerns�
Comprehension: Intact
Two step command: Intact
Cranial Nerves:
�� CNII:�Pupillary light reflex: Intact����
�� CN VII:�Facial movement: Symmetric
�� CN VIII:�Hearing: Normal
�� CN IX/X:�Speech & swallow: Normal,�Position of Uvula: Midline
�� CN XI:�Shoulder shrug: Symmetric
��
Sensory:
�� Light touch: Intact in bilateral upper and thighs
��
�
Reflexes:
�� Biceps: 2+ bilaterally
�� Brachioradialis: 2+ bilaterally
�� Triceps: 2+ bilaterally
�� Patellar: 0 right
�� Achilles: n/a
�� Babinski: n/a
�� Clonus: n/a
�� Nora: Negative bilaterally�
Cerebellar: Dysmetria/Ataxia: None�
Musculoskeletal: Motor: (Manual muscle scale 0-5)�
Muscle SA EF WE EE FF FA HF KE DF EHL PF
Right� 3+ 5 5 4 5 3+ 4 - - -
Left 4 5 5 4 5 *2 - - - -
�*post op pain. left thigh/residual limb painful to palpation
Tone: Normal in all extremities�
Range of Motion: Decreased knee extension on the right, moderately diminished rom in right shoulder
�
Lab Results:
Labs
WBC 7.4 10^3/uL (4.8-10.8) 09/21/25 08:53
RBC 2.66 10^6/uL (4.20-5.40) L 09/21/25 08:53
Hgb 8.8 g/dL (12.0-16.0) L 09/21/25 08:53
Hct 29.8 % (37.0-47.0) L 09/21/25 08:53
MCV 112.0 fL (81.0-99.0) H 09/21/25 08:53
MCH 33.1 pg (27.0-31.0) H 09/21/25 08:53
MCHC 29.5 g/dL (33.0-37.0) L 09/21/25 08:53
RDW 15.9 % (11.5-14.5) H 09/21/25 08:53
Plt Count 175 10^3/uL (130-400) 09/21/25 08:53
MPV 9.2 fL (7.4-10.4) 09/21/25 08:53
Abs Immat Gran (auto) 0.1 10^3/uL (0-0.05) H 09/19/25 10:41
Absolute Neuts (auto) 6.6 10^3/uL (1.4-6.5) H 09/19/25 10:41
Absolute Lymphs (auto) 1.5 10^3/uL (1.2-3.4) 09/19/25 10:41
Absolute Monos (auto) 1.0 10^3/uL (0.1-0.6) H 09/19/25 10:41
Absolute Eos (auto) 0.4 10^3/uL (0-0.7) 09/19/25 10:41
Absolute Basos (auto) 0.0 10^3/uL (0-0.2) 09/19/25 10:41
Immature Gran % 0.9 % (0-0.5) H 09/19/25 10:41
Neutrophils % 68.9 % (42.2-75.2) 09/19/25 10:41
Lymphocytes % 15.6 % (20.5-51.1) L 09/19/25 10:41
Monocytes % 10.4 % (1.7-9.3) H 09/19/25 10:41
Eosinophils % 3.8 % (0-6) 09/19/25 10:41
Basophils % 0.4 % (0-2) 09/19/25 10:41
Nucleated RBC % 0 % 09/19/25 10:41
Normal RBC Morphology No 09/09/25 17:54
Anisocytosis 1+ 09/09/25 17:54
ESR 84 mm/hour (0-20) H 09/09/25 17:54
PT 20.3 Sec (11.4-14.6) H 09/21/25 08:53
INR 1.72 09/21/25 08:53
VBG pH Cancelled 09/19/25 18:30
VBG pCO2 Cancelled 09/19/25 18:30
VBG pO2 Cancelled 09/19/25 18:30
VBG HCO3 Cancelled 09/19/25 18:30
VBG O2 Sat (Sharon) Cancelled 09/19/25 18:30
VBG Base Excess Cancelled 09/19/25 18:30
VBG O2 Therapy Cancelled 09/19/25 18:30
Sodium 134 mmol/L (135-145) L 09/21/25 08:53
Potassium 4.9 mmol/L (3.5-5.1) 09/21/25 08:53
Chloride 105 mmol/L (98-107) 09/21/25 08:53
Carbon Dioxide 30 mmol/L (22-30) 09/21/25 08:53
BUN 11 mg/dl (7-17) 09/21/25 08:53
Creatinine 1.9 mg/dL (0.6-1.0) H 09/21/25 08:53
Estimated Creat Clear 28 ml/min 09/21/25 08:53
eGFR 28.41 09/21/25 08:53
Glucose 100 mg/dl (70-99) H 09/21/25 08:53
Hemoglobin A1c 4.7 % (4.0-5.6) 09/10/25 05:49
Lactic Acid Cancelled 09/09/25 21:45
Calcium 7.8 mg/dl (8.4-10.2) L 09/21/25 08:53
Magnesium 1.9 mg/dl (1.6-2.3) 09/09/25 17:54
Iron 24 ug/dl (37-170) L 09/10/25 05:49
TIBC 125 ug/dl (265-497) L 09/10/25 05:49
% Saturation 19 % (20-50) L 09/10/25 05:49
Ferritin 300.0 ng/ml (11.1-264.0) H 09/10/25 05:49
Total Bilirubin 0.8 mg/dl (0.2-1.3) 09/09/25 17:54
AST 21 U/L (14-36) 09/09/25 17:54
ALT 14 U/L (0-35) 09/09/25 17:54
Alkaline Phosphatase 123 U/L (38-126) 09/09/25 17:54
C-Reactive Protein 49.50 mg/L (0.0-10.00) H 09/09/25 17:54
Total Protein 6.1 g/dl (6.3-8.2) L 09/09/25 17:54
Albumin 2.8 g/dl (3.5-5.0) L 09/09/25 17:54
Vitamin B12 521 pg/ml (239-931) 09/10/25 05:49
TSH 0.02 uIU/ml (0.47-4.68) L 09/10/25 05:49
Urine Color Yellow 09/17/25 12:28
Urine Clarity Cloudy (Clear) 09/17/25 12:28
Urine pH 8.0 (5.0-9.0) 09/17/25 12:28
Ur Specific Stearns 1.015 (<1.030) 09/17/25 12:28
Urine Ketones Negative (Negative) 09/17/25 12:28
Ur Occult Blood Reflex 3+ (Negative) A 09/17/25 12:28
Urine Nitrite (Reflex) Negative (Negative) 09/17/25 12:28
Urine Bilirubin Negative (Negative) 09/17/25 12:28
Urine Urobilinogen Negative (Neg - 1+) 09/17/25 12:28
Leukocyte Esterase Rfl 3+ (Negative) A 09/17/25 12:28
Urine RBC /HPF (0-2) 09/17/25 12:28
Urine WBC (Reflex) >100 /HPF (0-5) A 09/17/25 12:28
Ur Squamous Epith Cells Not Reportable 09/17/25 12:28
Urine Bacteria (Reflex) (Negative) 09/17/25 12:28
Urine Yeast (Negative) 09/17/25 12:28
Urine Glucose Negative (Negative) 09/17/25 12:28
Urine Albumin (Reflex) 2+ (Neg - Trace) A 09/17/25 12:28
Random Vancomycin 10.9 ug/ml 09/13/25 06:10
SARS-CoV-2 Antigen Negative (Negative) 09/09/25 18:49
POC Glucose 150 mg/dl (70-99) H 09/21/25 22:09
Blood Type A POS 09/17/25 06:09
Antibody Screen (Negative) 09/17/25 06:09
Ab Screen Tube Method Negative 09/17/25 06:09
Crossmatch IS Only See Detail 09/11/25 13:02
MTS Gel Crossmatch See Detail 09/11/25 13:02
�
Diagnostic Results:�as per HPI�
Peripheral Vascular ultrasound
FINDINGS: Right upper extremity: There is no thrombus seen in the right internal jugular, subclavian and axillary veins. No thrombus is seen in the cephalic vein in the upper arm, cephalic vein in the forearm not visualized due to overlying bandage.
No thrombus seen in the left basilic or brachial veins.
Left upper extremity: There is no thrombus seen in the left internal jugular, subclavian, axillary or proximal cephalic, brachial or basilic veins. Deep veins in the left antecubital fossa and distal left upper extremity are obscured by overlying
bandage. No thrombus is seen in the cephalic or basilic veins in the left forearm.
IMPRESSION:
No findings to confirm deep venous thrombosis of the upper extremities bilaterally.
Portions of the venous system obscured by overlying soft tissue bandages of the upper extremities bilaterally, as noted above.
�
Assessment:
70-year-old F PMH of (insulin dependent diabetes, chronic hypotension, peripheral arterial disease status post right BKA and chronic wound in the left lower extremity secondary to vascular insufficiency), now s/p left above the knee amputation on
09/[address] Rivera with ADL and ambulatory dysfunction..
�
Plan�
PM&R�PT/OT to increase independence with ADLs, improve balance, coordination, endurance, strength, mobility, community reintegration, decreased burden of care on others and family education.�
Left Above the Knee amputation: By Dr. Rivera on 09/17/2025. Monitor incision, edema control with RAMONA wrap, pain control, desensitization, Phantom limb pain education, maintain full ROM at hip and knee.�
H/O right BKA: per patient 5.5 years ago. No longer uses prosthetic leg. scoots backward to wheelchair than forward to bed.
HTN: On metoprolol for A-fib, requiring midodrine for orthostasis.
-Orthostatic hypotension: Midodrine 5 mg 3 times daily
HLD: Statin�
Coronary artery disease�: Aspirin, statin, beta-dimitri
Chronic Atrial fibrillation:� Continue warfarin and rate control medications.�������������������������������������������
CKD stage IIIb: baseline creatinine around 2
COPD: without exacerbation
Chronic Anemia: Likely multifactorial.� Continue to monitor.�
Psych: Psychology consult.� Monitor mood, adjust medications as needed.� Lamictal 25 mg bedtime, trazodone
Skin: monitor for pressure sores/rashes/lesions.�
Pain: acetaminophen, oxycodone as needed switched to Dilaudid 2 or 4mg q 4 prn.�Gabapentin
Type 2 diabetes - hemoglobin A1c. 4.7. Carbohydrate controlled diet. Januvia- on hold. Basal bolus protocol
Hypothyroidism: TSH suppressed, likely consistent with euthyroid sick state
Hyponatremia: mild,monitor
Insomnia: Trazodone 25mg HS, Melatonin
Bowel/constipation: Recommend adding Colace and Senna, PRN bisacodyl.�Miralax
Bladder: Time void, PVRs, PRN straight cath.�
GI Prophylaxis: Pantoprazole�40mg daily
DVT Prophylaxis: not on chemoprophylaxis
Pulmonary: Incentive spirometry�
Safety: Continue to reinforce assistance with all transfers.�
Code Status:� Full code
Dispo�(date/plan/equipment needs): Home with medical staff.� Social history reviewed.�
Discharge Destination: Patient is a current resident at [facility] and would recommend� SNF for continuation of PT/OT. She is unable to use her right prosthesis because of a wound. Has been at a wheelchair level. Has significant deconditioning
and feel that she is not able to tolerate an acute inpatient program.
Attending Statement:
I saw and examined the patient today. Reviewed care plan with patient, therapy, nursing, and physician assistant professor. I agree with the above subjective and physical exam, and plan as documented by SHEYLA Vaca with adjustments made as necessary.A
total of minutes were spent with the patient preparing for the evaluation, obtaining history, performing examination and evaluation, counseling, data review, case management, care coordination, short order fry cook, and EMR documentation.
��
�
Thank you for allowing me to care for your patient. Please contact me with any questions or concerns.
Consultation
-
Date/Time Consultation Performed: 09/22/25
Requesting Provider: Dr. Shaji Hinson
Performing Provider: Patricia Vaca/ Dr. Sandeep Altman
Reason for Consultation: Left transfemoral amputation
[2025-09-22] MEDS: LOW STRENGTH ASPIRIN 81 MG PO (08:36)
[2025-09-22] MEDS: NEURONTIN 300 MG PO ×2 (08:36→20:45)
[2025-09-22] MEDS: TYLENOL 650 MG PO ×4 (08:37→20:42)
[2025-09-22] MEDS: SODIUM BICARBONATE 650 MG PO ×2 (08:37→20:44)
[2025-09-22] MEDS: MIRALAX PO (08:38)
[2025-09-22] MEDS: ANTIFUNGAL CLEAR 1 APPLIC TOPICAL ×2 (08:57→20:42)
[2025-09-22 10:28] LABS: INR 2.23; PT 24.8 Sec (11.4-14.6)
[2025-09-22 11:55] LABS: Glucose - Point of Care 91 mg/dl (70-99)
[2025-09-22 12:00] VITALS: BP 86/43
--- NOTE | 2025-09-22 12:10 | CM ---
Pt has been denied for [facility] to [facility] and will return to [facility] when she is medically stable. Per [facility], [facility] does not have any additional SNF days, and her bed hold will be up tomorrow. If she doesn't return tomorrow,
she will not be able to return to her rn long term care bed, and may possibly have to transfer to another facility.
Plan: RADHA has made aware of concern regarding loss of bed at [facility].
[facility] Report: [phone]
[facility]
[2025-09-22] MEDS: MS CONTIN (EXTENDED RELEASE) 15 MG PO (13:15)
[2025-09-22] MEDS: NSS 500 IV (13:20)
--- NOTE | 2025-09-22 13:37 | W.PN.HOSP.TC ---
Today's Communication/Plan
-
Add low-dose of MS Contin and titrate oral hydromorphone. Monitor for oversedation
IV fluid bolus for hypotension and continue midodrine
Continue Coumadin following daily INR
Discharge planning
Assessment / Plan
Assessment / Plan
Impression
70-year-old with past medical history significant for insulin dependent diabetes, chronic hypotension, peripheral arterial disease status post right BKA and chronic wound in the left lower extremity thought to be secondary to vascular insufficiency
and is pending vascular evaluation on Sunday, recent admission for sepsis in the setting of wound infection that grew polymicrobial bacteria and treated with prolonged Unasyn doxycycline and eventually Augmentin doxycycline at home now presenting to
the emergency department with low blood pressure and concern for wound infection. Her temperature is 99.2. Blood pressure was maintained at 98/68. Heart rate in the low 100s 90s. She is in no acute distress at this time. UA is pending but she
does have 3+ leukocyte esterase otherwise negative nitrites
Chronic left lower extremity leg and foot infected wound secondary to PAD.
Normal gap metabolic acidosis
Hypokalemia, improved
Conditions prior to admission
Chronic hypotension requiring midodrine.
PAD.
� Status post left lower extremity stent placement from SFA to bypass graft with balloon angioplasty on 07/08/2025
� Status post right AKA
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
CKD stage IIIb with baseline creatinine around 2
Chronic anemia with macrocytosis
Chronic atrial fibrillation
Anticoagulation with Coumadin
Diabetes type 2
Hypothyroidism on replacement
COPD without exacerbation
History of TME related to medications and infection
UTI
Mild protein calorie malnutrition with BMI of 24
Plan
1. Chronic nonhealing wounds infection left calf and foot pedal site wound.
Patient presents to be afebrile and nontoxic-appearing.
Chronic hypotension responded to IV fluids while remaining on midodrine.
Discussed with vascular surgery.
Initially on Unasyn discontinued on 09/14
Status post left AKA on 09/17
Postoperative care as per vascular. Plan is to remove Thompson catheter on 09/19
Hemoglobin stable. Resume Coumadin tonight on 09/18
Adjust analgesic regimen with addition of low-dose of MS Contin and continue to titrate oral hydromorphone. Monitor for oversedation.
Continue Lipitor
2. CKD stage IIIb.
Creatinine at the baseline
Non-anion gap metabolic acidosis, acute on chronic.
Improving with IV fluids.
Continue oral bicarb.
Monitor for recurrent retention while off Flomax
3. Chronic anemia with macrocytosis.
Hemoglobin close to baseline at 8�9 and drifting down to 7.8
Iron stores consistent with mixed picture of iron deficiency anemia of chronic disease
Transfused. 1 unit of PRBC ordered on 09/11 to keep hemoglobin above 8�9 preoperatively
Status post IV iron
Follow hemoglobin postoperative
4. Chronic atrial fibrillation
Continue metoprolol
Coumadin held prior to surgery. Status post single dose of vitamin K given on 09/16 with INR drifted down to 1.5
Resume Coumadin on 09/18
Continue aspirin
5. UA showing extensive bacteriuria and pyuria from 09/09
Urine culture growing gram-negative bacilli -further identification and susceptibility pending
Currently on empiric unasyn
6. Type 2 diabetes - Updated hemoglobin A1c. 4.7
Carbohydrate controlled diet.
Hold Januvia.
Basal bolus protocol
7. Hypothyroidism on replacement.
TSH suppressed and likely consistent with euthyroid sick state
8. 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
Continue gabapentin for chronic pain/neuropathy
9. Constipation - new complaint
Enema
Oral therapy
Preparation H afterwards
10. Hyponatremia
mild
monitor
Full code
DVT prophylaxis initially on Coumadin.
Update 09/19 - changing pain meds to PO in effort to transition to outpatient plan; Donna rowan; PT/OT
Update 09/20 - sometimes lethargic with opiates - reduce dosing;
Anticipated Discharge: 24 - 48 hours
Subjective/Interval History
-
Date of Service: September 22, 2025
Objective Data
-
Labs:
Laboratory Results
09/22/25
10:08
PT 24.8 H
INR 2.23
Vital Signs:
Vital Signs
Temp Pulse Resp BP Pulse Ox
98.7 F 95 16 86/43 98
09/22/25 12:00 09/22/25 13:15 09/22/25 12:00 09/22/25 13:15 09/22/25 12:21
I&O
09/21/25 09/22/25 09/23/25
06:59 06:59 06:59
Intake Total 870 / 870 480 / 480
Balance 870 / 870 480 / 480
Physical Exam
-
General: Well Developed and No Apparent Distress
HEENT: Normocephalic, Atraumatic and Moist Mucous Membranes
Respiratory: Clear to Auscultation
Cardiac: Regular Rhythm and S1/S2; Negative Murmur, Rub or Gallop
GI: Soft, Nontender, Nondistended and Normal Bowel Sounds; Negative Organomegaly
Rectal: Deferred by Provider
Musculoskeletal: No Clubbing, No Cyanosis and No Edema
Skin: Negative Rash
Neuro: Nonfocal/Grossly Intact
[2025-09-22 15:11] VITALS: BP 88/48
[2025-09-22 17:01] LABS: Glucose - Point of Care 81 mg/dl (70-99)
[2025-09-22] MEDS: TOPROL XL PO (17:35)
[2025-09-22] MEDS: COUMADIN 3 MG PO (17:36)
[2025-09-22] MEDS: CLARITIN 10 MG PO (17:39)
[2025-09-22 20:56] LABS: Glucose - Point of Care 126 mg/dl (70-99)
[2025-09-22] MEDS: MELATONIN 10 MG PO (21:54)
[2025-09-22] MEDS: LIPITOR 10 MG PO (21:55)
[2025-09-22] MEDS: LAMICTAL 25 MG PO (21:55)
[2025-09-22] MEDS: DESYREL 25 MG PO (21:58)
[2025-09-22 23:00] VITALS: BP 102/70
[2025-09-23] MEDS: TYLENOL PO ×2 (01:02→04:45)
[2025-09-23] MEDS: SYNTHROID 100 MCG PO (06:04)
[2025-09-23 07:51] VITALS: BP 108/58
[2025-09-23] MEDS: NOVOLOG FLEXPEN-LOW RESISTANCE SC ×2 (07:57→11:30)
[2025-09-23] MEDS: MS CONTIN (EXTENDED RELEASE) 15 MG PO (07:59)
[2025-09-23] MEDS: TYLENOL 650 MG PO ×2 (07:59→12:00)
[2025-09-23] MEDS: SODIUM BICARBONATE 650 MG PO (07:59)
[2025-09-23] MEDS: PROTONIX 40 MG PO (07:59)
[2025-09-23] MEDS: LOW STRENGTH ASPIRIN 81 MG PO (07:59)
[2025-09-23] MEDS: NEURONTIN 300 MG PO (07:59)
[2025-09-23] MEDS: MIRALAX PO (08:00)
[2025-09-23] MEDS: ANTIFUNGAL CLEAR 1 APPLIC TOPICAL (08:00)
[2025-09-23 08:10] LABS: Glucose - Point of Care 104 mg/dl (70-99)
[2025-09-23 08:33] LABS: INR 2.87; PT 30.4 Sec (11.4-14.6)
--- NOTE | 2025-09-23 09:46 | VATNOTE ---
VAT rounds: pt state she feels her L arm is swollen and appreciates 'a little bit of pain' in that arm. This RN does not discern any significant swelling at this time. MD notified and ultrasound recommended. MD to see patient.
--- NOTE | 2025-09-23 10:58 | CM ---
Patient seen at bedside
spoke with [facility] liaison who spoke with patient
and her bed hold will be up today. If she doesn't return today she will not be able to return to her fdc bed
per hospitalist patient is ready for discharge and will provide scripts for pain managment
IMM explained & signed - in chart
PLAN: return to [facility] Report: [phone]
[facility]
transportation forms on chart
--- NOTE | 2025-09-23 11:10 | W.DS.TRANS ---
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
-
Discharge Instructions:
Sleep Apnea Risk Low
Discharge Diagnosis/Procedures Left AKA
Diet As tolerated,Diabetic, Carb Controlled
Activity With assistance,As tolerated
Driving Restrictions No driving
Bathing Restrictions OK to Shower
Instructions:
Stand-Alone Forms: Vascular Surg Discharge Instr
Changes to Home Medications: Yes
Discharge Medications:
DC Medications w/original date entered in [employer]
aspirin 81 mg chewable tablet 81 mg PO DAILY Blood Clot Prevention/Tx 09/02/24
atorvastatin 10 mg tablet 10 mg PO HS High Cholesterol 09/02/24
bisacodyl 10 mg rectal suppository 10 mg DC DAILYPRN PRN if mom ineffective 09/02/24
cholecalciferol (vitamin D3) 50 mcg (2,000 unit) tablet (Vitamin D3) 125 mcg PO DAILY Supplement 09/02/24
gabapentin 300 mg capsule 300 mg PO BID Neurological Condition 09/02/24
guaifenesin 100 mg/5 mL oral liquid 200 mg PO Q4HPRN PRN cough 09/02/24
lamotrigine 25 mg tablet 25 mg PO HS Depression 09/02/24
levothyroxine 100 mcg tablet 100 mcg PO DAILY Thyroid 09/02/24
magnesium hydroxide 400 mg/5 mL oral suspension (Milk of Magnesia) 30 ml PO DAILYPRN PRN constipation 09/02/24
melatonin 5 mg tablet 10 mg PO HS Sleep 09/02/24
pantoprazole 40 mg tablet,delayed release 40 mg PO DAILY Gastrointestinal Issue 09/02/24
sodium phosphates 19 gram-7 gram/118 mL enema (Enema) 118 ml DC DAILYPRN PRN if no result aftr bisacodyl 09/02/24
tamsulosin 0.4 mg capsule 0.4 mg PO DAILY Urinary Issue 09/02/24
trazodone 100 mg tablet 25 mg PO HS Mental Health/Anxiety 09/02/24
loratadine 10 mg tablet 10 mg PO QPM Allergies 04/07/25
midodrine 5 mg tablet 5 mg PO TID Blood Pressure 04/07/25
acetaminophen 500 mg tablet 1,000 mg PO TID Pain 07/08/25
docusate sodium 100 mg capsule (Colace) 100 mg PO DAILY Constipation 07/08/25
folic acid 400 mcg tablet 800 mcg PO DAILY ANEMIA 08/04/25
metoprolol succinate 25 mg tablet,extended release 24 hr 25 mg PO QPM Blood Pressure 09/09/25
multivitamin 1 tab PO DAILY Supplement 09/09/25
sodium bicarbonate 650 mg tablet 650 mg PO BID ALKALINIZER 09/09/25
warfarin 3 mg tablet 3 mg PO QPM Blood Clot Prevention/Tx 09/09/25
hydromorphone 2 mg tablet 2 mg PO Q4HPRN PRN moderate pain #20 tabs 09/23/25
morphine 15 mg tablet,extended release 15 mg PO DAILY #10 tabs 09/23/25
Home Medication Changes
Ms-Contin, Hydromorphone
Pending Results: No
[2025-09-23 11:12] LABS: Glucose - Point of Care 105 mg/dl (70-99)
[2025-09-23] MEDS: FLUZONE HIGH-DOSE 2025-26 0.5 ML IM (12:03)
[2025-09-23 12:39] VITALS: BP 99/50
== END 2025-09-23 13:01 | DRG 240 ==
LOC: 3 WEST ACU 22:00
PROVIDERS: Internal Medicine; Nurse Practitioner; Nurse Practitioner Family; ADMITTING PHYSICIAN Internal Medicine; ATTENDING PHYSICIAN Internal Medicine; CONSULT PHYSICIAN Internal Medicine Infectious Disease; CONSULT PHYSICIAN Physical Medicine & Rehabilitation; EMERGENCY PHYSICIAN Student in an Organized Health Care Education/Training Program; FAMILY PHYSICIAN Internal Medicine; OTHER PHYSICIAN Student in an Organized Health Care Education/Training Program; OTHER PHYSICIAN Surgery Vascular Surgery
PROC: 30233N1 Transfusion of Nonautologous Red Blood Cells into Peripheral Vein, Percutaneous Approach (ICD-10-PCS; 2025-09-11)
PROC: 0Y6D0Z1 Detachment at Left Upper Leg, High, Open Approach (ICD-10-PCS; 2025-09-17)
PROC: 3E02340 Introduction of Influenza Vaccine into Muscle, Percutaneous Approach (ICD-10-PCS; 2025-09-23)
DX: E11.52 Type 2 diabetes mellitus with diabetic peripheral angiopathy with gangrene (principal); E44.1 Mild protein-calorie malnutrition; I48.20 Chronic atrial fibrillation, unspecified; N39.0 Urinary tract infection, site not specified; E87.1 Hypo-osmolality and hyponatremia; E87.21 Acute metabolic acidosis; Z87.891 Personal history of nicotine dependence; E11.22 Type 2 diabetes mellitus with diabetic chronic kidney disease; E03.9 Hypothyroidism, unspecified; I48.0 Paroxysmal atrial fibrillation; Z79.01 Long term (current) use of anticoagulants; E87.6 Hypokalemia; Z68.24 Body mass index [BMI] 24.0-24.9, adult; E11.621 Type 2 diabetes mellitus with foot ulcer; N18.32 Chronic kidney disease, stage 3b; Z23 Encounter for immunization
CPT/HCPCS: 27590; 73590; 73630; 80048; 80053; 80202; 81003; 81015; 82607; 82728; 82805; 82962; 83036; 83540; 83550; 83605; 83735; 84443; 85025; 85027; 85610; 85652; 86140; 86850; 86900; 86901; 86920; 86922; 87040; 87077; 87086; 87186; 87502; 87811; 88307; 88311; 93005; 93970; 93971; 96360; 97163; 97167; 97530; 97535; 99285; J2916; P9016